=== PATIENT | male | born 1995 | race Caucasian/White ===

== ENCOUNTER 2022-05-22 08:12 | Emergency (ER) | payer MEDICAID, SELFPAY ==
[2022-05-22 08:14] VITALS: BP 125/94; PULSE 79; RESP 14; TEMP 37.2; O2SAT 100
[2022-05-22 08:16] VITALS: BMI 19.5
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
[2022-05-22 08:30] LABS: Absolute Lymphocyte Count 0.85 X10^3/uL (0.83-4.51); Absolute Neutrophil Count 12.5 X10^3/uL (2.0-7.7); Basophil# 0.02 X10^3/uL; Basophil% 0.1 % (0-1); Hematocrit 48.9 % (40-54); Hemoglobin 15.6 g/dL (13.0-16.5); Lymphocyte # 0.85 X10^3/ul (0.83-4.51); Lymphocyte % 6.2 % (19-41); Mean Corp Hgb Conc 31.9 g/dL (32-36); Mean Corpuscular Volume 81.6 fL (80-94); Mean Platelet Vol. 9.4 fl (6.2-12.0); Monocyte# 0.36 X10^3/uL; Monocyte% 2.6 % (0-10); NRBC Flagged by Analyzer 0 % (0-5); Neutrophil # 12.46 X10^3/uL (2.7-7.7); Neutrophil % 90.6 % (47-70); Platelet Count 292 K/mm3 (150-450); RBC Distribution Width CV 13.3 % (11.6-14.6); Red Blood Count 5.99 M/mm3 (4.6-6.2); White Blood Count 13.8 K/mm3 (4.4-11.0)
[2022-05-22] MEDS: 0.9% Normal Saline 1,000 ML 150 ML IV (08:30)
[2022-05-22] MEDS: Morphine 4 MG/ML Syringe IV (08:31)
[2022-05-22] MEDS: Ondansetron 4 MG/2 ML Vial IV (08:31)
[2022-05-22] MEDS: Ketorolac 30 MG/ML Syringe IV (08:31)
[2022-05-22 08:42] LABS: Anion Gap 10 (5-15); BUN 7 mg/dL (7-18); BUN/Creat Ratio 9.2 RATIO (10-20); Calcium,Total 9.3 mg/dL (8.5-10.1); Chloride 102 mmol/L (98-107); Creatinine, Serum 0.76 mg/dL (0.70-1.30); EST Glomerular Filtration Rate 130 mL/min (>60); Est Glom Filt Rate - Afr Amer 157 mL/min (>60); Glucose 149 mg/dL (74-106); Potassium 3.7 mmol/L (3.5-5.1); Sodium Level 139 mmol/L (136-145)
[2022-05-22 09:15] LABS: AST(SGOT) 16 U/L (15-37); Alanine Aminotransfer ALT/SGPT 20 U/L (16-61); Albumin, Serum 4.1 g/dL (3.2-5.0); Alkaline Phosphatase 71 U/L (45-117); Bilirubin, Direct 0.14 mg/dL (0.00-0.30); Globulin 3.8 g/dL (2.2-4.2); Protein, Total 7.9 g/dL (6.4-8.2)
[2022-05-22 09:22] LABS: Bacteria 0 SEEN /hpf (None Seen); Mucous, Urine 0 SEEN /hpf (<or=2+); Red Blood Cells-Urine 0 SEEN /hpf (0-5); Squamous Epithelial Cells - UA 0 SEEN /hpf (0-5); White Blood Cells 0 SEEN /hpf (0-5)
[2022-05-22 09:24] LABS: Glucose, Dipstick Normal (Normal); Leukocyte Esterase-Dipstick Negative /ul (Negative); Nitrite-Dipstick Negative (Negative); Occult Blood-Urine Negative /ul (Negative); Protein-Dipstick 15 mg/dl (Negative); Specific Gravity, Urine 1.015 (1.002-1.030); Urine Bilirubin Dipstick Negative (Negative); Urine Urobilinogen 4 mg/dl (Normal)
[2022-05-22 09:34] LABS: Color, Urine Yellow (Yellow); Urine Clarity Clear (Clear)
[2022-05-22 09:36] LABS: Ketone-Dipstick 150 mg/dl (Negative)
[2022-05-22 09:37] LABS: Amorphous Sediment 1+
[2022-05-22 10:11] LABS: D-Dimer Quantitative (DVT/PE) 0.64 FEU/ug/m (0.27-0.49)
--- NOTE | 2022-05-22 10:16 | CT_ITS ---
STUDY: CTA CHEST REASON FOR EXAM: Male, 26 years old. Chest pain. Paraplegic since 2019 RADIATION DOSAGE (If Supplied By Facility): CTDIvol = ( 9.76 ) mGy, DLP = ( 360.76 ) mGycm TECHNIQUE: The examination was performed with the intravenous administration of IV 75mL Isovue-370. Post-processing of the angiographic images was performed, with multiplanar reformation and 3D reconstruction. Individualized dose optimization techniques were used for this CT. COMPARISON: None. FINDINGS: Normal enhancement of the main pulmonary artery and right and left pulmonary arteries. Normal enhancement of the bilateral peripheral pulmonary arteries. There is no demonstrated pulmonary embolism. Normal thoracic aorta and visualized great vessels. There is no demonstrated aortic dissection. Normal heart and pericardium. Normal mediastinum. Normal hilar regions. Normal visualized trachea and bronchi. The lungs are well expanded. Normal pulmonary parenchyma. Normal pleura. Normal chest wall structures. Nomi fixation device is seen in the lower thoracic and upper lumbar vertebrae. Normal visualized upper abdomen. CT/CTA Chest W/WO Contrast IMPRESSION: Normal CTA chest examination, without a demonstrated pulmonary embolism or arterial dissection. Electronically Signed: Vinicio Yip MD at 10:45 EDT ,
[2022-05-22 11:21] VITALS: BP 126/66; PULSE 91; RESP 16; O2SAT 98
== END 2022-05-22 11:26 | disposition home or self-care (01) ==
PROVIDERS: Emergency Provider Emergency Medicine; PCP Internal Medicine; Visit Provider Emergency Medicine
DX: R07.9 Chest pain, unspecified (principal); G82.20 Paraplegia, unspecified; R11.10 Vomiting, unspecified; R10.9 Unspecified abdominal pain; F17.210 Nicotine dependence, cigarettes, uncomplicated
CPT/HCPCS: 71275; 74176; 80048; 80076; 81001; 85025; 85379; 96361; 96374; 96375; 99283; J7030; Q9967; A4216; J2405

== ENCOUNTER 2023-09-27 10:34 | Inpatient (IN) | payer MEDICAID, SELFPAY ==
[2023-09-27] VITALS (14 sets, daily range): BP systolic 83–126; BP diastolic 41–96; PULSE 81–133; RESP 11–24; TEMP 36–39.5; O2SAT 10–100; BMI 20.8; BMI 20.2
--- NOTE | 2023-09-27 14:14 | EKG12_ITS ---
Test Reason : PRE-OP Blood Pressure : / mmHG Vent. Rate : 083 BPM Atrial Rate : 083 BPM P-R Int : 164 ms QRS Dur : 082 ms QT Int : 378 ms P-R-T Axes : 058 081 061 degrees QTc Int : 444 ms Normal sinus rhythm Septal infarct , age undetermined Abnormal ECG Confirmed by SOO SILVA, SILVA ([id number]), school photograph editor ADAM NASH ([id number]) on 09/29/2023 9:39:04 AM Referred By: Luis Daniel Decker Confirmed By:SILVA VANN MD
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
--- NOTE | 2023-09-27 14:18 | NURSING ---
NO OLD EKGS
[2023-09-27 14:48] LABS: Absolute Neutrophil Count 16.6 X10^3/uL (2.0-7.7); Basophil# 0.03 X10^3/uL; Basophil% 0.2 % (0-1); Eosinophil# 0.01 X10^3/uL; Eosinophils% 0.1 % (0-5); Lymphocyte % 6.7 % (19-41); Mean Corp Hgb Conc 33.3 g/dL (32-36); Mean Corpuscular Hgb 25.4 pg (27.0-32.0); Mean Corpuscular Volume 76.1 fL (80-94); Mean Platelet Vol. 9.2 fl (6.2-12.0); Monocyte# 1.36 X10^3/uL; NRBC Flagged by Analyzer 0 % (0-5); Neutrophil # 16.56 X10^3/uL (2.7-7.7); Neutrophil % 85.3 % (47-70); Platelet Count 452 K/mm3 (150-450); RBC Distribution Width CV 13.9 % (11.6-14.6); RBC Distribution Width SD 38.4 fl (35.1-43.9); Red Blood Count 4.73 M/mm3 (4.6-6.2); White Blood Count 19.4 K/mm3 (4.4-11.0)
[2023-09-27 14:53] LABS: Alcohol, Blood (Medical)-Serum < 3.0 mg/dL
[2023-09-27] MEDS: 0.9% Normal Saline (1000mL) 1,000 ML 1000 ML IV (14:57)
[2023-09-27 14:59] LABS: ALB/GLOB Ratio 0.4 RATIO (0.9-2.4); AST(SGOT) 60 U/L (15-37); Alanine Aminotransfer ALT/SGPT 40 U/L (16-61); Albumin, Serum 2.2 g/dL (3.2-5.0); Alkaline Phosphatase 85 U/L (45-117); Anion Gap 7 (5-15); BUN 6 mg/dL (7-18); Calcium,Total 8.2 mg/dL (8.5-10.1); Chloride 91 mmol/L (98-107); Creatinine, Serum 0.75 mg/dL (0.70-1.30); EST Glomerular Filtration Rate 130 mL/min (>60); Est Glom Filt Rate - Afr Amer 157 mL/min (>60); Globulin 4.9 g/dL (2.2-4.2); Glucose 121 mg/dL (74-106); Potassium 2.9 mmol/L (3.5-5.1); Protein, Total 7.1 g/dL (6.4-8.2); Sodium Level 127 mmol/L (136-145)
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
[2023-09-27] MEDS: Acetaminophen 325 MG Tablet 650 MG PO (15:14)
[2023-09-27 15:17] LABS: Lactic Acid 1.6 mmol/L (0.4-1.9)
--- NOTE | 2023-09-27 15:40 | RAD_ITS ---
STUDY: X-RAY CHEST REASON FOR EXAM: Male, 28 years old. General illness. Fever. TECHNIQUE: AP and lateral views of the chest. COMPARISON: None. FINDINGS: EKG electrodes are seen. The lungs are clear and expanded. There is no demonstrated pleural abnormality. Normal size heart. Normal mediastinum and romy. Normal visualized pulmonary arteries. Normal visualized aortic arch and descending thoracic aorta. Evidence of prior intraventricular screw fixation of the lower thoracic and upper lumbar spines. Normal visualized ribs, clavicles, and shoulders. There is no demonstrated abnormality of the visualized soft tissue structures of the upper abdomen. RAD/Chest PA and Lateral IMPRESSION: No acute abnormality is seen. Electronically Signed: Vinicio Yip MD at 15:53 EDT ,
[2023-09-27 15:42] LABS: D-Dimer Quantitative (DVT/PE) 6.55 FEU/ug/m (0.27-0.49)
--- NOTE | 2023-09-27 15:51 | CT_ITS ---
We are attempting to reach an attending provider to discuss findings. An addendum with communication details will be sent when the communication is complete. INDICATION: fever, wound to buttocks EXAMINATION: CT ABDOMEN AND PELVIS with CONTRAST - CT Abdomen And Pelvis W/ Contrast Injection TECHNIQUE: Multiple axial images were obtained of the abdomen and pelvis following administration of IV contrast. Planar reconstructions obtained. A radiation dose optimization technique was used for this scan. RADIATION DOSAGE (If Supplied By Facility): CTDIvol = ( 12.83 ) mGy, DLP = ( 1090.62 ) mGycm IV Contrast dosage and agent: 100 mL Isovue-370 Oral contrast: None. COMPARISON: No pertinent previous studies for comparison.. FINDINGS: AREAS OF INTEREST: 1. There is a significant large area of fluid density involving the LEFT buttock, extending to level of the ischial tuberosity. There is infiltration of the R gluteal fascial planes, and soft tissue stranding extends into the ischiorectal fossa. The irregular fluid collection measures approximately 8.7 x 8.7 cm. This does extend into the proximal thigh. No soft tissue or subcutaneous emphysema noted. 2. No destructive bony process noted. REMAINING EXAMINATION: LOWER THORAX: Lungs are clear. Cardiac contour is normal, no pericardial effusion. No coronary vascular calcifications noted. HEPATOBILIARY: Liver: The liver is homogeneous and shows no evidence of focal lesion. Gallbladder: Surgically absent. No ductal dilatation. Pancreas: Pancreas is normal size configuration and density. No mass is noted. Spleen: The spleen is homogeneous and normal in size. . BOWEL: Stomach: The stomach is normal in size configuration, no evidence of focal masses, abnormal calcifications. No hiatal hernia noted. Bowel: There is a nonspecific pattern of large and small bowel segments, mild dilatation and moderate amount of fluid and air-fluid levels are present however no transitional point or obstruction noted. Moderate amount retained formed stool in colon.. Appendix: The visualized appendix has normal appearance.: GENITOURINARY: Adrenals: Both adrenal glands are normal in size. Kidneys: Kidneys appear symmetric in size. No calcifications are seen in the collecting system. There is no hydronephrosis or surrounding fluid. Bladder: Normal Pelvic organs: Normal appearance of the pelvic floor, however there is significant soft tissue stranding in the mesorectal fascia. No evidence of fluid abscess or adenopathy in the true pelvis. RETROPERITONEUM: There is normal appearance of the abdominal aorta and inferior vena cava. LYMPH NODES: No evidence of retroperitoneal or para-aortic masses fluid collections or adenopathy. PERITONEAL CAVITY: No ascites noted ANTERIOR ABDOMINAL WALL: Normal, no hernia identified. BONES AND SOFT TISSUES: Postoperative changes of pedicle screw posterior fixation of thoracolumbar spine. There is a irregular appearance of the L3 vertebral body which is not significantly changed in the interval. There is incidental note of transitional anatomy with partial lumbarization of S1. Remote post traumatic changes at L3 and decompressive laminectomies with posterior stabilization appears stable. No acute bony process. OTHER: None CT/Abdomen/Pelvis W IV Cont ONLY IMPRESSION: 1. Large irregular fluid collection measuring maximal axial dimensions of 8.7 x 8.7 cm within the subcutaneous soft tissue planes extending into the muscular fascial planes and deep compartments of the LEFT buttock with extension into the gluteal musculature, as well as the ischiorectal fossa, and into the posterior proximal LEFT thigh. Large abscess without subcutaneous or soft tissue emphysema is suspected, however given the multiple compartments, developing necrotizing fasciitis is an additional consideration. No destructive bony process noted. 2. Soft tissue stranding and inflammatory changes noted within the mesorectal fascia without suzy intrapelvic masses adenopathy or fluid collections. 3. Abnormal appearance of bowel segments which are mildly distended containing air-fluid levels. No transition point noted, developing adynamic ileus however is a consideration. 4. No evidence of renal calcification or obstructive uropathy. 5. Status post cholecystectomy without ductal dilatation. 6. Stable remote posttraumatic changes and postoperative changes involving the thoracolumbar spine. Electronically Signed: Jose Luis Kuhn MD at 17:47 EDT ,
--- NOTE | 2023-09-27 15:51 | CT_ITS ---
STUDY: CTA CHEST REASON FOR EXAM: Male, 28 years old. sob, tachycardia RADIATION DOSAGE (If Supplied By Facility): CTDIvol = ( 12.83 ) mGy, DLP = ( 1090.62 ) mGycm TECHNIQUE: The examination was performed with the intravenous administration of IV 100mL Isovue-370. Post-processing of the angiographic images was performed, with multiplanar reformation and 3D reconstruction. Individualized dose optimization techniques were used for this CT. COMPARISON: 05/22/2022 FINDINGS: Tubes and lines: 1. No life-support noted. CTA: PULMONARY ARTERIES: There is normal configuration and contrast opacification of pulmonary outflow tract, main pulmonary arteries, segmental and intersegmental pulmonary arteries bilaterally without evidence of intraluminal filling defects. AORTIC ARCH: The aortic arch and descending aorta have normal configuration. No evidence of dissection or aneurysmal dilatation. HEART: Cardiac contour is normal. There is a small pericardial effusion versus anterior pericardial thickening. CT CHEST: LUNGS: [No parenchymal infiltrate.. No mass. No consolidation. PLEURAL SPACES: Unremarkable, no effusion or pneumothorax.. Multiple areas of pleural thickening most notable at the lung apices. MEDIASTINUM AND LYMPH NODES: Unremarkable. No significant adenopathy. BONES: Unremarkable. There are postoperative changes of pedicle screw posterior fixation involving the lower thoracic spine extending into the upper lumbar spine. ABDOMEN: Within normal limits. Other: None IMPRESSIONS: 1. No CTA evidence of pulmonary embolism. 2. No CTA evidence of aortic aneurysm or dissection 3. Normal appearance of the cardiac contour. Pericardial thickening versus small pericardial effusion noted. No coronary vascular calcifications noted. 4. No focal infiltrate consolidation or effusion noted. Chronic appearing pleural thickening at the lung apices. Electronically Signed: Jose Luis Kuhn MD at 17:24 EDT , CT/CTA Chest W/WO Contrast IMPRESSION: undefined
[2023-09-27 15:54] LABS: Magnesium 2.4 mg/dL (1.6-2.6)
[2023-09-27 16:47] LABS: Amphetamine Urine NEGATIVE (<1000 ng/mL); Barbiturate Urine NEGATIVE (< 200 ng/mL); Benzodiazepine Urine NEGATIVE (< 200 ng/mL); Cocaine Urine NEGATIVE (< 300 ng/mL); Ecstacy Urine NEGATIVE (< 500 ng/mL); Methadone Urine NEGATIVE (< 300 ng/mL); Opiates Urine NEGATIVE (< 300 ng/mL); PCP Urine NEGATIVE (< 25 ng/mL); THC Urine NEGATIVE (< 50 ng/mL); Vista UDS pH Range 5
--- NOTE | 2023-09-27 17:00 | CM.ED ---
Social Work This approached by nursing that patient requesting to speak with social science research assistant again. RN reports testing is showing signs of need for hospitalization. This investigative writer met with patient in room, providing patient a brochure on [employer] including the housing program. Patient reports to be able to read and understand what is read. Patient immediately apologized to this investigative writer for tone used and getting snippy with social science research assistant earlier. Patient reports has thought about it, and would like for this investigative writer to help patient. Patient reports would like to get out of the hospital and then have this investigative writer meet patient down at [employer] to help with paperwork. Patient reports did go to [facility] [employer] when arrived back to [place], that wheeled self into the lobby and was told there was paperwork to do. Patient reports does not know how to do paperwork. Educated this investigative writer's practice is limited to the hospital; unable to do community work. Educated that a referral could be made to [employer] for the housing program, and need for help with paperwork could be communicated to [employer]. This investigative writer also suggested patient's father be pulled in to help patient. Patient resistive to having his father help. Patient accepted brochure Discussed with patient need for medical follow up and whether patient's father can help. Patient reports to know how to call his insurance and get rides, or uses wheelchair to transport self around town. During discussion, ED physician arrived to report of need for admission, surgical consult, and IV antibiotics. This investigative writer educated patient that social work would be following patient on the inpatient unit, and depending on the outcome of medical interventions, would be dependent on types of referrals needed. Due to patient being admitted, and uncertainty as to whether patient's care needs will be too extensive to return to the community (versus short term SNF for IVs and/or wound care) social work will follow for appropriate referrals. Handoff to acute RN CM/SW team. -MEHDI Davis
[2023-09-27 17:05] LABS: Mucous, Urine 0 SEEN /hpf (<or=2+)
[2023-09-27 17:19] LABS: Color, Urine Yellow (Yellow); Glucose, Dipstick Normal (Normal); Ketone-Dipstick 50 mg/dl (Negative); Leukocyte Esterase-Dipstick 25 /ul (Negative); Nitrite-Dipstick Negative (Negative); Occult Blood-Urine 250 /ul (Negative); Protein-Dipstick 30 mg/dl (Negative); Urine Bilirubin Dipstick Negative (Negative); Urine Clarity Clear (Clear); Urine Urobilinogen 4 mg/dl (Normal)
[2023-09-27] MEDS: Piperacil/Tazobactam 4.5 GM in 0.9% Normal Saline (100mL MB+) 100 ML IV (17:28)
[2023-09-27 17:53] LABS: Bacteria 2+ /hpf (None Seen); Red Blood Cells-Urine 0-5 SEEN /hpf (0-5); Squamous Epithelial Cells - UA 0-5 SEEN /hpf (0-5); White Blood Cells 0-5 SEEN /hpf (0-5)
--- NOTE | 2023-09-27 18:05 | NURSING ---
MED SURG ALVARADO SACRAL WOUND, SEPSIS
[2023-09-27] MEDS: 0.9% Normal Saline (1000mL) 1,000 ML 999 ML IV (18:10)
[2023-09-27] MEDS: Vancomycin HCl 1,250 MG in 0.9% Normal Saline (250mL Bag) 250 ML 167 MG IV (18:10)
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
--- NOTE | 2023-09-27 19:31 | PRE.ANES_ITS ---
ASA Classification* ASA Classification ASA Classification: 3 Assessment & Plan Anesthesia* Anesthesia Assessment Anesthesia Assessment: Discussed sedation and/or anesthesia options, risks, benefits, and alternatives with patient/parents/legal guardian/POA. Questions invited. The patient/parents/legal guardian/POA seems to understand and agrees to proceed with anesthesia plan. Reviewed the physical assessment, medical history, allergy history and patient home medications list prior to surgery/procedure/anesthetic and documented any changes. Performed airway and anesthesia risk assessments. Anesthesia Type Anesthesia Type: MAC (GA BACKUP) Anesthesia Focused Assessment* Temperature: 99.1 F Pulse Rate: 105 Blood Pressure: 126/96 Respiratory Rate: 19 Pulse Ox: 99 Airway Assessment Mouth opens: >3 cm Mallampati Score: II Focused Labs Anesthesia Preop lab: CBC WBC 19.4 K/mm3 (4.4-11.0) H 09/27/23 14:33 RBC 4.73 M/mm3 (4.6-6.2) 09/27/23 14:33 Hgb 12.0 g/dL (13.0-16.5) L 09/27/23 14:33 Hct 36.0 % (40-54) L 09/27/23 14:33 Plt Count 452 K/mm3 (150-450) H 09/27/23 14:33 CHEMISTRY Potassium 2.9 mmol/L (3.5-5.1) L 09/27/23 14:33 Sodium 127 mmol/L (136-145) L 09/27/23 14:33 Magnesium 2.4 mg/dL (1.6-2.6) 09/27/23 14:33 BUN 6 mg/dL (7-18) L 09/27/23 14:33 Creatinine 0.75 mg/dL (0.70-1.30) 09/27/23 14:33 Glucose 121 mg/dL (74-106) H 09/27/23 14:33 COAG Pre-Assessment Diagnosis/Proposed Procedure Planned Operative Procedure(s): I&D left buttock abscess Anesthesia History 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 When Was Last Pacemaker Check QUESTION #4 FULL TEXT: You/Your Family Experience fever (hyperthermia) with Anesthesia Last Oral Intake Last Oral intake: Last Oral Intake NPO since 12:00 09/27/23 18:40 Meds taken in AM with sips of water? Meds patient instructed to tylenol (Orally) 09/27/23 18:40 take am of surgery PONV PONV - color paste mixing supervisor: PONV - color paste mixing supervisor Female HX of Motion Sickness HX of N/V After Surgery Non-Smoker Duration of Surgery greater than 60 minutes Number of Risk Factors PONV Score Height & Weight Height & Weight: Anesthesia: Height & Weight Height 6 ft 5 in 09/27/23 18:40 Weight: 79.8 kg 09/27/23 18:40 Body Mass Index (BMI) 20.8 09/27/23 18:40 Respiratory Assessment Respiratory Assessment - color paste mixing supervisor: Respiratory Tract Infection Hx - color paste mixing supervisor Hx Respiratory Tract Infection No 09/27/23 18:40 STOP Sleep Apnea STOP Sleep Apnea - color paste mixing supervisor: STOP Sleep Apnea - color paste mixing supervisor Hx Hypertension No 09/27/23 18:40 Hx Sleep Apnea No 09/27/23 18:40 CPAP BIPAP Do you snore loudly (louder No 09/27/23 18:40 than talking or can be heard Do you often feel tired/ No 09/27/23 18:40 fatigued/ sleepy during daytime? Has anyone observed you stop No 09/27/23 18:40 breathing during sleep? STOP Results Negative 09/27/23 18:40 QUESTION #5 FULL TEXT : Do you snore loudly (louder than talking or can be heard through closed doors)? Tobacco Use History Tobacco Use History - color paste mixing supervisor: Tobacco Use History - color paste mixing supervisor Tobacco Use Smoking Status Current every day smoker 09/27/23 14:14 Hx Tobacco Use Years Smoking Packs Smoked per Day Smoking Cessation Date was within the last 15 years Hx Smoking Cessation Date Hx Smoking Cessation Counseling Hematologic Medial History Hematologic Hx - color paste mixing supervisor: Hematologic Medical Hx - continuity manager Hx of Blood Transfusion Hx of Transfusion in last 3 Months Date of Last Transfusion (if within last 3 months) Ever experience any problems with transfusion(s)? Specify any problems Hx of Preganancy in last 3 Months Nurse Filling Out Transfusion & Questions: Date: Time: Patient unable to answer at this time (ie. confused, unrespo /Reproduction History /Reproductive History - color paste mixing supervisor: /Reproductive Hx- color paste mixing supervisor Hx Now No 09/27/23 18:40 Gestational Age (in weeks): EDC: Hx Hx Para Hx Section SAB No 09/27/23 18:40 [facility] Medical History Paraplegia Hx of back injury Allergy/AdvReac Type Severity Reaction Status Date / Time No Known Allergies Allergy Verified 04/08/23 10:33 Surgical History S/P lumbar spinal fusion Social History Smoking Status: Current every day smoker tobacco type: cigarettes, e-cigarettes and smokeless tobacco Review of Systems (Anesthesia) ROS Narrative System reviewed and no additional complaints, except as documented.
[2023-09-27] MEDS: Potassium Chloride IVPB 10 MEQ 100 MEQ IV BOLUS (20:10)
--- NOTE | 2023-09-27 20:12 | VDLE_ITS ---
Reason For Study: Elevated D-dimer RIGHT LEFT GSV is normal. GSV is normal. CFV is compressible, spontaneous, phasic, CFV is compressible, spontaneous, phasic, competent and demonstrates normal competent, and demonstrates normal augmentation. augmentation. FV is compressible, spontaneous, phasic, FV is compressible, spontaneous, phasic, competent and demonstrates normal competent and demonstrates normal augmentation. augmentation. POP V is compressible, spontaneous, phasic, POP V is compressible, spontaneous, phasic, competent and demonstrates normal competent and demonstrates normal augmentation. augmentation. T/P Trunk is compressible. T/P Trunk is compressible. PTV is compressible. Calf veins not visualized due to hard cast. RT PerV is compressible. Procedure This is a venous duplex using B-mode, color flow and spectral Doppler. Exam performed portable in patient room. The study was technically limited. A preliminary report was called and/or faxed to [facility]. VL/Venous Duplex US - Nick Extrem Interpretation Summary Deep veins of the bilatral lower extremities are patent and compressible segmen tally. There is no evidence of bilateral lower extremity deep vein thrombosis. The bilateral great saphenous veins appear patent and compressible segmentally. Limited study on left due to dressings Ordering Physician: Karon La Referring Physician: Brady Tripathi M.D. Performed By: Shasha Demarco RVT
[2023-09-27] MEDS: Clindamycin in 0.9% Sod Chlor 600 MG/50 ML BAG 100 MG IV (20:57)
[2023-09-27] MEDS: DAKIN'S SOL HALF STRENGTH (=0.25%) 1 APPLIC TOPICAL (21:10)
--- NOTE | 2023-09-27 21:45 | POSTOPAN2_ITS ---
Anesthesia Postop Eval I Sum Postop Eval Completion status Anesthesia document: Postop Eval 1 completed: Yes Anesthesia Postop Eval I Summary Anesthesia Postop Eval I Summary: Anesthesia Postop Eval I: Assessment Summary Airway patent Yes 09/27/23 21:45 WINE BOTTLE INSPECTOR.MDOT Spontaneous unlabored Yes 09/27/23 21:45 WINE BOTTLE INSPECTOR.MDOT respirations Mental status Awake,Calm 09/27/23 21:45 WINE BOTTLE INSPECTOR.MDOT nausea No 09/27/23 21:45 WINE BOTTLE INSPECTOR.MDOT Vomiting No 09/27/23 21:45 WINE BOTTLE INSPECTOR.MDOT Anesthesia Postop Eval I: Fluid Summary Crystalloid volume administer 1,000 09/27/23 21:45 WINE BOTTLE INSPECTOR.MDOT (ml) Colloids volume administered ( ml) Blood Product volume administered (ml) Total IV fluid infused 1,000 09/27/23 21:45 WINE BOTTLE INSPECTOR.MDOT Anesthesia Postop Eval I: Summary Notes Anesthesia Complication No 09/27/23 21:45 WINE BOTTLE INSPECTOR.MDOT Anesthesia Complication Comment: Post-operative progress note Anesthesia: Postop Eval II Evaluation Mental status: Awake and Calm Pain Level: 0 nausea: No Vomiting: No Complications Anesthesia Complication: No
--- NOTE | 2023-09-27 21:45 | PCM.POST.ANE ---
Anesthesia: Postop Eval I Current Vital Signs Temperature: 98 F Pulse Rate: 81 Blood Pressure: 86/43 Respiratory Rate: 18 Pulse Ox: 97 Oxygen Delivery Method: Room Air Assessment Airway patent: Yes Spontaneous unlabored respirations: Yes Mental status: Awake and Calm nausea: No Vomiting: No Anesthesia Complication: No Fluid Hydration Crystalloid volume administer (ml): 1,000 Total IV fluid infused: 1,000 Progress Note Anesthesia document: Postop Eval 1 completed: Yes
--- NOTE | 2023-09-27 21:45 | PCM.POSTANE2 ---
Anesthesia Postop Eval I Sum Postop Eval Completion status Anesthesia document: Postop Eval 1 completed: Yes Anesthesia Postop Eval I Summary Anesthesia Postop Eval I Summary: Anesthesia Postop Eval I: Assessment Summary Airway patent Yes 09/27/23 21:45 [email or web address] Spontaneous unlabored Yes 09/27/23 21:45 LOGISTICS SYSTEM [email or web address].MDOT respirations Mental status Awake,Calm 09/27/23 21:45 LOGISTICS SYSTEM [email or web address].MDOT nausea No 09/27/23 21:45 LOGISTICS SYSTEM [email or web address].MDOT Vomiting No 09/27/23 21:45 LOGISTICS [email or web address].[email or web address] Anesthesia Postop Eval I: Fluid Summary Crystalloid volume administer 1,000 09/27/23 21:45 LOGISTICS SYSTEM [email or web address].MDOT (ml) Colloids volume administered ( ml) Blood Product volume administered (ml) Total IV fluid infused 1,000 09/27/23 21:45 [email or web address].[email or web address] Anesthesia Postop Eval I: Summary Notes Anesthesia Complication No 09/27/23 21:45 [email or web address].[email or web address] Anesthesia Complication Comment: Post-operative progress note Anesthesia: Postop Eval II Evaluation Mental status: Awake and Calm Pain Level: 0 nausea: No Vomiting: No Complications Anesthesia Complication: No
--- NOTE | 2023-09-27 22:00 | OP.PCM_ITS ---
Report of Operation Date of Procedure: 09/27/23 Pre-Operative Diagnosis: Infected unstageable decubitus ulcer of the left butto ck Post-Operative Diagnosis: 1. Necrotizing fasciitis of the left buttock extending to the left posterior thigh 2. Stage III, noninfected, sacral decubitus wound Surgery/Procedure Performed:: 1. Incision and drainage of left buttock/posterior thigh abscess/necrotizing fasciitis 2. Excision of eschar from sacral decubitus wound Description of Surgical Findings:: ? Necrotic left buttock wound with significant fluctuance deep to the left gluteus nisreen. Upon incision of the gluteus we encountered copious purulence (estimated 300 mL). Extension of abscess cavity to posterior thigh, posterior femur, and ischial spine ? Full?thickness sacral wound with extension to the adipose tissue deeply, not infected ?Final wound dimensions for sacral wound 6 cm x 4-1/2 cm x 1.5 cm deep ? Final wound dimensions for left buttock/thigh wound: 14 cm x 14 cm x 5 cm deep with 8 and half centimeters of undermining inferiorly Surgeon: Luis Daniel Decker director of integrated marketing: Gia Jerry Type of Anesthesia: Local MAC Anesthesiologist: Ravinder White Specimen's removed: 1. Buttock tissue for deep wound culture 2. Left buttock tissue for culture 3. Sacral tissue for formalin 4. Abscess cavity for culture Drains: None Estimated Blood Loss (mL): 75 Description of Procedure: After obtaining written consent, patient was positioned in the right lateral decubitus position taking care to pad pressure points and inserted an axillary roll. Anesthesia administered MAC sedation. The affected area was prepped with Betadine. A verbal timeout was conducted to confirm the patient and procedure. Then the area of suzy necrosis over the left buttock was circumscribed with a scalpel and excised. The smaller area superior to this was also excised. This tissue was passed off the field for tissue culture and the resulting cavity was swabbed also for culture. Bleeding was addressed with electrocautery as we pro ceeded. I then moved to excision of an approximately 5 cm area of sacral necrosis that extended down to the adipose layer but this deeper layer appeared entirely viable and noninfected. Several small vessels were lacerated in the process of removing this overlying devitalized skin and these were secured with suture ligatures using 3-0 Vicryl suture. I then returned to the left buttock cavity where I further examined the pale, gluteus muscle. I began incising this muscle in layers using electrocautery to try to identify viable tissue and in a superficial-to- deep manner and thereby encountered patient's abscess cavity which resulted in production of copious amounts of purulent fluid. An estimated 300 mL of purulent fluid drained from this cavity which when probed digitally extended into the posterior compartment of the thigh and anteriorly we could feel the posterior aspect of the femur as well as the ischial spine more superiorly. I then extended my incision longitudinally and inferiorly to try to open up this abscess cavity not only for present examination but also for later packing. The cavity was swabbed for culture and then packed with lap sponges to obtain hemostasis. A single actively oozing vessel was identified and then ligated with 3-0 Vicryl suture inferiorly. Then the wound cavity was irrigated with a Pulsavac device using 3 L of sterile saline. At the completion of this irrigation the wound cavity was again inspected for hemostasis and selective electrocautery was applied to achieve this goal. Finding most of the tissue to appear viable, the cavity was then packed with quarter percent Dakin's?soaked 4 inch Kerlix gauze tied end to end. A total of 2-1/2 rolls was used for packing. ABD pads were taped for this site for increased absorption. The sacral ulcer bed was loosely packed with two 4 x 4 gauzes soaked with saline and again an ABD pad was placed atop this area. Patient tolerated the procedure without any apparent complication. Complications None Procedures Integumentary 10xxx: [id number] Complex drainage wound
--- NOTE | 2023-09-27 22:45 | PCM.RX.CS ---
Consult Antibiotic Management Pharmacy has been consulted to manage selected antibiotic: Vancomycin Type of Intervention Type of Consult: New start Suspected Infection Suspected Infection: Other (SACRAL ABSCESS) Prior Doses of Antibiotics Prior Doses of Antibiotics Received/Current Regimen: Vancomycin 1250 mg IV given 09/27/23 @ 1810, patient is also on clindamycin and zosyn as there was concern for necrotizing fasciitis. Labs Labs: Sodium 127 mmol/L (136-145) L 09/27/23 14:33 Potassium 2.9 mmol/L (3.5-5.1) L 09/27/23 14:33 Chloride 91 mmol/L (98-107) L 09/27/23 14:33 Carbon Dioxide 29.0 mmol/L (21.0-32.0) 09/27/23 14:33 Anion Gap 7 (5-15) 09/27/23 14:33 BUN 6 mg/dL (7-18) L 09/27/23 14:33 Creatinine 0.75 mg/dL (0.70-1.30) 09/27/23 14:33 Est GFR (MDRD) Af Amer 157 mL/min (>60) 09/27/23 14:33 Est GFR (MDRD) Non-Af 130 mL/min (>60) 09/27/23 14:33 BUN/Creatinine Ratio 8.0 RATIO (10-20) L 09/27/23 14:33 Glucose 121 mg/dL (74-106) H 09/27/23 14:33 Microbiology Microbiology: Microbiology 09/27/23 15:04 Mucosa - Nose SARS-CoV-2, Influenza & RSV (PCR) - Final Dosing Weight Weight used for dosin.8 kg Estimated Creatinine Clearance Estimated Creatinine Clearance: ~160 Goal Trough Goal Trough: 10-15 mcg/mL Pharmacy Plan for Drug Dosing Pharmacy Plan for Drug Dosing: Vancomycin 1250 mg IV initial dose x 1, followed by 1250 mg Q12H Pharmacy Service will continue to monitor and adjust dosing as required. Follow-Up Labs Follow-Up Labs: Trough: Vancomycin Date/Time Labs Ordered Labs to be done on [date and time ordered]: 09/29/23 @ 8683
[2023-09-27] MEDS: 0.9% Normal Saline (1000mL) 1,000 ML 75 ML IV (22:59)
[2023-09-27] MEDS: Potassium Chloride 10mEq/100mL 10 MEQ/100 ML IV.SOLN. 100 MEQ IV BOLUS (23:14)
[2023-09-27] MEDS: Piperacil/Tazobactam 3.375 GM in 0.9% Normal Saline (50mL MB+) 50 ML IV (23:50)
[2023-09-28] VITALS (10 sets, daily range): BP systolic 86–103; BP diastolic 38–75; PULSE 95–115; RESP 16–18; TEMP 36.6–37.7; O2SAT 97–100; BMI 20.2
--- NOTE | 2023-09-28 | PRES_PTH ---
PATIENT: HEMALATHA MEDINA LOC: [facility] U#:[id number] AGE/SX: 28/M ROOM: [facility] RE09/27/[address]: Dr. Lisa Freedman MD : 1995 BED: 1 DIS: 10/09/2023 SPEC #: [id number] RECD: 09/28/23 12:22 STATUS: MEET RENicola #: [id number] TRUE: 09/28/23 00:[address]: Davion Chawla DEPT: SURGICAL PATHOLOGY RECD BY: Will Santana ENTERED: 09/28/23 12:23 SP TYPE: PRESS SORE OTHR DR: Dr. Kermit Perez, DPM MD Dr. Bryon Bull MD Dr. Robert Siska, MD Dr. Victor Velasquez, MD Tissues: A - Sacral region B - Sacral region Procedures: Decalcification bone/plaque Surgery Specimen Level IV HEADER OPERATION: Incision, drainage, abscess PRE-OP DIAGNOSIS: Infected pressure ulcer TISSUE SUBMITTED: Left sacral tissue MICROSCOPIC DIAGNOSIS Skin and soft tissue of left sacral region, excision: Ulceration with associated acute and chronic inflammation and granulation. / 09/29/2023 MICROSCOPIC DESCRIPTION Slides are reviewed. GROSS DESCRIPTION Received in fixative is one container labeled with the patient's name and designated Left sacral tissue. The specimen consists of an ovoid piece of thompson-brown skin measuring 5.0 x 4.5 x 1.0cm. The skin surface shows brownish-black discoloration and ulceration. Sections do not reveal any mass lesions. Check Inspector sections are submitted in two cassettes. 09/28/2023 TC:2 CPT:18058
[2023-09-28] MEDS: Potassium Chloride 10mEq/100mL 10 MEQ/100 ML IV.SOLN. 100 MEQ IV BOLUS ×3 (00:31→02:56)
[2023-09-28] MEDS: Clindamycin in 0.9% Sod Chlor 600 MG/50 ML BAG 100 MG IV ×2 (04:59→15:53)
[2023-09-28] MEDS: Piperacil/Tazobactam 3.375 GM in 0.9% Normal Saline (50mL MB+) 50 ML IV ×3 (05:01→21:31)
[2023-09-28] MEDS: Vancomycin HCl 1,250 MG in 0.9% Normal Saline (250mL Bag) 250 ML 167 MG IV ×2 (06:40→17:48)
[2023-09-28 07:07] LABS: Absolute Lymphocyte Count 1.85 X10^3/uL (0.83-4.51); Absolute Neutrophil Count 12.9 X10^3/uL (2.0-7.7); Basophil# 0.04 X10^3/uL; Basophil% 0.2 % (0-1); Eosinophil# 0.08 X10^3/uL; Eosinophils% 0.5 % (0-5); Hematocrit 28.9 % (40-54); Hemoglobin 9.3 g/dL (13.0-16.5); Lymphocyte # 1.85 X10^3/ul (0.83-4.51); Lymphocyte % 11.5 % (19-41); Mean Corp Hgb Conc 32.2 g/dL (32-36); Mean Corpuscular Hgb 24.7 pg (27.0-32.0); Mean Corpuscular Volume 76.7 fL (80-94); Mean Platelet Vol. 9.5 fl (6.2-12.0); Monocyte# 0.99 X10^3/uL; Monocyte% 6.2 % (0-10); NRBC Flagged by Analyzer 0 % (0-5); Neutrophil # 12.89 X10^3/uL (2.7-7.7); Neutrophil % 80.5 % (47-70); POSITIVE MORPHOLOGY YES; Platelet Count 391 K/mm3 (150-450); RBC Distribution Width CV 14.3 % (11.6-14.6); RBC Distribution Width SD 39.5 fl (35.1-43.9); Red Blood Count 3.77 M/mm3 (4.6-6.2)
[2023-09-28 07:08] LABS: Differential Indicated SCAN CRITERIA MET
[2023-09-28 07:31] LABS: ALB/GLOB Ratio 0.4 RATIO (0.9-2.4); AST(SGOT) 46 U/L (15-37); Alanine Aminotransfer ALT/SGPT 32 U/L (16-61); Albumin, Serum 1.6 g/dL (3.2-5.0); Alkaline Phosphatase 68 U/L (45-117); Anion Gap 6 (5-15); BUN 5 mg/dL (7-18); BUN/Creat Ratio 8.8 RATIO (10-20); Calcium,Total 7.6 mg/dL (8.5-10.1); Chloride 102 mmol/L (98-107); Creatinine, Serum 0.57 mg/dL (0.70-1.30); EST Glomerular Filtration Rate 181 mL/min (>60); Est Glom Filt Rate - Afr Amer 219 mL/min (>60); Estimated Creatinine Clearance 209.91 ml/min; Globulin 3.6 g/dL (2.2-4.2); Glucose 96 mg/dL (74-106); Magnesium 2.2 mg/dL (1.6-2.6); Phosphorus 3.1 mg/dL (2.5-4.9); Potassium 3.3 mmol/L (3.5-5.1); Protein, Total 5.2 g/dL (6.4-8.2); Sodium Level 135 mmol/L (136-145)
[2023-09-28 07:56] LABS: Atypical Lymphocyte 1+ %
[2023-09-28 08:45] LABS: Vitamin B12 723 pg/mL (211-911)
[2023-09-28 09:01] LABS: Ferritin 1959 ng/mL (26-388); Iron 17 ug/dL (65-175); Iron Binding Capacity,Total 141 ug/dL (250-450); PERCENT IRON SATURATION 12.1 % (15.0-55.0)
--- NOTE | 2023-09-28 09:08 | PCM.PN.SRG ---
Subjective Subjective Patient evaluated resting comfortably in bed. He denies any concerns or complaints. He is appreciative of our care. He notes the dressing was changed overnight. Objective Data Objective Data Vital Signs: Vital Signs Temp Pulse Resp BP Pulse Ox O2 Del Method 99.1 F 95 16 89/50 L 97 Room Air 09/28/23 07:15 09/28/23 07:15 09/28/23 07:15 09/28/23 07:15 09/28/23 07:15 09/28/23 07:15 Oxygen Delivery Method Room Air Weight: 171 lb 1.6 oz Body Mass Index (BMI) 20.2 Intake & Output: Intake and Output for Last 24 Hours 09/26/23 09/27/23 09/28/23 23:59 23:59 23:59 Intake Total 2525 / 2725 1575 / 1575 Output Total 700 / 700 Balance 2525 / 2725 875 / 875 Lab / Micro Data 09/28/23 06:18 09/28/23 06:18 Labs: Laboratory Results - last 24 hr 09/27/23 14:33: WBC 19.4 H, RBC 4.73, Hgb 12.0 L, Hct 36.0 L, MCV 76.1 L, MCH 25.4 L, MCHC 33.3, RDW Std Deviation 38.4, RDW Coeff of Zakia 13.9, Plt Count 452 H, MPV 9.2, Immature Gran % (Auto) 0.700, Neut % (Auto) 85.3 H, Lymph % (Auto) 6.7 L, [place] % (Auto) 7.0, Eos % (Auto) 0.1, Baso % (Auto) 0.2, Absolute Neuts (auto) 16.6 H, Absolute Lymphs (auto) 1.30, Nucleated RBC % 0, D-Dimer Quant (PE/DVT) 6.55 H*, Sodium 127 L, Potassium 2.9 L, Chloride 91 L, Carbon Dioxide 29.0, Anion Gap 7, BUN 6 L, Creatinine 0.75, Est GFR (MDRD) Af Amer 157, Est GFR (MDRD) Non-Af 130, BUN/Creatinine Ratio 8.0 L, Glucose 121 H, Lactic Acid 1.6, Calcium 8.2 L, Magnesium 2.4, Total Bilirubin 1.50 H, AST 60 H, ALT 40, Alkaline Phosphatase 85, Total Protein 7.1, Albumin 2.2 L, Globulin 4.9 H, Albumin/Globulin Ratio 0.4 L, Ethyl Alcohol < 3.0 09/27/23 16:01: Urine Color Yellow, Urine Clarity Clear, Urine pH 6.0, Ur Specific [place] 1.010, Urine Protein 30 H, Urine Glucose (UA) Normal, Urine Ketones 50 H, Urine Occult Blood 250 H, Urine Nitrite Negative, Urine Bilirubin Negative, Urine Urobilinogen 4 H, Ur Leukocyte Esterase 25 H, Urine RBC 0-5 SEEN, Urine WBC 0-5 SEEN, Ur Squamous Epith Cells 0-5 SEEN, Urine Bacteria 2+, Urine Mucus 0 SEEN, Urine Opiates Screen NEGATIVE, Urine Methadone Screen NEGATIVE, Ur Barbiturates Screen NEGATIVE, Ur Phencyclidine Scrn NEGATIVE, Ur Amphetamines Screen NEGATIVE, MDMA (Ecstasy) Screen NEGATIVE, U Benzodiazepines Scrn NEGATIVE, Urine Cocaine Screen NEGATIVE, U Cannabinoids Screen NEGATIVE, Ur Drug Screen Comment 09/28/23 06:18: WBC 16.0 H, RBC 3.77 L, Hgb 9.3 L, Hct 28.9 L, MCV 76.7 L, MCH 24.7 L, MCHC 32.2, RDW Std Deviation 39.5, RDW Coeff of Zakia 14.3, Plt Count 391, MPV 9.5, Immature Gran % (Auto) 1.100 H, Neut % (Auto) 80.5 H, Lymph % (Auto) 11.5 L, [place] % (Auto) 6.2, Eos % (Auto) 0.5, Baso % (Auto) 0.2, Absolute Neuts (auto) 12.9 H, Absolute Lymphs (auto) 1.85, Nucleated RBC % 0, Atypical Lymphocytes 1+, Sodium 135 L, Potassium 3.3 L, Chloride 102, Carbon Dioxide 27.0, Anion Gap 6, BUN 5 L, Creatinine 0.57 L, Estim Creat Clear Calc 209.91, Est GFR (MDRD) Af Amer 219, Est GFR (MDRD) Non-Af 181, BUN/Creatinine Ratio 8.8 L, Glucose 96, Calcium 7.6 L, Phosphorus 3.1, Magnesium 2.2, Iron 17 L, TIBC 141 L, Iron Saturation 12.1 L, Ferritin 1959 H, Total Bilirubin 1.50 H, AST 46 H, ALT 32, Alkaline Phosphatase 68, Total Protein 5.2 L, Albumin 1.6 L, Globulin 3.6, Albumin/Globulin Ratio 0.4 L, Vitamin B12 723, Folate 15.70 Micro: Microbiology 09/27/23 15:04 Mucosa - Nose SARS-CoV-2, Influenza & RSV (PCR) - Final Radiography Diagnostic Testing: Radiology Impression Chest X-Ray 09/27/23 15:40 IMPRESSION: No acute abnormality is seen. Electronically Signed: Vinicio Yip MD at 15:53 EDT , Abdomen/Pelvis CT 09/27/23 15:51 IMPRESSION: 1. Large irregular fluid collection measuring maximal axial dimensions of 8.7 x 8.7 cm within the subcutaneous soft tissue planes extending into the muscular fascial planes and deep compartments of the LEFT buttock with extension into the gluteal musculature, as well as the ischiorectal fossa, and into the posterior proximal LEFT thigh. Large abscess without subcutaneous or soft tissue emphysema is suspected, however given the multiple compartments, developing necrotizing fasciitis is an additional consideration. No destructive bony process noted. 2. Soft tissue stranding and inflammatory changes noted within the mesorectal fascia without suzy intrapelvic masses adenopathy or fluid collections. 3. Abnormal appearance of bowel segments which are mildly distended containing air-fluid levels. No transition point noted, developing adynamic ileus however is a consideration. 4. No evidence of renal calcification or obstructive uropathy. 5. Status post cholecystectomy without ductal dilatation. 6. Stable remote posttraumatic changes and postoperative changes involving the thoracolumbar spine. Electronically Signed: Jose Luis Kuhn MD at 17:47 EDT , ADDENDUM: 09/27/23 1819 IMPRESSION: 1. Large irregular fluid collection measuring maximal axial dimensions of 8.7 x 8.7 cm within the subcutaneous soft tissue planes extending into the muscular fascial planes and deep compartments of the LEFT buttock with extension into the gluteal musculature, as well as the ischiorectal fossa, and into the posterior proximal LEFT thigh. Large abscess without subcutaneous or soft tissue emphysema is suspected, however given the multiple compartments, developing necrotizing fasciitis is an additional consideration. No destructive bony process noted. 2. Soft tissue stranding and inflammatory changes noted within the mesorectal fascia without suzy intrapelvic masses adenopathy or fluid collections. 3. Abnormal appearance of bowel segments which are mildly distended containing air-fluid levels. No transition point noted, developing adynamic ileus however is a consideration. 4. No evidence of renal calcification or obstructive uropathy. 5. Status post cholecystectomy without ductal dilatation. 6. Stable remote posttraumatic changes and postoperative changes involving the thoracolumbar spine. N.B. : The above Results were Read Back by Jose Luis Kuhn MD to Tori Chen DO, and understanding confirmed on 09/27/2023 18:12:20 (ET). Electronically Signed: Jose Luis Kuhn MD at 17:47 EDT , Chest CTA 09/27/23 15:51 IMPRESSION: undefined Rhythm Strip Rhythm Strip: Sinus Tach Rate: 122 Ectopy: None Physical Exam Skin Skin Narrative: Left gluteus- large, 14 cm x 14 cm x 5 cm deep with approximately 8.5 cm undermining inferiorly, posterior left thigh. Healthy granulation tissue throughout majority of the open wound with eschar noted on the medial aspect of the wound. Patient unable to feel any pain at the wound site. Minimal amount of bleeding noted within the wound. Wound was repacked with 2 saline dampened gauze followed by ABD pads and secured with medipore tape. Central decubitus ulcer- approximately 6 cm x 4.5 x 1.5 cm deep. Dry gauze was applied and secured with medipore tape Assessment & Plan Assessment/Plan (1) Decubitus ulcer, unstageable with infection: PLAN: I am following this patient in conjunction with Dr. Decker. He has independently evaluated this patient. Recommend BID dressing changes. Use Dakins solution at this time. Recommend PT/OT for potential rehabilitation placement at discharge Consult case management for discharge planning Podiatry has been consulted for left lower extremity and has ordered a CT scan of the left lower extremity Plastic surgery has been consulted to assist with wound evaluation and recommendations Cultures showing Beta strep, gram negative melba, GNR lactose referral clerk Continue current IV antibiotics Recommend obtaining a pressure mattress Labs reviewed with notable decrease in WBC Repeat labs are ordered for the morning We will continue to monitor this patient Charges/Coding Visit Charges Inpatient E&M: 06151 Subs Hosp L1 (post-op)
--- NOTE | 2023-09-28 09:09 | RAD_ITS ---
STUDY: X-RAY - LEFT ANKLE REASON FOR EXAM: Male, 28 years old. Left ankle fracture TECHNIQUE: 3 view(s) of the ankle were obtained in a cast. COMPARISON: None. FINDINGS: Nondisplaced transverse fracture of the distal tibial metaphysis and distal fibular metaphysis. Mild asymmetry of the ankle mortise. Normal visualized talus and calcaneus. The visualized subtalar, talonavicular, calcaneocuboid and tarsal articulations are normal. Soft tissue swelling. RAD/Ankle min 3 Views IMPRESSION: Nondisplaced transverse fracture of the distal tibial and fibular metaphysis with overlying soft tissue swelling. Mild asymmetry of the ankle mortise. Electronically Signed: Vinicio Yip MD at 9:48 EDT ,
--- NOTE | 2023-09-28 09:09 | RAD_ITS ---
STUDY: X-RAY - LEFT FOOT CLINICAL: Male, 28 years old. Left foot fracture TECHNIQUE: 3 view(s) of the foot were obtained in a cast.. COMPARISON: None. FINDINGS: Transverse fracture of the distal tibia and fibula. Normal talus, calcaneus, and tarsal bones. Normal visualized subtalar, talonavicular, calcaneocuboid, tarsal and tarsometatarsal articulations. Normal metatarsi. Normal metatarsophalangeal joint of the great toe. Normal tibial and fibular sesamoid bones. Normal interphalangeal joint of the great toe. Normal phalanges of the great toe. Normal second through fifth metatarsophalangeal joints. Normal interphalangeal joints and phalanges of the lesser toes. Soft tissue swelling. RAD/Foot min 3 Views IMPRESSION: Transverse fracture of the distal tibia and fibula with overlying soft tissue swelling. Electronically Signed: Vinicio Yip MD at 9:47 EDT ,
[2023-09-28] MEDS: Ensure Plus High Protein 120 ML LIQUID PO ×4 (09:20→21:36)
[2023-09-28] MEDS: Potassium Chloride Oral Tablet 20 MEQ 40 MEQ PO (09:20)
[2023-09-28] MEDS: Enoxaparin 40 MG/0.4 ML Syringe SC (09:21)
--- NOTE | 2023-09-28 09:59 | NURSING ---
Hannae on bed at this time per orders
--- NOTE | 2023-09-28 10:11 | CT_ITS ---
EXAM: CT LEFT LOWER EXTREMITY WITHOUT INTRAVENOUS CONTRAST, ANKLE CLINICAL INDICATION: left ankle fracture TECHNIQUE: Helically acquired images were obtained of the left ankle without intravenous contrast. 2-D reformats were performed by the technologist. This CT exam was performed using one or more of the following dose reduction techniques: automated exposure control, adjustment of the mA and/or kV according to patient size, and/or use of iterative reconstruction technique. RADIATION DOSE: CTDIvol = 15.35 mGy, DLP = 407.49 mGy-cm COMPARISON: Radiographs of the ankle of 09/28/2023. FINDINGS: BONES/JOINTS: Demineralization of the osseous structures. Slightly displaced fracture of the distal tibia. Bone resorption about the fracture site. Mild callus formation along the medial posterior aspect of the fracture site. Slightly displaced fracture of the distal fibula with callus formation laterally. No other fractures are seen. The tibiotalar joint and ankle mortise appear intact. The talocalcaneal, talonavicular and calcaneocuboid joints appear intact. No dislocation. SOFT TISSUES: Diffuse soft tissue swelling. Ankle is in cast. No radiopaque foreign body. CT/Extremity Lower without Contra IMPRESSION: 1. Fractures of the distal tibia and fibula with mild callus formation about the fracture sites as described above. 2. No evidence of dislocation or disruption of the ankle mortise. 3. Diffuse demineralization of the osseous structures. 4. Soft tissue swelling. Electronically Signed: J Carlos Cisse MD at 11:22 EDT ,
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
--- NOTE | 2023-09-28 11:36 | CASEMGMT ---
Discharge Planning A list of?[facility] providers including quality and resource use data and consistent with the patient's preferred geographic region, medical needs, and insurance network was created in [employer] Guide.? This list was provided to the RN CHRISTIE. Linda Gomez, Discharge Planning Asst.
[2023-09-28] MEDS: DAKIN'S SOL HALF STRENGTH (=0.25%) 1 APPLIC TOPICAL ×2 (11:56→23:48)
[2023-09-28] MEDS: 0.9% Normal Saline (1000mL) 1,000 ML 75 ML IV (11:56)
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
--- NOTE | 2023-09-28 14:28 | CASEMGMT ---
DANETTE SORIANO Assessment: Face to Face with pt for initial transition planning/care coordination assessment. DANETTE SORIANO introduced self and role at [facility], pt voices understanding and consents to assessment. Pt is A&O x4 and answers all questions appropriately at this time. Pt sitting up in bed in no distress. Care providers, pharmacy, and demographics verified/updated. Strata: 2 Admitting Dx:I&D, infected unstageable sacral pressure ulcer. PCP: [facility] Specialists: Denies Preferred Pharmacy: [facility] Insurance: [employer] Prescription Benefit: yes LNOK: Father, Step-mom Living Arrangements: Pt lives at [facility]. ADLs: Pt states I with ADLs and IADLs. Transportation: Pt states uses friends and taxi services for transportation. DME: Wheelchair HHC/SNF: Denies Hx of. DANETTE SORIANO reviewed DC options and provided information about LTACH, SNF and HHC agencies. Provided Pt with a list of LTACH facilities acceptable by pt insurance, created by discharge financial assistant. Pt states not willing to go to LTACH or SNF at time of DC. Pt requesting to go back to [facility] and states an employee at [facility] told him they are able to assist with Wound Vac and IV antibiotics if needed. Pt states This is too much, I am not going to another Fucking facility for the next month of my life. I want to enjoy summer, this is too fucking much. I'm going back to [facility]. CM to follow. Advised pt to ask CM if any further question/concerns/needs arise, voices understanding. Pt Goal: [facility] Plan: TBD, follow plan of care. Josafat SAMANIEGO CM
--- NOTE | 2023-09-28 14:45 | CASEMGMT ---
DANETTE SORIANO called [facility], asked if they have a nurse on staff if they are able to accept a patient with a wound vac. Stated they do not have a nurse on site and are not able to assist with any medical care. DANETTE SORIANO asked if able to send a [facility] agency to [facility] to assist with care, [facility] staff member stated they typically do not allow this. He will check with additional staff to confirm this and call back to notify if able to do so. States it is a liability on their end and often times they can not take this on. Also states they are currently full and do not have any beds available.
--- NOTE | 2023-09-28 16:01 | CASEMGMT ---
Social Work- SW met with pt to conduct SDOH assessment. Pt reports that he is from and has always lived in [place], previously living with his dad and step mom prior to a vacation in August to . Upon return, pt was kicked out of the home and has resided at [facility] since 09/20. Pt states that he has not felt unsafe and he doesn't care if people don't like me; I keep to myself. Pt states that he often goes to friends' houses during the day for something to do. Pt states that he is already connected to [facility] and would like to remain in [employer]. Pt states that he is not connected to [employer] or [employer] and does not need a food card because he receives SSI. Pt didn't choose to disclose amount of SSI. Pt states that family and friends transport pt to appointments and as a back-up, pt will use insurance medical transport. Pt was observed to have low frustration tolerance; easily becoming agitated when he felt overwhelmed or like too much information was being asked for. Pt denies any needs, reporting all you need to know is I'm at the [facility]. SW to revisit pt needs and continue to provide support. ADITYA Hood
[2023-09-28] MEDS: 0.9% Saline Lock 10 ML Syringe IV (17:55)
[2023-09-28] MEDS: Clindamycin 600 MG/50 ML BAG 100 MG IV (21:31)
[2023-09-29] VITALS (13 sets, daily range): BP systolic 88–120; BP diastolic 37–73; PULSE 83–110; RESP 16–18; TEMP 36.2–37.5; O2SAT 94–100; BMI 20.1; BMI 20.5
--- NOTE | 2023-09-29 | BONBX_PTH ---
PATIENT: HEMALATHA MEDINA LOC: MS3 U#:[id number] AGE/SX: 28/M ROOM: GA314 RE09/27/[address]: Dr. Lisa Freedman MD : 1995 BED: 1 DIS: 10/09/2023 SPEC #: [id number] RECD: 09/29/23 10:23 STATUS: MEET REQ #: [id number] TRUE: 09/29/23 00:[address]: Luis Daniel Decker DEPT: SURGICAL PATHOLOGY RECD BY: Wily Das ENTERED: 09/29/23 11:47 SP TYPE: Bone OTHR DR: DO Dr. Kermit Soares, DPM MD Dr. Bryon Bull MD Dr. Robert Siska, MD Dr. Victor Velasquez, MD Tissues: Ischium, NOS Procedures: Decalcification bone/plaque Surgery Specimen Level V Comments: @ Ordering doctor for DEC edited from to @ by GARCIA at 09/29/23 1148 @ Ordering doctor for SUV edited from to @ by GARCIA at 09/29/23 1148 @ Submitting doctor edited from to @ by GARCIA at 09/29/23 1148 @ Ordering doctor for DEC edited from to @ by ELISEO at 09/29/23 1156 @ Ordering doctor for SUV edited from to @ by ELISEO at 09/29/23 1156 @ Submitting doctor edited from to @ by ELISEO at 09/29/23 1156 HEADER OPERATION: Excision of sacral and ischial sores with bone biopsy PRE-OP DIAGNOSIS: Preexisting ischial and sacral wound TISSUE SUBMITTED: Ischial bone MICROSCOPIC DIAGNOSIS Ischial bone, biopsy: Fragments of bone with minimal acute osteomyelitis, mild chronic osteomyelitis and reactive changes. See comment. SJ/ 10/01/2023 COMMENT Bone fragments also show trilineage hematopoiesis. MICROSCOPIC DESCRIPTION Slides are reviewed. GROSS DESCRIPTION Received in fixative is one container labeled with the patient's name and designated Ischial bone. The specimen consists of two pieces of bone measuring in aggregate 1.0 x 0.6 x 0.3cm. The entire specimen is submitted in one cassette after decalcification. SJSimmr 09/30/2023 TC:2 CPT:32851,05924
[2023-09-29 04:37] LABS: Hematocrit 27.7 % (40-54); Hemoglobin 8.8 g/dL (13.0-16.5); Mean Corp Hgb Conc 31.8 g/dL (32-36); Mean Corpuscular Hgb 24.8 pg (27.0-32.0); Mean Platelet Vol. 9.8 fl (6.2-12.0); Platelet Count 410 K/mm3 (150-450); RBC Distribution Width CV 14.6 % (11.6-14.6); RBC Distribution Width SD 41.6 fl (35.1-43.9); Red Blood Count 3.55 M/mm3 (4.6-6.2); White Blood Count 10.2 K/mm3 (4.4-11.0)
[2023-09-29 04:53] LABS: Anion Gap 5 (5-15); BUN 5 mg/dL (7-18); BUN/Creat Ratio 10.4 RATIO (10-20); Calcium,Total 7.4 mg/dL (8.5-10.1); Chloride 108 mmol/L (98-107); Creatinine, Serum 0.48 mg/dL (0.70-1.30); EST Glomerular Filtration Rate 218 mL/min (>60); Est Glom Filt Rate - Afr Amer 264 mL/min (>60); Estimated Creatinine Clearance 249.27 ml/min; Glucose 134 mg/dL (74-106); Potassium 3.3 mmol/L (3.5-5.1); Sodium Level 142 mmol/L (136-145)
[2023-09-29 04:54] LABS: International Normalized Ratio 1.3; Prothrombin Time (Protime)PT. 16.1 SECONDS (11.7-14.9)
[2023-09-29 04:55] LABS: Partial Thromboplast Time 32.6 Seconds (24.1-36.2)
[2023-09-29] MEDS: Clindamycin 600 MG/50 ML BAG 100 MG IV ×3 (05:20→21:46)
[2023-09-29] MEDS: 0.9% Normal Saline (1000mL) 1,000 ML 75 ML IV ×2 (05:21→15:38)
[2023-09-29] MEDS: Piperacil/Tazobactam 3.375 GM in 0.9% Normal Saline (50mL MB+) 50 ML IV ×3 (05:32→22:39)
[2023-09-29] MEDS: Vancomycin Trough/Random Due 1 LAB MC (05:33)
[2023-09-29 06:37] LABS: Vancomycin, Trough Level 10.5 ug/mL (5.0-15.0)
--- NOTE | 2023-09-29 06:49 | PCM.HP.STD ---
HPI - General General Date of Admission: 09/27/23 Chief Complaint: General malaise/infected pressure ulcer HPI Narrative HEMALATHA MEDINA, is a 28 M who presents for excision of sacral, ischial, and gluteal wounds today in the OR. REPLACED BY [facility] Medical History (Updated 09/28/23 @ 15:[address] Davion Chawla DO) Paraplegia Hx of back injury Allergy/AdvReac Type Severity Reaction Status Date / Time No Known Allergies Allergy Verified 04/08/23 10:33 Family History unable to obtain Surgical History History of cholecystectomy S/P lumbar spinal fusion Social History (Updated 09/27/23 @ 20:[address] Karon La DO) housing: homeless Smoking Status: Current every day smoker tobacco type: cigarettes, e-cigarettes and smokeless tobacco alcohol intake: former substance use type: does not use Vital Signs Vital Signs Vital Signs: 09/28/23 07:15 09/28/23 09:25 09/28/23 10:09 Temperature 99.1 F 98.6 F Temperature Source Oral Oral Pulse Rate 95 102 H Pulse Strength Respiratory Rate 16 16 Respiratory Effort Respiratory Depth Respiratory Pattern Blood Pressure 89/50 L 95/52 L Blood Pressure Mean 63 66 Blood Pressure Source Monitor Monitor Blood Pressure Position Semi-Fowlers Semi-Fowlers Blood Pressure Location Right Arm Right Arm Pulse Ox 97 99 97 Oxygen Delivery Method Room Air Room Air Room Air 09/28/23 12:23 09/28/23 15:19 09/28/23 16:00 Temperature 98.4 F 99.9 F H Temperature Source Oral Oral Pulse Rate 98 100 100 Pulse Strength Respiratory Rate 18 18 Respiratory Effort Respiratory Depth Respiratory Pattern Blood Pressure 95/55 L 103/54 L Blood Pressure Mean 68 70 Blood Pressure Source Monitor Blood Pressure Position Semi-Fowlers Blood Pressure Location Right Arm Pulse Ox 98 100 Oxygen Delivery Method Room Air Room Air 09/28/23 21:42 09/28/23 22:00 09/29/23 00:00 Temperature 100 F H Temperature Source Oral Pulse Rate 106 H Pulse Strength Normal (2+) Respiratory Rate 16 Respiratory Effort Normal Non-Labored Respiratory Depth Normal Respiratory Pattern Normal Blood Pressure 90/75 Blood Pressure Mean 80 Blood Pressure Source Monitor Blood Pressure Position Right Lateral Blood Pressure Location Right Arm Pulse Ox 97 Oxygen Delivery Method Room Air 09/29/23 00:30 09/29/23 05:48 Temperature 98.6 F 98.4 F Temperature Source Oral Oral Pulse Rate 89 84 Pulse Strength Respiratory Rate 16 16 Respiratory Effort Respiratory Depth Respiratory Pattern Blood Pressure 99/64 96/60 Blood Pressure Mean 75 72 Blood Pressure Source Monitor Monitor Blood Pressure Position Semi-Fowlers Supine Blood Pressure Location Left Arm Right Arm Pulse Ox 100 98 Oxygen Delivery Method Room Air Room Air Weight Weight: 169 lb 12.095 oz Body Mass Index (BMI) 20.1 Physical Exam Narrative Sacral/ischial/gluteal wounds: ABD dressings in place with Kerlix. No strike through. Const alert and oriented x3 General Appearance: cooperative Resp normal respiratory effort Auscultation: clear to auscultation bilaterally Cardio regular rate Results Lab / Micro Data 09/29/23 04:15 09/29/23 04:15 Labs: Laboratory Results - last 24 hr 09/28/23 06:18: WBC 16.0 H, RBC 3.77 L, Hgb 9.3 L, Hct 28.9 L, MCV 76.7 L, MCH 24.7 L, MCHC 32.2, RDW Std Deviation 39.5, RDW Coeff of Zakia 14.3, Plt Count 391, MPV 9.5, Immature Gran % (Auto) 1.100 H, Neut % (Auto) 80.5 H, Lymph % (Auto) 11.5 L, Park % (Auto) 6.2, Eos % (Auto) 0.5, Baso % (Auto) 0.2, Absolute Neuts (auto) 12.9 H, Absolute Lymphs (auto) 1.85, Nucleated RBC % 0, Atypical Lymphocytes 1+, Sodium 135 L, Potassium 3.3 L, Chloride 102, Carbon Dioxide 27.0, Anion Gap 6, BUN 5 L, Creatinine 0.57 L, Estim Creat Clear Calc 209.91, Est GFR (MDRD) Af Amer 219, Est GFR (MDRD) Non-Af 181, BUN/Creatinine Ratio 8.8 L, Glucose 96, Calcium 7.6 L, Phosphorus 3.1, Magnesium 2.2, Iron 17 L, TIBC 141 L, Iron Saturation 12.1 L, Ferritin 1959 H, Total Bilirubin 1.50 H, AST 46 H, ALT 32, Alkaline Phosphatase 68, Total Protein 5.2 L, Albumin 1.6 L, Globulin 3.6, Albumin/Globulin Ratio 0.4 L, Vitamin B12 723, Folate 15.70 09/29/23 04:15: WBC 10.2, RBC 3.55 L, Hgb 8.8 L, Hct 27.7 L, MCV 78.0 L, MCH 24.8 L, MCHC 31.8 L, RDW Std Deviation 41.6, RDW Coeff of Zakia 14.6, Plt Count 410, MPV 9.8, PT 16.1 H, INR 1.3, APTT 32.6, Sodium 142, Potassium 3.3 L, Chloride 108 H, Carbon Dioxide 29.0, Anion Gap 5, BUN 5 L, Creatinine 0.48 L, Estim Creat Clear Calc 249.27, Est GFR (MDRD) Af Amer 264, Est GFR (MDRD) Non-Af 218, BUN/Creatinine Ratio 10.4, Glucose 134 H, Calcium 7.4 L 09/29/23 05:34: Vancomycin Trough 10.5 Micro: Microbiology 09/27/23 Unknown Rectal Abscess Gram Stain - Final 09/27/23 Unknown Rectal Abscess Wound Culture - Preliminary Beta streptococcus Gram negative melba 09/27/23 Unknown Tissue - Buttock Gram Stain - Final 09/27/23 Unknown Tissue - Buttock Wound Culture - Preliminary Beta streptococcus Gram negative melba 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 There is no evidence of bilateral lower extremity deep vein thrombosis. The bilateral great saphenous veins appear patent and compressible segmentally. Limited study on left due to dressings Ordering Physician: Abhinav, Karon Referring Physician: Brady Tripathi M.D. Performed By: Shasha Demarco Shanta Ankle X-Ray 09/28/23 09:09 IMPRESSION: Nondisplaced transverse fracture of the distal tibial and fibular metaphysis with overlying soft tissue swelling. Mild asymmetry of the ankle mortise. Electronically Signed: Vinicio Yip MD at 9:48 EDT , Foot X-Ray 09/28/23 09:09 IMPRESSION: Transverse fracture of the distal tibia and fibula with overlying soft tissue swelling. Electronically Signed: Vinicio Yip MD at 9:47 EDT , Lower Extremity CT 09/28/23 10:11 IMPRESSION: 1. Fractures of the distal tibia and fibula with mild callus formation about the fracture sites as described above. 2. No evidence of dislocation or disruption of the ankle mortise. 3. Diffuse demineralization of the osseous structures. 4. Soft tissue swelling. Electronically Signed: J Carlos Cisse MD at 11:22 EDT , Assessment & Plan Assessment/Plan (1) Decubitus ulcer, unstageable with infection: PLAN: OR today for repeat debridement No significant changes since H&P ROS complete Discussed type and screen with anesthesia (8.8 Hgb today). Plan to go prone with general anesthesia.
--- NOTE | 2023-09-29 06:53 | PCM.OP.BLANK ---
Operative Report Date of Procedure: 09/29/23 Incision/Procedure Start Time: 8:25 am Incision Close/Procedure End Time: 9:24 am (59 min procedure) Pre-Op/Pre-Procedure Diagnosis: Sacral/ischial wound Post-Op/Post-Procedure Diagnosis: same Surgeon: Bryon Perez MD Procedure(s): 1.? Excision of ischial wound, 16 x 15 cm (CPT: 72045 x 1 First 100 cm^22, CPT: 58536 x 2 for each additional 100 cm^2) 2. Excision of sacral wound, 7 x 4 cm (CPT: 66383 First 100 cm^22) 3. Bone biopsy, left ischium (CPT code 58127) 3..? Application of non-disposable negative pressure wound therapy, VeraFlow (irrigating VAC), > 50 cm^2 (CPT code: 89243) Anesthesia: General anesthesia 600 cc IVF (NS saline) 300 cc UOP (england) Findings: Necrotic debris at the base of the wound with exposed ischium. No exposure/communication with the hip joint. Abscess cavity with necrotic rind on posterior thigh Indications: Mirza Saunders is a 28-year-old male with a history of paraplegia who is postop day 2 from incision and drainage for large abscess adjacent to a left ischial wound/sacral wound with general surgery. The wound is quite dirty with necrotic tissue throughout the base and requires another procedure today for wound excision. I discussed with the patient our plan for cleaning the wound today in the operating room, and he was in agreement. He understands risks and benefits. His hemoglobin was 8.8 today and we have ordered type and screen have communicated with anesthesia our plans for surgery. Procedure Details: Consent was obtained preoperatively.? Patient was brought to the operating room and placed on the table. Once appropriate level of anesthesia was obtained, we placed him in the prone position, and I took care to assist with padding all bony prominences and protecting extremities and face from pressure injuries.? The open wound was then prepped and draped with Betadine in the usual sterile fashion.? A timeout was completed. We then facilitated excision of necrotic dermis, necrotic subcutaneous fat, necrotic fascia and muscle from the left ischial wound and sacral wound using a combination of a curette, rongeur as, scalpel and tissue scissors back to healthy bleeding viable tissue.? The ischial wound incision was extended along the posterior thigh to open the abscess cavity that was drained 2 days ago, so as to unroof it for wound care and also delay a potential advancement/rotation flap from the thigh (incision over the abscess was in a planned potential reconstructive incision). The inflammatory rind of the abscess cavity was excised. The ischial wound also had necrotic bone at the base which was excised back to healthy bleeding bone with a rongeur for a biopsy with s second clean rongeur. The entire ischial wound excision was 16 cm by 15 cm, the entire sacral wound excision was 7 cm x 4 cm. The wounds were then thoroughly irrigated with saline irrigation (6 L).? Hemostasis was achieved with electrocautery and 20 cc injection of 1% lidocaine with 1:100:000 epinephrine.? The wound was then dressed with a vera flow (irrigating with Dakin's solution) negative pressure therapy device which achieved adequate seal (>50 cm ^2 irrigating wound VAC).? Patient tolerated the procedure well and was awakened and flipped spine and moved to his pressure offloading bed and taken to recovery in stable condition.? I was present and scrubbed for the duration procedure. Estimated Blood Loss: 100 cc Specimens: Ischial bone biopsy for culture and for pathology Complications: No immediate post-operative complications Postoperative plan: Patient will need to continue pressure offloading bed and every 2 hours turns to offload the pressure sore. I have talked to his internal medicine physician who was admitted him, and we have placed a nutrition consult, and I am talking to the kid club attendant later this morning about our plan to increase his protein intake (albumin was 1.6). We will continue vera flow VAC for 48 hours, and he will come back to the operating room on 01 October 2023 for repeat wound washout and debridement as the wound continues to further demarcate.
[2023-09-29] MEDS: Lidocaine 1% /Epi 1:100 (20ml) 20 ML Vial (06:57)
--- NOTE | 2023-09-29 06:59 | PCM.RX.CS ---
Consult Antibiotic Management Pharmacy has been consulted to manage selected antibiotic: Vancomycin Type of Intervention Type of Consult: Follow-up Prior Doses of Antibiotics Prior Doses of Antibiotics Received/Current Regimen: current dose is 1250mg IV q12h Labs Labs: Sodium 142 mmol/L (136-145) 09/29/23 04:15 Potassium 3.3 mmol/L (3.5-5.1) L 09/29/23 04:15 Chloride 108 mmol/L (98-107) H 09/29/23 04:15 Carbon Dioxide 29.0 mmol/L (21.0-32.0) 09/29/23 04:15 Anion Gap 5 (5-15) 09/29/23 04:15 BUN 5 mg/dL (7-18) L 09/29/23 04:15 Creatinine 0.48 mg/dL (0.70-1.30) L 09/29/23 04:15 Est GFR (MDRD) Af Amer 264 mL/min (>60) 09/29/23 04:15 Est GFR (MDRD) Non-Af 218 mL/min (>60) 09/29/23 04:15 BUN/Creatinine Ratio 10.4 RATIO (10-20) 09/29/23 04:15 Glucose 134 mg/dL (74-106) H 09/29/23 04:15 Vancomycin Trough 10.5 ug/mL (5.0-15.0) 09/29/23 05:34 Microbiology Microbiology: Microbiology 09/27/23 Unknown Rectal Abscess Gram Stain - Final 09/27/23 Unknown Rectal Abscess Wound Culture - Preliminary Beta streptococcus Gram negative melba 09/27/23 Unknown Tissue - Buttock Gram Stain - Final 09/27/23 Unknown Tissue - Buttock Wound Culture - Preliminary Beta streptococcus Gram negative melba 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 This is within goal range so will keep same dose. Repeat another trough in 2 days per protocol. Pharmacy Service will continue to monitor and adjust dosing as required. Follow-Up Labs Follow-Up Labs: Trough: Vancomycin Date/Time Labs Ordered Labs to be done on [date and time ordered]: 10/01/23 05:30
--- NOTE | 2023-09-29 07:00 | PCM.PRE.AN2 ---
ASA Classification* ASA Classification ASA Classification: 3 Assessment & Plan Anesthesia* Anesthesia Assessment Anesthesia Assessment: Discussed sedation and/or anesthesia options, risks, benefits, and alternatives with patient/parents/legal guardian/POA. Questions invited. The patient/parents/legal guardian/POA seems to understand and agrees to proceed with anesthesia plan. Reviewed the physical assessment, medical history, allergy history and patient home medications list prior to surgery/procedure/anesthetic and documented any changes. Performed airway and anesthesia risk assessments. Anesthesia Type Anesthesia Type: General (No sux due to K) Anesthesia Focused Assessment* Temperature: 98.4 F Pulse Rate: 84 Blood Pressure: 96/60 Respiratory Rate: 16 Pulse Ox: 98 Airway Assessment Mouth opens: >3 cm Mallampati Score: II Focused Labs Anesthesia Preop lab: CBC WBC 10.2 K/mm3 (4.4-11.0) 09/29/23 04:15 RBC 3.55 M/mm3 (4.6-6.2) L 09/29/23 04:15 Hgb 8.8 g/dL (13.0-16.5) L 09/29/23 04:15 Hct 27.7 % (40-54) L 09/29/23 04:15 Plt Count 410 K/mm3 (150-450) 09/29/23 04:15 CHEMISTRY Potassium 3.3 mmol/L (3.5-5.1) L 09/29/23 04:15 Sodium 142 mmol/L (136-145) 09/29/23 04:15 Magnesium 2.2 mg/dL (1.6-2.6) 09/28/23 06:18 Phosphorus 3.1 mg/dL (2.5-4.9) 09/28/23 06:18 BUN 5 mg/dL (7-18) L 09/29/23 04:15 Creatinine 0.48 mg/dL (0.70-1.30) L 09/29/23 04:15 Glucose 134 mg/dL (74-106) H 09/29/23 04:15 COAG PT 16.1 SECONDS (11.7-14.9) H 09/29/23 04:15 Pre-Assessment Diagnosis/Proposed Procedure Planned Operative Procedure(s): I&D left buttock abscess Anesthesia History 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 When Was Last Pacemaker Check QUESTION #4 FULL TEXT: You/Your Family Experience fever (hyperthermia) with Anesthesia Last Oral Intake Last Oral intake: Last Oral Intake NPO since 00:00 09/29/23 05:48 Meds taken in AM with sips of No 09/29/23 05:48 water? 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 Has anyone observed you stop No 09/27/23 22:49 breathing during sleep? STOP Results Negative 09/27/23 22:49 QUESTION #5 FULL TEXT : Do you snore loudly (louder than talking or can be heard through closed doors)? 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 Specify any problems Hx of Preganancy in last 3 N/A 09/27/23 22:49 Months Nurse Filling Out Transfusion CSCHLATTE 09/27/23 22:49 & Questions: Date: 09/27/23 09/27/23 22:49 Time: 22:50 09/27/23 22:49 Patient unable to answer at this time (ie. 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 INHALATION Q2H PRN PRN SOB &/OR WHEEZING Enoxaparin Sodium 40 mg 09/28/23 10:00 09/28/23 09:21 Enoxaparin 40 Mg/0.4 Ml Syringe SC 40 mg DAILY MIGUE Administration Piperacillin Sod/Tazobactam 50 mls @ 12.5 mls/hr 09/27/23 22:34 09/29/23 05:32 Sod 3.375 gm/ Sodium Chloride IV 12.5 mls/hr Q8 MIGUE Administration Sodium Chloride 1,000 mls @ 75 mls/hr 09/27/23 22:34 09/29/23 05:21 IV 75 mls/hr .[id number] MIGUE Administration Vancomycin IV-PHARMACY TO DOSE 500 mls @ 250 mls/hr 09/27/23 22:34 1 each/ Sodium Chloride IV PRN PRN Rx to Dose Protocol Sodium Chloride 250 mls @ 15 mls/hr 09/27/23 22:39 IV .[id number] PRN Additional IVPB Infusion Sodium Chloride 250 mls @ 15 mls/hr 09/27/23 22:39 IV .[id number] PRN Saline Flush Vancomycin HCl 1,250 mg/ 275 mls @ 167 mls/hr 09/28/23 06:00 09/28/23 19:27 Sodium Chloride IV Infused Q12H MIGUE Infusion Clindamycin Phosphate 600 mg in 50 mls @ 100 mls/hr 09/28/23 22:00 09/29/23 05:50 Cleocin IV Infused Q8 MIGUE Infusion Melatonin 3 mg 09/27/23 22:34 Melatonin 3 Mg Tablet PO QHS PRN PRN INSOMNIA Morphine Sulfate 2 - 4 mg 09/27/23 22:34 Morphine 2 Mg/Ml Syringe IV Q3H PRN PRN Pain Score 6-10 Nicotine 21 mg 09/27/23 21:00 09/28/23 09:22 Nicotine 21 Mg Patch TD Not Given DAILY MIGUE Nutritional Formula (Lactose Free) 120 ml 09/28/23 14:00 09/28/23 21:36 Ensure Plus High Protein 120 Ml Liquid PO 120 ml 4X/DAY MIGUE Administration Ondansetron HCl 4 mg 09/27/23 22:34 Ondansetron 4 Mg/2 Ml Vial IV Q8H PRN PRN NAUSEA/VOMITING Oxycodone HCl 5 mg 09/27/23 22:34 Oxycodone 5 Mg Tablet PO Q4H PRN PRN Pain Score 4-10 Senna/Docusate Sodium 2 tablet 09/27/23 22:34 Senna/Docusate Sodium 1 Tablet PO BID PRN PRN Constipation Sodium Chloride 10 - 40 ml 09/27/23 22:39 09/28/23 17:55 0.9% Saline Lock 10 Ml Syringe IV 20 ml UD PRN Administration SALINE FLUSH Sodium Hypochlorite 1 applic 09/28/23 11:10 09/28/23 23:48 Dakin's Vicki Half Strength (=0.25%) TOPICAL 1 applic BID MIGUE Administration Protocol Vancomycin Protocol 1 lab 09/29/23 03:30 09/29/23 05:33 Vancomycin Trough/Random Due 09/29/23 07:30 1 lab DAILY MIGUE Administration Vancomycin Protocol 1 lab 10/01/23 03:30 Vancomycin Trough/Random Due 10/01/23 07:30 DAILY MIGUE PFSH Medical History (Updated 09/28/23 @ 15:[address] Davion Chawla, DO) Paraplegia Hx of back injury Allergy/AdvReac Type Severity Reaction Status Date / Time No Known Allergies Allergy Verified 04/08/23 10:33 Family History unable to obtain Surgical History History of cholecystectomy S/P lumbar spinal fusion Social History (Updated 09/27/23 @ 20:[address] Karon La, DO) housing: homeless Smoking Status: Current every day smoker tobacco type: cigarettes, e-cigarettes and smokeless tobacco alcohol intake: former substance use type: does not use Review of Systems (Anesthesia) ROS Narrative System reviewed and no additional complaints, except as documented.
[2023-09-29] MEDS: Vancomycin HCl 1,250 MG in 0.9% Normal Saline (250mL Bag) 250 ML 167 MG IV ×2 (08:24→17:57)
--- NOTE | 2023-09-29 10:01 | PCM.POST.ANE ---
Anesthesia: Postop Eval I Current Vital Signs Temperature: 97.1 F Pulse Rate: 90 Blood Pressure: 91/37 Respiratory Rate: 16 Pulse Ox: 100 Oxygen Delivery Method: Room Air Assessment Airway patent: Yes Spontaneous unlabored respirations: Yes Mental status: Asleep nausea: No Vomiting: No Anesthesia Complication: No Fluid Hydration Crystalloid volume administer (ml): 600 Total IV fluid infused: 600 Progress Note Anesthesia document: Postop Eval 1 completed: Yes
[2023-09-29] MEDS: Potassium Chloride Oral Tablet 20 MEQ 40 MEQ PO (11:40)
[2023-09-29 11:50] LABS: Hemoglobin A1c 5.5 % (3.8-5.6)
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
--- NOTE | 2023-09-29 13:30 | PCM.PN.ID ---
Physical Exam Narrative Feeling ok, no fever, no n/v. S/p OR this AM. Const alert and no apparent distress Resp normal air movement and clear to auscultation bilaterally Cardio regular rate and regular rhythm GI soft to palpation, non-tender and non-distended Skin Skin Narrative: surg dressing in place ID ID: Route of nutrition/ use of supplements: [] Nutritional Intake: [] IV Site: [] Watson Catheter: [] Assessment & Plan Assessment/Plan (1) Sepsis: (2) Necrotizing fasciitis: PLAN: Taken to OR 09/27/[address] Decker for I&D. Taken back to OR 09/29/[address] Perez. Cxs so far showing strep and GNR x2. On vanc/zosyn/clinda, will continue. Will need to consider diverting ostomy to help healing process. Will follow
--- NOTE | 2023-09-29 14:42 | PCM.PN.BLA ---
Progress Note Patient seen and examined during afternoon rounds after he was missed during morning rounds because he was taken down to the operating room with plastic surgery. He is currently in enjoying lunch and was repositioning in bed. Telemetry showed that his heart rate had gone to 120 bpm but patient denies any distress or pain. He does report that he shared with his father that he is in the hospital for a bedsore but has not disclosed other details. According to the operative report and observation, plastic surgery was successful with a repeat debridement as well as application of a vera flow system. No further exam is undertaken given the presence of this system and patient's recent trip to the operating room. Mr. Saunders denies any further discussions about possible colostomy. I did share that sometimes this is a necessary step to achieve healing after such an infection and Mr. Saunders confirms that he is willing to do what ever is necessary but at the same time eager to know when his treatment will be complete. I encouraged him to try to deconstruct this timeline into more palatable goals. At this time I will defer further surgical management to Dr. Perez of plastic surgery but remain available should patient require fecal diversion or other surgical service. Luis Daniel Decker MD General Surgery Endocrine Surgery Pager: [facility] [address] [place] [address], [address] [place] [address] Office: [phone] Visit Charges Inpatient E&M: [id number] [facility] Hosp L1
--- NOTE | 2023-09-29 15:01 | PCM.PN.BLA ---
Progress Note Postop check Patient doing well postoperatively, eating food, no nausea or vomiting Says he feels well Physical Exam Narrative No blood in the VAC VAC is holding suction Patient is offloading and is leaning towards the right side and is on the pressure offloading bed Assessment & Plan Assessment/Plan (1) Decubitus ulcer, unstageable with infection: PLAN: Plan Continue every 2 position changes while in bed with pressure offloading bed No laying on the left side/left ischium Continue nutrition consult Social work consult Plan for OR again on Wednesday, 01 October 2023, for repeat debridement and wound VAC exchange Procedures Musculoskeletal [id number]: Other Procedure See Report (NO CHARGE F/U )
--- NOTE | 2023-09-29 15:37 | CASEMGMT ---
Social Work- SW met with pt to continue to build relationship and offer support. PT had a procedure done earlier in the day and reported that he was very tired because of that. Pt engaged minimally, reporting no needs at this time and declining to talk further about d/c. ADITYA Hood
[2023-09-29] MEDS: Ensure Plus High Protein 120 ML LIQUID PO ×2 (17:55→22:03)
[2023-09-30] MEDS: 0.9% Normal Saline (1000mL) 1,000 ML 75 ML IV ×2 (04:24→17:35)
[2023-09-30 04:40] VITALS: BP 100/56; PULSE 88; RESP 16; TEMP 37.1; O2SAT 100
[2023-09-30 04:43] VITALS: BMI 19.8
[2023-09-30 05:07] LABS: Prealbumin < 3 mg/dL (14-35)
[2023-09-30] MEDS: Clindamycin 600 MG/50 ML BAG 100 MG IV ×3 (05:14→21:13)
[2023-09-30] MEDS: Vancomycin HCl 1,250 MG in 0.9% Normal Saline (250mL Bag) 250 ML 167 MG IV ×2 (05:58→17:37)
[2023-09-30] MEDS: Piperacil/Tazobactam 3.375 GM in 0.9% Normal Saline (50mL MB+) 50 ML IV ×3 (06:03→21:14)
[2023-09-30 06:37] LABS: Hemoglobin 8.3 g/dL (13.0-16.5); Mean Corp Hgb Conc 31.9 g/dL (32-36); Mean Corpuscular Hgb 24.8 pg (27.0-32.0); Mean Corpuscular Volume 77.6 fL (80-94); Mean Platelet Vol. 9.1 fl (6.2-12.0); Platelet Count 481 K/mm3 (150-450); RBC Distribution Width CV 14.7 % (11.6-14.6); RBC Distribution Width SD 40.9 fl (35.1-43.9); Red Blood Count 3.35 M/mm3 (4.6-6.2); White Blood Count 7.4 K/mm3 (4.4-11.0)
[2023-09-30 07:36] LABS: Anion Gap 4 (5-15); BUN 4 mg/dL (7-18); Chloride 109 mmol/L (98-107); Creatinine, Serum 0.66 mg/dL (0.70-1.30); EST Glomerular Filtration Rate 151 mL/min (>60); Est Glom Filt Rate - Afr Amer 183 mL/min (>60); Estimated Creatinine Clearance 177.76 ml/min; Glucose 112 mg/dL (74-106); Potassium 3.6 mmol/L (3.5-5.1); Sodium Level 141 mmol/L (136-145)
[2023-09-30 08:43] VITALS: BP 93/52; PULSE 81; RESP 18; TEMP 36.7; O2SAT 99
[2023-09-30] MEDS: Ensure Plus High Protein 120 ML LIQUID PO ×3 (08:49→17:45)
[2023-09-30] MEDS: Enoxaparin 40 MG/0.4 ML Syringe SC (08:50)
--- NOTE | 2023-09-30 09:34 | PCM.PN.SRG ---
Subjective Subjective Doing well today postop day 1 from. Reports that he feels. We discussed extensively what is going on with the wound and all his questions were answered. He met with a gamma facilities operator and is eating a high-protein diet. Objective Data Objective Data Vital Signs: Vital Signs Temp Pulse Resp BP Pulse Ox O2 Del Method 98.1 F 81 18 93/52 L 99 Room Air 09/30/23 08:43 09/30/23 08:43 09/30/23 08:43 09/30/23 08:43 09/30/23 08:43 09/30/23 08:43 Oxygen Delivery Method Room Air Weight: 167 lb 12.348 oz Body Mass Index (BMI) 19.8 Intake & Output: Intake and Output for Last 24 Hours 09/28/23 09/29/23 09/30/23 23:59 23:59 23:59 Intake Total 4331.25 / 4331.25 3118.33 / 3118.33 1532.5 / 1532.5 Output Total 2300 / 2300 3775 / 3975 1600 / 1600 Balance 2031.25 / 2031.25 -656.67 / -856.67 -67.5 / -67.5 Lab / Micro Data 09/30/23 06:19 09/30/23 06:19 Labs: Laboratory Results - last 24 hr 09/29/23 04:15: Hemoglobin A1c 5.5, Prealbumin < 3 L 09/30/23 06:19: WBC 7.4, RBC 3.35 L, Hgb 8.3 L, Hct 26.0 L, MCV 77.6 L, MCH 24.8 L, MCHC 31.9 L, RDW Std Deviation 40.9, RDW Coeff of Zakia 14.7 H, Plt Count 481 H, MPV 9.1, Sodium 141, Potassium 3.6, Chloride 109 H, Carbon Dioxide 28.0, Anion Gap 4 L, BUN 4 L, Creatinine 0.66 L, Estim Creat Clear Calc 177.76, Est GFR (MDRD) Af Amer 183, Est GFR (MDRD) Non-Af 151, BUN/Creatinine Ratio 6.0 L, Glucose 112 H, Calcium 7.0 L Micro: Microbiology 09/27/23 Unknown Rectal Abscess Gram Stain - Final 09/27/23 Unknown Rectal Abscess Wound Culture - Preliminary Streptococcus group G Proteus mirabilis Staphylococcus aureus 09/27/23 Unknown Tissue - Buttock Gram Stain - Final 09/27/23 Unknown Tissue - Buttock Wound Culture - Preliminary Streptococcus group G Escherichia coli Proteus mirabilis Staphylococcus aureus 09/27/23 15:04 Blood Culture (Wb) - Anticubital Left Blood Culture - Preliminary No growth in 48 hours. 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 It continues to irrigate the wound and has the appropriate settings. I returned the patient and the VAC is holding suction. No signs of pressure injury from the tubing his lower extremities are appropriately pressure offloaded on the air bed. Assessment & Plan Assessment/Plan (1) Decubitus ulcer, unstageable with infection: PLAN: Plan Patient understands the plan for repeat debridement tomorrow with irrigating wound VAC change. He understands why we need the wound VAC. We talked extensively about discharge planning to acute inpatient rehab where he can have 3 times a day physical therapy at our hospital (our acute rehab at [facility]). I talked him about pressure offloading, and staying off of the tubing for the VAC. He has been laying on his side and off the wound and is on the pressure offloading her bed. Plan for OR tomorrow N.p.o. midnight Follow-up cultures (no growth yet from ischial bone cultures from yesterday). Continue broad-spectrum antibiotics per ID, but we have source control. Continue irrigating wound VAC with current settings Would recommend discharge planning to acute inpatient rehab (should work with physical therapy) so that we can coordinate continued wound care (I could see him while in acute rehab at [facility]). Otherwise if discharged to another rehab facility, I can see him in the wound center on Mondays and as needed. The facility that is discharged to should have the ability to do 3 times per week wound VAC changes to his sacral and ischial wound. Charges/Coding Procedures Endocrine CF Procedures [id number]: Other Procedure See Report (Post op, no charge )
--- NOTE | 2023-09-30 10:17 | PCM.PN.ID ---
Physical Exam Narrative Sleeping this AM, no fever, no events overnight Const no apparent distress Resp normal air movement and clear to auscultation bilaterally Cardio regular rate and regular rhythm GI soft to palpation and non-tender Skin Skin Narrative: no new rash ID ID: Route of nutrition/ use of supplements: [] Nutritional Intake: [] IV Site: [] Watson Catheter: [] Assessment & Plan Assessment/Plan (1) Sepsis: (2) Necrotizing fasciitis: PLAN: Taken to OR 09/27/[address] Decker for I&D. Taken back to OR 09/29/[address] Perez. Cxs so far showing strep, staph aureus, ecoli, proteus. On vanc/zosyn/clinda, will continue. Seen by gen surg, pt not interested in ostomy. OR planned for tomorrow. Plan at discharge will be picc and 6 weeks iv abx. Will follow
--- NOTE | 2023-09-30 11:43 | CASEMGMT ---
Social Work SW met with pt and introduced self and role of SW. Pt lying in bed stating he is getting ready to take a nap but will speak with the SW. SW spoke with pt regarding hospitalization course. Pt is pleasant with this worker and openly communicating and offering information. Pt is aware that he will have surgery tomorrow and need for wound vac, wound care and possible IV ATB at discharge discussed. Pt is able to state that his goal is full recovery and independence. SW spoke with pt about need for continued care at time of discharge from hospital to meet these goals. Pt expressing understanding acceptance of this. Pt states main criteria on facility after discharge will be for his dad to be aloud to visit. SW spoke with pt regarding LTACH and SNF and explained the differences in level of care. Pt stating he is willing to do whatever is needed for full recovery so he can be released back into the wild. Pt stating level of care is up to hospital staff to determine what will be best for him. A list of SNF and LTACH providers including quality and resource use data and consistent with the patient?s preferred geographic region, medical needs, and insurance network were provided from the [employer] Guide. Pt states that he will review the lists. Surgery is planned for tomorrow. NIRAJ/RNCM will follow up after surgery for placement options. ADITYA Lopez
--- NOTE | 2023-09-30 11:52 | CASEMGMT ---
Discharge Planning A list of?LTACH and SNF providers including quality and resource use data and consistent with the patient's preferred geographic region, medical needs, and insurance network was created in [employer] Guide.? This list was provided to the SW. Linda Gomez Discharge Planning Asst.
--- NOTE | 2023-09-30 12:28 | CASEMGMT ---
Discharge Planning Referral sent to [facility]. Linda Gomez DC Planning Asst.
[2023-09-30 14:00] VITALS: BP 94/61; PULSE 88; RESP 18; TEMP 36.7; O2SAT 100
--- NOTE | 2023-09-30 15:49 | CASEMGMT ---
DANETTE SORIANO NOTE: RN CM to room. Pt resting in bed. His father is sitting @ bedside, looking over SNF and LTAC lists when RN CM entered room. Introduced self and role. Pt agreeable to discussing discharge planning w/his father present. Questions answered re: LTAC's and SNF's. Pt prefers to go to a SNF, as it would be closer in location. Father and pt discussed preferences and state the following are top 3 choices: 1. [facility] 2. [facility] 3. [facility]. Yesica HEALY, made aware. Caitlin KRISHNAN DANETTE SORIANO
--- NOTE | 2023-09-30 16:32 | PCM.PN.HOSP ---
Reason for Visit Reason for Visit: Diagnoses Sepsis, unspecified organism (09/27/23) Elevated white blood cell count, unspecified (09/27/23) Thrombocytosis, unspecified (09/27/23) Other disorders of bilirubin metabolism (09/27/23) Hypo-osmolality and hyponatremia (09/27/23) Hypokalemia (09/27/23) Paraplegia, unspecified (09/27/23) Local infection of the skin and subcutaneous tissue, unspecified (09/27/23) Pressure ulcer of unspecified site, unspecified stage (09/27/23) Pressure ulcer of unspecified site, unstageable (09/27/23) Necrotizing fasciitis (09/27/23) Tachycardia, unspecified (09/27/23) Fever, unspecified (09/27/23) Other specified abnormal findings of blood chemistry (09/27/23) Nondisplaced pilon fracture of left tibia, initial encounter for closed fracture (09/27/23) Subjective Subjective Patient was seen and examined today, I talked with him about treatment plans concerning his large pressure wounds on his left lateral buttocks area and area above his sacrum. I also talked with him about going to a nursing facility (half-way facility) for care when he is discharged from hospital here, he did not object to this. Also talked with him in the presence of his father who came up to visit him from [place] regarding the need for possible diverting colostomy, I also talked with plastic surgery concerning this and they felt it was a good idea, patient did not object to considering this with the knowledge he could be reversed in the future after his wound is healed. I attempted to talk with general surgery about this but was unable to contact Dr. Decker-I suspect he probably is in surgery. Objective Data Objective Data Vital Signs: Vital Signs Temp Pulse Resp BP Pulse Ox O2 Del Method 98.1 F 88 18 94/61 100 Room Air 09/30/23 14:00 09/30/23 14:00 09/30/23 14:00 09/30/23 14:00 09/30/23 14:00 09/30/23 14:00 Oxygen Delivery Method Room Air Weight: 76.1 kg Body Mass Index (BMI) 19.8 Intake & Output: Intake and Output for Last 24 Hours 09/28/23 09/29/23 09/30/23 23:59 23:59 23:59 Intake Total 4331.25 / 4331.25 3118.33 / 3118.33 1632.5 / 1632.5 Output Total 2300 / 2300 3775 / 3975 2850 / 2850 Balance 2030.25 / 2030. -656.67 / -856.67 -1217.5 / -1217.5 Lab / Micro Data 09/30/23 06:19 09/30/23 06:19 Labs: Laboratory Results - last 24 hr 09/29/23 04:15: Prealbumin < 3 L 09/30/23 06:19: WBC 7.4, RBC 3.35 L, Hgb 8.3 L, Hct 26.0 L, MCV 77.6 L, MCH 24.8 L, MCHC 31.9 L, RDW Std Deviation 40.9, RDW Coeff of Zakia 14.7 H, Plt Count 481 H, MPV 9.1, Sodium 141, Potassium 3.6, Chloride 109 H, Carbon Dioxide 28.0, Anion Gap 4 L, BUN 4 L, Creatinine 0.66 L, Estim Creat Clear Calc 177.76, Est GFR (MDRD) Af Amer 183, Est GFR (MDRD) Non-Af 151, BUN/Creatinine Ratio 6.0 L, Glucose 112 H, Calcium 7.0 L Micro: Microbiology 09/29/23 08:48 Bone - Ischial Bone Gram Stain - Final 09/29/23 08:48 Bone - Ischial Bone Wound Culture - Preliminary Gram negative melba 09/27/23 Unknown Tissue - Buttock Gram Stain - Final 09/27/23 Unknown Tissue - Buttock Wound Culture - Preliminary Streptococcus group G Gram negative melba GNR lactose chips screen tender 09/27/23 Unknown Tissue - Buttock Anaerobic Culture - Preliminary Checking for anaerobes, further studies to follow. 09/27/23 Unknown Tissue - Buttock Gram Stain - Final 09/27/23 Unknown Tissue - Buttock Wound Culture - Preliminary Streptococcus group G Escherichia coli Proteus mirabilis Staphylococcus aureus 09/27/23 Unknown Tissue - Buttock Anaerobic Culture - Preliminary Checking for anaerobes, further studies to follow. 09/27/23 Unknown Rectal Abscess Gram Stain - Final 09/27/23 Unknown Rectal Abscess Wound Culture - Preliminary Streptococcus group G Proteus mirabilis Staphylococcus aureus 09/27/23 Unknown Rectal Abscess Anaerobic Culture - Preliminary Checking for anaerobes, further studies to follow. 09/27/23 15:04 Blood Culture (Wb) - Anticubital Left Blood Culture - Preliminary No growth in 48 hours. 09/27/23 15:04 Mucosa - Nose SARS-CoV-2, Influenza & RSV (PCR) - Final Rhythm Strip Rhythm Strip: Sinus Tach Rate: 122 Ectopy: None Physical Exam Const alert, oriented x3 and no apparent distress General Appearance: cooperative, well kempt and well developed Orientation / Consciousness: awake, oriented to person, oriented to place and oriented to time HEENT normocephalic, head/scalp atraumatic and moist oral mucous membranes Eyes PERRL, EOMs intact bilaterally and conjunctivae normal Neck supple, no JVD, thyroid normal and no carotid bruits General: trachea midline Resp normal respiratory effort, no retractions, no use of accessory muscles and clear to auscultation bilaterally Auscultation: Negative for rales, rhonchi or wheezes Cardio regular rate, regular rhythm, S1 normal heart sound, S2 normal heart sound, no murmurs, no rub and no gallops GI normal to inspection, nondistended, normoactive bowel sounds, soft to palpation, non-tender and non-distended Neuro oriented x3, CN's II-XII intact bilaterally and no sensory deficits noted Neuro Narrative: Patient has some movement in his right leg, his left lower leg has a cast over it, he has generalized atrophy of the right leg, there is lack of muscle tone and strength on the left leg. Sensorium / Orientation: awake, alert, oriented to person, oriented to place and oriented to time Speech: speech normal Psych affect normal Assessment & Plan Assessment/Plan (1) Decubitus ulcer, unstageable with infection: PLAN: Plan 1. Infected unstageable pressure injury left lateral buttocks area and area above sacrum-plastic surgery is participating in his care, I talked with him briefly today about the patient's medical care. I will attempt to get in touch with general surgery concerning a diverting colostomy. #2 closed pilon fracture of the left tibia-nondisplaced and closed, conservative care was recommended by podiatry, patient remains in a cast #3 acute anemia secondary to expected blood loss from surgery on the patient's pressure injury-patient's labs will be monitored, patient's hemoglobin today is slightly lower than yesterday's result, recheck as needed #4 hypokalemia-corrected at this time, recheck as needed #5 chronic paraplegia-complicates care, management, recovery, and prognosis #6 homelessness-complicates care, management, recovery, and prognosis. Patient has agreed to go to a half-way facility for short-term half-way services. Total clinical time spent by myself addressing the patient's medical issues, reviewing all of his data, and collaborating with patient's care team: 35 minutes Charges/Coding Visit Charges Inpatient E&M: 45156 Subs Hosp L2
[2023-09-30 19:57] VITALS: BP 98/59; PULSE 92; RESP 16; TEMP 37.1; O2SAT 96
[2023-10-01] VITALS (11 sets, daily range): BP systolic 96–179; BP diastolic 52–85; PULSE 53–86; RESP 16–20; TEMP 36.6–37.5; O2SAT 95–100; BMI 19.9
[2023-10-01] MEDS: Piperacil/Tazobactam 3.375 GM in 0.9% Normal Saline (50mL MB+) 50 ML IV (05:22)
[2023-10-01] MEDS: Clindamycin 600 MG/50 ML BAG 100 MG IV ×2 (05:22→21:27)
[2023-10-01 06:10] LABS: Vancomycin, Trough Level 11.5 ug/mL (5.0-15.0)
--- NOTE | 2023-10-01 06:27 | PCM.RX.CS ---
Consult Antibiotic Management Pharmacy has been consulted to manage selected antibiotic: Vancomycin Type of Intervention Type of Consult: Follow-up Suspected Infection Suspected Infection: Skin/Soft tissue Labs Labs: Sodium 141 mmol/L (136-145) 09/30/23 06:19 Potassium 3.6 mmol/L (3.5-5.1) 09/30/23 06:19 Chloride 109 mmol/L (98-107) H 09/30/23 06:19 Carbon Dioxide 28.0 mmol/L (21.0-32.0) 09/30/23 06:19 Anion Gap 4 (5-15) L 09/30/23 06:19 BUN 4 mg/dL (7-18) L 09/30/23 06:19 Creatinine 0.66 mg/dL (0.70-1.30) L 09/30/23 06:19 Est GFR (MDRD) Af Amer 183 mL/min (>60) 09/30/23 06:19 Est GFR (MDRD) Non-Af 151 mL/min (>60) 09/30/23 06:19 BUN/Creatinine Ratio 6.0 RATIO (10-20) L 09/30/23 06:19 Glucose 112 mg/dL (74-106) H 09/30/23 06:19 Vancomycin Trough 11.5 ug/mL (5.0-15.0) 10/01/23 05:30 Microbiology Microbiology: Microbiology 09/29/23 08:48 Bone - Ischial Bone Gram Stain - Final 09/29/23 08:48 Bone - Ischial Bone Wound Culture - Preliminary Gram negative melba 09/27/23 Unknown Tissue - Buttock Gram Stain - Final 09/27/23 Unknown Tissue - Buttock Wound Culture - Preliminary Streptococcus group G Gram negative melba GNR lactose skimmer reverberatory 09/27/23 Unknown Tissue - Buttock Anaerobic Culture - Preliminary Checking for anaerobes, further studies to follow. 09/27/23 Unknown Tissue - Buttock Gram Stain - Final 09/27/23 Unknown Tissue - Buttock Wound Culture - Preliminary Streptococcus group G Escherichia coli Proteus mirabilis Staphylococcus aureus 09/27/23 Unknown Tissue - Buttock Anaerobic Culture - Preliminary Checking for anaerobes, further studies to follow. 09/27/23 Unknown Rectal Abscess Gram Stain - Final 09/27/23 Unknown Rectal Abscess Wound Culture - Preliminary Streptococcus group G Proteus mirabilis Staphylococcus aureus 09/27/23 Unknown Rectal Abscess Anaerobic Culture - Preliminary Checking for anaerobes, further studies to follow. 09/27/23 15:04 Blood Culture (Wb) - Anticubital Left Blood Culture - Preliminary No growth in 48 hours. 09/27/23 15:04 Mucosa - Nose SARS-CoV-2, Influenza & RSV (PCR) - Final Dosing Weight Weight used for dosin.3 kg Estimated Creatinine Clearance Estimated Creatinine Clearance: 178 Goal Trough Goal Trough: 10-15 mcg/mL Pharmacy Plan for Drug Dosing Pharmacy Plan for Drug Dosing: Vancomycin trough level of 11.5, drawn 12 hours post-dose, was within the target range of 10-15. Will continue dosing at 1250mg q12h, and will draw another trough in four days. Pharmacy Service will continue to monitor and adjust dosing as required. Follow-Up Labs Follow-Up Labs: Trough: Vancomycin Date/Time Labs Ordered Labs to be done on [date and time ordered]: 10/05/23 @6699
[2023-10-01] MEDS: Lactated Ringers 1,000 ML 15 ML IV (06:37)
--- NOTE | 2023-10-01 06:42 | NURSING ---
0608- report given at this time to Allegra from sx. made aware about vanc trough still pending, states to just keep vanc to floor. made her aware pt has clindamycin and zosyn running. changed pts wound vac canister as well.
--- NOTE | 2023-10-01 07:09 | PRE.ANES_ITS ---
ASA Classification* ASA Classification ASA Classification: 3 Assessment & Plan Anesthesia* Anesthesia Assessment Anesthesia Assessment: Discussed sedation and/or anesthesia options, risks, benefits, and alternatives with patient/parents/legal guardian/POA. Questions invited. The patient/parents/legal guardian/POA seems to understand and agrees to proceed with anesthesia plan. Reviewed the physical assessment, medical history, allergy history and patient home medications list prior to surgery/procedure/anesthetic and documented any changes. Performed airway and anesthesia risk assessments. Anesthesia Type Anesthesia Type: General (no sux) Anesthesia Focused Assessment* Temperature: 98 F Pulse Rate: 82 Blood Pressure: 103/64 Respiratory Rate: 16 Pulse Ox: 95 Airway Assessment Mouth opens: >3 cm Mallampati Score: II Focused Labs Anesthesia Preop lab: CBC WBC 7.4 K/mm3 (4.4-11.0) 09/30/23 06:19 RBC 3.35 M/mm3 (4.6-6.2) L 09/30/23 06:19 Hgb 8.3 g/dL (13.0-16.5) L 09/30/23 06:19 Hct 26.0 % (40-54) L 09/30/23 06:19 Plt Count 481 K/mm3 (150-450) H 09/30/23 06:19 CHEMISTRY Potassium 3.6 mmol/L (3.5-5.1) 09/30/23 06:19 Sodium 141 mmol/L (136-145) 09/30/23 06:19 Magnesium 2.2 mg/dL (1.6-2.6) 09/28/23 06:18 Phosphorus 3.1 mg/dL (2.5-4.9) 09/28/23 06:18 BUN 4 mg/dL (7-18) L 09/30/23 06:19 Creatinine 0.66 mg/dL (0.70-1.30) L 09/30/23 06:19 Glucose 112 mg/dL (74-106) H 09/30/23 06:19 COAG PT 16.1 SECONDS (11.7-14.9) H 09/29/23 04:15 Pre-Assessment Diagnosis/Proposed Procedure Planned Operative Procedure(s): I&D left buttock abscess Anesthesia History 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 When Was Last Pacemaker Check QUESTION #4 FULL TEXT: You/Your Family Experience fever (hyperthermia) with Anesthesia Last Oral Intake Last Oral intake: Last Oral Intake NPO since 00:00 10/01/23 05:59 Meds taken in AM with sips of No 10/01/23 05:59 water? Meds patient instructed to tylenol (Orally) 09/27/23 18:40 take am of surgery PONV PONV - fruit harvest machine operator: PONV - fruit harvest machine operator Female HX of Motion Sickness HX of N/V After Surgery Non-Smoker Duration of Surgery greater than 60 minutes Number of Risk Factors PONV Score Height & Weight Height & Weight: Anesthesia: Height & Weight Height 6 ft 5 in 09/29/23 05:48 Weight: 76.34 kg 10/01/23 05:59 Body Mass Index (BMI) 19.9 10/01/23 05:18 Respiratory Assessment Respiratory Assessment - fruit harvest machine operator: Respiratory Tract Infection Hx - fruit harvest machine operator Hx Respiratory Tract Infection No 10/01/23 05:25 STOP Sleep Apnea STOP Sleep Apnea - fruit harvest machine operator: STOP Sleep Apnea - fruit harvest machine operator Hx Hypertension No 09/28/23 15:04 Hx Sleep Apnea No 09/27/23 22:49 CPAP BIPAP Do you snore loudly (louder Yes 09/27/23 22:49 than talking or can be heard Do you often feel tired/ No 09/27/23 22:49 fatigued/ sleepy during daytime? Has anyone observed you stop No 09/27/23 22:49 breathing during sleep? STOP Results Negative 09/29/23 10:00 QUESTION #5 FULL TEXT : Do you snore loudly (louder than talking or can be heard through closed doors)? 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 Specify any problems Hx of Preganancy in last 3 N/A 09/27/23 22:49 Months Nurse Filling Out Transfusion CSCHLATTE 09/27/23 22:49 & Questions: Date: 09/27/23 09/27/23 22:49 Time: 22:50 09/27/23 22:49 Patient unable to answer at this time (ie. 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 INHALATION Q2H PRN PRN SOB &/OR WHEEZING Enoxaparin Sodium 40 mg 09/28/23 10:00 09/30/23 08:50 Enoxaparin 40 Mg/0.4 Ml Syringe SC 40 mg DAILY MIGUE Administration Piperacillin Sod/Tazobactam 50 mls @ 12.5 mls/hr 09/27/23 22:34 10/01/23 05:22 Sod 3.375 gm/ Sodium Chloride IV 12.5 mls/hr Q8 MIGUE Administration Sodium Chloride 1,000 mls @ 75 mls/hr 09/27/23 22:34 09/30/23 17:35 IV 75 mls/hr .[id number] MIGUE Administration Vancomycin IV-PHARMACY TO DOSE 500 mls @ 250 mls/hr 09/27/23 22:34 1 each/ Sodium Chloride IV PRN PRN Rx to Dose Protocol Sodium Chloride 250 mls @ 15 mls/hr 09/27/23 22:39 IV .[id number] PRN Additional IVPB Infusion Sodium Chloride 250 mls @ 15 mls/hr 09/27/23 22:39 IV .[id number] PRN Saline Flush Vancomycin HCl 1,250 mg/ 275 mls @ 167 mls/hr 09/28/23 06:00 09/30/23 19:16 Sodium Chloride IV Infused Q12H MIGUE Infusion Clindamycin Phosphate 600 mg in 50 mls @ 100 mls/hr 09/28/23 22:00 10/01/23 05:52 Cleocin IV Infused Q8 MIGUE Infusion Lactated Ringer's 1,000 mls @ 15 mls/hr 10/01/23 06:45 10/01/23 06:37 IV 15 mls/hr .Q48H MIGUE Administration Melatonin 3 mg 09/27/23 22:34 Melatonin 3 Mg Tablet PO QHS PRN PRN INSOMNIA Morphine Sulfate 2 - 4 mg 09/27/23 22:34 Morphine 2 Mg/Ml Syringe IV Q3H PRN PRN Pain Score 6-10 Nicotine 21 mg 09/27/23 21:00 09/30/23 08:49 Nicotine 21 Mg Patch TD Not Given DAILY MIGUE Nutritional Formula (Lactose Free) 120 ml 09/28/23 14:00 09/30/23 21:16 Ensure Plus High Protein 120 Ml Liquid PO Not Given 4X/DAY MIGUE Ondansetron HCl 4 mg 09/27/23 22:34 Ondansetron 4 Mg/2 Ml Vial IV Q8H PRN PRN NAUSEA/VOMITING Oxycodone HCl 5 mg 09/27/23 22:34 Oxycodone 5 Mg Tablet PO Q4H PRN PRN Pain Score 4-10 Senna/Docusate Sodium 2 tablet 09/27/23 22:34 Senna/Docusate Sodium 1 Tablet PO BID PRN PRN Constipation Sodium Chloride 10 - 40 ml 09/27/23 22:39 09/28/23 17:55 0.9% Saline Lock 10 Ml Syringe IV 20 ml UD PRN Administration SALINE FLUSH Sodium Hypochlorite 1 applic 09/28/23 11:10 09/30/23 21:16 Dakin's Vicki Half Strength (=0.25%) TOPICAL Not Given BID MIGUE Protocol Vancomycin Protocol 1 lab 10/01/23 03:30 10/01/23 06:40 Vancomycin Trough/Random Due 10/01/23 07:30 Not Given DAILY MIGUE Vancomycin Protocol 1 lab 10/05/23 03:30 Vancomycin Trough/Random Due 10/05/23 07:30 DAILY MIGUE PFSH Medical History Paraplegia Hx of back injury Allergy/AdvReac Type Severity Reaction Status Date / Time No Known Allergies Allergy Verified 04/08/23 10:33 Family History unable to obtain Surgical History History of cholecystectomy S/P lumbar spinal fusion Social History housing: homeless Smoking Status: Current every day smoker tobacco type: cigarettes, e-cigarettes and smokeless tobacco alcohol intake: former substance use type: does not use Review of Systems (Anesthesia) ROS Narrative System reviewed and no additional complaints, except as documented.
--- NOTE | 2023-10-01 07:17 | PCM.PN.BLA ---
Progress Note Doing well this morning Talked to internal medicine team and general surgery team about a diverting procedure, and he is amenable to it. His father also came to visit him last night and talked to the other 2 doctors as well. Patient gave me permission to talk to his father after the surgery today. Physical Exam Narrative Irrigating wound VAC holding suction, no bleeding in the VAC He is laying on his right side and pressure offloading the wound appropriately. Const alert and oriented x3 Assessment & Plan Assessment/Plan (1) Decubitus ulcer, unstageable with infection: PLAN: Plan No change in medical status since last seen, and we will proceed with surgery today. Will proceed with VAC change under anesthesia possible debridement Procedures Integumentary [id number]: Other Procedure See Report (No charge post op )
--- NOTE | 2023-10-01 08:06 | OP.PCM_ITS ---
Operative Report Date of Procedure: 10/01/23 Surgery/Procedure Date: 01 October 2023 Incision/Procedure Start Time: [ ] Incision Close/Procedure End Time: [ ] PATIENT: Mirza Saunders PRE-OPERATIVE DIAGNOSIS: Left ischial and sacral wound POST-OPERATIVE DIAGNOSIS: same PROCEDURE PERFORMED: 1) Excision of left ischial wound (necrotic skin, fascia, and subcutaneous fat), [ ] x [ ] cm, CPT: 761575 [ ] 2) Excision of sacral wound, (necrotic skin and subcutaneous fat) [ ] x [ ] cm, CPT: 165863 [ ] 3) [ ] OPERATIVE FINDINGS: [ ] INDICATIONS: [ ] OPERATIVE DETAILS: [ ] EBL: [ ] POST-OPERATIVE PLAN: [ ]
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
--- NOTE | 2023-10-01 09:23 | PCM.POST.ANE ---
Anesthesia: Postop Eval I Current Vital Signs Temperature: 99 F Pulse Rate: 83 Blood Pressure: 179/52 Respiratory Rate: 20 Pulse Ox: 100 Oxygen Delivery Method: Room Air Assessment Airway patent: Yes Spontaneous unlabored respirations: Yes Mental status: Awake and Calm nausea: No Vomiting: No Anesthesia Complication: No Fluid Hydration Crystalloid volume administer (ml): 600 Total IV fluid infused: 600 Progress Note Post-operative progress note: DENIES PAIN; CHILANGO UE'S VERY RIGID ; BP RECHECKED Anesthesia document: Postop Eval 1 completed: Yes
--- NOTE | 2023-10-01 11:42 | CASEMGMT ---
Social Work SW received information from RNCM that pt preferred providers for SNF are 1. [facility] 2. [facility] 3. [facility]. Surgery is complete. SW requested DC occupational therapist assistants send referral to [facility]. PLan: [facility], pending acceptance and ADITYA Hernandes
--- NOTE | 2023-10-01 11:54 | CASEMGMT ---
Addendum entered by Linda Gomez 10/01/23 12:37: [facility] declined referral. SW aware. Linda Gomez DC Planning Asst. Original Note: Discharge Planning Referral sent via [facility] to [facility]. Linda Gomez DC Planning Asst.
--- NOTE | 2023-10-01 12:31 | PCM.PN.SRG ---
Subjective Subjective Patient seen and examined during p.m. rounds. He is found resting in bed. He denies any discomfort. He states he is pleased to hear that everything is going well with his wound as reported by plastic surgery. He is status post a third debridement in the operating room earlier this morning. He expresses confusion as to why he has not yet undergone colostomy. He confirms tentative plans for disposition to a nursing facility for ongoing rehab and wound care. Objective Data Objective Data Vital Signs: Vital Signs Temp Pulse Resp BP Pulse Ox O2 Del Method 98.2 F 74 16 113/63 96 Room Air 10/01/23 11:38 10/01/23 11:38 10/01/23 11:38 10/01/23 11:38 10/01/23 11:38 10/01/23 11:38 Oxygen Delivery Method Room Air Weight: 168 lb 4.8 oz Body Mass Index (BMI) 19.9 Intake & Output: Intake and Output for Last 24 Hours 09/29/23 09/30/23 10/01/23 23:59 23:59 23:59 Intake Total 3118.33 / 3118.33 2996.25 / 2996.25 100 / 100 Output Total 3775 / 3975 6750 / 6750 2600 / 2600 Balance -656.67 / -856.67 -3753.75 / -3753.75 -2500 / -2500 Lab / Micro Data 09/30/23 06:19 09/30/23 06:19 Labs: Laboratory Results - last 24 hr 10/01/23 05:30: Vancomycin Trough 11.5 Micro: Microbiology 09/27/23 Unknown Tissue - Buttock Gram Stain - Final 09/27/23 Unknown Tissue - Buttock Wound Culture - Final Streptococcus group G Escherichia coli Proteus mirabilis Staphylococcus aureus 09/27/23 Unknown Tissue - Buttock Anaerobic Culture - Preliminary Anaerobic cocci Gram negative melba 09/29/23 08:48 Bone - Ischial Bone Gram Stain - Final 09/29/23 08:48 Bone - Ischial Bone Wound Culture - Final Escherichia coli 09/29/23 08:48 Bone - Ischial Bone Anaerobic Culture - Preliminary Checking for anaerobes, further studies to follow. 09/27/23 Unknown Rectal Abscess Gram Stain - Final 09/27/23 Unknown Rectal Abscess Wound Culture - Final Streptococcus group G Proteus mirabilis Staphylococcus aureus 09/27/23 Unknown Rectal Abscess Anaerobic Culture - Preliminary Gram positive melba 09/27/23 Unknown Tissue - Buttock Gram Stain - Final 09/27/23 Unknown Tissue - Buttock Wound Culture - Final Streptococcus group G Escherichia coli Proteus mirabilis Staphylococcus aureus 09/27/23 Unknown Tissue - Buttock Anaerobic Culture - Preliminary Gram negative melba 09/27/23 15:04 Blood Culture (Wb) - Anticubital Left Blood Culture - Preliminary No growth in 48 hours. 09/27/23 15:04 Mucosa - Nose SARS-CoV-2, Influenza & RSV (PCR) - Final Rhythm Strip Rhythm Strip: Sinus Tach Rate: 122 Ectopy: None Physical Exam Const oriented x3 and no apparent distress Resp normal respiratory effort GI GI Narrative: Nondistended, mildly hirsute, no scars, no visible herniation Extremity Extremity Narrative: Wound VAC intact to left lower extremity Assessment & Plan Assessment/Plan (1) Decubitus ulcer, unstageable with infection: PLAN: Patient is a 28-year-old male status post I&D procedure by me of left lower extremity and 2 subsequent operative trips for wound VAC change and debridement by plastic surgery. Patient is clinically improved and the wound, reportedly, has not improved appearance. However, given the proximity to the anus there is concern for contamination from the fecal stream. Thus, after discussions from multiple disciplines and with family, Mr. Saunders is convinced of his need for a diverting colostomy. I discussed the procedure with him today at bedside and shared that we will plan for this procedure on WednesdayOctober 04. He has a completed bowel prep prior to the procedure to minimize the stool and bacterial burden. Arrangements have been made through the operating room for scheduling of this procedure and social work has been notified of this intent and how it impacts patient's final disposition following his inpatient stay. Luis Daniel Decker MD General Surgery Endocrine Surgery Pager: [facility] [address] [place] [address], [address] [place] [address] Office: [phone] Charges/Coding Visit Charges Inpatient E&M: 55985 Subs Hosp L2
--- NOTE | 2023-10-01 12:37 | CASEMGMT ---
Addendum entered by Linda Gomez 10/01/23 14:42: [facility] declined. SW updated. Linda Gomez DC Planning Asst. Original Note: Discharge Planning Referral sent to [facility] via [facility]Port. Call placed to Sally requesting that benefits be verified prior to submitting for precert if accepted. Linda Gomez DC Planning Asst.
--- NOTE | 2023-10-01 12:52 | POSTOPAN2_ITS ---
Anesthesia Postop Eval I Sum Postop Eval Completion status Anesthesia document: Postop Eval 1 completed: Yes Anesthesia Postop Eval I Summary Anesthesia Postop Eval I Summary: Anesthesia Postop Eval I: Assessment Summary Airway patent Yes 10/01/23 09:25 CHEMICAL INSTRUMENTATION OFFICER.SCHR Spontaneous unlabored Yes 10/01/23 09:25 CHEMICAL INSTRUMENTATION OFFICER.SCHR respirations Mental status Awake,Calm 10/01/23 09:25 CHEMICAL INSTRUMENTATION OFFICER.SCHR nausea No 10/01/23 09:25 CHEMICAL INSTRUMENTATION OFFICER.SCHR Vomiting No 10/01/23 09:25 CHEMICAL INSTRUMENTATION OFFICER.SCHR Anesthesia Postop Eval I: Fluid Summary Crystalloid volume administer 600 10/01/23 09:25 CHEMICAL INSTRUMENTATION OFFICER.SCHR (ml) Colloids volume administered ( ml) Blood Product volume administered (ml) Total IV fluid infused 600 10/01/23 09:25 CHEMICAL INSTRUMENTATION OFFICER.SCHR Anesthesia Postop Eval I: Summary Notes Anesthesia Complication No 10/01/23 09:25 CHEMICAL INSTRUMENTATION OFFIC[facility] Anesthesia Complication Comment: Post-operative progress note DENIES PAIN; CIHLANGO 10/01/23 09:25 CHEMICAL INSTRUMENTATION OFFICER.SCHR UE'S VERY RIGID ; BP RECHECKED Anesthesia: Postop Eval II Evaluation Mental status: Awake Pain Level: 0 nausea: No Vomiting: No
--- NOTE | 2023-10-01 12:52 | PCM.POSTANE2 ---
Anesthesia Postop Eval I Sum Postop Eval Completion status Anesthesia document: Postop Eval 1 completed: Yes Anesthesia Postop Eval I Summary Anesthesia Postop Eval I Summary: Anesthesia Postop Eval I: Assessment Summary Airway patent Yes 10/01/23 09:25 HAND PACKAGER.SCHR Spontaneous unlabored Yes 10/01/23 09:25 HAND PACKAGER.SCHR respirations Mental status Awake,Calm 10/01/23 09:25 HAND PACKAGER.SCHR nausea No 10/01/23 09:25 HAND PACKAGER.SCHR Vomiting No 10/01/23 09:25 HAND PACKAGER.SCHR Anesthesia Postop Eval I: Fluid Summary Crystalloid volume administer 600 10/01/23 09:25 HAND PACKAGER.SCHR (ml) Colloids volume administered ( ml) Blood Product volume administered (ml) Total IV fluid infused 600 10/01/23 09:25 HAND PACKAGER.SCHR Anesthesia Postop Eval I: Summary Notes Anesthesia Complication No 10/01/23 09:25 [facility]AGER.[facility] Anesthesia Complication Comment: Post-operative progress note DENIES PAIN; CHILANGO 10/01/23 09:25 HAND PACKAGER.SCHR UE'S VERY RIGID ; BP RECHECKED Anesthesia: Postop Eval II Evaluation Mental status: Awake Pain Level: 0 nausea: No Vomiting: No
--- NOTE | 2023-10-01 13:48 | POSTOPAN2_ITS ---
Anesthesia Postop Eval I Sum Postop Eval Completion status Anesthesia document: Postop Eval 1 completed: Yes Anesthesia Postop Eval I Summary Anesthesia Postop Eval I Summary: Anesthesia Postop Eval I: Assessment Summary Airway patent Yes 10/01/23 09:25 WAX ROOM SUPERVISOR.SCHR Spontaneous unlabored Yes 10/01/23 09:25 WAX ROOM SUPERVISOR.MIGUER respirations Mental status Awake 10/01/23 12:52 nausea No 10/01/23 12:52 Vomiting No 10/01/23 12:52 Anesthesia Postop Eval I: Fluid Summary Crystalloid volume administer 600 10/01/23 09:25 WAX ROOM SUPERVISOR.SCHR (ml) Colloids volume administered ( ml) Blood Product volume administered (ml) Total IV fluid infused 600 10/01/23 09:25 WAX ROOM SUPERVISOR.SCHR Anesthesia Postop Eval I: Summary Notes Anesthesia Complication No 10/01/23 09:25 WAX ROOM SUPERVISOR.SCHR Anesthesia Complication Comment: Post-operative progress note DENIES PAIN; CHILANGO 10/01/23 09:25 WAX ROOM SUPERVISOR.SCHR UE'S VERY RIGID ; BP RECHECKED Anesthesia: Postop Eval II Evaluation Mental status: Awake Pain Level: 0 nausea: No Vomiting: No
--- NOTE | 2023-10-01 13:48 | PCM.POSTANE2 ---
Anesthesia Postop Eval I Sum Postop Eval Completion status Anesthesia document: Postop Eval 1 completed: Yes Anesthesia Postop Eval I Summary Anesthesia Postop Eval I Summary: Anesthesia Postop Eval I: Assessment Summary Airway patent Yes 10/01/23 09:25 PROCESS EXPERT.SCHR Spontaneous unlabored Yes 10/01/23 09:25 PROCESS EXPERT.MIGUER respirations Mental status Awake 10/01/23 12:52 nausea No 10/01/23 12:52 Vomiting No 10/01/23 12:52 Anesthesia Postop Eval I: Fluid Summary Crystalloid volume administer 600 10/01/23 09:25 PROCESS EXPERT.SCHR (ml) Colloids volume administered ( ml) Blood Product volume administered (ml) Total IV fluid infused 600 10/01/23 09:25 PROCESS EXPERT.SCHR Anesthesia Postop Eval I: Summary Notes Anesthesia Complication No 10/01/23 09:25 PROCESS EXPERT.SCHR Anesthesia Complication Comment: Post-operative progress note DENIES PAIN; CHILANGO 10/01/23 09:25 PROCESS EXPERT.SCHR UE'S VERY RIGID ; BP RECHECKED Anesthesia: Postop Eval II Evaluation Mental status: Awake Pain Level: 0 nausea: No Vomiting: No
--- NOTE | 2023-10-01 13:54 | PCM.PN.ID ---
Physical Exam Narrative Feeling much better, no fever, no n/v. Const alert and no apparent distress Resp normal air movement and clear to auscultation bilaterally Cardio regular rate and regular rhythm GI soft to palpation, non-tender and non-distended Skin Skin Narrative: dressing in place ID ID: Route of nutrition/ use of supplements: [] Nutritional Intake: [] IV Site: [] Watson Catheter: [] Assessment & Plan Assessment/Plan (1) Sepsis: (2) Necrotizing fasciitis: PLAN: Taken to OR 09/27/[address] Decker for I&D. Taken back to OR 09/29/[address] Perez. Cxs so far showing strep, MSSA, ecoli, proteus. On vanc/zosyn/clinda, will narrow to cefazolin/flagyl with a few more days clinda. Seen by gen surg, pt agreeing to ostomy. Plan at discharge will be picc and 6 weeks iv abx. Will follow
--- NOTE | 2023-10-01 14:42 | CASEMGMT ---
Addendum entered by Linda Gomze 10/01/23 15:27: [facility] accepted patient. Will need to send updates on Wednesday (tentative surgery date) and request that precert be started. Linda Gomez DC Planning Asst. Original Note: Discharge Planning Referral sent via [facility] to [facility]. Linda Gomez DC Planning Asst.
--- NOTE | 2023-10-01 15:54 | CASEMGMT ---
Social Work SW met with pt and informed that [facility] cannot accept but [facility] has accepted. Pt is agreeable to placment at [facility]. Precert will be needed prior to admission, however, per physician, procedure is scheduled for Wednesday. SW will follow up to start precert after procedure. Plan: [facility], pending precert ADITYA Lopez
[2023-10-01] MEDS: 0.9% Normal Saline (1000mL) 1,000 ML 75 ML IV (15:59)
[2023-10-01] MEDS: Clindamycin 600 MG/50 ML BAG 75 MG IV (16:00)
[2023-10-01] MEDS: Cefazolin 2 GM in 0.9% Normal Saline (100mL Bag) 100 ML IV ×2 (16:03→21:27)
[2023-10-01] MEDS: metroNIDAZOLE 500 MG Tablet PO ×2 (16:11→21:32)
--- NOTE | 2023-10-01 17:22 | PN.HOSP_ITS ---
Reason for Visit Reason for Visit: Diagnoses Sepsis, unspecified organism (09/27/23) Elevated white blood cell count, unspecified (09/27/23) Thrombocytosis, unspecified (09/27/23) Other disorders of bilirubin metabolism (09/27/23) Hypo-osmolality and hyponatremia (09/27/23) Hypokalemia (09/27/23) Paraplegia, unspecified (09/27/23) Local infection of the skin and subcutaneous tissue, unspecified (09/27/23) Pressure ulcer of unspecified site, unspecified stage (09/27/23) Pressure ulcer of unspecified site, unstageable (09/27/23) Necrotizing fasciitis (09/27/23) Tachycardia, unspecified (09/27/23) Fever, unspecified (09/27/23) Other specified abnormal findings of blood chemistry (09/27/23) Nondisplaced pilon fracture of left tibia, initial encounter for closed fracture (09/27/23) Subjective Subjective Patient was seen and examined today, he underwent further debridement of his pressure injury areas. I talked to general surgery and Dr. Decker stated that the patient was on the schedule to have a diverting colostomy performed on Wednesday of next week. Objective Data Objective Data Vital Signs: Vital Signs Temp Pulse Resp BP Pulse Ox O2 Del Method 98.9 F 70 18 98/85 H 98 Room Air 10/01/23 15:38 10/01/23 15:38 10/01/23 15:38 10/01/23 15:38 10/01/23 15:38 10/01/23 15:38 Oxygen Delivery Method Room Air Weight: 76.34 kg Body Mass Index (BMI) 19.9 Intake & Output: Intake and Output for Last 24 Hours 09/29/23 09/30/23 10/01/23 23:59 23:59 23:59 Intake Total 3118.33 / 3118.33 2996.25 / 2996.25 1850 / 1850 Output Total 3775 / 3975 6750 / 6750 4400 / 4400 Balance -656.67 / -856.67 -3753.75 / -3753.75 -2550 / -2550 Lab / Micro Data 09/30/23 06:19 09/30/23 06:19 Labs: Laboratory Results - last 24 hr 10/01/23 05:30: Vancomycin Trough 11.5 Micro: Microbiology 09/27/23 Unknown Tissue - Buttock Gram Stain - Final 09/27/23 Unknown Tissue - Buttock Wound Culture - Final Streptococcus group G Escherichia coli Proteus mirabilis Staphylococcus aureus 09/27/23 Unknown Tissue - Buttock Anaerobic Culture - Preliminary Anaerobic cocci Gram negative melba 09/29/23 08:48 Bone - Ischial Bone Gram Stain - Final 09/29/23 08:48 Bone - Ischial Bone Wound Culture - Final Escherichia coli 09/29/23 08:48 Bone - Ischial Bone Anaerobic Culture - Preliminary Checking for anaerobes, further studies to follow. 09/27/23 Unknown Rectal Abscess Gram Stain - Final 09/27/23 Unknown Rectal Abscess Wound Culture - Final Streptococcus group G Proteus mirabilis Staphylococcus aureus 09/27/23 Unknown Rectal Abscess Anaerobic Culture - Preliminary Gram positive melba 09/27/23 Unknown Tissue - Buttock Gram Stain - Final 09/27/23 Unknown Tissue - Buttock Wound Culture - Final Streptococcus group G Escherichia coli Proteus mirabilis Staphylococcus aureus 09/27/23 Unknown Tissue - Buttock Anaerobic Culture - Preliminary Gram negative melba 09/27/23 15:04 Blood Culture (Wb) - Anticubital Left Blood Culture - Preliminary No growth in 48 hours. 09/27/23 15:04 Mucosa - Nose SARS-CoV-2, Influenza & RSV (PCR) - Final Rhythm Strip Rhythm Strip: Sinus Tach Rate: 122 Ectopy: None Physical Exam Narrative alert, oriented x3 and no apparent distress General Appearance: cooperative, well kempt and well developed Orientation / Consciousness: awake, oriented to person, oriented to place and oriented to time HEENT normocephalic, head/scalp atraumatic and moist oral mucous membranes Eyes PERRL, EOMs intact bilaterally and conjunctivae normal Neck supple, no JVD, thyroid normal and no carotid bruits General: trachea midline Resp normal respiratory effort, no retractions, no use of accessory muscles and clear to auscultation bilaterally Auscultation: Negative for rales, rhonchi or wheezes Cardio regular rate, regular rhythm, S1 normal heart sound, S2 normal heart sound, no murmurs, no rub and no gallops GI normal to inspection, nondistended, normoactive bowel sounds, soft to palpation, non-tender and non-distended Neuro oriented x3, CN's II-XII intact bilaterally and no sensory deficits noted Neuro Narrative: Patient has some movement in his right leg, his left lower leg has a cast over it, he has generalized atrophy of the right leg, there is lack of muscle tone and strength on the left leg. Sensorium / Orientation: awake, alert, oriented to person, oriented to place and oriented to time Speech: speech normal Psych affect normal Assessment & Plan Assessment/Plan (1) Decubitus ulcer, unstageable with infection: PLAN: Plan 1. Infected unstageable pressure injury left lateral buttocks area and area above sacrum-plastic surgery is participating in his care, again he will be scheduled to undergo diverting colostomy on Wednesday of next week. Patient had a PICC line inserted today. #2 closed pilon fracture of the left tibia-nondisplaced and closed, conservative care was recommended by podiatry, patient remains in a cast #3 acute anemia secondary to expected blood loss from surgery on the patient's pressure injury-patient's labs will be monitored #4 hypokalemia-corrected at this time, recheck as needed #5 chronic paraplegia-complicates care, management, recovery, and prognosis #6 homelessness-complicates care, management, recovery, and prognosis. Patient has agreed to go to a custodial facility for short-term custodial services. Total clinical time spent by myself addressing the patient's medical issues, reviewing all of his data, and collaborating with patient's care team: 35 minutes Charges/Coding Visit Charges Inpatient E&M: 21401 Subs Hosp L2
[2023-10-01] MEDS: Ensure Plus High Protein 120 ML LIQUID PO (21:34)
[2023-10-02 03:38] VITALS: BP 110/65; PULSE 75; RESP 16; TEMP 36.6; O2SAT 98
[2023-10-02] MEDS: Clindamycin 600 MG/50 ML BAG 100 MG IV ×3 (05:24→22:22)
[2023-10-02] MEDS: 0.9% Normal Saline (1000mL) 1,000 ML 75 ML IV ×2 (05:24→19:56)
[2023-10-02] MEDS: metroNIDAZOLE 500 MG Tablet PO ×3 (05:25→22:21)
[2023-10-02] MEDS: Cefazolin 2 GM in 0.9% Normal Saline (100mL Bag) 100 ML IV ×3 (05:25→22:21)
[2023-10-02 06:00] VITALS: BMI 19.9
[2023-10-02 06:22] LABS: Absolute Lymphocyte Count 2.57 X10^3/uL (0.83-4.51); Absolute Neutrophil Count 3.9 X10^3/uL (2.0-7.7); Basophil# 0.03 X10^3/uL; Basophil% 0.4 % (0-1); Eosinophil# 0.25 X10^3/uL; Eosinophils% 3.4 % (0-5); Hematocrit 27.7 % (40-54); Hemoglobin 8.7 g/dL (13.0-16.5); Lymphocyte # 2.57 X10^3/ul (0.83-4.51); Lymphocyte % 34.6 % (19-41); Mean Corp Hgb Conc 31.4 g/dL (32-36); Mean Corpuscular Hgb 25.1 pg (27.0-32.0); Mean Corpuscular Volume 80.1 fL (80-94); Mean Platelet Vol. 8.9 fl (6.2-12.0); Monocyte# 0.59 X10^3/uL; Monocyte% 7.9 % (0-10); NRBC Flagged by Analyzer 0 % (0-5); Neutrophil # 3.88 X10^3/uL (2.7-7.7); Neutrophil % 52.2 % (47-70); Platelet Count 562 K/mm3 (150-450); RBC Distribution Width CV 15.2 % (11.6-14.6); RBC Distribution Width SD 43.6 fl (35.1-43.9); Red Blood Count 3.46 M/mm3 (4.6-6.2); White Blood Count 7.4 K/mm3 (4.4-11.0)
--- NOTE | 2023-10-02 06:27 | PCM.PN.SRG ---
Subjective Subjective Reports that he's doing well this morning. Has been working to pressure offload. He is amenable to the plan for diversion with general surgery on 05 October 2023. Objective Data Objective Data Vital Signs: Vital Signs Temp Pulse Resp BP Pulse Ox O2 Del Method 98 F 75 16 110/65 98 Room Air 10/02/23 03:38 10/02/23 03:38 10/02/23 03:38 10/02/23 03:38 10/02/23 03:38 10/02/23 03:38 Oxygen Delivery Method Room Air Weight: 168 lb 4.8 oz Body Mass Index (BMI) 19.9 Intake & Output: Intake and Output for Last 24 Hours 09/30/23 10/01/23 10/02/23 23:59 23:59 23:59 Intake Total 2996.25 / 2996.25 3255.75 / 3255.75 1062.5 / 1062.5 Output Total 6750 / 6750 7400 / 7400 550 / 550 Balance -3753.75 / -3753.75 -4144.25 / -4144.25 512.5 / 512.5 Lab / Micro Data 10/02/23 05:35 10/02/23 05:35 Labs: Laboratory Results - last 24 hr 10/01/23 20:42: Magnesium 2.0 10/02/23 05:35: WBC 7.4, RBC 3.46 L, Hgb 8.7 L, Hct 27.7 L, MCV 80.1, MCH 25.1 L, MCHC 31.4 L, RDW Std Deviation 43.6, RDW Coeff of [place] 15.2 H, Plt Count 562 H, MPV 8.9, Immature Gran % (Auto) 1.500 H, Neut % (Auto) 52.2, Lymph % (Auto) 34.6, [place] % (Auto) 7.9, Eos % (Auto) 3.4, Baso % (Auto) 0.4, Absolute Neuts (auto) 3.9, Absolute Lymphs (auto) 2.57, Nucleated RBC % 0 Micro: Microbiology 09/29/23 08:48 Bone - Ischial Bone Gram Stain - Final 09/29/23 08:48 Bone - Ischial Bone Wound Culture - Final Escherichia coli 09/29/23 08:48 Bone - Ischial Bone Anaerobic Culture - Final No anaerobic bacteria isolated. 09/27/23 Unknown Tissue - Buttock Gram Stain - Final 09/27/23 Unknown Tissue - Buttock Wound Culture - Final Streptococcus group G Escherichia coli Proteus mirabilis Staphylococcus aureus 09/27/23 Unknown Tissue - Buttock Anaerobic Culture - Preliminary Anaerobic cocci Gram negative melba 09/27/23 Unknown Rectal Abscess Gram Stain - Final 09/27/23 Unknown Rectal Abscess Wound Culture - Final Streptococcus group G Proteus mirabilis Staphylococcus aureus 09/27/23 Unknown Rectal Abscess Anaerobic Culture - Preliminary Gram positive melba 09/27/23 Unknown Tissue - Buttock Gram Stain - Final 09/27/23 Unknown Tissue - Buttock Wound Culture - Final Streptococcus group G Escherichia coli Proteus mirabilis Staphylococcus aureus 09/27/23 Unknown Tissue - Buttock Anaerobic Culture - Preliminary Gram negative melba 09/27/23 15:04 Blood Culture (Wb) - Anticubital Left Blood Culture - Preliminary No growth in 48 hours. 09/27/23 15:04 Mucosa - Nose SARS-CoV-2, Influenza & RSV (PCR) - Final Rhythm Strip Rhythm Strip: Sinus Tach Rate: 122 Ectopy: None Physical Exam Narrative VAC holding suction No blood in the VAC. Pressure offloaded appropriately on the air bed and turned to the right. No pressure points on VAC tubing. Assessment & Plan Assessment/Plan (1) Decubitus ulcer, unstageable with infection: PLAN: Continue plan for irrigating VAC through the weekend Plan early next week for regular VAC placement with three times per week VAC changes Diversion with general surgery on Wednesday, 05 Oct 2023. Continue pressure offloading and protein/nutrition optimization Agree with DC planning to inpatient rehabilitation (must have pressure offloading bed at this facility. I discussed this with the admitting Manager Security And Safety) I will continue to follow, but no further operative plans from plastics standpoint on this admission. VAC changes will be at bedside (NO OR) Charges/Coding Procedures Integumentary [id number]: Other Procedure See Report (No charge post op )
[2023-10-02 07:04] LABS: Anion Gap 4 (5-15); BUN 6 mg/dL (7-18); BUN/Creat Ratio 10.5 RATIO (10-20); Calcium,Total 7.7 mg/dL (8.5-10.1); Chloride 108 mmol/L (98-107); Creatinine, Serum 0.57 mg/dL (0.70-1.30); EST Glomerular Filtration Rate 179 mL/min (>60); Est Glom Filt Rate - Afr Amer 216 mL/min (>60); Estimated Creatinine Clearance 206.45 ml/min; Glucose 109 mg/dL (74-106); Potassium 3.9 mmol/L (3.5-5.1); Sodium Level 140 mmol/L (136-145)
[2023-10-02 09:46] VITALS: BP 94/51; PULSE 76; RESP 16; TEMP 36.5; O2SAT 97
[2023-10-02] MEDS: 0.9% Normal Saline (250mL Bag) 250 ML 15 ML IV (12:16)
[2023-10-02] MEDS: Enoxaparin 40 MG/0.4 ML Syringe SC (12:25)
--- NOTE | 2023-10-02 15:22 | PCM.PN.HOSP ---
Reason for Visit Reason for Visit: Diagnoses Sepsis, unspecified organism (09/27/23) Elevated white blood cell count, unspecified (09/27/23) Thrombocytosis, unspecified (09/27/23) Other disorders of bilirubin metabolism (09/27/23) Hypo-osmolality and hyponatremia (09/27/23) Hypokalemia (09/27/23) Paraplegia, unspecified (09/27/23) Local infection of the skin and subcutaneous tissue, unspecified (09/27/23) Pressure ulcer of unspecified site, unspecified stage (09/27/23) Pressure ulcer of unspecified site, unstageable (09/27/23) Necrotizing fasciitis (09/27/23) Tachycardia, unspecified (09/27/23) Fever, unspecified (09/27/23) Other specified abnormal findings of blood chemistry (09/27/23) Nondisplaced pilon fracture of left tibia, initial encounter for closed fracture (09/27/23) Subjective Subjective Patient was seen and examined today, he appears comfortable, wound VAC is in place over his pressure wounds. Objective Data Objective Data Vital Signs: Vital Signs Temp Pulse Resp BP Pulse Ox O2 Del Method 97.7 F L 76 16 94/51 L 97 Room Air 10/02/23 09:46 10/02/23 09:46 10/02/23 09:46 10/02/23 09:46 10/02/23 09:46 10/02/23 09:46 Oxygen Delivery Method Room Air Weight: 76.33 kg Body Mass Index (BMI) 19.9 Intake & Output: Intake and Output for Last 24 Hours 09/30/23 10/01/23 10/02/23 23:59 23:59 23:59 Intake Total 2996.25 / 2996.25 3255.75 / 3255.75 1934.25 / 1934.25 Output Total 6750 / 6750 7400 / 7400 1850 / 1850 Balance -3753.75 / -3753.75 -4144.25 / -4144.25 84.25 / 84.25 Lab / Micro Data 10/02/23 05:35 10/02/23 05:35 Labs: Laboratory Results - last 24 hr 10/01/23 20:42: Magnesium 2.0 10/02/23 05:35: WBC 7.4, RBC 3.46 L, Hgb 8.7 L, Hct 27.7 L, MCV 80.1, MCH 25.1 L, MCHC 31.4 L, RDW Std Deviation 43.6, RDW Coeff of [place] 15.2 H, Plt Count 562 H, MPV 8.9, Immature Gran % (Auto) 1.500 H, Neut % (Auto) 52.2, Lymph % (Auto) 34.6, [place] % (Auto) 7.9, Eos % (Auto) 3.4, Baso % (Auto) 0.4, Absolute Neuts (auto) 3.9, Absolute Lymphs (auto) 2.57, Nucleated RBC % 0, Sodium 140, Potassium 3.9, Chloride 108 H, Carbon Dioxide 28.0, Anion Gap 4 L, BUN 6 L, Creatinine 0.57 L, Estim Creat Clear Calc 206.45, Est GFR (MDRD) Af Amer 216, Est GFR (MDRD) Non-Af 179, BUN/Creatinine Ratio 10.5, Glucose 109 H, Calcium 7.7 L Micro: Microbiology 09/27/23 Unknown Tissue - Buttock Gram Stain - Final 09/27/23 Unknown Tissue - Buttock Wound Culture - Final Streptococcus group G Escherichia coli Proteus mirabilis Staphylococcus aureus 09/27/23 Unknown Tissue - Buttock Anaerobic Culture - Final Bacteroides thetaiotaomicron 09/27/23 Unknown Tissue - Buttock Gram Stain - Final 09/27/23 Unknown Tissue - Buttock Wound Culture - Final Streptococcus group G Escherichia coli Proteus mirabilis Staphylococcus aureus 09/27/23 Unknown Tissue - Buttock Anaerobic Culture - Final Anaerobic cocci Fusobacterium mortiferum 09/29/23 08:48 Bone - Ischial Bone Gram Stain - Final 09/29/23 08:48 Bone - Ischial Bone Wound Culture - Final Escherichia coli 09/29/23 08:48 Bone - Ischial Bone Anaerobic Culture - Final No anaerobic bacteria isolated. 09/27/23 Unknown Rectal Abscess Gram Stain - Final 09/27/23 Unknown Rectal Abscess Wound Culture - Final Streptococcus group G Proteus mirabilis Staphylococcus aureus 09/27/23 Unknown Rectal Abscess Anaerobic Culture - Preliminary Gram positive melba 09/27/23 15:04 Blood Culture (Wb) - Anticubital Left Blood Culture - Preliminary No growth in 48 hours. 09/27/23 15:04 Mucosa - Nose SARS-CoV-2, Influenza & RSV (PCR) - Final Rhythm Strip Rhythm Strip: Sinus Tach Rate: 122 Ectopy: None Physical Exam Narrative alert, oriented x3 and no apparent distress General Appearance: cooperative, well kempt and well developed Orientation / Consciousness: awake, oriented to person, oriented to place and oriented to time HEENT normocephalic, head/scalp atraumatic and moist oral mucous membranes Eyes PERRL, EOMs intact bilaterally and conjunctivae normal Neck supple, no JVD, thyroid normal and no carotid bruits General: trachea midline Resp normal respiratory effort, no retractions, no use of accessory muscles and clear to auscultation bilaterally Auscultation: Negative for rales, rhonchi or wheezes Cardio regular rate, regular rhythm, S1 normal heart sound, S2 normal heart sound, no murmurs, no rub and no gallops GI normal to inspection, nondistended, normoactive bowel sounds, soft to palpation, non-tender and non-distended Neuro oriented x3, CN's II-XII intact bilaterally and no sensory deficits noted Neuro Narrative: Patient has some movement in his right leg, his left lower leg has a cast over it, he has generalized atrophy of the right leg, there is lack of muscle tone and strength on the left leg. Sensorium / Orientation: awake, alert, oriented to person, oriented to place and oriented to time Speech: speech normal Psych affect normal Assessment & Plan Assessment/Plan (1) Paraplegia: (2) Decubitus ulcer, unstageable with infection: PLAN: Plan 1. Infected unstageable pressure injury left lateral buttocks area and area above sacrum-plastic surgery is participating in his care, again he will be scheduled to undergo diverting colostomy on Wednesday of next week. Patient had a PICC line inserted today. #2 closed pilon fracture of the left tibia-nondisplaced and closed, conservative care was recommended by podiatry, patient remains in a cast #3 acute anemia secondary to expected blood loss from surgery on the patient's pressure injury-patient's labs will be monitored #4 hypokalemia-corrected at this time, recheck as needed #5 chronic paraplegia-complicates care, management, recovery, and prognosis #6 homelessness-complicates care, management, recovery, and prognosis. Patient has agreed to go to a group home facility for short-term group home services. Total clinical time spent by myself addressing the patient's medical issues, reviewing all of his data, and collaborating with patient's care team: 25 minutes Charges/Coding Visit Charges Inpatient E&M: 64758 Subs Hosp L1
[2023-10-02 15:50] VITALS: BP 90/53; PULSE 87; RESP 16; TEMP 36.7; O2SAT 98
[2023-10-02 19:50] VITALS: BP 95/54; PULSE 84; RESP 16; TEMP 36.9; O2SAT 97
[2023-10-03 02:22] VITALS: BP 97/55; PULSE 87; RESP 16; TEMP 36.8; O2SAT 95
[2023-10-03] MEDS: Clindamycin 600 MG/50 ML BAG 100 MG IV ×3 (05:46→22:07)
[2023-10-03] MEDS: metroNIDAZOLE 500 MG Tablet PO ×3 (05:46→22:07)
[2023-10-03] MEDS: Cefazolin 2 GM in 0.9% Normal Saline (100mL Bag) 100 ML IV ×3 (05:46→22:07)
[2023-10-03] MEDS: 0.9% Normal Saline (250mL Bag) 250 ML 15 ML IV (05:50)
[2023-10-03 06:00] VITALS: BMI 17.7
[2023-10-03 10:07] VITALS: BP 89/58; PULSE 79; RESP 16; TEMP 36.7; O2SAT 98
[2023-10-03] MEDS: Enoxaparin 40 MG/0.4 ML Syringe SC (10:13)
[2023-10-03 13:56] VITALS: BP 93/59; PULSE 85; RESP 16; TEMP 37.1; O2SAT 99
[2023-10-03] MEDS: 0.9% Saline Lock 10 ML Syringe IV (14:13)
[2023-10-03] MEDS: 0.9% Normal Saline (1000mL) 1,000 ML 75 ML IV (14:26)
--- NOTE | 2023-10-03 15:50 | PN.HOSP_ITS ---
Reason for Visit Reason for Visit: Diagnoses Sepsis, unspecified organism (09/27/23) Elevated white blood cell count, unspecified (09/27/23) Thrombocytosis, unspecified (09/27/23) Other disorders of bilirubin metabolism (09/27/23) Hypo-osmolality and hyponatremia (09/27/23) Hypokalemia (09/27/23) Paraplegia, unspecified (09/27/23) Local infection of the skin and subcutaneous tissue, unspecified (09/27/23) Pressure ulcer of unspecified site, unspecified stage (09/27/23) Pressure ulcer of unspecified site, unstageable (09/27/23) Necrotizing fasciitis (09/27/23) Tachycardia, unspecified (09/27/23) Fever, unspecified (09/27/23) Other specified abnormal findings of blood chemistry (09/27/23) Nondisplaced pilon fracture of left tibia, initial encounter for closed fracture (09/27/23) Subjective Subjective Patient was seen and examined today, his blood pressure was a little low this morning but it has improved this afternoon. Patient is asymptomatic he has no complaints at this time. Objective Data Objective Data Vital Signs: Vital Signs Temp Pulse Resp BP Pulse Ox O2 Del Method 98.7 F 85 16 93/59 L 99 Room Air 10/03/23 13:56 10/03/23 13:56 10/03/23 13:56 10/03/23 13:56 10/03/23 13:56 10/03/23 13:56 Oxygen Delivery Method Room Air Weight: 67.8 kg Body Mass Index (BMI) 17.7 Intake & Output: Intake and Output for Last 24 Hours 10/01/23 10/02/23 10/03/23 23:59 23:59 23:59 Intake Total 3255.75 / 3255.75 3511.75 / 3511.75 3204 / 3204 Output Total 7400 / 7400 2850 / 2850 3725 / 3725 Balance -4144.25 / -4144.25 661.75 / 661.75 -521 / -521 Lab / Micro Data 10/02/23 05:35 10/02/23 05:35 Micro: Microbiology 09/27/23 Unknown Rectal Abscess Gram Stain - Final 09/27/23 Unknown Rectal Abscess Wound Culture - Final Streptococcus group G Proteus mirabilis Staphylococcus aureus 09/27/23 Unknown Rectal Abscess Anaerobic Culture - Final No anaerobic bacteria isolated. 09/27/23 15:04 Blood Culture (Wb) - Anticubital Left Blood Culture - Final No growth in 5 days. 09/27/23 Unknown Tissue - Buttock Gram Stain - Final 09/27/23 Unknown Tissue - Buttock Wound Culture - Final Streptococcus group G Escherichia coli Proteus mirabilis Staphylococcus aureus 09/27/23 Unknown Tissue - Buttock Anaerobic Culture - Final Bacteroides thetaiotaomicron 09/27/23 Unknown Tissue - Buttock Gram Stain - Final 09/27/23 Unknown Tissue - Buttock Wound Culture - Final Streptococcus group G Escherichia coli Proteus mirabilis Staphylococcus aureus 09/27/23 Unknown Tissue - Buttock Anaerobic Culture - Final Anaerobic cocci Fusobacterium mortiferum 09/29/23 08:48 Bone - Ischial Bone Gram Stain - Final 09/29/23 08:48 Bone - Ischial Bone Wound Culture - Final Escherichia coli 09/29/23 08:48 Bone - Ischial Bone Anaerobic Culture - Final No anaerobic bacteria isolated. 09/27/23 15:04 Mucosa - Nose SARS-CoV-2, Influenza & RSV (PCR) - Final Rhythm Strip Rhythm Strip: Sinus Tach Rate: 122 Ectopy: None Physical Exam Narrative alert, oriented x3 and no apparent distress General Appearance: cooperative, well kempt and well developed Orientation / Consciousness: awake, oriented to person, oriented to place and oriented to time. Patient has a wound VAC in place. HEENT normocephalic, head/scalp atraumatic and moist oral mucous membranes Eyes PERRL, EOMs intact bilaterally and conjunctivae normal Neck supple, no JVD, thyroid normal and no carotid bruits General: trachea midline Resp normal respiratory effort, no retractions, no use of accessory muscles and clear to auscultation bilaterally Auscultation: Negative for rales, rhonchi or wheezes Cardio regular rate, regular rhythm, S1 normal heart sound, S2 normal heart sound, no murmurs, no rub and no gallops GI normal to inspection, nondistended, normoactive bowel sounds, soft to palpation, non-tender and non-distended Neuro oriented x3, CN's II-XII intact bilaterally and no sensory deficits noted Neuro Narrative: Patient has some movement in his right leg, his left lower leg has a cast over it, he has generalized atrophy of the right leg, there is lack of muscle tone and strength on the left leg. Sensorium / Orientation: awake, alert, oriented to person, oriented to place and oriented to time Speech: speech normal Psych affect normal Assessment & Plan Assessment/Plan (1) Decubitus ulcer, unstageable with infection: (2) Paraplegia: PLAN: Plan 1. Infected unstageable pressure injury left lateral buttocks area and area above sacrum-plastic surgery is participating in his care, again he will be scheduled to undergo diverting colostomy on Wednesday of this week. #2 closed pilon fracture of the left tibia-nondisplaced and closed, conservative care was recommended by podiatry, patient remains in a cast #3 acute anemia secondary to expected blood loss from surgery on the patient's pressure injury-patient's labs will be monitored #4 hypokalemia-corrected at this time, recheck as needed #5 chronic paraplegia-complicates care, management, recovery, and prognosis #6 homelessness-complicates care, management, recovery, and prognosis. Patient has agreed to go to a penitentiary facility for short-term penitentiary services. Total clinical time spent by myself addressing the patient's medical issues, reviewing all of his data, and collaborating with patient's care team: 25 minutes Charges/Coding Visit Charges Inpatient E&M: 87417 Subs Hosp L1
[2023-10-03 18:37] VITALS: BP 88/53; PULSE 86; RESP 16; TEMP 36.8; O2SAT 98
[2023-10-03 22:00] VITALS: BP 91/41; PULSE 92; RESP 16; TEMP 37.3; O2SAT 100
[2023-10-04] MEDS: 0.9% Normal Saline (250mL Bag) 250 ML 15 ML IV (00:33)
[2023-10-04 03:47] VITALS: BP 91/48; PULSE 96; RESP 16; TEMP 37.1; O2SAT 96
[2023-10-04] MEDS: 0.9% Normal Saline (1000mL) 1,000 ML 75 ML IV ×2 (03:55→16:30)
[2023-10-04 05:07] LABS: Absolute Lymphocyte Count 1.95 X10^3/uL (0.83-4.51); Basophil# 0.03 X10^3/uL; Basophil% 0.4 % (0-1); Eosinophil# 0.22 X10^3/uL; Eosinophils% 3.2 % (0-5); Hematocrit 28.7 % (40-54); Lymphocyte # 1.95 X10^3/ul (0.83-4.51); Lymphocyte % 28.2 % (19-41); Mean Corp Hgb Conc 31.4 g/dL (32-36); Mean Corpuscular Hgb 24.9 pg (27.0-32.0); Mean Corpuscular Volume 79.5 fL (80-94); Mean Platelet Vol. 8.6 fl (6.2-12.0); Monocyte# 0.55 X10^3/uL; Monocyte% 7.9 % (0-10); NRBC Flagged by Analyzer 0 % (0-5); Neutrophil % 57.8 % (47-70); Platelet Count 592 K/mm3 (150-450); RBC Distribution Width CV 15.9 % (11.6-14.6); RBC Distribution Width SD 43.8 fl (35.1-43.9); Red Blood Count 3.61 M/mm3 (4.6-6.2); White Blood Count 6.9 K/mm3 (4.4-11.0)
[2023-10-04 05:28] LABS: Anion Gap 4 (5-15); BUN 3 mg/dL (7-18); BUN/Creat Ratio 5.4 RATIO (10-20); Calcium,Total 7.9 mg/dL (8.5-10.1); Chloride 106 mmol/L (98-107); Creatinine, Serum 0.56 mg/dL (0.70-1.30); EST Glomerular Filtration Rate 183 mL/min (>60); Est Glom Filt Rate - Afr Amer 222 mL/min (>60); Estimated Creatinine Clearance 186.65 ml/min; Glucose 100 mg/dL (74-106); Potassium 3.8 mmol/L (3.5-5.1); Sodium Level 138 mmol/L (136-145)
[2023-10-04 06:00] VITALS: BMI 17.4
[2023-10-04] MEDS: Clindamycin 600 MG/50 ML BAG 100 MG IV (06:33)
[2023-10-04] MEDS: Cefazolin 2 GM in 0.9% Normal Saline (100mL Bag) 100 ML IV ×3 (06:33→21:42)
[2023-10-04] MEDS: metroNIDAZOLE 500 MG Tablet PO ×3 (08:21→21:42)
[2023-10-04] MEDS: DAKIN'S SOL HALF STRENGTH (=0.25%) 1 APPLIC TOPICAL (08:23)
[2023-10-04] MEDS: Enoxaparin 40 MG/0.4 ML Syringe SC (08:23)
[2023-10-04] MEDS: Ensure Plus High Protein 120 ML LIQUID PO (08:24)
[2023-10-04 09:45] VITALS: BP 110/52; PULSE 99; RESP 16; TEMP 36.9; O2SAT 98
--- NOTE | 2023-10-04 09:48 | PN.SURG_ITS ---
Subjective Subjective Patient seen and examined during AM rounds. Was found resting in bed. Denies any pain Objective Data Objective Data Vital Signs: Vital Signs Temp Pulse Resp BP Pulse Ox O2 Del Method 98.7 F 96 16 91/48 L 96 Room Air 10/04/23 03:47 10/04/23 03:47 10/04/23 03:47 10/04/23 03:47 10/04/23 03:47 10/04/23 03:47 Oxygen Delivery Method Room Air Weight: 147 lb 0.3 oz Body Mass Index (BMI) 17.4 Intake & Output: Intake and Output for Last 24 Hours 10/02/23 10/03/23 10/04/23 23:59 23:59 23:59 Intake Total 3511.75 / 3511.75 4945 / 4945 2178.75 / 2178.75 Output Total 2850 / 2850 4925 / 4925 1750 / 1750 Balance 661.75 / 661.75 428.75 / 428.75 Lab / Micro Data 10/05/23 05:55 10/05/23 05:55 Labs: Laboratory Results - last 24 hr 10/04/23 03:59: WBC 6.9, RBC 3.61 L, Hgb 9.0 L, Hct 28.7 L, MCV 79.5 L, MCH 24.9 L, MCHC 31.4 L, RDW Std Deviation 43.8, RDW Coeff of Zakia 15.9 H, Plt Count 592 H , MPV 8.6, Immature Gran % (Auto) 2.500 H, Neut % (Auto) 57.8, Lymph % (Auto) 28.2, [place] % (Auto) 7.9, Eos % (Auto) 3.2, Baso % (Auto) 0.4, Absolute Neuts (auto) 4.0, Absolute Lymphs (auto) 1.95, Nucleated RBC % 0, Sodium 138, Potassium 3.8, Chloride 106, Carbon Dioxide 28.0, Anion Gap 4 L, BUN 3 L, C reatinine 0.56 L, Estim Creat Clear Calc 186.65, Est GFR (MDRD) Af Amer 222, Est GFR (MDRD) Non-Af 183, BUN/Creatinine Ratio 5.4 L, Glucose 100, Calcium 7.9 L Micro: Microbiology 09/27/23 Unknown Rectal Abscess Gram Stain - Final 09/27/23 Unknown Rectal Abscess Wound Culture - Final Streptococcus group G Proteus mirabilis Staphylococcus aureus 09/27/23 Unknown Rectal Abscess Anaerobic Culture - Final No anaerobic bacteria isolated. 09/27/23 15:04 Blood Culture (Wb) - Anticubital Left Blood Culture - Final No growth in 5 days. 09/27/23 Unknown Tissue - Buttock Gram Stain - Final 09/27/23 Unknown Tissue - Buttock Wound Culture - Final Streptococcus group G Escherichia coli Proteus mirabilis Staphylococcus aureus 09/27/23 Unknown Tissue - Buttock Anaerobic Culture - Final Bacteroides thetaiotaomicron 09/27/23 Unknown Tissue - Buttock Gram Stain - Final 09/27/23 Unknown Tissue - Buttock Wound Culture - Final Streptococcus group G Escherichia coli Proteus mirabilis Staphylococcus aureus 09/27/23 Unknown Tissue - Buttock Anaerobic Culture - Final Anaerobic cocci Fusobacterium mortiferum 09/29/23 08:48 Bone - Ischial Bone Gram Stain - Final 09/29/23 08:48 Bone - Ischial Bone Wound Culture - Final Escherichia coli 09/29/23 08:48 Bone - Ischial Bone Anaerobic Culture - Final No anaerobic bacteria isolated. 09/27/23 15:04 Mucosa - Nose SARS-CoV-2, Influenza & RSV (PCR) - Final Rhythm Strip Rhythm Strip: Sinus Tach Rate: 122 Ectopy: None Physical Exam Const oriented x3 and no apparent distress Resp normal respiratory effort GI GI Narrative: Nondistended, soft, nontender to palpation Assessment & Plan Assessment/Plan (1) Decubitus ulcer, unstageable with infection: PLAN: Patient is a 28-year-old male status post I&D procedure by me of left lower extremity and 2 subsequent operative trips for wound VAC change and debridement by plastic surgery. He had an uneventful weekend. His hemoglobin is rising per recent labs. His white count remains normal. Ongoing wound care directed by plastic surgery. Starting a bowel prep today to anticipate colostomy tomorrow. Procedure and post procedure expectations were discussed. Patient stresses that he wishes for this to be a temporary measure. I have tried to encourage him to continue to improve his mobility and wound healing so that we can ultimately make this a reality. Patient to be n.p.o. past midnight Luis Daniel Decker MD General Surgery Endocrine Surgery Pager: [facility] [address] [place] [address], [facility], [address] [place] [address] Office: [phone] Charges/Coding Visit Charges Inpatient E&M: 46258 Subs Hosp L2
--- NOTE | 2023-10-04 11:10 | WOUNDNOTE ---
wound photo: left buttock
--- NOTE | 2023-10-04 11:11 | WOUNDNOTE ---
wound photo: sacrum
--- NOTE | 2023-10-04 11:19 | CASEMGMT ---
Karla from [facility] called RN CM for update on Pt DC plan. Notified CC accepted pt, still awaiting precert.
--- NOTE | 2023-10-04 14:10 | PCM.PN.ID ---
Physical Exam Narrative Feeling well, no fever, no n/v/d. Const alert and no apparent distress General Appearance: cooperative Resp normal air movement and clear to auscultation bilaterally Cardio regular rate and regular rhythm GI soft to palpation, non-tender and non-distended Skin Skin Narrative: reviewed photos ID ID: Route of nutrition/ use of supplements: [] Nutritional Intake: [] IV Site: [] Watson Catheter: [] Assessment & Plan Assessment/Plan (1) Sepsis: (2) Necrotizing fasciitis: PLAN: Taken to OR 09/27/[address] Decker for I&D. Taken back to OR 09/29/[address] Perez. Cxs so far showing strep, MSSA, ecoli, proteus. Will cont cefazolin/flagyl. Seen by gen surg, pt agreeing to ostomy. Plan at discharge will be picc and 6 weeks iv abx. Will follow
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
[2023-10-04] MEDS: Ensure Clear 120 ML Liquid PO (14:33)
[2023-10-04] MEDS: Bisacodyl 5 MG Tablet 20 MG PO (14:34)
[2023-10-04] MEDS: Polyethylene Glycol 3350 BOWEL PREP PO (16:30)
[2023-10-04 20:00] VITALS: BP 103/50; PULSE 98; RESP 16; TEMP 37.2; O2SAT 98
[2023-10-04] MEDS: 0.9% Saline Lock 10 ML Syringe IV (21:42)
[2023-10-05] VITALS (13 sets, daily range): BP systolic 91–120; BP diastolic 51–75; PULSE 78–111; RESP 14–16; TEMP 36.4–37.2; O2SAT 95–100; BMI 17.4
--- NOTE | 2023-10-05 | COL_PTH ---
PATIENT: HEMALATHA MEDINA LOC: MS3 U#:[id number] AGE/SX: 28/M ROOM: [facility] RE09/27/[address]: Dr. Lisa Freedman MD : 1995 BED: 1 DIS: 10/09/2023 SPEC #: [id number] RECD: 10/05/23 13:15 STATUS: MEET RENicola #: [id number] TRUE: 10/05/23 00:[address]: Luis Daniel Decker DEPT: SURGICAL PATHOLOGY RECD BY: Will Santana ENTERED: 10/05/23 13:16 SP TYPE: COLON OTHR DR: Dr. Davion Chawla, DO Dr. Kermit Perez, DPM MD Dr. Mega Bull, MD Dr. Bryon Oates Dr., MD Dr. Robert Siska, MD Dr. Victor Velasquez, MD Tissues: Colon, NOS Procedures: Surgery Specimen Level V Comments: @ Ordering doctor for SUV edited from to @ by ELISEO at 10/05/23 1332 @ Submitting doctor edited from to @ deborah GOMES at 10/05/23 1332 HEADER OPERATION: Laparoscopic diverting sigmoid colostomy PRE-OP DIAGNOSIS: Decubitus ulcer, unstageable with infection TISSUE SUBMITTED: Sigmoid colon MICROSCOPIC DIAGNOSIS Sigmoid colon, segmental resection: No significant pathologic change. No evidence of malignancy. / 10/06/2023 MICROSCOPIC DESCRIPTION Slides are reviewed. GROSS DESCRIPTION Received in fixative is one container labeled with the patient's name and designated Sigmoid colon. The specimen consists of a small segment of colon measuring 2.5cm in length. Attached pericolonic adipose tissue is also noted. Focal area of defect is noted at one edge of the specimen measuring 2.0cm in greatest dimension. No mucosa lesion is identified. Data Software Engineer sections are submitted in two cassettes. 10/05/2023 TC:5 CPT:81388
[2023-10-05] MEDS: metroNIDAZOLE 500 MG Tablet PO ×3 (05:20→21:17)
[2023-10-05] MEDS: Cefazolin 2 GM in 0.9% Normal Saline (100mL Bag) 100 ML IV ×3 (05:20→21:17)
[2023-10-05 06:37] LABS: Absolute Neutrophil Count 6.2 X10^3/uL (2.0-7.7); Basophil# 0.03 X10^3/uL; Basophil% 0.3 % (0-1); Eosinophil# 0.13 X10^3/uL; Eosinophils% 1.5 % (0-5); Hematocrit 29.5 % (40-54); Hemoglobin 9.3 g/dL (13.0-16.5); Lymphocyte % 18.5 % (19-41); Mean Corp Hgb Conc 31.5 g/dL (32-36); Mean Corpuscular Hgb 25.1 pg (27.0-32.0); Mean Corpuscular Volume 79.5 fL (80-94); Mean Platelet Vol. 8.4 fl (6.2-12.0); Monocyte# 0.57 X10^3/uL; Monocyte% 6.6 % (0-10); NRBC Flagged by Analyzer 0 % (0-5); Neutrophil # 6.15 X10^3/uL (2.7-7.7); Neutrophil % 71.4 % (47-70); Platelet Count 640 K/mm3 (150-450); RBC Distribution Width SD 44.6 fl (35.1-43.9); Red Blood Count 3.71 M/mm3 (4.6-6.2); White Blood Count 8.6 K/mm3 (4.4-11.0)
--- NOTE | 2023-10-05 06:38 | NURSING ---
0617- report called to Allegra SAMANIEGO from [facility]x at this time. made her aware pts wound vac was removed last night got soiled with stool.
[2023-10-05 06:47] LABS: Anion Gap 4 (5-15); BUN 3 mg/dL (7-18); BUN/Creat Ratio 5.1 RATIO (10-20); Calcium,Total 7.7 mg/dL (8.5-10.1); Chloride 107 mmol/L (98-107); Creatinine, Serum 0.59 mg/dL (0.70-1.30); EST Glomerular Filtration Rate 171 mL/min (>60); Est Glom Filt Rate - Afr Amer 207 mL/min (>60); Estimated Creatinine Clearance 174.75 ml/min; Glucose 101 mg/dL (74-106); Potassium 3.7 mmol/L (3.5-5.1); Sodium Level 137 mmol/L (136-145)
[2023-10-05] MEDS: 0.9% Normal Saline (1000mL) 1,000 ML 15 ML IV (07:00)
--- NOTE | 2023-10-05 07:26 | PRE.ANES_ITS ---
ASA Classification* ASA Classification ASA Classification: 3 Assessment & Plan Anesthesia* Anesthesia Assessment Anesthesia Assessment: Discussed sedation and/or anesthesia options, risks, benefits, and alternatives with patient/parents/legal guardian/POA. Questions invited. The patient/parents/legal guardian/POA seems to understand and agrees to proceed with anesthesia plan. Reviewed the physical assessment, medical history, allergy history and patient home medications list prior to surgery/procedure/anesthetic and documented any changes. Performed airway and anesthesia risk assessments. Anesthesia Type Anesthesia Type: General (see written pre anesthesia record for full assessment) Anesthesia Focused Assessment* Temperature: 99 F Pulse Rate: 96 Blood Pressure: 96/57 Respiratory Rate: 16 Pulse Ox: 97 Airway Assessment Mouth opens: >3 cm Mallampati Score: II Focused Labs Anesthesia Preop lab: CBC WBC 8.6 K/mm3 (4.4-11.0) 10/05/23 05:55 RBC 3.71 M/mm3 (4.6-6.2) L 10/05/23 05:55 Hgb 9.3 g/dL (13.0-16.5) L 10/05/23 05:55 Hct 29.5 % (40-54) L 10/05/23 05:55 Plt Count 640 K/mm3 (150-450) H 10/05/23 05:55 CHEMISTRY Potassium 3.7 mmol/L (3.5-5.1) 10/05/23 05:55 Sodium 137 mmol/L (136-145) 10/05/23 05:55 Magnesium 2.0 mg/dL (1.6-2.6) 10/01/23 20:42 Phosphorus 3.1 mg/dL (2.5-4.9) 09/28/23 06:18 BUN 3 mg/dL (7-18) L 10/05/23 05:55 Creatinine 0.59 mg/dL (0.70-1.30) L 10/05/23 05:55 Glucose 101 mg/dL (74-106) 10/05/23 05:55 COAG PT 16.1 SECONDS (11.7-14.9) H 09/29/23 04:15 Pre-Assessment Diagnosis/Proposed Procedure Planned Operative Procedure(s): I&D left buttock abscess Anesthesia History Anesthesia History - machine ii cutter: Anesthesia History - machine ii cutter Hx Hospitalization Any Problems With Anesthesia No 10/05/23 01:34 Cholinesterase deficiency No 10/05/23 01:34 You/Your Family Experience No 10/05/23 01:34 fever (hyperthermia) with Relationship Recent Exposure to Contagious No 10/05/23 01:34 Disease Does patient have nerve No 10/05/23 01:34 stimulator Patient instructed to have No 10/05/23 01:34 device shut off --Does patient have Pacemaker No 10/05/23 07:02 or ICD? When Was Last Pacemaker Check QUESTION #4 FULL TEXT: You/Your Family Experience fever (hyperthermia) with Anesthesia Last Oral Intake Last Oral intake: Last Oral Intake NPO since 00:00 10/05/23 07:02 Meds taken in AM with sips of Yes 10/05/23 07:02 water? Meds patient instructed to flagyl 10/05/23 07:02 take am of surgery PONV PONV - machine ii cutter: PONV - machine ii cutter Female HX of Motion Sickness HX of N/V After Surgery Non-Smoker Duration of Surgery greater than 60 minutes Number of Risk Factors PONV Score Height & Weight Height & Weight: Anesthesia: Height & Weight Height 6 ft 5 in 10/05/23 07:02 Weight: 66.877 kg 10/05/23 07:02 Body Mass Index (BMI) 17.4 10/05/23 07:02 Respiratory Assessment Respiratory Assessment - machine ii cutter: Respiratory Tract Infection Hx - machine ii cutter Hx Respiratory Tract Infection No 10/05/23 01:34 STOP Sleep Apnea STOP Sleep Apnea - machine ii cutter: STOP Sleep Apnea - machine ii cutter Hx Hypertension No 09/28/23 15:04 Hx Sleep Apnea No 09/27/23 22:49 CPAP BIPAP Do you snore loudly (louder Yes 09/27/23 22:49 than talking or can be heard Do you often feel tired/ No 09/27/23 22:49 fatigued/ sleepy during daytime? Has anyone observed you stop No 09/27/23 22:49 breathing during sleep? STOP Results Negative 10/01/23 09:25 QUESTION #5 FULL TEXT : Do you snore loudly (louder than talking or can be heard through closed doors)? Tobacco Use History Tobacco Use History - machine ii cutter: Tobacco Use History - machine ii cutter Tobacco Use Smoking Status Current every day smoker 09/28/23 10:12 Hx Tobacco Use Yes 09/27/23 22:49 Years Smoking Packs Smoked per Day Smoking Cessation Date was within the last 15 years Hx Smoking Cessation Date Hx Smoking Cessation Counseling Hematologic Medial History Hematologic Hx - machine ii cutter: Hematologic Medical Hx - clinical documentation improvement specialist Hx of Blood Transfusion No 09/27/23 22:49 Hx of Transfusion in last 3 No 09/27/23 22:49 Months Date of Last Transfusion (if within last 3 months) Ever experience any problems No 09/27/23 22:49 with transfusion(s)? Specify any problems Hx of Preganancy in last 3 N/A 09/27/23 22:49 Months Nurse Filling Out Transfusion CSCHLATTE 09/27/23 22:49 & Questions: Date: 09/27/23 09/27/23 22:49 Time: 22:50 09/27/23 22:49 Patient unable to answer at this time (ie. confused, unrespo /Reproduction History /Reproductive History - machine ii cutter: /Reproductive Hx- machine ii cutter Hx Now na 10/05/23 01:34 Gestational Age (in weeks): EDC: Hx Hx Para Hx Section SAB No 10/05/23 01:34 Active Medications Active Medications: Current Medications Generic Name Dose Route Start Last Admin Trade Name Freq PRN Reason Stop Dose Admin Acetaminophen 650 mg 09/27/23 22:34 Acetaminophen 325 Mg Tablet PO Q6H PRN PRN Pain 1-10 Or Fever >100.7 Albuterol Sulfate 2.5 mg 09/27/23 22:34 Albuterol 2.5 Mg/3 Ml Vial.Neb. INHALATION Q2H PRN PRN SOB &/OR WHEEZING Enoxaparin Sodium 40 mg 09/28/23 10:00 10/04/23 08:23 Enoxaparin 40 Mg/0.4 Ml Syringe SC 40 mg DAILY MIGUE Administration Sodium Chloride 250 mls @ 15 mls/hr 09/27/23 22:39 10/04/23 07:51 IV Infused .[id number] PRN Infusion Additional IVPB Infusion Sodium Chloride 250 mls @ 15 mls/hr 09/27/23 22:39 IV .[id number] PRN Saline Flush Cefazolin Sodium 2 gm/ Sodium 110 mls @ 150 mls/hr 10/01/23 14:00 10/05/23 06:04 Chloride IV Infused Q8 MIGUE Infusion Sodium Chloride 1,000 mls @ 15 mls/hr 10/05/23 06:20 10/05/23 07:00 IV 15 mls/hr .Q48H MIGUE Administration Melatonin 3 mg 09/27/23 22:34 Melatonin 3 Mg Tablet PO QHS PRN PRN INSOMNIA Metronidazole 500 mg 10/01/23 14:00 10/05/23 05:20 Metronidazole 500 Mg Tablet PO 500 mg TID MIGUE Administration Morphine Sulfate 2 - 4 mg 09/27/23 22:34 Morphine 2 Mg/Ml Syringe IV Q3H PRN PRN Pain Score 6-10 Nutritional Formula (Lactose Free) 120 ml 10/04/23 14:00 10/04/23 21:44 Ensure Clear 120 Ml Liquid PO Not Given 4X/DAY [facility] Ondansetron HCl 4 mg 09/27/23 22:34 Ondansetron 4 Mg/2 Ml Vial IV Q8H PRN PRN NAUSEA/VOMITING Oxycodone HCl 5 mg 09/27/23 22:34 Oxycodone 5 Mg Tablet PO Q4H PRN PRN Pain Score 4-10 Senna/Docusate Sodium 2 tablet 09/27/23 22:34 Senna/Docusate Sodium 1 Tablet PO BID PRN PRN Constipation Sodium Chloride 10 - 40 ml 09/27/23 22:39 10/04/23 21:42 0.9% Saline Lock 10 Ml Syringe IV 10 ml UD PRN Administration SALINE FLUSH Sodium Hypochlorite 1 applic 09/28/23 11:10 10/04/23 21:44 Dakin's Vicki Half Strength (=0.25%) TOPICAL Not Given BID [facility] Protocol PFSH Medical History Paraplegia Hx of back injury Allergy/AdvReac Type Severity Reaction Status Date / Time No Known Allergies Allergy Verified 04/08/23 10:33 Family History unable to obtain Surgical History History of cholecystectomy S/P lumbar spinal fusion Social History housing: homeless Smoking Status: Current every day smoker tobacco type: cigarettes, e-cigarettes and smokeless tobacco alcohol intake: former substance use type: does not use Review of Systems (Anesthesia) ROS Narrative System reviewed and no additional complaints, except as documented.
--- NOTE | 2023-10-05 07:38 | WOUNDNOTE ---
Pt is currently down in the OR for surgery for diverting colostomy.
[2023-10-05] MEDS: Bupivacaine Mpf 0.5% 30 ML VIAL (09:56)
--- NOTE | 2023-10-05 10:47 | PCM.POST.ANE ---
Anesthesia: Postop Eval I Current Vital Signs Temperature: 97.6 F Pulse Rate: 93 Blood Pressure: 110/67 Respiratory Rate: 16 Pulse Ox: 99 Oxygen Delivery Method: Room Air Assessment Airway patent: Yes Spontaneous unlabored respirations: Yes Mental status: Awake and Calm nausea: No Vomiting: No Anesthesia Complication: No Fluid Hydration Crystalloid volume administer (ml): 1,200 Total IV fluid infused: 1,200 Progress Note Anesthesia document: Postop Eval 1 completed: Yes
--- NOTE | 2023-10-05 10:58 | OP.PCM_ITS ---
Report of Operation Date of Procedure: 10/05/23 Pre-Operative Diagnosis: 1. Necrotizing fasciitis derived from a infected decu bitus ulcer of the left ischium status postdebridement 2. Need for fecal diversion secondary to #1 Post-Operative Diagnosis: Same Surgery/Procedure Performed:: Laparoscopic partial sigmoid colectomy with end colostomy Description of Surgical Findings:: ? Redundant sigmoid colon otherwise ? Evidence of large direct inguinal hernia defect Surgeon: Luis Daniel Decker global upstream marketing manager: Guillermina Ellison Type of Anesthesia: General/Supplemental Anesthesiologist: Harshad Parker Specimen's removed: - Sigmoid colon Estimated Blood Loss (mL): 10 Description of Procedure: After appropriate identification in the preoperative holding area patient was brought to the operating room where he was positioned supine on the operating table. There, preoperative antibiotics were completed. He then underwent induction with general endotracheal anesthetic. A Watson catheter was already inserted due to his limited mobility status. The abdomen was prepped and draped in usual sterile fashion. Formal timeout confirmed patient and the procedure. Procedure was begun with a Valentin entry and a supraumbilical position after instillation of local anesthetic. Here a 12 mm balloon trocar was placed without resistance. Then under laparoscopic visualization I proceeded with placement of a 5 mm trocar in a right upper quadrant position and then an additional 12 mm trocar was placed under laparoscopic guidance in the right lower quadrant. In Trendelenburg positioning, the patient's colon was mobilized [id number] by incising the white line of Toldt with the laparoscopic LigaSure device. Only limited amount of mobilization was required as the patient's sigmoid colon was found to be sufficiently redundant to reach anterior abdominal wall. Upon making this observation I proceeded with placement of a fourth 5 mm trocar through the presumed exit site for the patient's colostomy. This trocar insertion began with removal of a disc of skin and the subcutaneous tissue was spread down to the level of the anterior rectus sheath. This was incised in a cruciate manner using electrocautery. The rectus fibers were spread along their orientation to bring us down to the posterior rectus sheath. This layer was incised sharply in a longitudinal manner and I gently stretched this opening wider so it accommodated 2 fingerbreadths. Then a small wound protector was placed through this opening. A 5 mm trocar was placed through this opening and a umbilical tape was used to snug the wound protector around the port to make it relatively airtight. Pneumoperitoneum was established to 15 mmHg and a laparoscope was inserted to reveal no inadvertent injury to the viscera below. I then proceeded to grasp the colon at various points and bring it to the abdominal wall to find an optimal point that reached without tension. The colon was elevated anteriorly and a retrocolic window was carefully made using the laparoscopic LigaSure device to maintain hemostasis. The sigmoid colon was thus divided with a single firing of the laparoscopic 45 mm [place] stapler. I then used the laparoscopic LigaSure to further divide the mesocolon towards its root to provide further reach. With this completed I chose to becky the distal sigmoid colon by laparoscopically placing a 2-0 Prolene sutures through the staple line and tying it intracorporeally. Then a locking grasper was placed on the proximal colonic segment and pneumoperitoneum was evacuated. Our 5mm port was removed from the left lower quadrant and the cut end of colon was delivered through this opening and secured against the abdominal wall with a Wayne clamp. The patient's remaining supraumbilical and right lower quadrant 12 mm port sites were closed at the fascia using a [id number] technique with 0 Vicryl. Additional local anesthetic was instilled. Then these and the remaining 5 mm port site was closed with 4-0 Monocryl. Steri-Strips and bandages were applied as dressings. Lastly I chose to divide the colon again due to the presence of some serosal trauma from creation of our retrocolic window and thereby obtain a new edge with which to create a colostomy. The small segment of divided colon was passed off the field as a specimen. Maturation of the patient's colostomy followed in a standard Halie fashion using interrupted 3-0 Vicryl. An ostomy appliance was cut and fit about the stoma and the procedure was turned over to anesthesia. Anesthesia awaken the patient and he was transferred to PACU for ongoing recovery. Complications None Admit VTE Documentation VTE Mechan Device Prophylaxis: SCD's
--- NOTE | 2023-10-05 11:23 | CASEMGMT ---
Updated SW per note from the need for offloading mattress at SNF.
--- NOTE | 2023-10-05 13:49 | CASEMGMT ---
Discharge Planning Updates sent to [facility] via [facility] and asked for precert to be started. Linda Gomez DC Planning Asst.
--- NOTE | 2023-10-05 13:58 | CASEMGMT ---
Social Work SW spoke with Andree from [facility] and informed on physician recommendation for an airbed with pressure off loading and a ROHO cushion for the wheelchair. Andree states they will order the bed and have cushions on hand. Precert will be started at this time. Plan: [facility], pending precert ADITYA Lopez
[2023-10-05] MEDS: DAKIN'S SOL HALF STRENGTH (=0.25%) 1 APPLIC TOPICAL (15:07)
[2023-10-05] MEDS: Enoxaparin 40 MG/0.4 ML Syringe SC (15:08)
[2023-10-05] MEDS: 0.9% Saline Lock 10 ML Syringe IV (15:13)
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
--- NOTE | 2023-10-05 16:07 | CASEMGMT ---
Social Work - SW met with pt and his father to provide updates. Pt father would like to be notified when pt discharges; pt agreeable to pt father being contacted. Pt father works until 2:30 and would like to meet pt at the SNF at d/c; prefers d/c to be 2:30 or later. Pt would like father to be there at d/c as well. Pt reports that he is doing well following procedure today and is glad for his dad's company. SW to remain available to follow. ADITYA Hood
--- NOTE | 2023-10-05 16:29 | POSTOPAN2_ITS ---
Anesthesia Postop Eval I Sum Postop Eval Completion status Anesthesia document: Postop Eval 1 completed: Yes Anesthesia Postop Eval I Summary Anesthesia Postop Eval I Summary: Anesthesia Postop Eval I: Assessment Summary Airway patent Yes 10/05/23 10:49 Spontaneous unlabored Yes 10/05/23 10:49 respirations Mental status Awake,Calm 10/05/23 10:49 nausea No 10/05/23 10:49 Vomiting No 10/05/23 10:49 Anesthesia Postop Eval I: Fluid Summary Crystalloid volume administer 1,200 10/05/23 10:51 (ml) Colloids volume administered ( ml) Blood Product volume administered (ml) Total IV fluid infused 1,200 10/05/23 10:51 Anesthesia Postop Eval I: Summary Notes Anesthesia Complication No 10/05/23 10:49 Anesthesia Complication Comment: Post-operative progress note DENIES PAIN; CHILANGO 10/01/23 09:25 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
[2023-10-06] VITALS: BP 103/56; PULSE 95; RESP 16; TEMP 36.6; O2SAT 98
[2023-10-06 04:00] VITALS: BP 99/58; PULSE 99; RESP 16; TEMP 36.6; O2SAT 97
[2023-10-06] MEDS: metroNIDAZOLE 500 MG Tablet PO ×3 (05:02→22:50)
[2023-10-06] MEDS: Cefazolin 2 GM in 0.9% Normal Saline (100mL Bag) 100 ML IV ×3 (05:02→22:51)
[2023-10-06 06:00] VITALS: BMI 17.4
--- NOTE | 2023-10-06 07:49 | PCM.PN.SRG ---
Subjective Subjective Patient seen and examined during AM rounds. He is found resting in bed. He states that he has some discomfort directly over his ostomy but otherwise has been able to rest. He initially reports no difficulty with his liquid diet, but then shares that he has been having a fair amount of burping. Objective Data Objective Data Vital Signs: Vital Signs Temp Pulse Resp BP Pulse Ox O2 Del Method 97.8 F 99 16 99/58 L 97 Room Air 10/06/23 04:00 10/06/23 04:00 10/06/23 04:00 10/06/23 04:00 10/06/23 04:00 10/06/23 04:00 Oxygen Delivery Method Room Air Weight: 147 lb 6.417 oz Body Mass Index (BMI) 17.4 Intake & Output: Intake and Output for Last 24 Hours 10/04/23 10/05/23 10/06/23 23:59 23:59 23:59 Intake Total 3732.50 / 3732.50 2940 / 2940 110 / 110 Output Total 2950 / 3350 3100 / 3100 700 / 700 Balance 782.50 / 382.50 -160 / -160 -590 / -590 Medical Nutrition Assessment Dietitian: Malnutrition Criteria Met Start: 10/04/23 13:29 Freq: Status: Active Protocol: Document 10/04/23 13:29 SLA (Rec: 10/04/23 13:29 SLA [email or web address]) Nutrition Malnutrition Evidence of Malnutrition Exists Yes Malnutrition (severe): Acute Illness/Injury Evidenced By Suboptimal Energy Intake ( Severe),Weight Loss (Severe) Intake Problem Increased Nutrient Needs (specify) Etiology calories/protein related to increased demand for healing Signs/Symptoms as evidenced by buttock ulcer Status Active Problem Clinical Problem Acute Disease or Injury Related Malnutrition Etiology related to inadequate energy intake and increased nutritional demands for wound healing Signs/Symptoms as evidenced by <50% po intake at meals and ~14.1% unintended wt loss x < 1 wk. BMI 17.4; has fat/muscle loss throughout body. Status Active Problem Recommendation Dietitian Recommendations/Changes When medically able, rec resume liberal Regular diet to optimize oral intakes. Change to ensure clear 4x/day with medpass to provide supplemental energy and discontinue ensure plus high protein 3x/day d/t pt refusals . Continue Kristopher BID to promote wound healing. Lab / Micro Data 10/05/23 05:55 10/05/23 05:55 Micro: Microbiology 09/27/23 Unknown Rectal Abscess Gram Stain - Final 09/27/23 Unknown Rectal Abscess Wound Culture - Final Streptococcus group G Proteus mirabilis Staphylococcus aureus 09/27/23 Unknown Rectal Abscess Anaerobic Culture - Final No anaerobic bacteria isolated. 09/27/23 15:04 Blood Culture (Wb) - Anticubital Left Blood Culture - Final No growth in 5 days. 09/27/23 Unknown Tissue - Buttock Gram Stain - Final 09/27/23 Unknown Tissue - Buttock Wound Culture - Final Streptococcus group G Escherichia coli Proteus mirabilis Staphylococcus aureus 09/27/23 Unknown Tissue - Buttock Anaerobic Culture - Final Bacteroides thetaiotaomicron 09/27/23 Unknown Tissue - Buttock Gram Stain - Final 09/27/23 Unknown Tissue - Buttock Wound Culture - Final Streptococcus group G Escherichia coli Proteus mirabilis Staphylococcus aureus 09/27/23 Unknown Tissue - Buttock Anaerobic Culture - Final Anaerobic cocci Fusobacterium mortiferum 09/29/23 08:48 Bone - Ischial Bone Gram Stain - Final 09/29/23 08:48 Bone - Ischial Bone Wound Culture - Final Escherichia coli 09/29/23 08:48 Bone - Ischial Bone Anaerobic Culture - Final No anaerobic bacteria isolated. 09/27/23 15:04 Mucosa - Nose SARS-CoV-2, Influenza & RSV (PCR) - Final Rhythm Strip Rhythm Strip: Sinus Tach Rate: 122 Ectopy: None Physical Exam Const oriented x3 and no apparent distress Resp normal respiratory effort GI GI Narrative: Colostomy in left abdominal wall shows no output yet to the appliance in the stoma is edematous but well-perfused. Otherwise the abdomen is only mildly distended and minimally tender. Operative dressings are clean dry and intact. Assessment & Plan Assessment/Plan (1) Decubitus ulcer, unstageable with infection: PLAN: Patient is a 28-year-old male status post I&D procedure by me of left lower extremity and 2 subsequent operative trips for wound VAC change and debridement by plastic surgery. He is now postoperative day 1 from laparoscopic diverting sigmoid colostomy. Overall, he is doing as expected today, however, he shares about some belching as a means of trying to say that he is eliminating excess gas and I clarified for him that this may be a sign that his gut is not ready for diet advancement. Thus I have encouraged him to set aside carbonated beverages and wait for gas to appear in his ostomy appliance. He will need to show signs of bowel function before he is considered discharge?ready from a general surgery perspective. Luis Daniel Decekr MD General Surgery Endocrine Surgery Pager: [facility] [address] [place] [address], [address] [place] [address] Office: [phone] Charges/Coding Visit Charges Inpatient E&M: 99281 Subs Hosp L2
[2023-10-06 08:00] VITALS: BP 95/63; PULSE 94; RESP 16; TEMP 36.9; O2SAT 96
[2023-10-06] MEDS: 0.9% Saline Lock 10 ML Syringe IV (08:57)
[2023-10-06] MEDS: Enoxaparin 40 MG/0.4 ML Syringe SC (09:00)
[2023-10-06 09:31] LABS: Absolute Lymphocyte Count 1.61 X10^3/uL (0.83-4.51); Absolute Neutrophil Count 6.2 X10^3/uL (2.0-7.7); Basophil# 0.05 X10^3/uL; Basophil% 0.6 % (0-1); Eosinophil# 0.13 X10^3/uL; Eosinophils% 1.5 % (0-5); Hematocrit 28.6 % (40-54); Lymphocyte # 1.61 X10^3/ul (0.83-4.51); Lymphocyte % 18.7 % (19-41); Mean Corp Hgb Conc 31.5 g/dL (32-36); Mean Corpuscular Hgb 25.1 pg (27.0-32.0); Mean Corpuscular Volume 79.9 fL (80-94); Mean Platelet Vol. 8.5 fl (6.2-12.0); Monocyte# 0.51 X10^3/uL; Monocyte% 5.9 % (0-10); NRBC Flagged by Analyzer 0 % (0-5); Neutrophil # 6.22 X10^3/uL (2.7-7.7); Neutrophil % 72.1 % (47-70); Platelet Count 652 K/mm3 (150-450); RBC Distribution Width CV 16.5 % (11.6-14.6); RBC Distribution Width SD 45.5 fl (35.1-43.9); Red Blood Count 3.58 M/mm3 (4.6-6.2); White Blood Count 8.6 K/mm3 (4.4-11.0)
[2023-10-06 09:54] LABS: Anion Gap 3 (5-15); BUN 3 mg/dL (7-18); BUN/Creat Ratio 5.8 RATIO (10-20); Chloride 107 mmol/L (98-107); Creatinine, Serum 0.52 mg/dL (0.70-1.30); EST Glomerular Filtration Rate 202 mL/min (>60); Est Glom Filt Rate - Afr Amer 244 mL/min (>60); Estimated Creatinine Clearance 198.22 ml/min; Glucose 120 mg/dL (74-106); Potassium 3.6 mmol/L (3.5-5.1); Sodium Level 137 mmol/L (136-145)
--- NOTE | 2023-10-06 11:16 | WOUNDNOTE ---
wound photo: left ischium/buttock
--- NOTE | 2023-10-06 11:17 | WOUNDNOTE ---
wound photo: sacrum
--- NOTE | 2023-10-06 11:27 | PCM.PN.SRG ---
Subjective Subjective Postop from 09/29/23 and 10/01/23 for excision of left ischial wound and sacral wound by Dr. Perez. Diverting colostomy by Dr. Decker 10/05/23. Patient states his pain is controlled. Objective Data Objective Data Vital Signs: Vital Signs Temp Pulse Resp BP Pulse Ox O2 Del Method 97.8 F 99 16 99/58 L 97 Room Air 10/06/23 04:00 10/06/23 04:00 10/06/23 04:00 10/06/23 04:00 10/06/23 04:00 10/06/23 04:00 Oxygen Delivery Method Room Air Weight: 147 lb 6.417 oz Body Mass Index (BMI) 17.4 Intake & Output: Intake and Output for Last 24 Hours 10/04/23 10/05/23 10/06/23 23:59 23:59 23:59 Intake Total 3732.50 / 3732.50 2940 / 2940 110 / 110 Output Total 2950 / 3350 3100 / 3100 700 / 700 Balance 782.50 / 382.50 -160 / -160 -590 / -590 Medical Nutrition Assessment Dietitian: Malnutrition Criteria Met Start: 10/04/23 13:29 Freq: Status: Active Protocol: Document 10/04/23 13:29 SLA (Rec: 10/04/23 13:29 SLA [id number]) Nutrition Malnutrition Evidence of Malnutrition Exists Yes Malnutrition (severe): Acute Illness/Injury Evidenced By Suboptimal Energy Intake ( Severe),Weight Loss (Severe) Intake Problem Increased Nutrient Needs (specify) Etiology calories/protein related to increased demand for healing Signs/Symptoms as evidenced by buttock ulcer Status Active Problem Clinical Problem Acute Disease or Injury Related Malnutrition Etiology related to inadequate energy intake and increased nutritional demands for wound healing Signs/Symptoms as evidenced by <50% po intake at meals and ~14.1% unintended wt loss x < 1 wk. BMI 17.4; has fat/muscle loss throughout body. Status Active Problem Recommendation Dietitian Recommendations/Changes When medically able, rec resume liberal Regular diet to optimize oral intakes. Change to ensure clear 4x/day with medpass to provide supplemental energy and discontinue ensure plus high protein 3x/day d/t pt refusals . Continue Kristopher BID to promote wound healing. Lab / Micro Data Attestation: I reviewed the patient's lab results. 10/06/23 09:15 10/06/23 09:15 Labs: Laboratory Results - last 24 hr 10/06/23 09:15: WBC 8.6, RBC 3.58 L, Hgb 9.0 L, Hct 28.6 L, MCV 79.9 L, MCH 25.1 L, MCHC 31.5 L, RDW Std Deviation 45.5 H, RDW Coeff of Zakia 16.5 H, Plt Count 652 H, MPV 8.5, Immature Gran % (Auto) 1.200 H, Neut % (Auto) 72.1 H, Lymph % (Auto) 18.7 L, [place] % (Auto) 5.9, Eos % (Auto) 1.5, Baso % (Auto) 0.6, Absolute Neuts (auto) 6.2, Absolute Lymphs (auto) 1.61, Nucleated RBC % 0, Sodium 137, Potassium 3.6, Chloride 107, Carbon Dioxide 27.0, Anion Gap 3 L, BUN 3 L, Creatinine 0.52 L, Estim Creat Clear Calc 198.22, Est GFR (MDRD) Af Amer 244, Est GFR (MDRD) Non-Af 202, BUN/Creatinine Ratio 5.8 L, Glucose 120 H, Calcium 8.0 L Micro: Microbiology 09/27/23 Unknown Rectal Abscess Gram Stain - Final 09/27/23 Unknown Rectal Abscess Wound Culture - Final Streptococcus group G Proteus mirabilis Staphylococcus aureus 09/27/23 Unknown Rectal Abscess Anaerobic Culture - Final No anaerobic bacteria isolated. 09/27/23 15:04 Blood Culture (Wb) - Anticubital Left Blood Culture - Final No growth in 5 days. 09/27/23 Unknown Tissue - Buttock Gram Stain - Final 09/27/23 Unknown Tissue - Buttock Wound Culture - Final Streptococcus group G Escherichia coli Proteus mirabilis Staphylococcus aureus 09/27/23 Unknown Tissue - Buttock Anaerobic Culture - Final Bacteroides thetaiotaomicron 09/27/23 Unknown Tissue - Buttock Gram Stain - Final 09/27/23 Unknown Tissue - Buttock Wound Culture - Final Streptococcus group G Escherichia coli Proteus mirabilis Staphylococcus aureus 09/27/23 Unknown Tissue - Buttock Anaerobic Culture - Final Anaerobic cocci Fusobacterium mortiferum 09/29/23 08:48 Bone - Ischial Bone Gram Stain - Final 09/29/23 08:48 Bone - Ischial Bone Wound Culture - Final Escherichia coli 09/29/23 08:48 Bone - Ischial Bone Anaerobic Culture - Final No anaerobic bacteria isolated. 09/27/23 15:04 Mucosa - Nose SARS-CoV-2, Influenza & RSV (PCR) - Final Rhythm Strip Rhythm Strip: Sinus Tach Rate: 122 Ectopy: None Physical Exam Const oriented x3 HEENT normocephalic Eyes General Eye: normal appearance of both eyes Resp normal respiratory effort Effort and Inspection: able to speak in complete sentences GI GI Narrative: Stoma pink. Colostomy bag in place. Skin Wound Narrative: Left ischial ulcer extending onto the left thigh is pink with minimal amount of drainage. There is a small area of fat necrosis. Sacral ulcer is stable. Wound VAC dressing placed today. Neuro oriented x3 Psych thought process normal and cooperative Assessment & Plan Assessment/Plan (1) Decubitus ulcer, unstageable with infection: (2) Necrotizing fasciitis: (3) Paraplegia: PLAN: Plan Wound VAC dressing placed today over both ulcers. Patient tolerated this well. Diverting colostomy done 10/05/23, patient states he is having minimal discomfort from this. Operative bone culture from 09/29/23 positive for Escherichia coli. Operative tissue culture from 09/27/23 positive for Streptococcus group G, Proteus mirabilis, MSSA, Escherichia coli and Anaerobic cocci. ID managing cultures, he is on Cefazolin and Metronidazole. Plan is PICC line and IV antibiotics x 6 weeks. Prealbumin <3 from 09/28. Albumin 1.6 from 09/27. He is receiving Ensure clear 4x/day and Kristopher 2x/day for nutritional supplementation. He is going to [facility] upon discharge. Once discharged he will need to follow up with either Dr. Perez or myself [facility] in 1-2 weeks. Charges/Coding Procedures Integumentary [id number]: [id number] Global Visit
[2023-10-06 12:00] VITALS: BP 97/55; PULSE 90; RESP 14; TEMP 36.9; O2SAT 97
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
--- NOTE | 2023-10-06 13:24 | PCM.PN.ID ---
Physical Exam Narrative Some abd pain s/p OR, no fever Const alert and no apparent distress General Appearance: cooperative Resp normal air movement and clear to auscultation bilaterally Cardio regular rate and regular rhythm GI soft to palpation and non-distended Skin no rashes or lesions noted ID ID: Route of nutrition/ use of supplements: [] Nutritional Intake: [] IV Site: [] Watson Catheter: [] Assessment & Plan Assessment/Plan (1) Sepsis: (2) Necrotizing fasciitis: PLAN: Taken to OR 09/27/[address] Decker for I&D. Taken back to OR 09/29/[address] Perez. Cxs so far showing strep, MSSA, ecoli, proteus. Will cont cefazolin/flagyl. Seen by gen surg, now s/p OR 10/05/23 for ostomy. Plan at discharge will be picc and 6 weeks iv cefazolin with po flagyl, stop date 11/10/23. Wrote rx, d/w medical case manager, ID followup in 2-3 weeks. Will follow
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
[2023-10-06 16:00] VITALS: BP 96/54; PULSE 87; RESP 18; TEMP 36.8; O2SAT 98
--- NOTE | 2023-10-06 16:42 | CASEMGMT ---
Social Work- completed 7000 for [facility] to begin precert with Tommy. ADITYA Hood
[2023-10-06 22:00] VITALS: BP 109/73; PULSE 105; RESP 16; TEMP 37.2; O2SAT 96
[2023-10-06] MEDS: Acetaminophen 325 MG Tablet 650 MG PO (22:58)
[2023-10-07 04:00] VITALS: BP 91/63; PULSE 93; RESP 16; TEMP 37.3; O2SAT 96
[2023-10-07 04:20] VITALS: BMI 17.4
[2023-10-07] MEDS: Cefazolin 2 GM in 0.9% Normal Saline (100mL Bag) 100 ML IV ×3 (05:53→23:40)
[2023-10-07] MEDS: metroNIDAZOLE 500 MG Tablet PO ×2 (05:53→13:23)
[2023-10-07 08:57] VITALS: BP 93/49; PULSE 90; RESP 14; TEMP 37.3; O2SAT 96
[2023-10-07 09:00] VITALS: PULSE 90
[2023-10-07] MEDS: Enoxaparin 40 MG/0.4 ML Syringe SC (09:11)
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
--- NOTE | 2023-10-07 10:44 | WOUNDNOTE ---
stoma photo: left lower abdomen
--- NOTE | 2023-10-07 10:45 | WOUNDNOTE ---
In to reassess the colostomy. patient states he has had moderate flatus. bowel sweat noted on the bag. stoma remains slightly edematous and pink. removed the appliance. peristomal skin is intact. cleansed skin with warm water. pat dry. stoma measures approx 1 3/4. applied a new 2 piece [place] appliance with a small amount of stoma paste. pt tolerated well. see stoma photo. ostomy supply script on front of patient's chart.
--- NOTE | 2023-10-07 11:01 | CASEMGMT ---
Discharge Planning [facility] has obtained auth to admit. SW updated. Linda Gomez DC Planning Asst.
--- NOTE | 2023-10-07 11:19 | PN.SURG_ITS ---
Subjective Subjective Patient seen and examined during AM rounds. He notes that he is slept well overnight and is feeling better today. He reports only taking some Jell-O by mouth last evening despite a formal diet advance yesterday. He denies as much burping and denies any nausea this morning. He does report that he had some gas in his bag overnight that he had to learn to vent. Lastly shares that his pain is improved. Objective Data Objective Data Vital Signs: Vital Signs Temp Pulse Resp BP Pulse Ox O2 Del Method 99.2 F H 90 14 93/49 L 96 Room Air 10/07/23 08:57 10/07/23 09:00 10/07/23 08:57 10/07/23 08:57 10/07/23 08:57 10/07/23 09:00 Oxygen Delivery Method Room Air Weight: 147 lb 6.417 oz Body Mass Index (BMI) 17.4 Intake & Output: Intake and Output for Last 24 Hours 10/05/23 10/06/23 10/07/23 23:59 23:59 23:59 Intake Total 2940 / 2940 2000 / 2200 420 / 420 Output Total 3100 / 3100 1800 / 2200 500 / 500 Balance -160 / -160 200 / 0 -80 / -80 Medical Nutrition Assessment Dietitian: Malnutrition Criteria Met Start: 10/04/23 13:29 Freq: Status: Active Protocol: Document 10/04/23 13:29 SLA (Rec: 10/04/23 13:29 SLA [email or web address]) Nutrition Malnutrition Evidence of Malnutrition Exists Yes Malnutrition (severe): Acute Illness/Injury Evidenced By Suboptimal Energy Intake ( Severe),Weight Loss (Severe) Intake Problem Increased Nutrient Needs (specify) Etiology calories/protein related to increased demand for healing Signs/Symptoms as evidenced by buttock ulcer Status Active Problem Clinical Problem Acute Disease or Injury Related Malnutrition Etiology related to inadequate energy intake and increased nutritional demands for wound healing Signs/Symptoms as evidenced by <50% po intake at meals and ~14.1% unintended wt loss x < 1 wk. BMI 17.4; has fat/muscle loss throughout body. Status Active Problem Recommendation Dietitian Recommendations/Changes When medically able, rec resume liberal Regular diet to optimize oral intakes. Change to ensure clear 4x/day with medpass to provide supplemental energy and discontinue ensure plus high protein 3x/day d/t pt refusals . Continue Kristopher BID to promote wound healing. Lab / Micro Data 10/06/23 09:15 10/06/23 09:15 Micro: Microbiology 09/27/23 Unknown Rectal Abscess Gram Stain - Final 09/27/23 Unknown Rectal Abscess Wound Culture - Final Streptococcus group G Proteus mirabilis Staphylococcus aureus 09/27/23 Unknown Rectal Abscess Anaerobic Culture - Final No anaerobic bacteria isolated. 09/27/23 15:04 Blood Culture (Wb) - Anticubital Left Blood Culture - Final No growth in 5 days. 09/27/23 Unknown Tissue - Buttock Gram Stain - Final 09/27/23 Unknown Tissue - Buttock Wound Culture - Final Streptococcus group G Escherichia coli Proteus mirabilis Staphylococcus aureus 09/27/23 Unknown Tissue - Buttock Anaerobic Culture - Final Bacteroides thetaiotaomicron 09/27/23 Unknown Tissue - Buttock Gram Stain - Final 09/27/23 Unknown Tissue - Buttock Wound Culture - Final Streptococcus group G Escherichia coli Proteus mirabilis Staphylococcus aureus 09/27/23 Unknown Tissue - Buttock Anaerobic Culture - Final Anaerobic cocci Fusobacterium mortiferum 09/29/23 08:48 Bone - Ischial Bone Gram Stain - Final 09/29/23 08:48 Bone - Ischial Bone Wound Culture - Final Escherichia coli 09/29/23 08:48 Bone - Ischial Bone Anaerobic Culture - Final No anaerobic bacteria isolated. 09/27/23 15:04 Mucosa - Nose SARS-CoV-2, Influenza & RSV (PCR) - Final Rhythm Strip Rhythm Strip: Sinus Tach Rate: 122 Ectopy: None Physical Exam Const oriented x3 and no apparent distress Resp normal respiratory effort GI GI Narrative: Less abdominal distention, less abdominal tenderness, stable edematous stoma, no contents to patient's ostomy appliance at present Assessment & Plan Assessment/Plan (1) Decubitus ulcer, unstageable with infection: PLAN: Patient is a 28-year-old male status post I&D procedure by me of left lower extremity and 2 subsequent operative trips for wound VAC change and debridement by plastic surgery. He is now postoperative day 2 from laparoscopic diverting sigmoid colostomy. Today he appears to be doing better both from a general wellbeing/discomfort perspective as well as reporting signs of return of bowel function. With the latter intact I have encouraged him to try to improve his nutrition today. If he tolerates this advancement I would advance him once more to a transitional diet and monitor for tolerance at that threshold before consideration of discharge to his nursing facility as planned. Luis Daniel Decker MD General Surgery Endocrine Surgery Pager: [facility] [address] [place] [address], [address] [place] [address] Office: [phone] (2) S/P colostomy: Charges/Coding Visit Charges Inpatient E&M: 73592 Subs Hosp L2
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
--- NOTE | 2023-10-07 12:09 | CASEMGMT ---
Social Work Precert has been obtained for discharge to [facility]. Physician updated and pt is ready for dc today. DC medical services assistant updated and to complete dc. Disposition: [facility], skilled level of care under convalescent stay ADITYA Lopez
--- NOTE | 2023-10-07 12:55 | CASEMGMT ---
Discharge Planning Discharge orders, signed med list, wound vac order, wound supply list, and transport time sent to [facility] via [facility]. Physicians will transport patient by cot at 5:30p. Nursing, SW, and patient updated. Patient stated that he will update his father. Linda Gomez DC Planning Asst.
[2023-10-07 14:09] VITALS: BP 96/43; PULSE 90; PULSE 97; RESP 18; TEMP 37.1; O2SAT 97
--- NOTE | 2023-10-07 14:51 | WOUNDNOTE ---
Pt will be sent to [facility] with 3 ostomy appliance changes until they are able to get supplies. appliance was changed this am.
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
--- NOTE | 2023-10-07 15:48 | CASEMGMT ---
Discharge Planning [facility] and Physicians notified that discharge was cancelled. Linda Gomez DC Planning Asst.
--- NOTE | 2023-10-07 15:48 | CASEMGMT ---
Social Work Per physician, discharge to [facility] cancelled at this time due to medical reasons. DC lpn medical assistant to update [facility] and transportation. Plan: [facility], when medically ready ADITYA Lopez
[2023-10-07 21:00] VITALS: RESP 15
[2023-10-07 22:00] VITALS: BP 90/48; PULSE 99; RESP 15; TEMP 37.2; O2SAT 97
[2023-10-08 04:55] VITALS: BP 91/51; PULSE 87; RESP 15; TEMP 37.2; O2SAT 94
[2023-10-08] MEDS: Cefazolin 2 GM in 0.9% Normal Saline (100mL Bag) 100 ML IV ×3 (05:04→20:54)
[2023-10-08] MEDS: metroNIDAZOLE 500 MG Tablet PO ×3 (05:05→20:54)
--- NOTE | 2023-10-08 07:12 | PCM.PN.SRG ---
Subjective Subjective Reports passing some flatus through his colostomy but no stool yet. He tolerated clear liquids well. Objective Data Objective Data Vital Signs: Vital Signs Temp Pulse Resp BP Pulse Ox O2 Del Method 99 F 87 15 91/51 L 94 Room Air 10/08/23 04:55 10/08/23 04:55 10/08/23 04:55 10/08/23 04:55 10/08/23 04:55 10/08/23 04:55 Oxygen Delivery Method Room Air Weight: 147 lb 6.417 oz Body Mass Index (BMI) 17.4 Intake & Output: Intake and Output for Last 24 Hours 10/06/23 10/07/23 10/08/23 23:59 23:59 23:59 Intake Total 2000 / 2200 530 / 530 220 / 220 Output Total 1800 / 2200 1600 / 1600 400 / 400 Balance 200 / 0 -1070 / -1070 -180 / -180 Medical Nutrition Assessment Dietitian: Malnutrition Criteria Met Start: 10/04/23 13:29 Freq: Status: Active Protocol: Document 10/04/23 13:29 SLA (Rec: 10/04/23 13:29 SLA [email or web address]) Nutrition Malnutrition Evidence of Malnutrition Exists Yes Malnutrition (severe): Acute Illness/Injury Evidenced By Suboptimal Energy Intake ( Severe),Weight Loss (Severe) Intake Problem Increased Nutrient Needs (specify) Etiology calories/protein related to increased demand for healing Signs/Symptoms as evidenced by buttock ulcer Status Active Problem Clinical Problem Acute Disease or Injury Related Malnutrition Etiology related to inadequate energy intake and increased nutritional demands for wound healing Signs/Symptoms as evidenced by <50% po intake at meals and ~14.1% unintended wt loss x < 1 wk. BMI 17.4; has fat/muscle loss throughout body. Status Active Problem Recommendation Dietitian Recommendations/Changes When medically able, rec resume liberal Regular diet to optimize oral intakes. Change to ensure clear 4x/day with medpass to provide supplemental energy and discontinue ensure plus high protein 3x/day d/t pt refusals . Continue Kristopher BID to promote wound healing. Lab / Micro Data 10/06/23 09:15 10/06/23 09:15 Micro: Microbiology 09/27/23 Unknown Rectal Abscess Gram Stain - Final 09/27/23 Unknown Rectal Abscess Wound Culture - Final Streptococcus group G Proteus mirabilis Staphylococcus aureus 09/27/23 Unknown Rectal Abscess Anaerobic Culture - Final No anaerobic bacteria isolated. 09/27/23 15:04 Blood Culture (Wb) - Anticubital Left Blood Culture - Final No growth in 5 days. 09/27/23 Unknown Tissue - Buttock Gram Stain - Final 09/27/23 Unknown Tissue - Buttock Wound Culture - Final Streptococcus group G Escherichia coli Proteus mirabilis Staphylococcus aureus 09/27/23 Unknown Tissue - Buttock Anaerobic Culture - Final Bacteroides thetaiotaomicron 09/27/23 Unknown Tissue - Buttock Gram Stain - Final 09/27/23 Unknown Tissue - Buttock Wound Culture - Final Streptococcus group G Escherichia coli Proteus mirabilis Staphylococcus aureus 09/27/23 Unknown Tissue - Buttock Anaerobic Culture - Final Anaerobic cocci Fusobacterium mortiferum 09/29/23 08:48 Bone - Ischial Bone Gram Stain - Final 09/29/23 08:48 Bone - Ischial Bone Wound Culture - Final Escherichia coli 09/29/23 08:48 Bone - Ischial Bone Anaerobic Culture - Final No anaerobic bacteria isolated. 09/27/23 15:04 Mucosa - Nose SARS-CoV-2, Influenza & RSV (PCR) - Final Rhythm Strip Rhythm Strip: Sinus Tach Rate: 122 Ectopy: None Assessment & Plan Assessment/Plan (1) S/P colostomy: PLAN: The colostomy appears pink and viable but there is no stool in the bag. I will advance to regular diet as he is tolerating clears. Once the patient has some substantial bowel function he may be discharged to his senior care. John Mari MD Pager: [facility] [address] [place] [address] [address] [place] [address] Office:
[2023-10-08] MEDS: Enoxaparin 40 MG/0.4 ML Syringe SC (07:56)
--- NOTE | 2023-10-08 08:24 | WOUNDNOTE ---
Pt was scheduled to be discharged to the NH last evening. the discharge was delayed d/t no stool from the colostomy yet. surgery had recommended the patient stay another night. In to assess the colostomy appliance this am. there is a small amount of liquid noted on the appliance. patient states he has still been having quite a bit of gas. diet was increased this am. if patient has BM, [facility].
[2023-10-08 08:44] VITALS: BP 95/56; PULSE 88; RESP 16; TEMP 36.8; O2SAT 93
--- NOTE | 2023-10-08 10:29 | CASEMGMT ---
Discharge Planning Per [facility], auth is good until 10/13/23. Linda Gomez DC Planning Asst.
[2023-10-08] MEDS: DAKIN'S SOL HALF STRENGTH (=0.25%) 1 APPLIC TOPICAL (11:27)
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
--- NOTE | 2023-10-08 14:05 | PCM.PN.SRG ---
Subjective Subjective Postop from 09/29/23 and 10/01/23 for excision of left ischial wound and sacral wound by Dr. Perez. Diverting colostomy by Dr. Decker 10/05/23. Patient resting quietly in bed. Objective Data Objective Data Vital Signs: Vital Signs Temp Pulse Resp BP Pulse Ox O2 Del Method 98.3 F 88 16 95/56 L 93 Room Air 10/08/23 08:44 10/08/23 08:44 10/08/23 08:44 10/08/23 08:44 10/08/23 08:44 10/08/23 08:44 Oxygen Delivery Method Room Air Weight: 147 lb 6.417 oz Body Mass Index (BMI) 17.4 Intake & Output: Intake and Output for Last 24 Hours 10/06/23 10/07/23 10/08/23 23:59 23:59 23:59 Intake Total 2000 / 2200 530 / 530 220 / 220 Output Total 1800 / 2200 1600 / 1600 400 / 400 Balance 200 / 0 -1070 / -1070 -180 / -180 Medical Nutrition Assessment Dietitian: Malnutrition Criteria Met Start: 10/04/23 13:29 Freq: Status: Active Protocol: Document 10/04/23 13:29 SLA (Rec: 10/04/23 13:29 SLA [email or web address]) Nutrition Malnutrition Evidence of Malnutrition Exists Yes Malnutrition (severe): Acute Illness/Injury Evidenced By Suboptimal Energy Intake ( Severe),Weight Loss (Severe) Intake Problem Increased Nutrient Needs (specify) Etiology calories/protein related to increased demand for healing Signs/Symptoms as evidenced by buttock ulcer Status Active Problem Clinical Problem Acute Disease or Injury Related Malnutrition Etiology related to inadequate energy intake and increased nutritional demands for wound healing Signs/Symptoms as evidenced by <50% po intake at meals and ~14.1% unintended wt loss x < 1 wk. BMI 17.4; has fat/muscle loss throughout body. Status Active Problem Recommendation Dietitian Recommendations/Changes When medically able, rec resume liberal Regular diet to optimize oral intakes. Change to ensure clear 4x/day with medpass to provide supplemental energy and discontinue ensure plus high protein 3x/day d/t pt refusals . Continue Kristopher BID to promote wound healing. Lab / Micro Data Attestation: I reviewed the patient's lab results. 10/06/23 09:15 10/06/23 09:15 Micro: Microbiology 09/27/23 Unknown Rectal Abscess Gram Stain - Final 09/27/23 Unknown Rectal Abscess Wound Culture - Final Streptococcus group G Proteus mirabilis Staphylococcus aureus 09/27/23 Unknown Rectal Abscess Anaerobic Culture - Final No anaerobic bacteria isolated. 09/27/23 15:04 Blood Culture (Wb) - Anticubital Left Blood Culture - Final No growth in 5 days. 09/27/23 Unknown Tissue - Buttock Gram Stain - Final 09/27/23 Unknown Tissue - Buttock Wound Culture - Final Streptococcus group G Escherichia coli Proteus mirabilis Staphylococcus aureus 09/27/23 Unknown Tissue - Buttock Anaerobic Culture - Final Bacteroides thetaiotaomicron 09/27/23 Unknown Tissue - Buttock Gram Stain - Final 09/27/23 Unknown Tissue - Buttock Wound Culture - Final Streptococcus group G Escherichia coli Proteus mirabilis Staphylococcus aureus 09/27/23 Unknown Tissue - Buttock Anaerobic Culture - Final Anaerobic cocci Fusobacterium mortiferum 09/29/23 08:48 Bone - Ischial Bone Gram Stain - Final 09/29/23 08:48 Bone - Ischial Bone Wound Culture - Final Escherichia coli 09/29/23 08:48 Bone - Ischial Bone Anaerobic Culture - Final No anaerobic bacteria isolated. 09/27/23 15:04 Mucosa - Nose SARS-CoV-2, Influenza & RSV (PCR) - Final Rhythm Strip Rhythm Strip: Sinus Tach Rate: 122 Ectopy: None Physical Exam Const no apparent distress HEENT normocephalic Head and Scalp: atraumatic Eyes General Eye: normal appearance of both eyes Resp normal respiratory effort and normal air movement Cardio regular rate Extremity normal capillary refill Skin Wound Narrative: Sacral dressing intact. Dakin's wet to dry dressing in place. Patient scheduled to be discharged soon to residential. Neuro Sensorium / Orientation: awake and alert Psych thought process normal and cooperative Assessment & Plan Assessment/Plan (1) Decubitus ulcer, unstageable with infection: (2) Necrotizing fasciitis: (3) Paraplegia: PLAN: Plan Patient has Dakins 0.25% moistened gauze placed. When he is transferred to the residential, the can restart the wound VAC. Diverting colostomy done 10/05/23. Waiting for output for him to be transferred to the [place]. Operative bone culture from 09/29/23 positive for Escherichia coli. Operative tissue culture from 09/27/23 positive for Streptococcus group G, Proteus mirabilis, MSSA, Escherichia coli and Anaerobic cocci. ID managing cultures, he is on Cefazolin and Metronidazole. Plan is PICC line and IV antibiotics x 6 weeks. Stop date 11/10/23. Prealbumin <3 from 09/28. Albumin 1.6 from 09/27. He is receiving Ensure clear 4x/day and Kristopher 2x/day for nutritional supplementation. He is going to [facility] upon discharge. Once discharged he will need to follow up with either Dr. Perez or myself at [facility] the first week of October.
[2023-10-08 14:39] VITALS: BP 84/51; PULSE 59; RESP 16; TEMP 36.7; O2SAT 99
[2023-10-08 20:57] VITALS: BP 85/55; PULSE 85; RESP 16; TEMP 36.7; O2SAT 97
--- NOTE | 2023-10-08 21:24 | PCM.HOSP.N ---
Hospitalist Note Called due to hypotension. Last 2 blood pressures have been 84/51 and 85/55 respectively. Patient has had intermittent low blood pressures throughout his hospital course however these appear to be some of the lowest he has had. He has had multiple surgical interventions. Will give 2 L IV fluid and a.m. lab is ordered.
[2023-10-08] MEDS: Lactated Ringers 1,000 ML 999 ML IV ×2 (21:38→23:13)
[2023-10-09 00:21] VITALS: BP 93/58; PULSE 83; RESP 14; TEMP 36.9; O2SAT 97
[2023-10-09 03:00] VITALS: BP 95/52; PULSE 87; RESP 14; TEMP 37; O2SAT 98
[2023-10-09 05:34] VITALS: BP 89/53; PULSE 86; RESP 18; TEMP 37.2; O2SAT 96
[2023-10-09] MEDS: Cefazolin 2 GM in 0.9% Normal Saline (100mL Bag) 100 ML IV ×2 (05:37→12:52)
[2023-10-09] MEDS: metroNIDAZOLE 500 MG Tablet PO ×2 (05:38→12:52)
[2023-10-09 06:00] VITALS: BMI 16.8
[2023-10-09 06:10] LABS: Absolute Lymphocyte Count 1.79 X10^3/uL (0.83-4.51); Basophil# 0.04 X10^3/uL; Basophil% 0.6 % (0-1); Eosinophil# 0.22 X10^3/uL; Eosinophils% 3.3 % (0-5); Hematocrit 28.1 % (40-54); Hemoglobin 8.9 g/dL (13.0-16.5); Lymphocyte # 1.79 X10^3/ul (0.83-4.51); Mean Corp Hgb Conc 31.7 g/dL (32-36); Mean Corpuscular Hgb 25.4 pg (27.0-32.0); Mean Corpuscular Volume 80.1 fL (80-94); Mean Platelet Vol. 8.4 fl (6.2-12.0); Monocyte# 0.53 X10^3/uL; NRBC Flagged by Analyzer 0 % (0-5); Neutrophil # 4.01 X10^3/uL (2.7-7.7); Neutrophil % 60.5 % (47-70); Platelet Count 542 K/mm3 (150-450); RBC Distribution Width CV 16.1 % (11.6-14.6); RBC Distribution Width SD 46.1 fl (35.1-43.9); Red Blood Count 3.51 M/mm3 (4.6-6.2); White Blood Count 6.6 K/mm3 (4.4-11.0)
[2023-10-09 06:55] LABS: Anion Gap 4 (5-15); BUN 3 mg/dL (7-18); BUN/Creat Ratio 6.8 RATIO (10-20); Chloride 104 mmol/L (98-107); Creatinine, Serum 0.44 mg/dL (0.70-1.30); EST Glomerular Filtration Rate 241 mL/min (>60); Est Glom Filt Rate - Afr Amer 291 mL/min (>60); Estimated Creatinine Clearance 226.34 ml/min; Glucose 108 mg/dL (74-106); Potassium 3.7 mmol/L (3.5-5.1); Sodium Level 137 mmol/L (136-145)
--- NOTE | 2023-10-09 08:51 | PCM.PN.SRG ---
Subjective Subjective Patient reports tolerating regular diet. He is having some stool now from his colostomy Objective Data Objective Data Vital Signs: Vital Signs Temp Pulse Resp BP Pulse Ox O2 Del Method 98.9 F 86 18 89/53 L 96 Room Air 10/09/23 05:34 10/09/23 05:34 10/09/23 05:34 10/09/23 05:34 10/09/23 05:34 10/09/23 05:34 Oxygen Delivery Method Room Air Weight: 142 lb 6.698 oz Body Mass Index (BMI) 16.8 Intake & Output: Intake and Output for Last 24 Hours 10/07/23 10/08/23 10/09/23 23:59 23:59 23:59 Intake Total 530 / 530 1690 / 2140 1560 / 1560 Output Total 1600 / 1600 1200 / 2000 800 / 800 Balance -1070 / -1070 490 / 140 760 / 760 Medical Nutrition Assessment Dietitian: Malnutrition Criteria Met Start: 10/04/23 13:29 Freq: Status: Active Protocol: Document 10/04/23 13:29 SLA (Rec: 10/04/23 13:29 SLA [email or web address]) Nutrition Malnutrition Evidence of Malnutrition Exists Yes Malnutrition (severe): Acute Illness/Injury Evidenced By Suboptimal Energy Intake ( Severe),Weight Loss (Severe) Intake Problem Increased Nutrient Needs (specify) Etiology calories/protein related to increased demand for healing Signs/Symptoms as evidenced by buttock ulcer Status Active Problem Clinical Problem Acute Disease or Injury Related Malnutrition Etiology related to inadequate energy intake and increased nutritional demands for wound healing Signs/Symptoms as evidenced by <50% po intake at meals and ~14.1% unintended wt loss x < 1 wk. BMI 17.4; has fat/muscle loss throughout body. Status Active Problem Recommendation Dietitian Recommendations/Changes When medically able, rec resume liberal Regular diet to optimize oral intakes. Change to ensure clear 4x/day with medpass to provide supplemental energy and discontinue ensure plus high protein 3x/day d/t pt refusals . Continue Kristopher BID to promote wound healing. Lab / Micro Data 10/09/23 05:52 10/09/23 05:52 Labs: Laboratory Results - last 24 hr 10/09/23 05:52: WBC 6.6, RBC 3.51 L, Hgb 8.9 L, Hct 28.1 L, MCV 80.1, MCH 25.4 L, MCHC 31.7 L, RDW Std Deviation 46.1 H, RDW Coeff of Zakia 16.1 H, Plt Count 542 H, MPV 8.4, Immature Gran % (Auto) 0.600, Neut % (Auto) 60.5, Lymph % (Auto) 27.0, Mason % (Auto) 8.0, Eos % (Auto) 3.3, Baso % (Auto) 0.6, Absolute Neuts (auto) 4.0, Absolute Lymphs (auto) 1.79, Nucleated RBC % 0, Sodium 137, Potassium 3.7, Chloride 104, Carbon Dioxide 29.0, Anion Gap 4 L, BUN 3 L, Creatinine 0.44 L, Estim Creat Clear Calc 226.34, Est GFR (MDRD) Af Amer 291, Est GFR (MDRD) Non-Af 241, BUN/Creatinine Ratio 6.8 L, Glucose 108 H, Calcium 8.0 L Micro: Microbiology 09/27/23 Unknown Rectal Abscess Gram Stain - Final 09/27/23 Unknown Rectal Abscess Wound Culture - Final Streptococcus group G Proteus mirabilis Staphylococcus aureus 09/27/23 Unknown Rectal Abscess Anaerobic Culture - Final No anaerobic bacteria isolated. 09/27/23 15:04 Blood Culture (Wb) - Anticubital Left Blood Culture - Final No growth in 5 days. 09/27/23 Unknown Tissue - Buttock Gram Stain - Final 09/27/23 Unknown Tissue - Buttock Wound Culture - Final Streptococcus group G Escherichia coli Proteus mirabilis Staphylococcus aureus 09/27/23 Unknown Tissue - Buttock Anaerobic Culture - Final Bacteroides thetaiotaomicron 09/27/23 Unknown Tissue - Buttock Gram Stain - Final 09/27/23 Unknown Tissue - Buttock Wound Culture - Final Streptococcus group G Escherichia coli Proteus mirabilis Staphylococcus aureus 09/27/23 Unknown Tissue - Buttock Anaerobic Culture - Final Anaerobic cocci Fusobacterium mortiferum 09/29/23 08:48 Bone - Ischial Bone Gram Stain - Final 09/29/23 08:48 Bone - Ischial Bone Wound Culture - Final Escherichia coli 09/29/23 08:48 Bone - Ischial Bone Anaerobic Culture - Final No anaerobic bacteria isolated. 09/27/23 15:04 Mucosa - Nose SARS-CoV-2, Influenza & RSV (PCR) - Final Rhythm Strip Rhythm Strip: Sinus Tach Rate: 122 Ectopy: None Physical Exam Const oriented x3 and no apparent distress Resp normal respiratory effort GI normal to inspection, nondistended, normoactive bowel sounds Assessment & Plan Assessment/Plan (1) S/P colostomy: PLAN: Patient is doing well and starting to have stool from his colostomy and tolerating regular diet. He may be discharged home when ready for transfer. John Mari MD Pager: [facility] [address] [place] [address] [address] [place] [address] Office:
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
[2023-10-09] MEDS: Enoxaparin 40 MG/0.4 ML Syringe SC (10:41)
[2023-10-09] MEDS: DAKIN'S SOL HALF STRENGTH (=0.25%) 1 APPLIC TOPICAL (10:41)
[2023-10-09 11:00] VITALS: BP 92/54; PULSE 91; RESP 16; TEMP 36.7; O2SAT 95
== END 2023-10-09 15:20 | disposition skilled nursing facility (03) | DRG 950 ==
LOC: ED 18:48 → SDC 18:48 → MS3 18:48 → SDC 18:49 → MS3 18:49
PROVIDERS: Anesthesiology; Hospitalist; Internal Medicine; Internal Medicine Infectious Disease; Physician Assistant; Surgery Plastic and Reconstructive Surgery; Admitting Provider Surgery; Emergency Provider Emergency Medicine; PCP Internal Medicine; Referring Provider Surgery; Visit Provider Student in an Organized Health Care Education/Training Program
PROC: 0Y910ZZ Drainage of Left Buttock, Open Approach (ICD-10-PCS; principal; 2023-09-27 19:00)
PROC: 0JB90ZZ Excision of Buttock Subcutaneous Tissue and Fascia, Open Approach (ICD-10-PCS; principal; 2023-10-01 07:15)
PROC: 0D1E4Z4 Bypass Large Intestine to Cutaneous, Percutaneous Endoscopic Approach (ICD-10-PCS; CPT 44188; principal; 2023-10-05 07:10)
DX: M72.6 Necrotizing fasciitis (principal); L89.324 Pressure ulcer of left buttock, stage 4; L89.150 Pressure ulcer of sacral region, unstageable; G82.20 Paraplegia, unspecified; D63.8 Anemia in other chronic diseases classified elsewhere; D62 Acute posthemorrhagic anemia; E87.1 Hypo-osmolality and hyponatremia; Z93.3 Colostomy status; I95.9 Hypotension, unspecified; D50.9 Iron deficiency anemia, unspecified; E87.6 Hypokalemia; E80.6 Other disorders of bilirubin metabolism; F17.210 Nicotine dependence, cigarettes, uncomplicated; K63.89 Other specified diseases of intestine; R79.89 Other specified abnormal findings of blood chemistry; L02.212 Cutaneous abscess of back [any part, except buttock and flank]; Z90.49 Acquired absence of other specified parts of digestive tract; S82.875D Nondisplaced pilon fracture of left tibia, subsequent encounter for closed fracture with routine healing; Z59.00 Homelessness unspecified; S82.872D Displaced pilon fracture of left tibia, subsequent encounter for closed fracture with routine healing; Z98.1 Arthrodesis status; Z99.3 Dependence on wheelchair; B95.61 Methicillin susceptible Staphylococcus aureus infection as the cause of diseases classified elsewhere; B96.4 Proteus (mirabilis) (morganii) as the cause of diseases classified elsewhere; B96.20 Unspecified Escherichia coli [E. coli] as the cause of diseases classified elsewhere; B95.4 Other streptococcus as the cause of diseases classified elsewhere
CPT/HCPCS: 36415; 36569; 71046; 71275; 73610; 73630; 73700; 74177; 80048; 80053; 80202; 80307; 81001; 82077; 82607; 82728; 82746; 83036; 83540; 83550; 83605; 83735; 84100; 84134; 85025; 85027; 85379; 85610; 85730; 86850; 86900; 86901; 87015; 87040; 87070; 87075; 87077; 87102; 87116; 87176; 87186; 87205; 87206; 87631; 88305; 88307; 88311; 93005; 93970; 94668; 97162; 97166; 97530; 97535; 97802; 99285; Q9967; A4216; J2405

== ENCOUNTER → 2023-10-11 05:00 | Outpatient (REF) | payer MEDICAID, SELFPAY ==
[2023-10-11 08:17] LABS: Anion Gap 7 (5-15); BUN 2 mg/dL (7-18); BUN/Creat Ratio 4.5 RATIO (10-20); Calcium,Total 8.1 mg/dL (8.5-10.1); Chloride 102 mmol/L (98-107); Creatinine, Serum 0.45 mg/dL (0.70-1.30); EST Glomerular Filtration Rate 238 mL/min (>60); Est Glom Filt Rate - Afr Amer 288 mL/min (>60); Glucose 108 mg/dL (74-106); Sodium Level 137 mmol/L (136-145)
[2023-10-11 08:24] LABS: Erythrocyte Sedimentation Rate 53 mm/hr (0-20)
[2023-10-11 08:27] LABS: Hematocrit 29.1 % (40-54); Mean Corp Hgb Conc 30.9 g/dL (32-36); Mean Corpuscular Hgb 24.9 pg (27.0-32.0); Mean Corpuscular Volume 80.6 fL (80-94); Mean Platelet Vol. 8.9 fl (6.2-12.0); Platelet Count 516 K/mm3 (150-450); RBC Distribution Width CV 15.9 % (11.6-14.6); RBC Distribution Width SD 46.5 fl (35.1-43.9); Red Blood Count 3.61 M/mm3 (4.6-6.2); White Blood Count 5.7 K/mm3 (4.4-11.0)
== END ==
LOC: OLS.SW 05:00
PROVIDERS: PCP Internal Medicine; Visit Provider Internal Medicine Infectious Disease
DX: M86.9 Osteomyelitis, unspecified (principal)
CPT/HCPCS: 36415; 80048; 85027; 85652

== ENCOUNTER → 2023-10-19 05:00 | Outpatient (REF) | payer MEDICAID, SELFPAY ==
[2023-10-19 09:44] LABS: Hematocrit 33.1 % (40-54); Hemoglobin 10.1 g/dL (13.0-16.5); Mean Corp Hgb Conc 30.5 g/dL (32-36); Mean Corpuscular Hgb 24.6 pg (27.0-32.0); Mean Corpuscular Volume 80.5 fL (80-94); Mean Platelet Vol. 9.4 fl (6.2-12.0); Platelet Count 442 K/mm3 (150-450); RBC Distribution Width CV 15.9 % (11.6-14.6); RBC Distribution Width SD 46.2 fl (35.1-43.9); Red Blood Count 4.11 M/mm3 (4.6-6.2); White Blood Count 6.9 K/mm3 (4.4-11.0)
[2023-10-19 09:52] LABS: Anion Gap 6 (5-15); BUN 4 mg/dL (7-18); BUN/Creat Ratio 8.6 RATIO (10-20); Calcium,Total 8.4 mg/dL (8.5-10.1); Chloride 105 mmol/L (98-107); Creatinine, Serum 0.47 mg/dL (0.70-1.30); EST Glomerular Filtration Rate 227 mL/min (>60); Est Glom Filt Rate - Afr Amer 274 mL/min (>60); Glucose 88 mg/dL (74-106); Sodium Level 138 mmol/L (136-145)
[2023-10-19 10:00] LABS: Erythrocyte Sedimentation Rate 44 mm/hr (0-20)
== END ==
LOC: OLS.SW 05:00
PROVIDERS: PCP Internal Medicine; Visit Provider Family Medicine
DX: M72.6 Necrotizing fasciitis (principal); A41.9 Sepsis, unspecified organism
CPT/HCPCS: 36415; 80048; 85027; 85652

== ENCOUNTER → 2023-10-25 05:00 | Outpatient (REF) | payer MEDICAID, SELFPAY ==
[2023-10-25 09:40] LABS: Erythrocyte Sedimentation Rate 60 mm/hr (0-20)
[2023-10-25 09:56] LABS: Hematocrit 32.8 % (40-54); Mean Corp Hgb Conc 30.5 g/dL (32-36); Mean Corpuscular Volume 78.8 fL (80-94); Mean Platelet Vol. 8.8 fl (6.2-12.0); Platelet Count 518 K/mm3 (150-450); RBC Distribution Width CV 15.3 % (11.6-14.6); RBC Distribution Width SD 43.8 fl (35.1-43.9); Red Blood Count 4.16 M/mm3 (4.6-6.2); White Blood Count 6.2 K/mm3 (4.4-11.0)
[2023-10-25 10:07] LABS: Anion Gap 4 (5-15); BUN 2 mg/dL (7-18); BUN/Creat Ratio 4.3 RATIO (10-20); Calcium,Total 9.1 mg/dL (8.5-10.1); Chloride 101 mmol/L (98-107); Creatinine, Serum 0.46 mg/dL (0.70-1.30); EST Glomerular Filtration Rate 229 mL/min (>60); Est Glom Filt Rate - Afr Amer 277 mL/min (>60); Glucose 97 mg/dL (74-106); Sodium Level 136 mmol/L (136-145)
== END ==
LOC: OLS.SW 05:00
PROVIDERS: PCP Internal Medicine; Visit Provider Family Medicine
DX: M72.6 Necrotizing fasciitis (principal); A41.9 Sepsis, unspecified organism; E46 Unspecified protein-calorie malnutrition; D62 Acute posthemorrhagic anemia
CPT/HCPCS: 36415; 80048; 85027; 85652

== ENCOUNTER → 2023-11-01 | Outpatient (REF) | payer MEDICAID, SELFPAY ==
[2023-11-01 09:05] LABS: Erythrocyte Sedimentation Rate 45 mm/hr (0-20)
[2023-11-01 09:10] LABS: Hematocrit 33.6 % (40-54); Hemoglobin 10.6 g/dL (13.0-16.5); Mean Corp Hgb Conc 31.5 g/dL (32-36); Mean Corpuscular Volume 76.2 fL (80-94); Mean Platelet Vol. 8.6 fl (6.2-12.0); Platelet Count 543 K/mm3 (150-450); RBC Distribution Width SD 41.1 fl (35.1-43.9); Red Blood Count 4.41 M/mm3 (4.6-6.2); White Blood Count 6.1 K/mm3 (4.4-11.0)
[2023-11-01 09:13] LABS: Anion Gap 10 (5-15); BUN 3 mg/dL (7-18); BUN/Creat Ratio 7.7 RATIO (10-20); Calcium,Total 8.6 mg/dL (8.5-10.1); Chloride 98 mmol/L (98-107); Creatinine, Serum 0.39 mg/dL (0.70-1.30); EST Glomerular Filtration Rate 278 mL/min (>60); Est Glom Filt Rate - Afr Amer 337 mL/min (>60); Glucose 101 mg/dL (74-106); Potassium 3.4 mmol/L (3.5-5.1); Sodium Level 132 mmol/L (136-145)
== END | disposition home or self-care (01) ==
LOC: OLS.SW 05:00
PROVIDERS: PCP Internal Medicine; Visit Provider Internal Medicine Infectious Disease
DX: E46 Unspecified protein-calorie malnutrition (principal)
CPT/HCPCS: 36415; 80048; 85027; 85652

== ENCOUNTER → 2023-11-08 | Outpatient (REF) | payer MEDICAID, SELFPAY ==
[2023-11-08 08:48] LABS: Erythrocyte Sedimentation Rate 54 mm/hr (0-20)
[2023-11-08 08:50] LABS: Hematocrit 33.9 % (40-54); Hemoglobin 10.4 g/dL (13.0-16.5); Mean Corp Hgb Conc 30.7 g/dL (32-36); Mean Corpuscular Hgb 23.8 pg (27.0-32.0); Mean Corpuscular Volume 77.6 fL (80-94); Mean Platelet Vol. 9.2 fl (6.2-12.0); Platelet Count 557 K/mm3 (150-450); RBC Distribution Width CV 15.5 % (11.6-14.6); RBC Distribution Width SD 43.2 fl (35.1-43.9); Red Blood Count 4.37 M/mm3 (4.6-6.2); White Blood Count 5.6 K/mm3 (4.4-11.0)
[2023-11-08 09:42] LABS: Anion Gap 9 (5-15); BUN 2 mg/dL (7-18); BUN/Creat Ratio 5.3 RATIO (10-20); Calcium,Total 8.7 mg/dL (8.5-10.1); Chloride 99 mmol/L (98-107); Creatinine, Serum 0.38 mg/dL (0.70-1.30); EST Glomerular Filtration Rate 291 mL/min (>60); Est Glom Filt Rate - Afr Amer 352 mL/min (>60); Glucose 78 mg/dL (74-106); Potassium 3.5 mmol/L (3.5-5.1); Sodium Level 136 mmol/L (136-145)
== END | disposition home or self-care (01) ==
LOC: OLS.SW 05:00
PROVIDERS: PCP Internal Medicine; Visit Provider Family Medicine
DX: M72.6 Necrotizing fasciitis (principal); D62 Acute posthemorrhagic anemia; A41.9 Sepsis, unspecified organism; L89.150 Pressure ulcer of sacral region, unstageable; S82.875D Nondisplaced pilon fracture of left tibia, subsequent encounter for closed fracture with routine healing; Z93.3 Colostomy status
CPT/HCPCS: 36415; 80048; 85027; 85652

== ENCOUNTER 2023-11-15 10:30 | Outpatient (RCR) | payer MEDICAID, SELFPAY ==
[2023-11-01 10:02] VITALS: BP 105/67; PULSE 115; RESP 18; TEMP 37.1; BMI 16.6
[2023-11-15 10:42] VITALS: BP 82/42; PULSE 85; RESP 18; TEMP 36.2; BMI 16.6
== END 2023-11-15 23:59 | disposition home or self-care (01) ==
LOC: WC 10:30
PROVIDERS: PCP Internal Medicine; Referring Provider Surgery Plastic and Reconstructive Surgery; Visit Provider Nurse Practitioner Family
DX: L89.154 Pressure ulcer of sacral region, stage 4 (principal); L89.324 Pressure ulcer of left buttock, stage 4; G82.20 Paraplegia, unspecified; Z93.3 Colostomy status; Z59.00 Homelessness unspecified; Z79.899 Other long term (current) drug therapy; Z87.891 Personal history of nicotine dependence
CPT/HCPCS: 11043; 11046; 29445; 99214; G0463

== ENCOUNTER → 2023-11-15 | Outpatient (REF) | payer MEDICAID, SELFPAY ==
[2023-11-15 08:27] LABS: Erythrocyte Sedimentation Rate 21 mm/hr (0-20)
[2023-11-15 08:28] LABS: Anion Gap 5 (5-15); BUN 2 mg/dL (7-18); BUN/Creat Ratio 5.1 RATIO (10-20); Calcium,Total 8.7 mg/dL (8.5-10.1); Chloride 102 mmol/L (98-107); EST Glomerular Filtration Rate 274 mL/min (>60); Est Glom Filt Rate - Afr Amer 332 mL/min (>60); Glucose 98 mg/dL (74-106); Potassium 3.6 mmol/L (3.5-5.1); Sodium Level 139 mmol/L (136-145)
[2023-11-15 08:29] LABS: Hematocrit 34.7 % (40-54); Hemoglobin 10.6 g/dL (13.0-16.5); Mean Corp Hgb Conc 30.5 g/dL (32-36); Mean Corpuscular Hgb 23.7 pg (27.0-32.0); Mean Corpuscular Volume 77.5 fL (80-94); Mean Platelet Vol. 8.7 fl (6.2-12.0); Platelet Count 538 K/mm3 (150-450); RBC Distribution Width SD 45.1 fl (35.1-43.9); Red Blood Count 4.48 M/mm3 (4.6-6.2); White Blood Count 5.2 K/mm3 (4.4-11.0)
== END | disposition home or self-care (01) ==
LOC: OLS.SW 06:05
PROVIDERS: PCP Internal Medicine; Visit Provider Family Medicine
DX: M72.6 Necrotizing fasciitis (principal); A41.9 Sepsis, unspecified organism; E46 Unspecified protein-calorie malnutrition; D62 Acute posthemorrhagic anemia
CPT/HCPCS: 36415; 80048; 85027; 85652

== ENCOUNTER → 2023-11-22 | Outpatient (REF) | payer MEDICAID, SELFPAY ==
[2023-11-22 08:19] LABS: Hematocrit 29.5 % (40-54); Mean Corp Hgb Conc 30.5 g/dL (32-36); Mean Corpuscular Hgb 23.7 pg (27.0-32.0); Mean Corpuscular Volume 77.6 fL (80-94); Mean Platelet Vol. 9.2 fl (6.2-12.0); Platelet Count 448 K/mm3 (150-450); RBC Distribution Width CV 16.1 % (11.6-14.6); RBC Distribution Width SD 45.9 fl (35.1-43.9); White Blood Count 7.1 K/mm3 (4.4-11.0)
[2023-11-22 11:15] LABS: Anion Gap 6 (5-15); BUN 3 mg/dL (7-18); BUN/Creat Ratio 7.1 RATIO (10-20); Calcium,Total 8.9 mg/dL (8.5-10.1); Chloride 104 mmol/L (98-107); Creatinine, Serum 0.42 mg/dL (0.70-1.30); EST Glomerular Filtration Rate 252 mL/min (>60); Est Glom Filt Rate - Afr Amer 305 mL/min (>60); Glucose 97 mg/dL (74-106); Potassium 3.6 mmol/L (3.5-5.1); Sodium Level 138 mmol/L (136-145)
[2023-11-22 16:10] LABS: Erythrocyte Sedimentation Rate 65 mm/hr (0-20)
== END | disposition home or self-care (01) ==
LOC: OLS.SW 05:00
PROVIDERS: PCP Internal Medicine; Visit Provider Internal Medicine Infectious Disease
DX: M72.6 Necrotizing fasciitis (principal); A41.9 Sepsis, unspecified organism; G82.20 Paraplegia, unspecified
CPT/HCPCS: 36415; 80048; 85027; 85652

== ENCOUNTER → 2023-11-26 | Outpatient (REF) | payer MEDICAID, SELFPAY ==
[2023-11-26 08:11] LABS: Absolute Lymphocyte Count 2.17 X10^3/uL (0.83-4.51); Basophil# 0.03 X10^3/uL; Basophil% 0.5 % (0-1); Eosinophil# 0.37 X10^3/uL; Eosinophils% 6.1 % (0-5); Hematocrit 31.1 % (40-54); Hemoglobin 9.3 g/dL (13.0-16.5); Lymphocyte # 2.17 X10^3/ul (0.83-4.51); Lymphocyte % 35.6 % (19-41); Mean Corp Hgb Conc 29.9 g/dL (32-36); Mean Corpuscular Hgb 23.1 pg (27.0-32.0); Mean Corpuscular Volume 77.2 fL (80-94); Mean Platelet Vol. 8.9 fl (6.2-12.0); Monocyte# 0.55 X10^3/uL; NRBC Flagged by Analyzer 0 % (0-5); Neutrophil # 2.95 X10^3/uL (2.7-7.7); Neutrophil % 48.3 % (47-70); Platelet Count 538 K/mm3 (150-450); Red Blood Count 4.03 M/mm3 (4.6-6.2); White Blood Count 6.1 K/mm3 (4.4-11.0)
[2023-11-26 08:32] LABS: ALB/GLOB Ratio 0.4 RATIO (0.9-2.4); AST(SGOT) 32 U/L (15-37); Alanine Aminotransfer ALT/SGPT 72 U/L (16-61); Albumin, Serum 1.9 g/dL (3.2-5.0); Alkaline Phosphatase 133 U/L (45-117); Anion Gap 5 (5-15); BUN 3 mg/dL (7-18); Calcium,Total 8.8 mg/dL (8.5-10.1); Chloride 105 mmol/L (98-107); Creatinine, Serum 0.38 mg/dL (0.70-1.30); EST Glomerular Filtration Rate 289 mL/min (>60); Est Glom Filt Rate - Afr Amer 350 mL/min (>60); Globulin 4.5 g/dL (2.2-4.2); Glucose 97 mg/dL (74-106); Potassium 3.7 mmol/L (3.5-5.1); Protein, Total 6.4 g/dL (6.4-8.2); Sodium Level 139 mmol/L (136-145)
[2023-11-26 09:05] LABS: Hemoglobin A1c 5.5 % (3.8-5.6)
== END | disposition home or self-care (01) ==
LOC: OLS.SW 05:00
PROVIDERS: PCP Internal Medicine; Visit Provider Family Medicine
DX: M72.6 Necrotizing fasciitis (principal); A41.9 Sepsis, unspecified organism; S82.875D Nondisplaced pilon fracture of left tibia, subsequent encounter for closed fracture with routine healing
CPT/HCPCS: 36415; 80053; 83036; 85025

== ENCOUNTER 2023-12-13 10:30 | Outpatient (RCR) | payer MEDICAID, SELFPAY ==
[2023-11-16 00:31] VITALS: BP 82/42; PULSE 85; RESP 18; TEMP 36.2; BMI 16.6
[2023-11-29 11:19] VITALS: BP 98/56; PULSE 86; RESP 16; TEMP 36.1; BMI 16.6
[2023-12-13 10:55] VITALS: BP 93/67; PULSE 96; RESP 16; TEMP 36.1; BMI 16.6
== END 2023-12-16 23:59 | disposition home or self-care (01) ==
LOC: WC 10:30
PROVIDERS: PCP Internal Medicine; Referring Provider Surgery Plastic and Reconstructive Surgery; Visit Provider Nurse Practitioner Family
DX: L89.154 Pressure ulcer of sacral region, stage 4 (principal); L89.324 Pressure ulcer of left buttock, stage 4; G82.20 Paraplegia, unspecified; Z59.00 Homelessness unspecified; Z79.899 Other long term (current) drug therapy; Z87.891 Personal history of nicotine dependence
CPT/HCPCS: 11042; 11043; 11046

== ENCOUNTER → 2023-12-28 | Outpatient (REF) | payer MEDICAID, SELFPAY ==
[2023-12-28 09:29] LABS: Hematocrit 27.9 % (40-54); Mean Corp Hgb Conc 28.7 g/dL (32-36); Mean Corpuscular Hgb 21.1 pg (27.0-32.0); Mean Corpuscular Volume 73.4 fL (80-94); Mean Platelet Vol. 9.2 fl (6.2-12.0); Platelet Count 713 K/mm3 (150-450); RBC Distribution Width CV 16.5 % (11.6-14.6); RBC Distribution Width SD 44.2 fl (35.1-43.9); White Blood Count 5.7 K/mm3 (4.4-11.0)
[2023-12-28 09:39] LABS: ALB/GLOB Ratio 0.4 RATIO (0.9-2.4); AST(SGOT) 19 U/L (15-37); Alanine Aminotransfer ALT/SGPT 23 U/L (16-61); Albumin, Serum 1.8 g/dL (3.2-5.0); Alkaline Phosphatase 102 U/L (45-117); Anion Gap 6 (5-15); BUN 7 mg/dL (7-18); BUN/Creat Ratio 12.9 RATIO (10-20); Calcium,Total 8.5 mg/dL (8.5-10.1); Chloride 107 mmol/L (98-107); Creatinine, Serum 0.54 mg/dL (0.70-1.30); EST Glomerular Filtration Rate 190 mL/min (>60); Est Glom Filt Rate - Afr Amer 230 mL/min (>60); Globulin 4.4 g/dL (2.2-4.2); Glucose 95 mg/dL (74-106); Potassium 3.6 mmol/L (3.5-5.1); Protein, Total 6.2 g/dL (6.4-8.2); Sodium Level 142 mmol/L (136-145)
[2023-12-29 05:08] LABS: Prealbumin 9 mg/dL (14-35)
== END | disposition home or self-care (01) ==
LOC: OLS.SW 05:00
PROVIDERS: PCP Internal Medicine; Visit Provider Family Medicine
DX: Z00.00 Encounter for general adult medical examination without abnormal findings (principal)
CPT/HCPCS: 36415; 80053; 84134; 85027

== ENCOUNTER → 2024-01-05 | Outpatient (REF) | payer MEDICAID, SELFPAY ==
[2024-01-05 09:24] LABS: Hematocrit 30.3 % (40-54); Hemoglobin 8.6 g/dL (13.0-16.5); Mean Corp Hgb Conc 28.4 g/dL (32-36); Mean Corpuscular Volume 73.9 fL (80-94); Mean Platelet Vol. 8.8 fl (6.2-12.0); POSITIVE COUNT YES; RBC Distribution Width CV 17.9 % (11.6-14.6); RBC Distribution Width SD 47.7 fl (35.1-43.9); White Blood Count 9.6 K/mm3 (4.4-11.0)
[2024-01-05 09:30] LABS: Platelet Count 754 K/mm3 (150-450); Scan Indicated on CBC? Y/N YES- FLAGS NOTED
[2024-01-07 08:37] LABS: Pathologist Review Reviewed
== END | disposition home or self-care (01) ==
LOC: OLS.SW 04:00
PROVIDERS: PCP Internal Medicine; Referring Provider Family Medicine; Visit Provider Family Medicine
DX: M72.6 Necrotizing fasciitis (principal)
CPT/HCPCS: 36415; 85027

== ENCOUNTER → 2024-01-10 05:00 | Outpatient (REF) | payer MEDICAID, SELFPAY ==
[2024-01-10 09:41] LABS: Absolute Lymphocyte Count 1.75 X10^3/uL (0.83-4.51); Basophil# 0.05 X10^3/uL; Basophil% 0.9 % (0-1); Eosinophil# 0.35 X10^3/uL; Eosinophils% 6.1 % (0-5); Hematocrit 26.2 % (40-54); Hemoglobin 7.5 g/dL (13.0-16.5); Lymphocyte # 1.75 X10^3/ul (0.83-4.51); Lymphocyte % 30.3 % (19-41); Mean Corp Hgb Conc 28.6 g/dL (32-36); Mean Corpuscular Hgb 20.8 pg (27.0-32.0); Mean Corpuscular Volume 72.6 fL (80-94); Mean Platelet Vol. 8.9 fl (6.2-12.0); Monocyte# 0.66 X10^3/uL; Monocyte% 11.4 % (0-10); NRBC Flagged by Analyzer 0 % (0-5); Neutrophil # 2.95 X10^3/uL (2.7-7.7); Platelet Count 542 K/mm3 (150-450); RBC Distribution Width CV 17.7 % (11.6-14.6); RBC Distribution Width SD 46.4 fl (35.1-43.9); Red Blood Count 3.61 M/mm3 (4.6-6.2); White Blood Count 5.8 K/mm3 (4.4-11.0)
[2024-01-10 09:45] LABS: Erythrocyte Sedimentation Rate 54 mm/hr (0-20)
[2024-01-10 10:06] LABS: ALB/GLOB Ratio 0.4 RATIO (0.9-2.4); AST(SGOT) 9 U/L (15-37); Alanine Aminotransfer ALT/SGPT 13 U/L (16-61); Alkaline Phosphatase 142 U/L (45-117); Anion Gap 7 (5-15); BUN 12 mg/dL (7-18); BUN/Creat Ratio 23.9 RATIO (10-20); Calcium,Total 8.9 mg/dL (8.5-10.1); Chloride 104 mmol/L (98-107); EST Glomerular Filtration Rate 207 mL/min (>60); Est Glom Filt Rate - Afr Amer 251 mL/min (>60); Globulin 4.6 g/dL (2.2-4.2); Glucose 93 mg/dL (74-106); Potassium 3.8 mmol/L (3.5-5.1); Protein, Total 6.6 g/dL (6.4-8.2); Sodium Level 137 mmol/L (136-145)
== END ==
LOC: OLS.SW 05:00
PROVIDERS: PCP Internal Medicine; Visit Provider Family Medicine
DX: T81.30XA Disruption of wound, unspecified, initial encounter (principal); L89.153 Pressure ulcer of sacral region, stage 3; L89.324 Pressure ulcer of left buttock, stage 4; G82.20 Paraplegia, unspecified; Z93.3 Colostomy status; S82.872D Displaced pilon fracture of left tibia, subsequent encounter for closed fracture with routine healing; V86.3 Unspecified occupant of special all-terrain or other off-road motor vehicle injured in traffic accident; Z79.899 Other long term (current) drug therapy
CPT/HCPCS: 11042; 11043; 11046; 36415; 80053; 85025; 85652; 86140; 87040; 87070; 87075; 87077; 87186; 87205

== ENCOUNTER 2024-01-10 08:30 | Outpatient (RCR) | payer MEDICAID, SELFPAY ==
[2023-12-17 00:17] VITALS: BP 82/42; PULSE 85; RESP 18; TEMP 36.2; BMI 16.6
[2023-12-27 13:51] VITALS: BP 94/59; PULSE 108; RESP 20; TEMP 36.1; BMI 16.6
[2024-01-03 14:40] VITALS: BP 101/58; PULSE 120; RESP 18; TEMP 36.2; BMI 16.6
[2024-01-10 08:29] VITALS: BP 93/52; PULSE 89; RESP 18; TEMP 36.1; BMI 16.6
== END 2024-01-15 23:59 | disposition home or self-care (01) ==
LOC: WC 08:30
PROVIDERS: PCP Internal Medicine; Referring Provider Surgery Plastic and Reconstructive Surgery; Visit Provider Nurse Practitioner Family
DX: L89.153 Pressure ulcer of sacral region, stage 3 (principal); L89.324 Pressure ulcer of left buttock, stage 4; G82.20 Paraplegia, unspecified; Z93.3 Colostomy status; S82.872D Displaced pilon fracture of left tibia, subsequent encounter for closed fracture with routine healing; V86.3 Unspecified occupant of special all-terrain or other off-road motor vehicle injured in traffic accident; Z79.899 Other long term (current) drug therapy
CPT/HCPCS: 11042; 11043; 11044; 11046; 11047; 87070; 87075; 87077; 87186; 87205

== ENCOUNTER → 2024-01-20 05:00 | Outpatient (REF) | payer MEDICAID, SELFPAY ==
[2024-01-20 08:14] LABS: Hematocrit 28.9 % (40-54); Hemoglobin 8.4 g/dL (13.0-16.5); Mean Corp Hgb Conc 29.1 g/dL (32-36); Mean Corpuscular Hgb 20.7 pg (27.0-32.0); Mean Corpuscular Volume 71.4 fL (80-94); Mean Platelet Vol. 8.6 fl (6.2-12.0); Platelet Count 699 K/mm3 (150-450); RBC Distribution Width SD 45.6 fl (35.1-43.9); Red Blood Count 4.05 M/mm3 (4.6-6.2); White Blood Count 8.5 K/mm3 (4.4-11.0)
== END ==
LOC: OLS.SW 05:00
PROVIDERS: PCP Internal Medicine; Visit Provider Family Medicine
DX: D64.9 Anemia, unspecified (principal)
CPT/HCPCS: 36415; 85027

== ENCOUNTER → 2024-02-03 | Outpatient (REF) | payer MEDICAID, SELFPAY ==
[2024-02-03 09:15] LABS: Hemoglobin 8.2 g/dL (13.0-16.5); Mean Corp Hgb Conc 28.3 g/dL (32-36); Mean Corpuscular Volume 70.9 fL (80-94); Mean Platelet Vol. 8.8 fl (6.2-12.0); Platelet Count 683 K/mm3 (150-450); RBC Distribution Width SD 45.9 fl (35.1-43.9); Red Blood Count 4.09 M/mm3 (4.6-6.2); White Blood Count 11.2 K/mm3 (4.4-11.0)
== END | disposition home or self-care (01) ==
LOC: OLS.SW 04:00
PROVIDERS: PCP Internal Medicine; Referring Provider Family Medicine; Visit Provider Family Medicine
DX: D75.839 Thrombocytosis, unspecified (principal)
CPT/HCPCS: 36415; 85027

== ENCOUNTER → 2024-02-10 | Outpatient (REF) | payer MEDICAID, SELFPAY ==
[2024-02-10 08:10] LABS: Hematocrit 26.4 % (40-54); Hemoglobin 7.8 g/dL (13.0-16.5); Mean Corp Hgb Conc 29.5 g/dL (32-36); Mean Corpuscular Hgb 20.1 pg (27.0-32.0); Mean Platelet Vol. 9.4 fl (6.2-12.0); Platelet Count 538 K/mm3 (150-450); RBC Distribution Width CV 18.4 % (11.6-14.6); RBC Distribution Width SD 43.3 fl (35.1-43.9); Red Blood Count 3.88 M/mm3 (4.6-6.2); White Blood Count 9.6 K/mm3 (4.4-11.0)
== END | disposition home or self-care (01) ==
LOC: OLS.SW 05:00
PROVIDERS: PCP Internal Medicine; Visit Provider Internal Medicine
DX: R69 Illness, unspecified (principal)
CPT/HCPCS: 36415; 85027

== ENCOUNTER 2024-02-14 14:00 | Outpatient (RCR) | payer MEDICAID, SELFPAY ==
[2024-01-16 00:41] VITALS: BP 82/42; PULSE 85; RESP 18; TEMP 36.2; BMI 16.6
[2024-01-24 08:27] VITALS: BP 79/49; PULSE 91; RESP 18; TEMP 36.3; BMI 16.6
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
--- NOTE | 2024-01-25 14:26 | WC ---
PHOTO 01/24/24 LEFT ISCHIUM
--- NOTE | 2024-01-25 14:31 | WC ---
PHOTO 01/24/24 SACRAL
[2024-02-14 14:07] VITALS: BP 88/53; PULSE 96; RESP 18; TEMP 36.1; BMI 16.6
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
== END 2024-02-15 23:59 | disposition home or self-care (01) ==
LOC: WC 14:00
PROVIDERS: PCP Internal Medicine; Referring Provider Surgery Plastic and Reconstructive Surgery; Visit Provider Nurse Practitioner Family
DX: L89.324 Pressure ulcer of left buttock, stage 4 (principal); L89.153 Pressure ulcer of sacral region, stage 3; G82.20 Paraplegia, unspecified; Z93.3 Colostomy status; Z79.899 Other long term (current) drug therapy
CPT/HCPCS: 11042; 11043; 11044; 11046; 11047

== ENCOUNTER → 2024-02-14 | Outpatient (REF) | payer MEDICAID, SELFPAY ==
[2024-02-14 08:59] LABS: Bacteria 0 SEEN /hpf (None Seen); Mucous, Urine 0 SEEN /hpf (<or=2+); Red Blood Cells-Urine 0 SEEN /hpf (0-5); Squamous Epithelial Cells - UA 0 SEEN /hpf (0-5)
[2024-02-14 09:26] LABS: Absolute Lymphocyte Count 2.64 X10^3/uL (0.83-4.51); Absolute Neutrophil Count 2.2 X10^3/uL (2.0-7.7); Basophil# 0.02 X10^3/uL; Basophil% 0.3 % (0-1); Eosinophils% 8.5 % (0-5); Hematocrit 27.6 % (40-54); Hemoglobin 7.8 g/dL (13.0-16.5); Lymphocyte # 2.64 X10^3/ul (0.83-4.51); Lymphocyte % 45.1 % (19-41); Mean Corp Hgb Conc 28.3 g/dL (32-36); Mean Corpuscular Volume 70.8 fL (80-94); Mean Platelet Vol. 9.1 fl (6.2-12.0); Monocyte# 0.48 X10^3/uL; Monocyte% 8.2 % (0-10); NRBC Flagged by Analyzer 0 % (0-5); Neutrophil # 2.18 X10^3/uL (2.7-7.7); Neutrophil % 37.4 % (47-70); POSITIVE COUNT YES; Platelet Count 788 K/mm3 (150-450); RBC Distribution Width SD 47.8 fl (35.1-43.9); White Blood Count 5.9 K/mm3 (4.4-11.0)
[2024-02-14 09:32] LABS: Differential Indicated SCAN CRITERIA MET
[2024-02-14 09:45] LABS: Anion Gap 6 (5-15); BUN 9 mg/dL (7-18); BUN/Creat Ratio 20.2 RATIO (10-20); Calcium,Total 8.6 mg/dL (8.5-10.1); Chloride 108 mmol/L (98-107); Creatinine, Serum 0.45 mg/dL (0.70-1.30); EST Glomerular Filtration Rate 238 mL/min (>60); Est Glom Filt Rate - Afr Amer 288 mL/min (>60); Glucose 88 mg/dL (74-106); Potassium 3.7 mmol/L (3.5-5.1); Sodium Level 141 mmol/L (136-145)
[2024-02-14 09:47] LABS: Color, Urine Yellow (Yellow); Glucose, Dipstick Normal (Normal); Ketone-Dipstick Negative (Negative); Leukocyte Esterase-Dipstick 500 /ul (Negative); Nitrite-Dipstick Positive (Negative); Occult Blood-Urine 25 /ul (Negative); Protein-Dipstick 30 mg/dl (Negative); Specific Gravity, Urine 1.015 (1.002-1.030); Urine Bilirubin Dipstick Negative (Negative); Urine Clarity Cloudy (Clear); Urine Urobilinogen 1 mg/dl (Normal); Urine pH 6.5 (5.0 - 8.0)
[2024-02-14 10:00] LABS: Differential Comment SCANNED
[2024-02-14 10:14] LABS: White Blood Cells >100 SEEN /hpf (0-5)
[2024-02-15 13:57] LABS: Pathologist Review Reviewed
== END | disposition home or self-care (01) ==
LOC: OLS.SW 05:00
PROVIDERS: PCP Internal Medicine; Visit Provider Internal Medicine
DX: R50.9 Fever, unspecified (principal); R00.0 Tachycardia, unspecified
CPT/HCPCS: 36415; 80048; 81001; 85025; 87077; 87086; 87088; 87186

== ENCOUNTER → 2024-02-18 | Outpatient (REF) | payer MEDICAID, SELFPAY ==
[2024-02-18 10:10] LABS: Hematocrit 27.2 % (40-54); Hemoglobin 7.5 g/dL (13.0-16.5); Mean Corp Hgb Conc 27.6 g/dL (32-36); Mean Corpuscular Hgb 19.7 pg (27.0-32.0); Mean Corpuscular Volume 71.6 fL (80-94); Mean Platelet Vol. 8.9 fl (6.2-12.0); POSITIVE COUNT YES; RBC Distribution Width CV 19.5 % (11.6-14.6); RBC Distribution Width SD 49.4 fl (35.1-43.9); White Blood Count 7.8 K/mm3 (4.4-11.0)
[2024-02-18 10:29] LABS: Scan Indicated on CBC? Y/N YES- FLAGS NOTED
[2024-02-18 10:33] LABS: Platelet Count 882 K/mm3 (150-450)
[2024-02-21 13:20] LABS: Pathologist Review Reviewed
== END | disposition home or self-care (01) ==
LOC: OLS.SW 04:00
PROVIDERS: PCP Internal Medicine; Referring Provider Internal Medicine; Visit Provider Internal Medicine
DX: Z00.00 Encounter for general adult medical examination without abnormal findings (principal)
CPT/HCPCS: 36415; 85027

== ENCOUNTER → 2024-02-21 | Outpatient (REF) | payer MEDICAID, SELFPAY ==
[2024-02-21 09:41] LABS: Erythrocyte Sedimentation Rate 46 mm/hr (0-20)
[2024-02-21 09:46] LABS: Absolute Neutrophil Count 2.2 X10^3/uL (2.0-7.7); Basophil# 0.03 X10^3/uL; Basophil% 0.5 % (0-1); Eosinophils% 10.2 % (0-5); Ferritin 142 ng/mL (26-388); Hemoglobin 7.9 g/dL (13.0-16.5); Iron 24 ug/dL (65-175); Lymphocyte % 42.3 % (19-41); Mean Corp Hgb Conc 27.2 g/dL (32-36); Mean Corpuscular Hgb 19.5 pg (27.0-32.0); Mean Corpuscular Volume 71.6 fL (80-94); Mean Platelet Vol. 8.6 fl (6.2-12.0); Monocyte# 0.61 X10^3/uL; Monocyte% 10.3 % (0-10); NRBC Flagged by Analyzer 0 % (0-5); Neutrophil # 2.15 X10^3/uL (2.7-7.7); Neutrophil % 36.4 % (47-70); POSITIVE COUNT YES; RBC Distribution Width CV 19.7 % (11.6-14.6); RBC Distribution Width SD 50.6 fl (35.1-43.9); Red Blood Count 4.05 M/mm3 (4.6-6.2); White Blood Count 5.9 K/mm3 (4.4-11.0)
[2024-02-21 09:55] LABS: Differential Indicated SCAN CRITERIA MET
[2024-02-21 10:00] LABS: Platelet Count 806 K/mm3 (150-450)
[2024-02-21 10:26] LABS: Platelet Estimate MKD INC (ADEQ); Target Cells 1+
[2024-02-21 10:27] LABS: Anisocytosis 1+; Ovalocyte 1+; Polychromasia 1+; Schistocytes 1+
[2024-02-22 13:57] LABS: Pathologist Review Reviewed
== END | disposition home or self-care (01) ==
LOC: OLS.SW 05:00
PROVIDERS: PCP Internal Medicine; Visit Provider Internal Medicine
DX: D75.839 Thrombocytosis, unspecified (principal)
CPT/HCPCS: 36415; 82728; 83540; 85025; 85652; 86140

== ENCOUNTER 2024-02-23 12:55 | Observation (INO) | payer MEDICAID, SELFPAY ==
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
[2024-02-23] VITALS (12 sets, daily range): BP systolic 95–121; BP diastolic 54–90; PULSE 73–122; RESP 16–18; TEMP 36.4–37.7; O2SAT 95–100; BMI 15.9; BMI 16.6
--- NOTE | 2024-02-23 11:10 | PCM.PRE.AN2 ---
ASA Classification* ASA Classification ASA Classification: 3 Assessment & Plan Anesthesia* Anesthesia Assessment Anesthesia Assessment: Discussed sedation and/or anesthesia options, risks, benefits, and alternatives with patient/parents/legal guardian/POA. Questions invited. The patient/parents/legal guardian/POA seems to understand and agrees to proceed with anesthesia plan. Reviewed the physical assessment, medical history, allergy history and patient home medications list prior to surgery/procedure/anesthetic and documented any changes. Performed airway and anesthesia risk assessments. Anesthesia Type Anesthesia Type: General Anesthesia Focused Assessment* Airway Assessment Mouth opens: >3 cm Mallampati Score: II Focused Labs Anesthesia Preop lab: CBC WBC 5.9 K/mm3 (4.4-11.0) 02/21/24 07:35 RBC 4.05 M/mm3 (4.6-6.2) L 02/21/24 07:35 Hgb 7.9 g/dL (13.0-16.5) L 02/21/24 07:35 Hct 29.0 % (40-54) L 02/21/24 07:35 Plt Count 806 K/mm3 (150-450) H* 02/21/24 07:35 CHEMISTRY Potassium 3.7 mmol/L (3.5-5.1) 02/14/24 07:25 Sodium 141 mmol/L (136-145) 02/14/24 07:25 Magnesium 2.0 mg/dL (1.6-2.6) 10/01/23 20:42 Phosphorus 3.1 mg/dL (2.5-4.9) 09/28/23 06:18 BUN 9 mg/dL (7-18) 02/14/24 07:25 Creatinine 0.45 mg/dL (0.70-1.30) L 02/14/24 07:25 Glucose 88 mg/dL (74-106) 02/14/24 07:25 COAG PT 16.1 SECONDS (11.7-14.9) H 09/29/23 04:15 Pre-Assessment Diagnosis/Proposed Procedure Planned Operative Procedure(s): DEBRIDEMENT LEFT ISCHIAL GLUTEAL AND SACRUM WOUND WITH IRRIGATING WOUND VAC PLACEMENT Anesthesia History Anesthesia History - sales leader: Anesthesia History - sales leader Hx Hospitalization Yes: WOUND INFECTON 02/15/24 10:44 Any Problems With Anesthesia No 02/15/24 10:44 Cholinesterase deficiency No 02/15/24 10:44 You/Your Family Experience No 02/15/24 10:44 fever (hyperthermia) with Relationship Recent Exposure to Contagious No 10/05/23 01:34 Disease Does patient have nerve No 02/15/24 10:44 stimulator Patient instructed to have device shut off --Does patient have Pacemaker or ICD? When Was Last Pacemaker Check QUESTION #4 FULL TEXT: You/Your Family Experience fever (hyperthermia) with Anesthesia Last Oral Intake Last Oral intake: Last Oral Intake NPO since Meds taken in AM with sips of water? Meds patient instructed to take am of surgery PONV PONV - sales leader: PONV - sales leader Female No 02/15/24 10:44 HX of Motion Sickness No 02/15/24 10:44 HX of N/V After Surgery No 02/15/24 10:44 Non-Smoker Yes 02/15/24 10:44 Duration of Surgery greater Yes 02/15/24 10:44 than 60 minutes Number of Risk Factors 2 02/15/24 10:44 PONV Score Moderate Risk 02/15/24 10:44 Height & Weight Height & Weight: Anesthesia: Height & Weight Height 6 ft 5 in 11/01/23 10:02 Respiratory Assessment Respiratory Assessment - sales leader: Respiratory Tract Infection Hx - sales leader Hx Respiratory Tract Infection No 02/15/24 10:44 STOP Sleep Apnea STOP Sleep Apnea - sales leader: STOP Sleep Apnea - sales leader Hx Hypertension No 02/15/24 10:44 Hx Sleep Apnea No 02/15/24 10:44 CPAP BIPAP Do you snore loudly (louder No 02/15/24 10:44 than talking or can be heard Do you often feel tired/ No 02/15/24 10:44 fatigued/ sleepy during daytime? Has anyone observed you stop No 02/15/24 10:44 breathing during sleep? STOP Results Negative 02/15/24 10:44 QUESTION #5 FULL TEXT : Do you snore loudly (louder than talking or can be heard through closed doors)? Tobacco Use History Tobacco Use History - sales leader: Tobacco Use History - sales leader Tobacco Use Smoking Status Former smoker 02/15/24 10:44 Hx Tobacco Use No 02/15/24 10:44 Years Smoking Packs Smoked per Day Smoking Cessation Date was Yes - quit smoking within 15 02/15/24 10:44 within the last 15 years years Hx Smoking Cessation Date Hx Smoking Cessation Counseling Hematologic Medial History Hematologic Hx - sales leader: Hematologic Medical Hx - repeater operator Hx of Blood Transfusion No 02/15/24 10:44 Hx of Transfusion in last 3 No 02/15/24 10:44 Months Date of Last Transfusion (if within last 3 months) Ever experience any problems No 02/15/24 10:44 with transfusion(s)? Specify any problems Hx of Preganancy in last 3 N/A 02/15/24 10:44 Months Nurse Filling Out Transfusion DSCHRIBER 02/15/24 10:44 & Questions: Date: 02/15/24 02/15/24 10:44 Time: 11:02 02/15/24 10:44 Patient unable to answer at this time (ie. confused, unrespo /Reproduction History /Reproductive History - sales leader: /Reproductive Hx- sales leader Hx Now No 02/15/24 10:44 Gestational Age (in weeks): EDC: Hx Hx Para Hx Section SAB No 02/15/24 10:44 Active Medications Active Medications: Current Medications Generic Name Dose Route Start Last Admin Trade Name Freq PRN Reason Stop Dose Admin Cefazolin Sodium 2 gm/ N/A 20 mls @ 400 mls/hr 02/23/24 12:15 IV 02/23/24 12:17 PREOP ONE Sodium Chloride 1,000 mls @ 15 mls/hr 02/23/24 10:50 IV 02/29/24 00:09 .Q48H [facility] Protocol PFSH Medical History Former smoker Uses wheelchair Lives in retirement Ulcer of sacral region, stage 4 Closed pilon fracture of left tibia Necrotizing fasciitis Decubitus ulcer, unstageable with infection Hyperbilirubinemia Elevated d-dimer Tachycardia Hypokalemia Hyponatremia Thrombocytosis Leukocytosis Paraplegia Hx of back injury Home Medications ?Medication ?Instructions ?Recorded ?Last Taken ?Type acetaminophen 325 mg tablet 650 mg PO Q4H PRN fever or pain 11/01/23 02/22/24 History acetaminophen 650 mg rectal 650 mg TN Q4H PRN fever or pain 11/01/23 Unknown History suppository glucagon 1 mg injection kit 1 mg IM X1 PRN hypoglycemia 11/01/23 Unknown History guaifenesin 100 mg/5 mL oral 200 mg PO Q4H PRN congestion 11/01/23 Unknown History liquid (Cough Syrup) magnesium hydroxide 400 mg/5 mL 30 ml PO DAILY PRN constipation 11/01/23 Unknown History oral suspension (Mueller Milk of Magnesia) mirtazapine 15 mg tablet (Remeron) 15 mg PO QHS 02/15/24 02/22/24 History naproxen sodium 220 mg capsule 220 mg PO BID PRN pain 02/15/24 Unknown History (Aleve) polyethylene glycol 3350 17 17 g PO DAILY 02/15/24 Unknown History gram/dose oral powder (Miralax) tramadol 50 mg tablet 50 mg PO Q12H PRN PRN pain 02/15/24 02/22/24 History Allergy/AdvReac Type Severity Reaction Status Date / Time No Known Allergies Allergy Verified 02/23/24 11:05 Surgical History History of incision and drainage Hx of colostomy History of cholecystectomy S/P lumbar spinal fusion Social History housing: homeless Smoking Status: Former smoker alcohol intake: former substance use type: does not use Review of Systems (Anesthesia) ROS Narrative System reviewed and no additional complaints, except as documented.
[2024-02-23] MEDS: 0.9% Normal Saline (1000mL) 1,000 ML 15 ML IV (11:19)
--- NOTE | 2024-02-23 12:17 | HP.PCM.SX_ITS ---
HPI - General HPI Narrative HEMALATHA MEDINA, is a 28 M who presents with ischial wound, left. Current Encounter (DATE OF SURGERY H&P UPDATE): I saw and examined the patient this morning in pre-operative holding. We discussed risks and benefits of today's surgery and they would like to proceed. NO CHANGE in health history since last seen and evaluated. Ready to proceed with surgery. FORMERLY [facility], [facility] Medical History Former smoker Uses wheelchair Lives in senior living Ulcer of sacral region, stage 4 Closed pilon fracture of left tibia Necrotizing fasciitis Decubitus ulcer, unstageable with infection Hyperbilirubinemia Elevated d-dimer Tachycardia Hypokalemia Hyponatremia Thrombocytosis Leukocytosis Paraplegia Hx of back injury Home Medications ?Medication ?Instructions ?Recorded ?Last Taken ?Type acetaminophen 325 mg tablet 650 mg PO Q4H PRN fever or pain 11/01/23 02/22/24 History acetaminophen 650 mg rectal 650 mg HI Q4H PRN fever or pain 11/01/23 Unknown History suppository glucagon 1 mg injection kit 1 mg IM X1 PRN hypoglycemia 11/01/23 Unknown History guaifenesin 100 mg/5 mL oral 200 mg PO Q4H PRN congestion 11/01/23 Unknown History liquid (Cough Syrup) magnesium hydroxide 400 mg/5 mL 30 ml PO DAILY PRN constipation 11/01/23 Unknown History oral suspension (Mueller Milk of Magnesia) mirtazapine 15 mg tablet (Remeron) 15 mg PO QHS 02/15/24 02/22/24 History naproxen sodium 220 mg capsule 220 mg PO BID PRN pain 02/15/24 Unknown History (Aleve) polyethylene glycol 3350 17 17 g PO DAILY 02/15/24 Unknown History gram/dose oral powder (Miralax) tramadol 50 mg tablet 50 mg PO Q12H PRN PRN pain 02/15/24 02/22/24 History Allergy/AdvReac Type Severity Reaction Status Date / Time No Known Allergies Allergy Verified 02/23/24 11:05 Surgical History History of incision and drainage Hx of colostomy History of cholecystectomy S/P lumbar spinal fusion Social History housing: homeless Smoking Status: Former smoker alcohol intake: former substance use type: does not use Vital Signs Vital Signs Vital Signs: 02/23/24 11:13 02/23/24 11:13 Temperature 99.8 F H Temperature Source Temporal Pulse Rate 122 H Respiratory Rate 16 Respiratory Pattern Normal Blood Pressure 96/67 Blood Pressure Mean 76 Blood Pressure Source Monitor Blood Pressure Position Semi-Fowlers Blood Pressure Location Left Arm Pulse Ox 100 Oxygen Delivery Method Room Air Weight Weight: 134 lb Body Mass Index (BMI) 15.9 Physical Exam Narrative Wounds Left ischial wound down to ischial bone. Slight necrosis at base of wound over bone. Sacral wound has nearly healed RLE Extremity Extremity Narrative: Toes are warm and well perfused. No obvious wounds. Assessment & Plan Assessment/Plan (1) Decubitus ulcer of left ischium, stage 4: PLAN: Plan I talked the patient extensively about the risks of surgery, including bleeding, infection, damage to surrounding structures, surgical site dehiscence and wound formation, need for wound care, need for repeat operations, failure to obtain the desired result, DVT/PE, and the risks of anesthesia including . The benefits and alternatives of this surgery were also discussed. All of their questions were answered, and they agreed to proceed with surgery. INTERVAL H&P PLAN, DATE OF SURGERY: We will proceed with surgery today. Plan is for debridement with irrigating wound VAC placement
[2024-02-23] MEDS: Cefazolin 2 GM in Syringe IV (12:52)
[2024-02-23] MEDS: Bupiv/Epi 0.25% 30 ML Vial (13:32)
--- NOTE | 2024-02-23 14:02 | PCM.POST.ANE ---
Anesthesia: Postop Eval I Current Vital Signs Temperature: 97.9 F Pulse Rate: 97 Blood Pressure: 121/85 Respiratory Rate: 16 Pulse Ox: 100 Oxygen Delivery Method: Room Air Assessment Airway patent: Yes Spontaneous unlabored respirations: Yes Mental status: Awake and Calm nausea: No Vomiting: No Anesthesia Complication: No Fluid Hydration Crystalloid volume administer (ml): 1,000 Total IV fluid infused: 1,000 Progress Note Anesthesia document: Postop Eval 1 completed: Yes
--- NOTE | 2024-02-23 14:13 | POSTOPAN2_ITS ---
Anesthesia Postop Eval I Sum Postop Eval Completion status Anesthesia document: Postop Eval 1 completed: Yes Anesthesia Postop Eval I Summary Anesthesia Postop Eval I Summary: Anesthesia Postop Eval I: Assessment Summary Airway patent Yes 02/23/24 14:04 ALTERNATIVE ENERGY TECHNICIAN.[email or web address] Spontaneous unlabored Yes 02/23/24 14:04 ALTERNATIVE ENERGY TECHNICIAN.GDOTT respirations Mental status Awake,Calm 02/23/24 14:04 ALTERNATIVE ENERGY TECHNICIAN.GDOTT nausea No 02/23/24 14:04 ALTERNATIVE ENERGY TECHNICIAN.GDOTT Vomiting No 02/23/24 14:04 ALTERNATIVE ENERGY TECHNICIAN.GDOTT Anesthesia Postop Eval I: Fluid Summary Crystalloid volume administer 1,000 02/23/24 14:04 ALTERNATIVE ENERGY TECHNICIAN.GDOTT (ml) Colloids volume administered ( ml) Blood Product volume administered (ml) Total IV fluid infused 1,000 02/23/24 14:04 ALTERNATIVE ENERGY TECHNICIAN.GDOTT Anesthesia Postop Eval I: Summary Notes Anesthesia Complication No 02/23/24 14:04 ALTERNATIVE ENERGY TECHNICIAN.GDOTT Anesthesia Complication Comment: Post-operative progress note Anesthesia: Postop Eval II Evaluation Mental status: Awake Pain Level: 0 nausea: No Vomiting: No
--- NOTE | 2024-02-23 14:13 | PCM.POSTANE2 ---
Anesthesia Postop Eval I Sum Postop Eval Completion status Anesthesia document: Postop Eval 1 completed: Yes Anesthesia Postop Eval I Summary Anesthesia Postop Eval I Summary: Anesthesia Postop Eval I: Assessment Summary Airway patent Yes 02/23/24 14:04 GENERAL WAREHOUSE WORKER.[email or web address] Spontaneous unlabored Yes 02/23/24 14:04 GENERAL WAREHOUSE WORKER.GDOTT respirations Mental status Awake,Calm 02/23/24 14:04 GENERAL WAREHOUSE WORKER.GDOTT nausea No 02/23/24 14:04 GENERAL WAREHOUSE WORKER.GDOTT Vomiting No 02/23/24 14:04 GENERAL WAREHOUSE WORKER.GDOTT Anesthesia Postop Eval I: Fluid Summary Crystalloid volume administer 1,000 02/23/24 14:04 GENERAL WAREHOUSE WORKER.GDOTT (ml) Colloids volume administered ( ml) Blood Product volume administered (ml) Total IV fluid infused 1,000 02/23/24 14:04 GENERAL WAREHOUSE WORKER.GDOTT Anesthesia Postop Eval I: Summary Notes Anesthesia Complication No 02/23/24 14:04 GENERAL WAREHOUSE WORKER.GDOTT Anesthesia Complication Comment: Post-operative progress note Anesthesia: Postop Eval II Evaluation Mental status: Awake Pain Level: 0 nausea: No Vomiting: No
[2024-02-23 14:20] LABS: Absolute Lymphocyte Count 1.66 X10^3/uL (0.83-4.51); Absolute Neutrophil Count 8.9 X10^3/uL (2.0-7.7); Basophil# 0.04 X10^3/uL; Basophil% 0.3 % (0-1); Eosinophil# 0.34 X10^3/uL; Eosinophils% 2.9 % (0-5); Hematocrit 26.2 % (40-54); Hemoglobin 7.8 g/dL (13.0-16.5); Lymphocyte # 1.66 X10^3/ul (0.83-4.51); Lymphocyte % 13.9 % (19-41); Mean Corp Hgb Conc 29.8 g/dL (32-36); Mean Corpuscular Hgb 20.2 pg (27.0-32.0); Mean Corpuscular Volume 67.9 fL (80-94); Mean Platelet Vol. 8.1 fl (6.2-12.0); Monocyte# 0.89 X10^3/uL; Monocyte% 7.5 % (0-10); NRBC Flagged by Analyzer 0 % (0-5); Neutrophil # 8.91 X10^3/uL (2.7-7.7); Neutrophil % 74.8 % (47-70); POSITIVE MORPHOLOGY YES; Platelet Count 642 K/mm3 (150-450); RBC Distribution Width CV 20.3 % (11.6-14.6); RBC Distribution Width SD 48.1 fl (35.1-43.9); Red Blood Count 3.86 M/mm3 (4.6-6.2); White Blood Count 11.9 K/mm3 (4.4-11.0)
[2024-02-23 14:22] LABS: Differential Indicated SCAN CRITERIA MET
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
[2024-02-23 15:21] LABS: Anisocytosis 1+; Ovalocyte 1+; Polychromasia 1+
[2024-02-23 15:22] LABS: Tear Drop Cell 1+
[2024-02-23] MEDS: Acetaminophen 500 MG Tablet 1000 MG PO ×2 (15:55→21:28)
[2024-02-23 16:11] LABS: Phosphorus 4.3 mg/dL (2.5-4.9)
[2024-02-23 16:23] LABS: Ferritin 170 ng/mL (26-388); Iron 14 ug/dL (65-175); Iron Binding Capacity,Total 236 ug/dL (250-450); Magnesium 1.8 mg/dL (1.6-2.6); PERCENT IRON SATURATION 5.9 % (15.0-55.0)
--- NOTE | 2024-02-23 18:07 | OP.PCM_ITS ---
Operative Report (Standard) Operative Information Date of Procedure: 02/23/24 Pre-Operative Diagnosis: Left ischial wound, stage 4 Post-Operative Diagnosis: Same Surgery/Procedure Performed: 1) Excision of left ischial wound, including necrotic bone, fascia, and muscle, 16 x 10 cm (CPT 45786, 43906 x 7) 2) Placement of irrigating wound vac (not disposable), >50 cm ^2 (CPT: 30688) horse farm manager: No Type of Anesthesia: General (with 20 cc of 0.25% Marcaine with 1:200,000 epinephrine ) RN Documented Start/Stop Times: Operation Date: 02/23/24 12:15 Case Time Into Pre-Op 02/23/24 10:47 Out of Pre-Op 02/23/24 12:25 Anesthesia Start 02/23/24 12:29 Into Room 02/23/24 12:29 Procedure Start 02/23/24 13:04 Procedure End 02/23/24 13:40 Anesthesia End 02/23/24 13:59 Out of Room 02/23/24 13:59 Into Recovery 02/23/24 14:02 Out of Recovery 02/23/24 15:10 Procedure Start Time: 13:04 Procedure Stop Time: 13:40 Select all DRAINS/GRAFTS/IMPLANTS that apply: None Estimated Blood Loss: 20 cc Specimen collected: No Description of surgery: Indications: This is a patient with lower extremity paralysis with a left ischial wound. He has had hypertrophic granulation tissue and necrotic tissue develop at the base of his wound that are inhibiting further wound healing with wound VAC therapy. Presents today for debridement. Understands risks, benefits, and alternatives. Procedure details: Patient was correct identified in preoperative holding and taken back to the operating room he was administered general anesthesia. He was placed in the prone position with care taken to pad all bony prominences and protect the face. 20 cc of 0.25% Marcaine with 1-200,000 epinephrine was used to inject around the wound to decrease bleeding. He was given time to take effect. He was prepped and draped in sterile fashion. Using a curette, 10 blade scalpel, and a rongeur, the wound was excised sharply through necrotic bone fascia and muscle subcutaneous tissue and hypertrophic granulation tissue. The entire excision was 10 x 16 cm. Hemostasis was obtained with Bovie electrocautery. The irrigating wound VAC was applied and set to 50 cc every 3 hours. Patient tolerated the procedure well. He was taken the PACU in stable condition. This was a placement of a wound VAC that was greater than 50 cm? Postoperative plan: Postop anemia workup with medicine (consulted) for oscillating hemoglobin around 8. Patient is admitted to my service. Continue irrigating wound VAC for 2 days and likely transition to home wound VAC on 25 February 2024 when we change the wound VAC. Surgical Findings: Necrotic tissue at the base of the wound Healthy appearing bone on the left ischium at the base of the open wound Complications Complications: No
[2024-02-23] MEDS: Mirtazapine 15 MG Tablet PO (21:28)
[2024-02-24 03:58] VITALS: BP 105/63; PULSE 78; RESP 16; TEMP 36.6; O2SAT 98
[2024-02-24 08:45] VITALS: BP 98/68; PULSE 105; RESP 18; TEMP 36.7; O2SAT 98
--- NOTE | 2024-02-24 09:10 | WOUNDNOTE ---
In to assess the wound VAC dressing with Dr Perez. Good seal noted at 125mmHg. order received to switch to Dakins for wound VAC irrigation.
--- NOTE | 2024-02-24 09:20 | PCM.PN.SRG ---
Subjective Subjective Doing well. Pain controlled. Eating well. No n/v Medicine working up chronic anemia. Objective Data Objective Data Vital Signs: Vital Signs Temp Pulse Resp BP Pulse Ox O2 Del Method 98.1 F 105 H 18 98/68 98 Room Air 02/24/24 08:45 02/24/24 08:45 02/24/24 08:45 02/24/24 08:45 02/24/24 08:45 02/24/24 08:49 Oxygen Delivery Method Room Air Weight: 140 lb 8 oz Body Mass Index (BMI) 16.6 Intake & Output: Intake and Output for Last 24 Hours 02/22/24 02/23/24 02/24/24 23:59 23:59 23:59 Intake Total 1140 / 1140 261.5 / 261.5 Output Total 650 / 650 300 / 300 Balance 490 / 490 -38.5 / -38.5 Lab / Micro Data 02/23/24 13:28 Labs: Laboratory Results - last 24 hr 02/23/24 13:28: WBC 11.9 H, RBC 3.86 L, Hgb 7.8 L, Hct 26.2 L, MCV 67.9 L D, MCH 20.2 L, MCHC 29.8 L D, RDW Std Deviation 48.1 H, RDW Coeff of Zakia 20.3 H, Plt Count 642 H, MPV 8.1, Immature Gran % (Auto) 0.600, Neut % (Auto) 74.8 H, Lymph % (Auto) 13.9 L, [place] % (Auto) 7.5, Eos % (Auto) 2.9, Baso % (Auto) 0.3, Absolute Neuts (auto) 8.9 H, Absolute Lymphs (auto) 1.66, Nucleated RBC % 0, Polychromasia 1+, Anisocytosis 1+, Tear Drop Cells 1+, Ovalocytes 1+ 02/23/24 13:38: Blood Type A POSITIVE, Antibody Screen NEGATIVE, Crossmatch See Detail 02/23/24 15:35: Phosphorus 4.3, Magnesium 1.8, Iron 14 L, TIBC 236 L, Iron Saturation 5.9 L, Ferritin 170 Physical Exam Narrative VAC holding suction. No blood On a pressure offloading bed Const alert and oriented x3 HEENT normocephalic Eyes EOMs intact bilaterally Resp normal respiratory effort Cardio regular rate GI GI Narrative: Gas in ostomy Assessment & Plan Assessment/Plan (1) Decubitus ulcer of left ischium, stage 4: PLAN: Continue irrigating VAC Change to home VAC tomorrow for [facility] then f/u in wound care center. Appreciate medicine recommendations for anemia work up.
[2024-02-24 10:43] LABS: Absolute Lymphocyte Count 2.09 X10^3/uL (0.83-4.51); Absolute Neutrophil Count 4.8 X10^3/uL (2.0-7.7); Basophil# 0.04 X10^3/uL; Basophil% 0.5 % (0-1); Eosinophil# 0.39 X10^3/uL; Eosinophils% 4.9 % (0-5); Hematocrit 27.1 % (40-54); Hemoglobin 7.9 g/dL (13.0-16.5); Lymphocyte # 2.09 X10^3/ul (0.83-4.51); Lymphocyte % 26.2 % (19-41); Mean Corp Hgb Conc 29.2 g/dL (32-36); Mean Corpuscular Hgb 20.3 pg (27.0-32.0); Mean Corpuscular Volume 69.7 fL (80-94); Mean Platelet Vol. 8.2 fl (6.2-12.0); Monocyte# 0.66 X10^3/uL; Monocyte% 8.3 % (0-10); NRBC Flagged by Analyzer 0 % (0-5); Neutrophil # 4.77 X10^3/uL (2.7-7.7); Neutrophil % 59.7 % (47-70); Platelet Count 609 K/mm3 (150-450); RBC Distribution Width CV 19.8 % (11.6-14.6); RBC Distribution Width SD 48.9 fl (35.1-43.9); Red Blood Count 3.89 M/mm3 (4.6-6.2)
--- NOTE | 2024-02-24 10:47 | CASEMGMT ---
Addendum entered by Linda Gomez 02/24/24 10:53: Pt is GLORIA. Linda Gomez DC Planning Asst. Original Note: Discharge Planning Updates sent to [facility]. Asked if precert will be needed. Awaiting response. Linda Gomez DC Planning Asst.
[2024-02-24 11:07] LABS: Anion Gap 4 (5-15); BUN 12 mg/dL (7-18); BUN/Creat Ratio 23.1 RATIO (10-20); Calcium,Total 8.7 mg/dL (8.5-10.1); Chloride 105 mmol/L (98-107); Creatinine, Serum 0.52 mg/dL (0.70-1.30); EST Glomerular Filtration Rate 200 mL/min (>60); Est Glom Filt Rate - Afr Amer 241 mL/min (>60); Estimated Creatinine Clearance 188.94 ml/min; Glucose 135 mg/dL (74-106); Potassium 3.8 mmol/L (3.5-5.1); Sodium Level 139 mmol/L (136-145)
[2024-02-24 11:50] VITALS: BP 90/62; PULSE 108; RESP 18; TEMP 36.8; O2SAT 100
[2024-02-24] MEDS: Sodium Hypochlorite (Dakin's) 0.125% Wound Irrigation IRRIGATION (13:20)
[2024-02-24] MEDS: Ensure Plus High Protein 120 ML LIQUID PO ×2 (14:16→21:25)
[2024-02-24] MEDS: Acetaminophen 500 MG Tablet 1000 MG PO ×2 (14:16→21:25)
[2024-02-24 15:02] VITALS: BP 106/63; PULSE 118; RESP 18; TEMP 37.1; O2SAT 96
--- NOTE | 2024-02-24 15:44 | PN.HOSP_ITS ---
Reason for Visit Reason for Visit: Diagnoses Pressure ulcer of left buttock, stage 4 (02/23/24) Subjective Subjective Patient sitting up in bed, feeling fair with no new or acute complaints Objective Data Objective Data Vital Signs: Vital Signs Temp Pulse Resp BP Pulse Ox O2 Del Method 98.8 F 118 H 18 106/63 96 Room Air 02/24/24 15:02 02/24/24 15:02 02/24/24 15:02 02/24/24 15:02 02/24/24 15:02 02/24/24 15:02 Oxygen Delivery Method Room Air Weight: 63.73 kg Body Mass Index (BMI) 16.6 Intake & Output: Intake and Output for Last 24 Hours 02/22/24 02/23/24 02/24/24 23:59 23:59 23:59 Intake Total 1140 / 1140 501.5 / 501.5 Output Total 650 / 650 300 / 300 Balance 490 / 490 201.5 / 201.5 Lab / Micro Data 02/24/24 09:41 02/24/24 09:41 Labs: Laboratory Results - last 24 hr 02/23/24 13:38: Blood Type A POSITIVE, Antibody Screen NEGATIVE, Crossmatch See Detail 02/23/24 15:35: Phosphorus 4.3, Magnesium 1.8, Iron 14 L, TIBC 236 L, Iron Saturation 5.9 L, Ferritin 170 02/24/24 09:41: WBC 8.0, RBC 3.89 L, Hgb 7.9 L, Hct 27.1 L, MCV 69.7 L, MCH 20.3 L, MCHC 29.2 L, RDW Std Deviation 48.9 H, RDW Coeff of Zakia 19.8 H, Plt Count 609 H, MPV 8.2, Immature Gran % (Auto) 0.400, Neut % (Auto) 59.7, Lymph % (Auto) 26.2, Valencia % (Auto) 8.3, Eos % (Auto) 4.9, Baso % (Auto) 0.5, Absolute Neuts (auto) 4.8, Absolute Lymphs (auto) 2.09, Nucleated RBC % 0, Sodium 139, Potassium 3.8, Chloride 105, Carbon Dioxide 30.0, Anion Gap 4 L, BUN 12, C reatinine 0.52 L, Estim Creat Clear Calc 188.94, Est GFR (MDRD) Af Amer 241, Est GFR (MDRD) Non-Af 200, BUN/Creatinine Ratio 23.1 H, Glucose 135 H, Calcium 8.7 Physical Exam Narrative General: Alert, oriented, no apparent distress HEENT: Atraumatic, normocephalic Eyes: Anicteric, normal conjunctiva, extraocular movements grossly intact Neck: Supple Respiratory: Clear to auscultation bilaterally, normal respiratory effort Cardiovascular: Regular rate and rhythm GI: Soft, nontender, nondistended Extremities: No edema Musculoskeletal: Moving all extremities Neuro: Baseline deficits Skin: Wound with wound VAC in place Psych: Cooperative Assessment & Plan Assessment/Plan (1) Decubitus ulcer of left ischium, stage 4: PLAN: Plan # Left ischial decubitus ulcer stage IV -Status post I&D with wound VAC placement 02/23/[address] Perez -Management per primary #Chronic microcytic anemia -Patient with hemoglobin of 7.9, hemoglobin stable and is chronically low -Patient is microcytic and iron panel with low iron and iron sat, ferritin within normal range and TIBC low, suspect mix of potentially iron deficiency with anemia of chronic disease -Will start on iron every other day to maximize absorption and recommend further outpatient workup and follow-up with PCP and ultimately may need GI or hematology -Given its stability do not think this would necessitate continued inpatient admission for workup and management but does need addressed on an outpatient basis # Chronic paraplegia with colostomy and chronic Watson -Supportive care -Patient to go back to [facility] on discharge, likely tomorrow after wound vac change #DVT ppx: Would likely benefit from DVT prophylaxis while inpatient, given proximity of I&D would defer to surgery team for optimal timing Mary Romero MD Time spent in the patient's overall evaluation, decision-making process, review of diagnostic data, adjustment of management, discussion with other providers, nursing and ancillary staff involved in patient's care documentation, 27 Minutes Charges/Coding Visit Charges Inpatient E&M: [id number] [facility] Hosp L1
[2024-02-24 21:19] VITALS: BP 90/47; PULSE 82; RESP 18; TEMP 36.9; O2SAT 97
[2024-02-24] MEDS: 0.9% Saline Lock 10 ML Syringe IV (21:24)
[2024-02-24 23:29] VITALS: BP 86/45; PULSE 86; RESP 16; TEMP 36.9; O2SAT 97
[2024-02-25] MEDS: 0.9% Saline Lock 10 ML Syringe IV (00:12)
[2024-02-25] MEDS: 0.9% Normal Saline (1000mL) 1,000 ML 500 ML IV (00:12)
[2024-02-25] MEDS: Mirtazapine 15 MG Tablet PO (00:16)
[2024-02-25 02:21] VITALS: BP 93/41; PULSE 65; RESP 16; TEMP 36.3; O2SAT 98
[2024-02-25 04:07] LABS: Prealbumin 13 mg/dL (14-35)
[2024-02-25 06:02] VITALS: BP 107/57
[2024-02-25 06:21] LABS: Hemoglobin 7.3 g/dL (13.0-16.5); Mean Corp Hgb Conc 28.1 g/dL (32-36); Mean Corpuscular Hgb 19.7 pg (27.0-32.0); Mean Corpuscular Volume 70.3 fL (80-94); Mean Platelet Vol. 8.7 fl (6.2-12.0); Platelet Count 578 K/mm3 (150-450); RBC Distribution Width CV 19.9 % (11.6-14.6); White Blood Count 6.4 K/mm3 (4.4-11.0)
[2024-02-25 06:52] LABS: Anion Gap 4 (5-15); BUN 13 mg/dL (7-18); BUN/Creat Ratio 34.9 RATIO (10-20); Calcium,Total 8.2 mg/dL (8.5-10.1); Chloride 112 mmol/L (98-107); Creatinine, Serum 0.37 mg/dL (0.70-1.30); EST Glomerular Filtration Rate 292 mL/min (>60); Est Glom Filt Rate - Afr Amer 354 mL/min (>60); Estimated Creatinine Clearance 265.54 ml/min; Glucose 118 mg/dL (74-106); Potassium 3.8 mmol/L (3.5-5.1); Sodium Level 141 mmol/L (136-145)
[2024-02-25] MEDS: Sodium Hypochlorite (Dakin's) 0.125% Wound Irrigation IRRIGATION (10:44)
[2024-02-25] MEDS: Ensure Plus High Protein 120 ML LIQUID PO ×3 (10:45→18:34)
--- NOTE | 2024-02-25 11:41 | CASEMGMT ---
Discharge Planning [facility] notified that pt could potentially return over the weekend. Green sheet completed and given to NIRAJ. Linda Gomez DC Planning Asst.
--- NOTE | 2024-02-25 12:28 | PCM.TXEXTCAR ---
Diet Diet Order/Speech Therapy: 02/23/24 13:01 Diet: Regular - General Type of Dietary Supplement:: Missy Diet Comments: Advance as tolerated post op; orange Missy w/breakfast and dinner Routine Orders/Code Status Change Watson Catheter: as per facility protocol Code Status: Full Code DC O2, CPAP, BIPAP needs Home O2 Discharge instructions: No Wound(s) LEFT GLUTEUS/SACRAM: Wound Type: Pressure Injury Dressing Change: Wound VAC at 125 mmHg 3 times per week (sacral apply Aquacel Ag 3 times per week (when VAC changed, due to it being under drape) If not under drape, change daily.) Suggestions for Active Care Change Position every (hours): 2 Positions to Avoid: Left gluteal pressure Hours to sit in a chair: 1 Times a day to sit in chair: 2 Therapies Physical Therapy: Eval and Treat Occupational Therapy: Eval and Treat Problem/Diagnosis (1) Decubitus ulcer of left ischium, stage 4: Status: Acute Code(s): L89.324 - Pressure ulcer of left buttock, stage 4 Plan: Start Wound VAC at 125 mmHg 3 times per week. Wash ulcer and erica wound with soap and water at the time of the dressing change and then pat dry. (2) Sacral wound: Status: Acute Code(s): S31.000A - Unspecified open wound of lower back and pelvis without penetration into retroperitoneum, initial encounter Plan: Aquacel-Ag placed over sacral wound. Can be changed 3 times a week if covered by wound VAC drape. If NOT covered by wound VAC drape, change daily after washing area with soap and water. Comment: Stage III (3) Microcytic anemia: Status: Acute Code(s): D50.9 - Iron deficiency anemia, unspecified Plan: #Chronic microcytic anemia -Patient with hemoglobin of 7.9, hemoglobin stable and is chronically low -Patient is microcytic and iron panel with low iron and iron sat, ferritin within normal range and TIBC low, suspect mix of potentially iron deficiency with anemia of chronic disease -Will start on iron every other day to maximize absorption and recommend further outpatient workup and follow-up with PCP and ultimately may need GI or hematology -Given its stability do not think this would necessitate continued inpatient admission for workup and management but does need addressed on an outpatient basis (4) Paraplegia: Status: Acute Code(s): G82.20 - Paraplegia, unspecified Allergies/Procedures Done in Hospital Allergies No Known Allergies Allergy (Verified 02/23/24 11:05) Procedures: None Type of Care/Length of Stay Estimated LOS: More Than 30 Days Type of Care Needed: Skilled Rehab Potential: Fair Prognosis: Good Additional Orders/Day of Discharge H&P will serve as current which was dated: 02/23/24 Day of Discharge: 02/25/24 Dietary and Speech Recommendations Dietitian Recommendations/Changes: Continue regular diet. Adjust to orange missy BID with breakfast and dinner. Will order 120ml ensure plus high protein 4x daily with medpass, prefers strawberry. Will monitor weight trends. Reviewed and approved by Awilda Winchester, KATHERINE, LD. Follow Up Care Please follow up with your Primary Care Physician in: 1-2 weeks to have anemia managed Please Follow Up With: Bryon Perez MD When: Wednesday02/27/23 wound center- appointment is already scheduled. Discharge Plan Admission Admit Date/Time: 02/23/24 12:55 Attending Provider: Bryon Perez Primary Care Provider: Lissy Schroeder Consulting Providers: Brady Tripathi; Davion Chawla; Mandy Huffman; Tavo Rowland; Darshana Callaway; Josiah Myers; Josiah Lockhart; Ion Lu; Catina De Leon; Antonio Dye; Karon La; Mega Sol; Lisa Freedman; Evens King; Jack Kumar; Vasquez Connors; Micheal Ward; Mary Romero Discharge Orders/Prescriptions Prescriptions: New polysaccharide iron complex [Ferrex 150] 150 mg iron Capsule 150 mg PO QODAY 30 Days Qty: 15 4RF Rx Instructions: 1 tablet every other day Ensure Plus High Protein 0.08 gram-1.5 kcal/mL Liquid 120 ml PO 4X/DAY 90 Days Qty: 120 0RF oxycodone 5 mg tablet 5 mg PO Q6H PRN (Reason: pain (scale score 7-10)) 7 Days Qty: 10 0RF Continued naproxen sodium [Aleve] 220 mg capsule 220 mg PO BID PRN (Reason: pain) polyethylene glycol 3350 [Miralax] 17 gram/dose powder 17 g PO DAILY mirtazapine [Remeron] 15 mg tablet 15 mg PO QHS tramadol 50 mg tablet 50 mg PO Q12H PRN PRN (Reason: pain) acetaminophen 650 mg suppository 650 mg AL Q4H PRN (Reason: fever or pain) acetaminophen 325 mg tablet 650 mg PO Q4H PRN (Reason: fever or pain) guaifenesin [Cough Syrup] 100 mg/5 mL liquid 200 mg PO Q4H PRN (Reason: congestion) magnesium hydroxide [Mueller Milk of Magnesia] 400 mg/5 mL suspension 30 ml PO DAILY PRN (Reason: constipation) glucagon 1 mg kit 1 mg IM X1 PRN (Reason: hypoglycemia) Referrals / Follow Up: Lissy Schroeder MD [Primary Care Provider] - Disposition Disposition (needs filled in before D/C Order can be placed): Senior Living Facility
--- NOTE | 2024-02-25 12:29 | CASEMGMT ---
Social Work- NIRAJ met with pt to advise of pending d/c. Pt reports that he is agreeable to d/c to [facility] and would like to be transported by cot d/t wound. SW notified DCA of request. Plan: [facility] ADITYA Hood
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
--- NOTE | 2024-02-25 13:28 | CASEMGMT ---
Discharge Planning Discharge orders, signed med list, and transport time sent to [facility] via [facility]. Physicians will transport patient by cot at 5p. Nursing, SW, and patient updated. Pt stated that he would update his dad. Linda Gomez DC Planning Asst.
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
--- NOTE | 2024-02-25 13:34 | CASEMGMT ---
Social Work- Physician feels that pt is medically ready for discharge. Pt will return to [facility]; intermediate level of care, no precert needed. Pt agreeable to discharge plans. DCA notified of pt discharge. Final discharge arrangements and notification to patient/family as per discharge program manager environmental planning.? Plan: [facility]; intermediate level of care ADITYA Hood
--- NOTE | 2024-02-25 13:37 | WOUNDNOTE ---
wound photo: left ischium
--- NOTE | 2024-02-25 13:38 | WOUNDNOTE ---
wound photo: sacrum
[2024-02-25] MEDS: Acetaminophen 500 MG Tablet 1000 MG PO (15:41)
[2024-02-25 18:50] VITALS: BP 117/66; PULSE 117; RESP 16; TEMP 36.3; O2SAT 95
[2024-02-25 20:33] VITALS: BP 114/62; PULSE 119; RESP 16; TEMP 36.6; O2SAT 98
== END 2024-02-25 20:54 | disposition intermediate care facility (04) ==
LOC: SDC 14:37 → MS3 14:37
PROVIDERS: Family Medicine; Internal Medicine; Nurse Practitioner Family; Admitting Provider Surgery Plastic and Reconstructive Surgery; PCP Internal Medicine; Referring Provider Surgery Plastic and Reconstructive Surgery; Visit Provider Surgery Plastic and Reconstructive Surgery
PROC: (CPT 11044; principal; 2024-02-23 12:00)
DX: L89.224 Pressure ulcer of left hip, stage 4 (principal); G82.20 Paraplegia, unspecified; Z93.3 Colostomy status; Z87.891 Personal history of nicotine dependence; Z79.899 Other long term (current) drug therapy; D50.9 Iron deficiency anemia, unspecified; Z98.1 Arthrodesis status
CPT/HCPCS: 11044; 11047 ×7; 01120; 36415; 80048; 82728; 83540; 83550; 83735; 84100; 84134; 85025; 85027; 86850; 86900; 86901; 96360; 96361; 97162; 97166; 97530; 97802; 99221; A4216; G0378; J2405

== ENCOUNTER → 2024-02-28 | Outpatient (REF) | payer MEDICAID, SELFPAY ==
[2024-02-29 04:07] LABS: Prealbumin 12 mg/dL (14-35)
== END | disposition home or self-care (01) ==
LOC: OLS.SW 05:00
PROVIDERS: PCP Internal Medicine; Visit Provider Internal Medicine
DX: Z00.00 Encounter for general adult medical examination without abnormal findings (principal)
CPT/HCPCS: 36415; 84134

== ENCOUNTER → 2024-03-07 | Outpatient (REF) | payer MEDICAID, SELFPAY ==
[2024-03-07 08:54] LABS: Absolute Lymphocyte Count 2.54 X10^3/uL (0.83-4.51); Absolute Neutrophil Count 2.1 X10^3/uL (2.0-7.7); Basophil# 0.04 X10^3/uL; Basophil% 0.7 % (0-1); Eosinophil# 0.96 X10^3/uL; Eosinophils% 15.8 % (0-5); Hematocrit 26.9 % (40-54); Hemoglobin 7.7 g/dL (13.0-16.5); Lymphocyte # 2.54 X10^3/ul (0.83-4.51); Lymphocyte % 41.7 % (19-41); Mean Corp Hgb Conc 28.6 g/dL (32-36); Mean Corpuscular Hgb 20.1 pg (27.0-32.0); Mean Corpuscular Volume 70.2 fL (80-94); Mean Platelet Vol. 8.8 fl (6.2-12.0); Monocyte# 0.47 X10^3/uL; Monocyte% 7.7 % (0-10); NRBC Flagged by Analyzer 0 % (0-5); Neutrophil # 2.05 X10^3/uL (2.7-7.7); Neutrophil % 33.6 % (47-70); POSITIVE COUNT YES; RBC Distribution Width CV 19.1 % (11.6-14.6); RBC Distribution Width SD 47.5 fl (35.1-43.9); Red Blood Count 3.83 M/mm3 (4.6-6.2); White Blood Count 6.1 K/mm3 (4.4-11.0)
[2024-03-07 09:01] LABS: ALB/GLOB Ratio 0.4 RATIO (0.9-2.4); AST(SGOT) 15 U/L (15-37); Alanine Aminotransfer ALT/SGPT 20 U/L (16-61); Alkaline Phosphatase 208 U/L (45-117); Anion Gap 6 (5-15); BUN 16 mg/dL (7-18); BUN/Creat Ratio 20.9 RATIO (10-20); Calcium,Total 9.3 mg/dL (8.5-10.1); Chloride 104 mmol/L (98-107); Creatinine, Serum 0.77 mg/dL (0.70-1.30); EST Glomerular Filtration Rate 127 mL/min (>60); Est Glom Filt Rate - Afr Amer 154 mL/min (>60); Globulin 4.7 g/dL (2.2-4.2); Glucose 82 mg/dL (74-106); Protein, Total 6.7 g/dL (6.4-8.2); Sodium Level 140 mmol/L (136-145)
[2024-03-07 09:02] LABS: Differential Indicated SCAN CRITERIA MET; Platelet Count 780 K/mm3 (150-450)
[2024-03-07 09:40] LABS: Platelet Estimate MKD INC (ADEQ)
[2024-03-08 11:48] LABS: Pathologist Review Reviewed
== END | disposition home or self-care (01) ==
LOC: OLS.SW 05:00
PROVIDERS: PCP Internal Medicine; Visit Provider Internal Medicine
DX: I10 Essential (primary) hypertension (principal); D50.9 Iron deficiency anemia, unspecified
CPT/HCPCS: 36415; 80053; 85025

== ENCOUNTER 2024-03-13 13:00 | Outpatient (RCR) | payer MEDICAID, SELFPAY ==
[2024-02-16 00:22] VITALS: BP 82/42; PULSE 85; RESP 18; TEMP 36.2; BMI 16.6
[2024-02-28 13:40] VITALS: BP 95/60; PULSE 129; RESP 16; TEMP 36.9; BMI 16.6
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
--- NOTE | 2024-02-29 09:25 | WC ---
PHOTO 02/28/24 Tayler GREEN
--- NOTE | 2024-02-29 09:30 | WC ---
PHOTO 02/28/24 LEFT ISCHIUM
--- NOTE | 2024-02-29 09:32 | WC ---
PHOTO 02/28/24 SACRAL
[2024-03-13 13:18] VITALS: BP 94/58; PULSE 111; RESP 18; TEMP 36.4; BMI 16.6
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
== END 2024-03-17 23:59 | disposition home or self-care (01) ==
LOC: WC 13:00
PROVIDERS: PCP Internal Medicine; Referring Provider Surgery Plastic and Reconstructive Surgery; Visit Provider Surgery Plastic and Reconstructive Surgery
DX: L89.324 Pressure ulcer of left buttock, stage 4 (principal); G82.20 Paraplegia, unspecified; Z93.3 Colostomy status; V86.3 Unspecified occupant of special all-terrain or other off-road motor vehicle injured in traffic accident; Z79.899 Other long term (current) drug therapy
CPT/HCPCS: 11042; 11044; 11047

== ENCOUNTER → 2024-03-28 05:00 | Outpatient (REF) | payer MEDICAID, SELFPAY ==
[2024-03-28 08:29] LABS: ALB/GLOB Ratio 0.4 RATIO (0.9-2.4); AST(SGOT) 13 U/L (15-37); Alanine Aminotransfer ALT/SGPT 17 U/L (16-61); Albumin, Serum 2.1 g/dL (3.2-5.0); Alkaline Phosphatase 146 U/L (45-117); Anion Gap 5 (5-15); BUN 14 mg/dL (7-18); BUN/Creat Ratio 26.4 RATIO (10-20); Calcium,Total 9.1 mg/dL (8.5-10.1); Chloride 107 mmol/L (98-107); Creatinine, Serum 0.53 mg/dL (0.70-1.30); EST Glomerular Filtration Rate 194 mL/min (>60); Est Glom Filt Rate - Afr Amer 235 mL/min (>60); Globulin 5.1 g/dL (2.2-4.2); Glucose 103 mg/dL (74-106); Potassium 3.9 mmol/L (3.5-5.1); Protein, Total 7.2 g/dL (6.4-8.2); Sodium Level 140 mmol/L (136-145)
[2024-03-28 10:13] LABS: Hemoglobin A1c 5.6 % (3.8-5.6)
[2024-03-29 08:09] LABS: Prealbumin 10 mg/dL (14-35)
== END ==
LOC: OLS.SW 05:00
PROVIDERS: PCP Internal Medicine; Visit Provider Internal Medicine
DX: L08.9 Local infection of the skin and subcutaneous tissue, unspecified (principal)
CPT/HCPCS: 36415; 80053; 83036; 84134

== ENCOUNTER → 2024-04-04 17:15 | Outpatient (REF) | payer MEDICAID, SELFPAY ==
[2024-04-05 07:43] LABS: Color, Urine Yellow (Yellow); Glucose, Dipstick Normal (Normal); Ketone-Dipstick Negative (Negative); Leukocyte Esterase-Dipstick 500 /ul (Negative); Nitrite-Dipstick Positive (Negative); Occult Blood-Urine 25 /ul (Negative); Protein-Dipstick 30 mg/dl (Negative); Urine Bilirubin Dipstick Negative (Negative); Urine Clarity Cloudy (Clear); Urine Urobilinogen Normal (Normal)
[2024-04-05 07:53] LABS: Bacteria 3+ /hpf (None Seen); Mucous, Urine 1+ /hpf (<or=2+); Red Blood Cells-Urine 0 SEEN /hpf (0-5); Squamous Epithelial Cells - UA 0-5 SEEN /hpf (0-5); White Blood Cells 50-100 SEEN /hpf (0-5)
== END ==
LOC: OLS.SW 17:15
PROVIDERS: PCP Internal Medicine; Visit Provider Internal Medicine
DX: R82.0 Chyluria (principal); R50.9 Fever, unspecified
CPT/HCPCS: 81001; 87077; 87086; 87088; 87186

== ENCOUNTER 2024-04-10 13:15 | Outpatient (RCR) | payer MEDICAID, SELFPAY ==
[2024-03-18 01:54] VITALS: BP 94/58; PULSE 111; RESP 18; TEMP 36.4; BMI 16.6
[2024-03-27 13:10] VITALS: BP 103/67; PULSE 123; RESP 16; TEMP 36.7; BMI 16.6
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
--- NOTE | 2024-03-28 09:03 | WC ---
PHOTO 03/27/24 SACRAL
--- NOTE | 2024-03-28 09:04 | WC ---
PHOTO 03/27/24 LEFT ISCHIUM
[2024-04-10 13:48] VITALS: BP 105/22; PULSE 86; RESP 16; TEMP 36.6; BMI 16.6
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
== END 2024-04-14 23:59 | disposition home or self-care (01) ==
LOC: WC 13:15
PROVIDERS: PCP Internal Medicine; Referring Provider Surgery Plastic and Reconstructive Surgery; Visit Provider Surgery Plastic and Reconstructive Surgery
DX: L89.324 Pressure ulcer of left buttock, stage 4 (principal); G82.20 Paraplegia, unspecified; V86.3 Unspecified occupant of special all-terrain or other off-road motor vehicle injured in traffic accident; Z79.899 Other long term (current) drug therapy
CPT/HCPCS: 11042; 11043; 11044; 11047

== ENCOUNTER → 2024-04-24 | Outpatient (REF) | payer MEDICAID, SELFPAY ==
[2024-04-24 08:20] LABS: Hematocrit 29.2 % (40-54); Hemoglobin 8.2 g/dL (13.0-16.5); Mean Corp Hgb Conc 28.1 g/dL (32-36); Mean Corpuscular Hgb 18.8 pg (27.0-32.0); Mean Platelet Vol. 8.8 fl (6.2-12.0); Platelet Count 573 K/mm3 (150-450); RBC Distribution Width CV 18.6 % (11.6-14.6); RBC Distribution Width SD 44.1 fl (35.1-43.9); Red Blood Count 4.36 M/mm3 (4.6-6.2); White Blood Count 6.8 K/mm3 (4.4-11.0)
[2024-04-24 08:56] LABS: Anion Gap 12 (5-15); BUN 14 mg/dL (4-19); BUN/Creat Ratio 21.8 RATIO (10-20); Calcium,Total 8.9 mg/dL (7.6-11.0); Carbon Dioxide 24.5 mmol/L (21.0-32.0); Chloride 103 mmol/L (98-108); Creatinine, Serum 0.62 mg/dL (0.70-1.20); EST Glomerular Filtration Rate 132 (>60); Glucose 96 mg/dL (70-99); Potassium 4.2 mmol/L (3.3-5.1); Sodium Level 140 mmol/L (133-145)
== END | disposition home or self-care (01) ==
LOC: OLS.SW 05:00
PROVIDERS: PCP Internal Medicine; Visit Provider Internal Medicine
DX: A41.9 Sepsis, unspecified organism (principal); M72.6 Necrotizing fasciitis
CPT/HCPCS: 11044; 11047; 36415; 80048; 85027

== ENCOUNTER 2024-05-08 10:15 | Outpatient (RCR) | payer MEDICAID, SELFPAY ==
[2024-04-15 01:12] VITALS: BP 105/22; PULSE 86; RESP 16; TEMP 36.6; BMI 16.6
[2024-04-24 10:50] VITALS: BP 97/62; PULSE 90; RESP 16; TEMP 35.9; BMI 16.6
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
--- NOTE | 2024-04-25 08:46 | WC ---
PHOTO 04/24/24 SACRAL
--- NOTE | 2024-04-25 08:47 | WC ---
PHOTO 04/24/24 LEFT ISCHIUM
[2024-05-08 10:21] VITALS: BP 107/59; PULSE 83; RESP 18; TEMP 36.1; BMI 16.6
--- NOTE | 2024-05-08 14:46 | WC ---
PHOTO 05/08/24 SACRAL
--- NOTE | 2024-05-08 14:47 | WC ---
PHOTO 05/08/24 LEFT ISCHIUM
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
== END 2024-05-15 23:59 | disposition home or self-care (01) ==
LOC: WC 10:15
PROVIDERS: PCP Internal Medicine; Referring Provider Surgery Plastic and Reconstructive Surgery; Visit Provider Surgery Plastic and Reconstructive Surgery
DX: L89.324 Pressure ulcer of left buttock, stage 4 (principal); G82.20 Paraplegia, unspecified; Z93.3 Colostomy status; Z79.899 Other long term (current) drug therapy; D63.8 Anemia in other chronic diseases classified elsewhere
CPT/HCPCS: 11044; 11047

== ENCOUNTER → 2024-05-09 | Outpatient (REF) | payer MEDICAID, SELFPAY ==
[2024-05-09 10:10] LABS: Absolute Lymphocyte Count 2.74 X10^3/uL (0.83-4.51); Absolute Neutrophil Count 3.4 X10^3/uL (2.0-7.7); Basophil# 0.06 X10^3/uL; Basophil% 0.8 % (0-1); Eosinophil# 0.79 X10^3/uL; Hematocrit 30.4 % (40-54); Hemoglobin 8.6 g/dL (13.0-16.5); Lymphocyte # 2.74 X10^3/ul (0.83-4.51); Lymphocyte % 34.7 % (19-41); Mean Corp Hgb Conc 28.3 g/dL (32-36); Mean Corpuscular Hgb 18.8 pg (27.0-32.0); Mean Corpuscular Volume 66.5 fL (80-94); Mean Platelet Vol. 9.2 fl (6.2-12.0); Monocyte# 0.85 X10^3/uL; Monocyte% 10.8 % (0-10); NRBC Flagged by Analyzer 0 % (0-5); Neutrophil # 3.43 X10^3/uL (2.7-7.7); Neutrophil % 43.3 % (47-70); Platelet Count 695 K/mm3 (150-450); RBC Distribution Width CV 19.3 % (11.6-14.6); RBC Distribution Width SD 45.1 fl (35.1-43.9); Red Blood Count 4.57 M/mm3 (4.6-6.2); White Blood Count 7.9 K/mm3 (4.4-11.0)
[2024-05-09 12:11] LABS: ALB/GLOB Ratio 0.8 RATIO (0.9-2.4); AST(SGOT) 18 U/L (<=37); Alanine Aminotransfer ALT/SGPT 9 U/L (<=46); Albumin, Serum 3.1 g/dL (3.5-5.0); Alkaline Phosphatase 139 U/L (40-129); Anion Gap 13 (5-15); BUN 13 mg/dL (4-19); BUN/Creat Ratio 22.4 RATIO (10-20); Calcium,Total 8.9 mg/dL (7.6-11.0); Carbon Dioxide 22.6 mmol/L (21.0-32.0); Chloride 103 mmol/L (98-108); Creatinine, Serum 0.57 mg/dL (0.70-1.20); EST Glomerular Filtration Rate 136 (>60); Globulin 4.1 g/dL (2.2-4.2); Glucose 113 mg/dL (70-99); Potassium 3.8 mmol/L (3.3-5.1); Protein, Total 7.3 g/dL (5.9-8.4); Sodium Level 138 mmol/L (133-145); Total Bilirubin 0.17 mg/dL (0.00-1.30)
[2024-05-09 23:11] LABS: Hemoglobin A1c 5.9 % (<=5.6)
[2024-05-10 08:09] LABS: Prealbumin 13 mg/dL (14-35)
== END | disposition home or self-care (01) ==
LOC: OLS.SW 04:00
PROVIDERS: PCP Internal Medicine; Referring Provider Internal Medicine; Visit Provider Internal Medicine
DX: E46 Unspecified protein-calorie malnutrition (principal)
CPT/HCPCS: 36415; 80053; 83036; 84134; 85025

== ENCOUNTER 2024-05-22 08:23 | Outpatient (RCR) | payer MEDICAID, SELFPAY ==
[2024-05-16 00:20] VITALS: BP 107/59; PULSE 83; RESP 18; TEMP 36.1; BMI 16.6
[2024-05-22 09:55] VITALS: BP 96/56; PULSE 78; RESP 18; TEMP 35.8; BMI 16.6
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
--- NOTE | 2024-05-23 11:07 | WC ---
PHOTO 05/22/24 LEFT ISCHIUM
== END 2024-06-14 23:59 | disposition home or self-care (01) ==
LOC: WC 08:23
PROVIDERS: PCP Internal Medicine; Referring Provider Surgery Plastic and Reconstructive Surgery; Visit Provider Surgery Plastic and Reconstructive Surgery
DX: L89.324 Pressure ulcer of left buttock, stage 4 (principal); G82.20 Paraplegia, unspecified; V86.39XA Unspecified occupant of other special all-terrain or other off-road motor vehicle injured in traffic accident, initial encounter
CPT/HCPCS: 11044; 11047

== ENCOUNTER 2024-06-02 08:45 | Inpatient (IN) | payer MEDICAID, SELFPAY ==
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
[2024-06-02] VITALS (13 sets, daily range): BP systolic 90–108; BP diastolic 47–74; PULSE 62–98; RESP 15–18; TEMP 36.3–37.1; O2SAT 99–100; BMI 16.6
--- NOTE | 2024-06-02 07:08 | PRE.ANES_ITS ---
ASA Classification* ASA Classification ASA Classification: 3 Assessment & Plan Anesthesia* Anesthesia Assessment Anesthesia Assessment: Discussed sedation and/or anesthesia options, risks, benefits, and alternatives with patient/parents/legal guardian/POA. Questions invited. The patient/parents/legal guardian/POA seems to understand and agrees to proceed with anesthesia plan. Reviewed the physical assessment, medical history, allergy history and patient home medications list prior to surgery/procedure/anesthetic and documented any changes. Performed airway and anesthesia risk assessments. Anesthesia Type Anesthesia Type: General (NO SUX) Anesthesia Focused Assessment* Airway Assessment Mouth opens: >3 cm Mallampati Score: II Focused Labs Anesthesia Preop lab: CBC WBC 7.9 K/mm3 (4.4-11.0) 05/09/24 05:37 05/09/24 RBC 4.57 M/mm3 (4.6-6.2) L 05/09/24 05:37 05/09/24 Hgb 8.6 g/dL (13.0-16.5) L 05/09/24 05:37 05/09/24 Hct 30.4 % (40-54) L 05/09/24 05:37 05/09/24 Plt Count 695 K/mm3 (150-450) H 05/09/24 05:37 05/09/24 CHEMISTRY Potassium 3.8 mmol/L (3.3-5.1) 05/09/24 05:37 05/09/24 Sodium 138 mmol/L (133-145) 05/09/24 05:37 05/09/24 Magnesium 1.8 mg/dL (1.6-2.6) 02/23/24 15:35 02/23/24 Phosphorus 4.3 mg/dL (2.5-4.9) 02/23/24 15:35 02/23/24 BUN 13 mg/dL (4-19) 05/09/24 05:37 05/09/24 Creatinine 0.57 mg/dL (0.70-1.20) L 05/09/24 05:37 Glucose 113 mg/dL (70-99) H 05/09/24 05:37 05/09/24 COAG PT 16.1 SECONDS (11.7-14.9) H 09/29/23 04:15 09/15 06/08 Pre-Assessment Diagnosis/Proposed Procedure Planned Operative Procedure(s): LEFT ISCHIAL WOUND DEBRIDEMENT EXCISION AND PLACEMENT OF WOUND VAC Anesthesia History Anesthesia History - electrical high tension tester: Anesthesia History - electrical high tension tester Hx Hospitalization Yes: WOUND INFECTON 05/26/24 15:24 Any Problems With Anesthesia No 05/26/24 15:24 Cholinesterase deficiency No 05/26/24 15:24 You/Your Family Experience No 05/26/24 15:24 fever (hyperthermia) with Relationship Recent Exposure to Contagious No 02/23/24 11:13 Disease Does patient have nerve No 05/26/24 15:24 stimulator Patient instructed to have device shut off --Does patient have Pacemaker or ICD? When Was Last Pacemaker Check QUESTION #4 FULL TEXT: You/Your Family Experience fever (hyperthermia) with Anesthesia Last Oral Intake Last Oral intake: Last Oral Intake NPO since Meds taken in AM with sips of water? Meds patient instructed to take am of surgery PONV PONV - electrical high tension tester: PONV - electrical high tension tester Female No 05/26/24 15:24 HX of Motion Sickness No 05/26/24 15:24 HX of N/V After Surgery No 05/26/24 15:24 Non-Smoker Yes 05/26/24 15:24 Duration of Surgery greater Yes 05/26/24 15:24 than 60 minutes Number of Risk Factors 2 05/26/24 15:24 PONV Score Moderate Risk 05/26/24 15:24 Height & Weight Height & Weight: Anesthesia: Height & Weight Height 6 ft 5 in 03/14/24 10:58 Respiratory Assessment Respiratory Assessment - electrical high tension tester: Respiratory Tract Infection Hx - electrical high tension tester Hx Respiratory Tract Infection No 05/26/24 15:24 STOP Sleep Apnea STOP Sleep Apnea - electrical high tension tester: STOP Sleep Apnea - electrical high tension tester Hx Hypertension No 05/26/24 15:24 Hx Sleep Apnea No 05/26/24 15:24 CPAP BIPAP Do you snore loudly (louder No 05/26/24 15:24 than talking or can be heard Do you often feel tired/ No 05/26/24 15:24 fatigued/ sleepy during daytime? Has anyone observed you stop No 05/26/24 15:24 breathing during sleep? STOP Results Negative 05/26/24 15:24 QUESTION #5 FULL TEXT : Do you snore loudly (louder than talking or can be heard through closed doors)? Tobacco Use History Tobacco Use History - electrical high tension tester: Tobacco Use History - electrical high tension tester Tobacco Use Smoking Status Former smoker 05/26/24 15:24 Hx Tobacco Use Yes 05/26/24 15:24 Years Smoking Packs Smoked per Day Smoking Cessation Date was Yes - quit smoking within 15 05/26/24 15:24 within the last 15 years years Hx Smoking Cessation Date Hx Smoking Cessation Counseling Hematologic Medial History Hematologic Hx - electrical high tension tester: Hematologic Medical Hx - director of investigations Hx of Blood Transfusion No 05/26/24 15:24 Hx of Transfusion in last 3 No 05/26/24 15:24 Months Date of Last Transfusion (if within last 3 months) Ever experience any problems No 05/26/24 15:24 with transfusion(s)? Specify any problems Hx of Preganancy in last 3 N/A 05/26/24 15:24 Months Nurse Filling Out Transfusion DSCHRIBER 05/26/24 15:24 & Questions: Date: 05/26/24 05/26/24 15:24 Time: 1505/26/24 15:24 Patient unable to answer at this time (ie. confused, unrespo /Reproduction History /Reproductive History - electrical high tension tester: /Reproductive Hx- electrical high tension tester Hx Now Gestational Age (in weeks): EDC: Hx Hx Para Hx Section SAB No 05/26/24 15:24 Active Medications Active Medications: Current Medications Generic Name Dose Route Start Last Admin Trade Name Freq PRN Reason Stop Dose Admin Cefazolin Sodium 2 gm/ N/A 20 mls @ 400 mls/hr 06/02/24 08:30 IV 06/02/24 08:32 INTRAOP ONE Sodium Chloride 1,000 mls @ 15 mls/hr 06/02/24 07:00 IV .Q48H MIGUE PFSH Medical History History of non-healing wound Urine incontinence Anemia of chronic disease Watson catheter in place Former smoker Uses wheelchair Lives in care home Ulcer of sacral region, stage 4 Closed pilon fracture of left tibia Necrotizing fasciitis Decubitus ulcer, unstageable with infection Hyperbilirubinemia Elevated d-dimer Tachycardia Hypokalemia Hyponatremia Thrombocytosis Leukocytosis Paraplegia Hx of back injury Home Medications ?Medication ?Instructions ?Recorded ?Last Taken ?Type acetaminophen 325 mg tablet 650 mg PO Q4H PRN fever or pain 11/01/23 02/22/24 History acetaminophen 650 mg rectal 650 mg SD Q4H PRN fever or pain 11/01/23 Unknown History suppository guaifenesin 100 mg/5 mL oral 200 mg PO Q4H PRN congest ion 11/01/23 Unknown History liquid (Cough Syrup) magnesium hydroxide 400 mg/5 mL 30 ml PO DAILY PRN con stipation 11/01/23 Unknown History oral suspension (Mueller Milk of Magnesia) naproxen sodium 220 mg capsule 220 mg PO QHS pain 01/17 03/10 Unknown History (Aleve) polyethylene glycol 3350 17 17 g PO DAILY 02/15/24 Unk nown History gram/dose oral powder (Miralax) tramadol 50 mg tablet 50 mg PO QHS pain 02/15/24 0 02/22/24 History aluminum-magnesium hydroxide 225 30 ml PO Q4H PRN cons tipation 03/02/24 Unknown History mg-200 mg/5 mL oral suspension mineral oil (Fleet Mineral Oil 118 ml SD QDAY PRN cons tipation 03/02/24 Unknown History enema) mirtazapine 15 mg tablet (Remeron) 30 mg PO QHS Unknown History triamcinolone acetonide 0.1 % 1 applic topical BID Unknown History topical cream gabapentin 300 mg capsule 300 mg PO QHS 03/14/24 Unkno wn History Allergy/AdvReac Type Severity Reaction Status Date / Time No Known Allergies Allergy Verified 05/26/24 15:00 Surgical History History of incision and drainage Hx of colostomy History of cholecystectomy S/P lumbar spinal fusion Social History housing: homeless Smoking Status: Former smoker alcohol intake: former substance use type: does not use Review of Systems (Anesthesia) ROS Narrative System reviewed and no additional complaints, except as documented.
[2024-06-02] MEDS: 0.9% Normal Saline (1000mL) 1,000 ML 15 ML IV (07:34)
--- NOTE | 2024-06-02 08:27 | PCM.HP.STD ---
HPI - General General Date of Admission: 06/02/24 HPI Narrative HEMALATHA MEDINA is a 28 M who presents for debridement of his left ischial wound. Current Encounter (DATE OF SURGERY H&P UPDATE): I saw and examined the patient this morning in pre-operative holding. We discussed risks and benefits of today's surgery and they would like to proceed. NO CHANGE in health history since last seen and evaluated. Ready to proceed with surgery. [facility] Medical History History of non-healing wound Urine incontinence Anemia of chronic disease Watson catheter in place Former smoker Uses wheelchair [facility] in penitentiary Ulcer of sacral region, stage 4 Closed pilon fracture of left tibia Necrotizing fasciitis Decubitus ulcer, unstageable with infection Hyperbilirubinemia Elevated d-dimer Tachycardia Hypokalemia Hyponatremia Thrombocytosis Leukocytosis Paraplegia Hx of back injury Home Medications ?Medication ?Instructions ?Recorded ?Last Taken ?Type acetaminophen 325 mg tablet 650 mg PO Q4H PRN fever or pain 11/01/23 02/22/24 History acetaminophen 650 mg rectal 650 mg SD Q4H PRN fever or pain 11/01/23 Unknown History suppository guaifenesin 100 mg/5 mL oral 200 mg PO Q4H PRN congestion 11/01/23 Unknown History liquid (Cough Syrup) magnesium hydroxide 400 mg/5 mL 30 ml PO DAILY PRN constipation 11/01/23 Unknown History oral suspension (Mueller Milk of Magnesia) naproxen sodium 220 mg capsule 220 mg PO QHS pain 02/15/24 06/01/24 History (Aleve) polyethylene glycol 3350 17 17 g PO DAILY 02/15/24 Unknown History gram/dose oral powder (Miralax) tramadol 50 mg tablet 50 mg PO QHS pain 02/15/24 06/01/24 History aluminum-magnesium hydroxide 225 30 ml PO Q4H PRN constipation 03/02/24 Unknown History mg-200 mg/5 mL oral suspension mineral oil (Fleet Mineral Oil 118 ml SD QDAY PRN constipation 03/02/24 Unknown History enema) mirtazapine 15 mg tablet (Remeron) 30 mg PO QHS appetite 03/02/24 06/01/24 History triamcinolone acetonide 0.1 % 1 applic topical BID 03/02/24 Unknown History topical cream gabapentin 300 mg capsule 300 mg PO QHS nerve pain 03/14/24 06/01/24 History Allergy/AdvReac Type Severity Reaction Status Date / Time No Known Allergies Allergy Verified 06/02/24 07:12 Surgical History History of incision and drainage Hx of colostomy History of cholecystectomy S/P lumbar spinal fusion Social History housing: homeless Smoking Status: Former smoker alcohol intake: former substance use type: does not use Vital Signs Vital Signs Vital Signs: 06/02/24 07:19 Temperature 97.7 F L Temperature Source Temporal Pulse Rate 81 Respiratory Rate 16 Blood Pressure 100/66 Blood Pressure Mean 77 Blood Pressure Source Monitor Blood Pressure Position Semi-Fowlers Blood Pressure Location Right Arm Pulse Ox 100 Oxygen Delivery Method Room Air Weight Weight: 140 lb Body Mass Index (BMI) 16.6 Physical Exam Narrative Left ischial wound with beefy red granulation tissue at the base with some exposed bone at the base (left ischium) Const alert and oriented x3 Assessment & Plan Assessment/Plan (1) Decubitus ulcer of left ischium, stage 4: PLAN: I talked to the patient extensively about the risks of surgery, including bleeding, infection, damage to surrounding structures, poor scaring, surgical site dehiscence and wound formation, need for wound care, need for repeat operations, failure to obtain the desired result, DVT/PE, and the risks of anesthesia including , including stroke (from low blood pressure/ischemia or clot). The benefits and alternatives of this surgery were also discussed. All of their questions were answered, and they agreed to proceed with surgery. Plan for excision of the left ischial wound in prone position under general anesthesia. We will take bone cultures in place irrigating wound VAC. Plan for postoperative admission with infectious disease consultation and likely closure and flap reconstruction next week.
--- NOTE | 2024-06-02 08:30 | PRES_PTH ---
PATIENT: HEMALATHA MEDINA LOC: [facility] U#:[id number] AGE/SX: 28/M ROOM: RI315 RE06/02/[address]: Dr. Bryon Perez MD : 1995 BED: 1 DIS: 06/13/2024 SPEC #: [id number] RECD: 06/02/24 13:50 STATUS: MEET RENicola #: [id number] TRUE: 06/02/24 08:[address]: Bryon Perez DEPT: SURGICAL PATHOLOGY RECD BY: Maximo Burton ENTERED: 06/02/24 13:53 SP TYPE: TOMÁS GUTIÉRREZ DR: MD Dr. Bryon Drake MD Tissues: A - Ischium, NOS B - Ischium, NOS Procedures: Decalcification bone/plaque Special Stain Group I Surgery Specimen Level III Surgery Specimen Level V GMS Stain (control) HEADER OPERATION: Left ischial wound debridement excision and placement PRE-OP DIAGNOSIS: Decubitus ulcer left ischium stage 4 TISSUE SUBMITTED: A- Left ischial ulcer tissue, B- Left ischial bone MICROSCOPIC DIAGNOSIS A. Skin, left ischium, ulcer, debridement: * Cutaneous ulcer with scar, acute and chronic inflammation, and reactive epidermal changes - see Comment. * AFB stains are negative for acid fast bacilli (A1,A2,A3). B. Bone, left ischium, biopsy: * Trabecular bone with reactive and degenerative changes - see Comment. * AFB stain is negative for acid fast bacilli. COMMENT A,B) No granulomatous inflammation is seen. MICROSCOPIC DESCRIPTION Slides are reviewed. GROSS DESCRIPTION A. Received in formalin in a container labeled with the patient's name, date of , and left ischial ulcer is a previously dyed blue, unoriented, and annular portion of soft tissue and skin measuring 9.0 x 8.0 x 5.2 cm. 1 side exhibits a white-thompson, granular strip of skin measuring 10.0 x 1.0 cm. The soft tissue is rubbery and lobulated. Serial sections reveal white-pink, rubbery and glistening surfaces with scattered hemorrhage. Received in the same container is a 4.0 x 1.8 x 1.0 cm fragment of soft tissue partially surfaced by a 3 x 0.7 cm portion of thompson skin. Sectioning reveals uniform surfaces. Prevention Rn sections of each submitted in A1-3. B. Received in formalin in a container labeled with the patient's name, date of , and left ischial bone is a 0.3 x 0.3 x 0.2 cm fragment of red-thompson, firm bone. Submitted entirely in B1 following decalcification. [facility] 06/02/2024 CPT:39745,[id number]
[2024-06-02] MEDS: Cefazolin 2 GM in Syringe IV (08:56)
--- NOTE | 2024-06-02 09:14 | PCM.PN.ID ---
ID ID: Route of nutrition/ use of supplements: [] Nutritional Intake: [] IV Site: [] Watson Catheter: [] Assessment & Plan Assessment/Plan (1) Decubitus ulcer of left ischium, stage 4: PLAN: Pt currently in OR, will contact Dr. Perez. Reviewed recent records and labs. Would plan on empiric vanc/zosyn while cxs are pending. Plan on full consult to be done on Wednesday.
[2024-06-02] MEDS: Methylene Blue 1% 100 MG/10 ML VIAL (09:23)
[2024-06-02] MEDS: Bupiv/Epi 0.25% 30 ML Vial (10:20)
--- NOTE | 2024-06-02 10:24 | OP.PCM_ITS ---
Operative Report (Standard) Operative Information Date of Procedure: 06/02/24 Pre-Operative Diagnosis: Left ischial wound, Stage 4 Post-Operative Diagnosis: Same Surgery/Procedure Performed: 1) Surgical preparation of left ischial wound for wound VAC placement (irrigating wound VAC), 10 x 11 cm (and 3.5 cm deep) (CPT: 63354, 01519) 2) Bone biopsy left ischium (base of the wound) to rule out osteomyelitis (CPT:99642) 3) Placement of irrigating wound VAC, greater than 50 cm?, not disposable, to the left ischial wound (CPT: 72268) dispenser operator: Yes President + Publisher: Gia Jerry Tasks completed by product development assistant: Retracting Type of Anesthesia: General/Supplemental (22 cc of 0.25 percent Marcaine with 1- 200,000 epinephrine) RN Documented Start/Stop Times: Operation Date: 06/07/24 10:00 <No data on this case meets the specified criteria> Procedure Start Time: 09:29 Procedure Stop Time: 10:00 Select all DRAINS/GRAFTS/IMPLANTS that apply: Implanted device (Irrigating wound VAC) Implanted device details: Irrigating wound VAC set to 36 cc of Dakin's irrigating every 2 hours for 10 minutes Estimated Blood Loss: 50 cc Specimen collected: Yes Description of specimen(s) removed: 1) ischial pressure ulcer skin, rule out neoplasm 2) deep soft tissue culture 3) bone biopsy for pathologic analysis, left ischium 4) bone biopsy for culture, left ischium Description of surgery: Indications: Mirza Saunders is a 28-year-old male with past medical history of paraplegia status post extensive treatment for left ischial wound. He was initially infected in summer 2023. The wound was managed and debrided several times and taken care of at the wound care center. His nutrition has improved. Presents today for preparation of wound bed (excision of ulcer) and wound/bone cultures, with placement of irrigating wound VAC. He understands the risks, benefits, and alternatives to the procedure and would like to proceed. Procedure details: Patient was correct identified in preoperative holding and marked. He was taken back to the operating room he was administered general anesthesia and placed in the prone position with care taken to pad all bony prominences in the protective face and eyes. A proper timeout was performed. After being prepped and draped in sterile fashion methylene blue was placed in the wound to ensure excision of the entirety of the wound. We began the procedure by taking a 15 blade scalpel and incising around the wound edges and then taking Bovie electrocautery to cut out the wound edges circumferentially around the wound to the base of the wound. The ulcer was sent for pathologic analysis (rule out malignancy). The entire excision was 11 x 10 cm and included necrotic and scarred subcutaneous skin fat and muscle. This was 11 x 10 cm excision for preparation of wound for irrigating wound VAC (110 cm?). The base of the wound was also excised with rongeur. The ischial bone at the base of the wound was then biopsied with a clean rongeur for pathologic analysis and then also for wound cultures. An adjacent deep soft tissue culture was also taken with the rongeur. The wound was then irrigated with 450 cc of Irrisept followed by 3 L normal saline. Hemostasis was obtained with Bovie electrocautery. The irrigating wound VAC was then placed for a total placement of 11 x 10 cm oral 110 cm? for nondisposable vera flow VAC. The VAC was only suction at the end of the case. The patient tolerated the procedure well and was awakened and taken the PACU in stable condition. Postoperative plan: Patient doing well on postop check with a stable hemoglobin. His vital signs are stable. He is feeling well. No blood in the VAC. He has been admitted postoperatively and we will follow-up with wound cultures. Infectious diseases been consulted and we have decided on Ancef for now until the cultures result. Anticipate definitive reconstruction on 07 June 2024. Surgical Findings: * Left ischial wound had significant necrotic debris, including necrotic fibrinous exudate and hypertrophic granulation tissue and biofilm which was removed during the surgery. * The left ischial bone felt solid and did not appear to be osteomyelitic at this time (no sequestrum on my exam). Complications Complications: No Admit VTE Documentation VTE Mechan Device Prophylaxis: SCD's
[2024-06-02] MEDS: Pantoprazole Sodium 40 MG in 0.9% Normal Saline (100mL MB+) 100 ML 330 MG IV (11:21)
--- NOTE | 2024-06-02 12:00 | PCM.POST.ANE ---
Anesthesia: Postop Eval I Current Vital Signs Temperature: 97.8 F Pulse Rate: 80 Blood Pressure: 108/69 Respiratory Rate: 18 Pulse Ox: 100 Oxygen Delivery Method: Room Air Assessment Airway patent: Yes Spontaneous unlabored respirations: Yes Mental status: Awake and Calm nausea: No Vomiting: No Anesthesia Complication: No Fluid Hydration Crystalloid volume administer (ml): 1,500 Total IV fluid infused: 1,500 Progress Note Anesthesia document: Postop Eval 1 completed: Yes
--- NOTE | 2024-06-02 12:27 | POSTOPAN2_ITS ---
Anesthesia Postop Eval I Sum Postop Eval Completion status Anesthesia document: Postop Eval 1 completed: Yes Anesthesia Postop Eval I Summary Anesthesia Postop Eval I Summary: Anesthesia Postop Eval I: Assessment Summary Airway patent Yes 06/02/24 12:01 SURVEILLANCE [email or web address] [email or web address] Spontaneous unlabored Yes 06/02/24 12:01 SURVEILLANCE [email or web address] [email or web address] respirations Mental status Awake,Calm 06/02/24 12:01 SURVEILLANCE [email or web address] [email or web address] nausea No 06/02/24 12:01 SURVEILLANCE [email or web address] Vomiting No 06/02/24 12:01 SURVEILLANCE [email or web address] [email or web address] Anesthesia Postop Eval I: Fluid Summary Crystalloid volume administer 1,500 06/02/24 12:01 SURVEILLANCE [email or web address] [email or web address] (ml) Colloids volume administered ( ml) Blood Product volume administered (ml) Total IV fluid infused 1,500 06/02/24 12:01 SURVEILLANCE [email or web address] Anesthesia Postop Eval I: Summary Notes Anesthesia Complication No 06/02/24 12:01 SURVEILLANCE [email or web address] Anesthesia Complication Comment: Post-operative progress note Anesthesia: Postop Eval II Evaluation Mental status: Awake Pain Level: 0 nausea: No Vomiting: No
--- NOTE | 2024-06-02 12:27 | PCM.POSTANE2 ---
Anesthesia Postop Eval I Sum Postop Eval Completion status Anesthesia document: Postop Eval 1 completed: Yes Anesthesia Postop Eval I Summary Anesthesia Postop Eval I Summary: Anesthesia Postop Eval I: Assessment Summary Airway patent Yes 06/02/24 12:01 [email or web address] Spontaneous unlabored Yes 06/02/24 12:01 [email or web address] [email or web address] respirations Mental status Awake,Calm 06/02/24 12:01 [email or web address] nausea No 06/02/24 12:01 [email or web address] [email or web address] Vomiting No 06/02/24 12:01 [email or web address] [email or web address] Anesthesia Postop Eval I: Fluid Summary Crystalloid volume administer 1,500 06/02/24 12:01 [email or web address] (ml) Colloids volume administered ( ml) Blood Product volume administered (ml) Total IV fluid infused 1,500 06/02/24 12:01 [email or web address] Anesthesia Postop Eval I: Summary Notes Anesthesia Complication No 06/02/24 12:01 [email or web address] [email or web address] Anesthesia Complication Comment: Post-operative progress note Anesthesia: Postop Eval II Evaluation Mental status: Awake Pain Level: 0 nausea: No Vomiting: No
[2024-06-02] MEDS: Cefazolin 2 GM in Syringe 10 ML IV ×2 (13:30→21:38)
--- NOTE | 2024-06-02 14:32 | CASEMGMT ---
Social Work- Pt plans to return to [facility] at d/c. ADITYA Hood
[2024-06-02 16:27] LABS: Absolute Neutrophil Count 5.4 X10^3/uL (2.0-7.7); Basophil# 0.01 X10^3/uL; Basophil% 0.2 % (0-1); Hematocrit 28.9 % (40-54); Hemoglobin 8.4 g/dL (13.0-16.5); Lymphocyte % 9.9 % (19-41); Mean Corp Hgb Conc 29.1 g/dL (32-36); Mean Corpuscular Volume 65.5 fL (80-94); Mean Platelet Vol. 8.5 fl (6.2-12.0); Monocyte# 0.07 X10^3/uL; Monocyte% 1.1 % (0-10); NRBC Flagged by Analyzer 0 % (0-5); Neutrophil # 5.38 X10^3/uL (2.7-7.7); Neutrophil % 88.3 % (47-70); POSITIVE DIFFERENTIAL YES; Platelet Count 514 K/mm3 (150-450); RBC Distribution Width CV 19.3 % (11.6-14.6); RBC Distribution Width SD 44.4 fl (35.1-43.9); Red Blood Count 4.41 M/mm3 (4.6-6.2); White Blood Count 6.1 K/mm3 (4.4-11.0)
[2024-06-02] MEDS: Acetaminophen 325 MG Tablet 650 MG PO (21:38)
[2024-06-03] VITALS (7 sets, daily range): BP systolic 96–109; BP diastolic 22–75; PULSE 94–129; RESP 15–18; TEMP 36.7–37.6; O2SAT 96–99
[2024-06-03] MEDS: 0.9% Saline Lock 10 ML Syringe IV ×3 (06:20→18:59)
[2024-06-03] MEDS: Cefazolin 2 GM in Syringe 10 ML IV ×2 (06:21→13:37)
[2024-06-03 06:35] LABS: Absolute Lymphocyte Count 2.92 X10^3/uL (0.83-4.51); Absolute Neutrophil Count 8.6 X10^3/uL (2.0-7.7); Basophil# 0.04 X10^3/uL; Basophil% 0.3 % (0-1); Eosinophil# 0.21 X10^3/uL; Eosinophils% 1.7 % (0-5); Lymphocyte # 2.92 X10^3/ul (0.83-4.51); Lymphocyte % 23.1 % (19-41); Mean Corp Hgb Conc 29.6 g/dL (32-36); Mean Corpuscular Hgb 18.9 pg (27.0-32.0); Mean Corpuscular Volume 63.7 fL (80-94); Mean Platelet Vol. 9.1 fl (6.2-12.0); Monocyte# 0.81 X10^3/uL; Monocyte% 6.4 % (0-10); NRBC Flagged by Analyzer 0 % (0-5); Neutrophil # 8.61 X10^3/uL (2.7-7.7); Neutrophil % 68.2 % (47-70); Platelet Count 564 K/mm3 (150-450); RBC Distribution Width CV 19.1 % (11.6-14.6); RBC Distribution Width SD 42.8 fl (35.1-43.9); Red Blood Count 4.24 M/mm3 (4.6-6.2); White Blood Count 12.6 K/mm3 (4.4-11.0)
[2024-06-03] MEDS: Acetaminophen 325 MG Tablet 650 MG PO ×2 (06:41→17:55)
[2024-06-03] MEDS: oxyCODONE 5 MG Tablet PO ×2 (06:41→13:37)
[2024-06-03 07:15] LABS: Anion Gap 10 (5-15); BUN 12 mg/dL (4-19); BUN/Creat Ratio 24.5 RATIO (10-20); Calcium,Total 8.8 mg/dL (7.6-11.0); Chloride 106 mmol/L (98-108); EST Glomerular Filtration Rate 141 (>60); Glucose 127 mg/dL (70-99); Potassium 3.6 mmol/L (3.3-5.1); Sodium Level 139 mmol/L (133-145)
--- NOTE | 2024-06-03 08:48 | PCM.PN.SRG ---
Subjective Subjective Doing well. Pain controlled. No problems voiding except had a little leakage overnight and now has a condom cath. Comfortable. Eating well. Objective Data Objective Data Hgb stable (8) Vital Signs: Vital Signs Temp Pulse Resp BP Pulse Ox O2 Del Method 98.1 F 100 15 97/62 96 Room Air 06/03/24 06:35 06/03/24 06:35 06/03/24 06:35 06/03/24 06:35 06/03/24 06:35 06/03/24 08:11 Oxygen Delivery Method Room Air Weight: 140 lb 0.002 oz Body Mass Index (BMI) 16.6 Intake & Output: Intake and Output for Last 24 Hours 06/01/24 06/02/24 06/03/24 23:59 23:59 23:59 Intake Total 1430 / 1430 20 / 20 Output Total 1050 / 1050 100 / 100 Balance 380 / 380 -80 / -80 Lab / Micro Data 06/03/24 06:02 06/03/24 06:02 Labs: Laboratory Results - last 24 hr 06/02/24 16:15: WBC 6.1, RBC 4.41 L, Hgb 8.4 L, Hct 28.9 L, MCV 65.5 L, MCH 19.0 L, MCHC 29.1 L, RDW Std Deviation 44.4 H, RDW Coeff of Z[place] 19.3 H, Plt Count 514 H, MPV 8.5, Immature Gran % (Auto) 0.500, Neut % (Auto) 88.3 H, Lymph % (Auto) 9.9 L, [place] % (Auto) 1.1, Eos % (Auto) 0.0, Baso % (Auto) 0.2, Absolute Neuts (auto) 5.4, Absolute Lymphs (auto) 0.60 L, Nucleated RBC % 0 06/03/24 06:02: WBC 12.6 H, RBC 4.24 L, Hgb 8.0 L, Hct 27.0 L, MCV 63.7 L, MCH 18.9 L, MCHC 29.6 L, RDW Std Deviation 42.8, RDW Coeff of [place] 19.1 H, Plt Count 564 H, MPV 9.1, Immature Gran % (Auto) 0.300, Neut % (Auto) 68.2, Lymph % (Auto) 23.1, [place] % (Auto) 6.4, Eos % (Auto) 1.7, Baso % (Auto) 0.3, Absolute Neuts (auto) 8.6 H, Absolute Lymphs (auto) 2.92, Nucleated RBC % 0, Sodium 139, Potassium 3.6, Chloride 106, Carbon Dioxide 24.0, Anion Gap 10, BUN 12, Creatinine 0.50 L, Estim Creat Clear Calc 195.80, Est GFR (MDRD) Non-Af 141, BUN/Creatinine Ratio 24.5 H, Glucose 127 H, Calcium 8.8 Micro: Microbiology 06/02/24 Unknown Ulcer, Decubitus - Ischium Gram Stain - Final 06/02/24 Unknown Bone - Ischial Bone Gram Stain - Final Physical Exam Narrative Ischial wound with VAC in place. Holding suction. No blood in the canister, effluent is SS. Const alert, oriented x3 and no apparent distress Resp normal respiratory effort Resp Narrative: 2500 on IS today Cardio regular rate and regular rhythm GI GI Narrative: Ostomy in place, no gas in the bag Extremity Extremity Narrative: No swelling on the calves Assessment & Plan Assessment/Plan (1) Decubitus ulcer of left ischium, stage 4: PLAN: Neuro: tylenol, ibuprophen, roxicodone for pain as needed Cardiovascular: q4 hour VS Pulm: IS for pulmonary toilet/pneumonia prevention ID: F/u wound cultures, infectious disease consulted. Continue IV Ancef for now (discussed with ID Ancef only as wound did not look infected, and they agreed). Hem: 40 mg Lovenox daily for pxx. Hgb stable at 8 post op day 1 GI: Continue ostomy changes as needed with nursing : Void as normal, catheter as needed for retention (although has not been a problem) Endocrine: No concerns at this time Integumentary: Continue Irrigating VAC with Dakins. Plan to f/u wound cultures and anticipate closure on 07 June 2024. Continue pressure offloading air bed (currently on this bed). Charges/Coding Procedures Integumentary [id number]: [id number] Global Visit
--- NOTE | 2024-06-03 16:12 | EKG12_ITS ---
Test Reason : fever.bp changes Blood Pressure : */* mmHG Vent. Rate : 125 BPM Atrial Rate : 125 BPM P-R Int : 124 ms QRS Dur : 80 ms QT Int : 290 ms P-R-T Axes : 62 74 71 degrees QTcB Int : 418 ms Sinus tachycardia Otherwise normal ECG No previous ECGs available Confirmed by SOO SILVA, SILVA ([id number]), photographic editor SRI OAKES ([id number]) on 06/05/2024 10:43:39 AM Referred By: Bryon Perez Confirmed By: SILVA VANN MD
[2024-06-03] MEDS: Lactated Ringers 250 ML 999 ML IV (16:15)
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
[2024-06-03] MEDS: Lactated Ringers 1,000 ML 999 ML IV (16:40)
[2024-06-03 17:05] LABS: Absolute Lymphocyte Count 1.85 X10^3/uL (0.83-4.51); Basophil# 0.03 X10^3/uL; Basophil% 0.2 % (0-1); Eosinophil# 0.45 X10^3/uL; Eosinophils% 3.6 % (0-5); Hematocrit 28.7 % (40-54); Hemoglobin 8.6 g/dL (13.0-16.5); Lymphocyte # 1.85 X10^3/ul (0.83-4.51); Lymphocyte % 14.8 % (19-41); Mean Corpuscular Hgb 19.1 pg (27.0-32.0); Mean Corpuscular Volume 63.6 fL (80-94); Mean Platelet Vol. 8.9 fl (6.2-12.0); Monocyte# 1.09 X10^3/uL; Monocyte% 8.7 % (0-10); NRBC Flagged by Analyzer 0 % (0-5); Neutrophil % 72.2 % (47-70); Platelet Count 580 K/mm3 (150-450); RBC Distribution Width CV 19.5 % (11.6-14.6); RBC Distribution Width SD 42.9 fl (35.1-43.9); Red Blood Count 4.51 M/mm3 (4.6-6.2); White Blood Count 12.5 K/mm3 (4.4-11.0)
--- NOTE | 2024-06-03 17:07 | NURSING ---
LAB CALLED REGARDING HH RESULTS. DR RODAS ON PHONE WITH WALLACE SAMANIEGO- UPDATED ON RESULTS. DR THORNTON SENT BACKLINE MESSAGE WITH HH RESULTS.
[2024-06-03] MEDS: HYDROmorphone 0.5 MG/0.5 ML SYRINGE IV (18:59)
[2024-06-03] MEDS: 0.9% Normal Saline (1000mL) 1,000 ML 999 ML IV (18:59)
[2024-06-03] MEDS: Piperacil/Tazobactam 3.375 GM in 0.9% Normal Saline (50mL MB+) 50 ML IV (20:40)
[2024-06-03] MEDS: Vancomycin HCl 1,500 MG in 0.9% Normal Saline (500mL Bag) 500 ML 250 MG IV (20:48)
--- NOTE | 2024-06-03 22:18 | PCM.RX.CS ---
Consult Antibiotic Management Pharmacy has been consulted to manage selected antibiotic: Vancomycin Type of Intervention Type of Consult: New start Labs Labs: Sodium 139 mmol/L (133-145) 06/03/24 06:02 Potassium 3.6 mmol/L (3.3-5.1) 06/03/24 06:02 Chloride 106 mmol/L (98-108) 06/03/24 06:02 Carbon Dioxide 24.0 mmol/L (21.0-32.0) 06/03/24 06:02 Anion Gap 10 (5-15) 06/03/24 06:02 BUN 12 mg/dL (-19) 06/03/24 06:02 Creatinine 0.50 mg/dL (0.70-1.20) L 06/03/24 06:02 Est GFR (MDRD) Non-Af 141 (>60) 06/03/24 06:02 BUN/Creatinine Ratio 24.5 RATIO (10-20) H 06/03/24 06:02 Glucose 127 mg/dL (70-99) H 06/03/24 06:02 Microbiology Microbiology: Microbiology 06/02/24 Unknown Ulcer, Decubitus - Ischium Gram Stain - Final 06/02/24 Unknown Ulcer, Decubitus - Ischium Wound Culture - Preliminary No growth-Final to follow 06/02/24 Unknown Bone - Ischial Bone Gram Stain - Final Dosing Weight Weight used for dosin.5 kg Estimated Creatinine Clearance Estimated Creatinine Clearance: 195.8 Goal Trough Goal Trough: 15-20 mcg/mL Pharmacy Plan for Drug Dosing Pharmacy Plan for Drug Dosing: Pharmacy Service will continue to monitor and adjust dosing as required. LOADING DOSE 1500MG GIVEN 06/03 @ 2047. START 750MG Q8H AND DRAW TROUGH PRIOR TO 4TH DOSE Follow-Up Labs Follow-Up Labs: Trough: Vancomycin Date/Time Labs Ordered Labs to be done on [date and time ordered]: 06/04 @ 2100
[2024-06-04] MEDS: DAKIN'S SOL HALF STRENGTH (=0.25%) TOPICAL ×3 (00:02→22:28)
[2024-06-04] MEDS: Mirtazapine 30 MG Tablet PO ×2 (00:03→22:27)
[2024-06-04] MEDS: traMADol 50 MG Tablet PO ×2 (00:05→22:27)
[2024-06-04] MEDS: Gabapentin 300 MG Capsule PO ×2 (00:05→22:27)
[2024-06-04 00:34] VITALS: BP 94/68; PULSE 98; RESP 16; TEMP 36.8; O2SAT 98
[2024-06-04 05:46] VITALS: BP 95/49; PULSE 94; RESP 16; TEMP 36.7; O2SAT 96
[2024-06-04] MEDS: Vancomycin HCl 750 MG in 0.9% Normal Saline (250mL Bag) 250 ML 250 MG IV ×2 (05:55→13:42)
[2024-06-04] MEDS: Piperacil/Tazobactam 3.375 GM in 0.9% Normal Saline (50mL MB+) 50 ML IV ×3 (05:55→22:16)
[2024-06-04] MEDS: 0.9% Normal Saline (100mL Bag) 100 ML 15 ML IV (08:00)
--- NOTE | 2024-06-04 08:14 | PN.SURG_ITS ---
Subjective Subjective Doing well this morning. No pain. Yesterday he had intermittent tachycardia in the afternoon. Unclear etiology. ECG demonstrating sinus tachycardia. Hgb stable at 8.6, no bleeding. We gave 2 LR boluses and added VANC/Zosyn. I came in and saw him last night and VAC was not working (had pealed off). Changed to wet to drys. Wound examined and there was no bleeding. Medicine consulted. Patient voiding normally with minimal post-void residual. Objective Data Objective Data VS now stable. Vital Signs: Vital Signs Temp Pulse Resp BP Pulse Ox O2 Del Method 98.1 F 94 16 95/49 L 96 Room Air 06/04/24 05:46 06/04/24 05:46 06/04/24 05:46 06/04/24 05:46 06/04/24 05:46 06/04/24 05:46 Oxygen Delivery Method Room Air Weight: 140 lb 0.002 oz Body Mass Index (BMI) 16.6 Intake & Output: Intake and Output for Last 24 Hours 06/02/24 06/03/24 06/04/24 23:59 23:59 23:59 Intake Total 1430 / 1430 4335.5 / 4335.5 50 / 50 Output Total 1050 / 1050 1750 / 2400 650 / 650 Balance 380 / 380 2585.5 / 1935.5 -600 / -600 Lab / Micro Data 06/03/24 16:27 06/03/24 06:02 Labs: Laboratory Results - last 24 hr 06/03/24 16:27: WBC 12.5 H, RBC 4.51 L, Hgb 8.6 L, Hct 28.7 L, MCV 63.6 L, MCH 19.1 L, MCHC 30.0 L, RDW Std Deviation 42.9, RDW Coeff of [place] 19.5 H, Plt Count 580 H, MPV 8.9, Immature Gran % (Auto) 0.500, Neut % (Auto) 72.2 H, Lymph % (Auto) 14.8 L, [place] % (Auto) 8.7, Eos % (Auto) 3.6, Baso % (Auto) 0.2, Absolute Neuts (auto) 9.0 H, Absolute Lymphs (auto) 1.85, Nucleated RBC % 0 Micro: Microbiology 06/02/24 Unknown Ulcer, Decubitus - Ischium Gram Stain - Final 06/02/24 Unknown Ulcer, Decubitus - Ischium Wound Culture - Preliminary No growth-Final to follow 06/02/24 Unknown Bone - Ischial Bone Gram Stain - Final Physical Exam Narrative Ischial wound with dressing in place, no strike through bleeding. Const alert, oriented x3 and no apparent distress Resp normal respiratory effort Cardio regular rate and regular rhythm GI GI Narrative: Ostomy in place, no gas in the bag Extremity Extremity Narrative: No swelling on the calves Assessment & Plan Assessment/Plan (1) Decubitus ulcer of left ischium, stage 4: PLAN: Neuro: tylenol, ibuprophen, roxicodone for pain as needed Cardiovascular: q4 hour VS. VS have stabilized (normal HR). May have been related to post-operative SIRS response. Pulm: IS for pulmonary toilet/pneumonia prevention ID: F/u wound cultures, infectious disease consulted. Continue IV Zosyn and Vanc. FEN: High protein diet. Daily BMPs while on antibiotics. Hem: 40 mg Lovenox daily for pxx. Hgb stable at 8 post op day 1 GI: Continue ostomy changes as needed with nursing : Void as normal, catheter as needed for retention (although has not been a problem) Endocrine: No concerns at this time Integumentary: Continue WTD Dakins twice daily Tomorrow we will place the irrigating VAC with Dakins again. Plan to f/u wound cultures and anticipate closure on 07 June 2024. Continue pressure offloading air bed (currently on this bed). Consults: F/u medicine recommendations. Appreciate assistance. Charges/Coding Procedures Integumentary 111xxx-113xx: [id number] Global Visit
[2024-06-04 08:55] VITALS: BP 83/46; BP 85/50; PULSE 75; PULSE 78; RESP 16; TEMP 36.7; O2SAT 100
[2024-06-04 09:14] VITALS: BP 101/68; PULSE 101
[2024-06-04] MEDS: Pantoprazole Sodium 40 MG in 0.9% Normal Saline (100mL MB+) 100 ML 330 MG IV (09:20)
[2024-06-04] MEDS: Enoxaparin 40 MG/0.4 ML Syringe SC (09:21)
[2024-06-04 10:01] LABS: Absolute Lymphocyte Count 2.55 X10^3/uL (0.83-4.51); Absolute Neutrophil Count 10.5 X10^3/uL (2.0-7.7); Basophil# 0.02 X10^3/uL; Basophil% 0.1 % (0-1); Eosinophil# 0.38 X10^3/uL; Eosinophils% 2.8 % (0-5); Hematocrit 32.2 % (40-54); Hemoglobin 9.3 g/dL (13.0-16.5); Lymphocyte # 2.55 X10^3/ul (0.83-4.51); Lymphocyte % 18.5 % (19-41); Mean Corp Hgb Conc 28.9 g/dL (32-36); Mean Corpuscular Hgb 18.8 pg (27.0-32.0); Mean Corpuscular Volume 65.2 fL (80-94); Mean Platelet Vol. 9.1 fl (6.2-12.0); Monocyte# 0.32 X10^3/uL; Monocyte% 2.3 % (0-10); NRBC Flagged by Analyzer 0 % (0-5); Neutrophil # 10.47 X10^3/uL (2.7-7.7); Neutrophil % 75.8 % (47-70); Platelet Count 573 K/mm3 (150-450); RBC Distribution Width CV 19.9 % (11.6-14.6); RBC Distribution Width SD 43.9 fl (35.1-43.9); Red Blood Count 4.94 M/mm3 (4.6-6.2); White Blood Count 13.8 K/mm3 (4.4-11.0)
[2024-06-04 11:20] LABS: Anion Gap 12 (5-15); BUN 8 mg/dL (4-19); BUN/Creat Ratio 14.8 RATIO (10-20); Carbon Dioxide 24.8 mmol/L (21.0-32.0); Chloride 102 mmol/L (98-108); Creatinine, Serum 0.56 mg/dL (0.70-1.20); EST Glomerular Filtration Rate 137 (>60); Estimated Creatinine Clearance 174.82 ml/min (50-250); Glucose 115 mg/dL (70-99); Potassium 3.9 mmol/L (3.3-5.1); Sodium Level 139 mmol/L (133-145)
--- NOTE | 2024-06-04 13:43 | PN_ITS ---
Objective Data Objective Data Vital Signs: Vital Signs Temp Pulse Resp BP Pulse Ox O2 Del Method 98.1 F 101 H 16 101/68 100 Room Air 06/04/24 08:55 06/04/24 09:14 06/04/24 08:55 06/04/24 09:14 06/04/24 08:55 06/04/24 08:55 Oxygen Delivery Method Room Air Weight: 140 lb 0.002 oz Body Mass Index (BMI) 16.6 Intake & Output: Intake and Output for Last 24 Hours 06/02/24 06/03/24 06/04/24 23:59 23:59 23:59 Intake Total 1430 / 1430 4335.5 / 4335.5 560.5 / 560.5 Output Total 1050 / 1050 1750 / 2400 1300 / 1300 Balance 380 / 380 2585.5 / 1935.5 -739.5 / -739.5 Lab / Micro Data 06/04/24 09:30 06/04/24 09:30 Labs: Laboratory Results - last 24 hr 06/03/24 16:27: WBC 12.5 H, RBC 4.51 L, Hgb 8.6 L, Hct 28.7 L, MCV 63.6 L, MCH 19.1 L, MCHC 30.0 L, RDW Std Deviation 42.9, RDW Coeff of Z[place] 19.5 H, Plt Count 580 H, MPV 8.9, Immature Gran % (Auto) 0.500, Neut % (Auto) 72.2 H, Lymph % (Auto) 14.8 L, [place] % (Auto) 8.7, Eos % (Auto) 3.6, Baso % (Auto) 0.2, Absolute Neuts (auto) 9.0 H, Absolute Lymphs (auto) 1.85, Nucleated RBC % 0 06/04/24 09:30: WBC 13.8 H, RBC 4.94, Hgb 9.3 L, Hct 32.2 L, MCV 65.2 L, MCH 18.8 L, MCHC 28.9 L, RDW Std Deviation 43.9, RDW Coeff of [place] 19.9 H, Plt Count 573 H, MPV 9.1, Immature Gran % (Auto) 0.500, Neut % (Auto) 75.8 H, Lymph % (Auto) 18.5 L, [place] % (Auto) 2.3, Eos % (Auto) 2.8, Baso % (Auto) 0.1, Absolute Neuts (auto) 10.5 H, Absolute Lymphs (auto) 2.55, Nucleated RBC % 0, Sodium 139, Potassium 3.9, Chloride 102, Carbon Dioxide 24.8, Anion Gap 12, BUN 8, C reatinine 0.56 L, Estim Creat Clear Calc 174.82, Est GFR (MDRD) Non-Af 137, BUN/Creatinine Ratio 14.8, Glucose 115 H, Calcium 9.0 Micro: Microbiology 06/02/24 Unknown Bone - Ischial Bone Gram Stain - Final 06/02/24 Unknown Bone - Ischial Bone Wound Culture - Preliminary GNR Poss Pseudomonas sp Gram positive melba 06/02/24 Unknown Ulcer, Decubitus - Ischium Gram Stain - Final 06/02/24 Unknown Ulcer, Decubitus - Ischium Wound Culture - Preliminary
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
[2024-06-04] MEDS: 0.9% Normal Saline (1000mL) 1,000 ML 125 ML IV (15:03)
[2024-06-04 15:07] VITALS: BP 96/47; PULSE 105; RESP 16; TEMP 36.6; O2SAT 98
[2024-06-04] MEDS: 0.9% Saline Lock 10 ML Syringe IV ×3 (15:12→23:00)
[2024-06-04 21:47] LABS: Vancomycin, Trough Level 14.7 ug/mL (5.0-15.0)
[2024-06-04] MEDS: Vancomycin IV 1,000 MG/200 ML BAG 200 MG IV (21:57)
--- NOTE | 2024-06-04 21:59 | PCM.RX.CS ---
Consult Antibiotic Management Pharmacy has been consulted to manage selected antibiotic: Vancomycin Type of Intervention Type of Consult: Follow-up Labs Labs: Sodium 139 mmol/L (133-145) 06/04/24 09:30 Potassium 3.9 mmol/L (3.3-5.1) 06/04/24 09:30 Chloride 102 mmol/L (98-108) 06/04/24 09:30 Carbon Dioxide 24.8 mmol/L (21.0-32.0) 06/04/24 09:30 Anion Gap 12 (5-15) 06/04/24 09:30 BUN 8 mg/dL (4-19) 06/04/24 09:30 Creatinine 0.56 mg/dL (0.70-1.20) L 06/04/24 09:30 Est GFR (MDRD) Non-Af 137 (>60) 06/04/24 09:30 BUN/Creatinine Ratio 14.8 RATIO (10-20) 06/04/24 09:30 Glucose 115 mg/dL (70-99) H 06/04/24 09:30 Vancomycin Trough 14.7 ug/mL (5.0-15.0) 06/04/24 20:52 Microbiology Microbiology: Microbiology 06/02/24 Unknown Ulcer, Decubitus - Ischium Gram Stain - Final 06/02/24 Unknown Ulcer, Decubitus - Ischium Wound Culture - Preliminary 06/02/24 Unknown Ulcer, Decubitus - Ischium Anaerobic Culture - Preliminary Checking for anaerobes, further studies to follow. 06/02/24 Unknown Bone - Ischial Bone Gram Stain - Final 06/02/24 Unknown Bone - Ischial Bone Wound Culture - Preliminary GNR Poss Pseudomonas sp Gram positive melba 06/02/24 Unknown Bone - Ischial Bone Anaerobic Culture - Preliminary No growth in 48 hours. Goal Trough Goal Trough: 15-20 mcg/mL Pharmacy Plan for Drug Dosing Pharmacy Plan for Drug Dosing: Pharmacy Service will continue to monitor and adjust dosing as required. TROUGH 14.7 @ 7 HOURS. INCREASE TO 1GM Q8H AND FOLLOW UP TROUGH PRIOR TO 4TH DOSE Follow-Up Labs Follow-Up Labs: Trough: Vancomycin Date/Time Labs Ordered Labs to be done on [date and time ordered]: 06/05 @ 9592
[2024-06-04 22:19] VITALS: BP 98/57; PULSE 106; RESP 18; TEMP 36.9; O2SAT 100
[2024-06-05] VITALS (12 sets, daily range): BP systolic 90–120; BP diastolic 44–70; PULSE 80–105; RESP 16–22; TEMP 36.4–36.9; O2SAT 96–100
[2024-06-05] MEDS: Piperacil/Tazobactam 3.375 GM in 0.9% Normal Saline (50mL MB+) 50 ML IV ×3 (06:37→22:03)
[2024-06-05] MEDS: Vancomycin IV 1,000 MG/200 ML BAG 200 MG IV (06:38)
[2024-06-05] MEDS: 0.9% Normal Saline (100mL Bag) 100 ML 15 ML IV ×2 (06:39→12:59)
[2024-06-05 07:39] LABS: Hematocrit 23.1 % (40-54); Hemoglobin 6.8 g/dL (13.0-16.5); Mean Corp Hgb Conc 29.4 g/dL (32-36); Mean Corpuscular Volume 64.5 fL (80-94); Mean Platelet Vol. 8.8 fl (6.2-12.0); Platelet Count 429 K/mm3 (150-450); RBC Distribution Width CV 19.1 % (11.6-14.6); RBC Distribution Width SD 44.3 fl (35.1-43.9); Red Blood Count 3.58 M/mm3 (4.6-6.2)
[2024-06-05 08:36] LABS: Anion Gap 10 (5-15); BUN 11 mg/dL (4-19); BUN/Creat Ratio 15.7 RATIO (10-20); Calcium,Total 8.5 mg/dL (7.6-11.0); Carbon Dioxide 23.9 mmol/L (21.0-32.0); Chloride 109 mmol/L (98-108); Creatinine, Serum 0.69 mg/dL (0.70-1.20); EST Glomerular Filtration Rate 129 (>60); Estimated Creatinine Clearance 141.88 ml/min (50-250); Glucose 111 mg/dL (70-99); Potassium 3.6 mmol/L (3.3-5.1); Sodium Level 143 mmol/L (133-145)
--- NOTE | 2024-06-05 10:27 | PCM.PN.SRG ---
Subjective Subjective Doing well overall. No fevers or chills. Objective Data Objective Data Vital Signs: Vital Signs Temp Pulse Resp BP Pulse Ox O2 Del Method 98.1 F 80 16 96/63 98 Room Air 06/05/24 09:30 06/05/24 09:30 06/05/24 09:30 06/05/24 09:30 06/05/24 09:30 06/05/24 09:30 Oxygen Delivery Method Room Air Weight: 140 lb 0.002 oz Body Mass Index (BMI) 16.6 Intake & Output: Intake and Output for Last 24 Hours 06/03/24 06/04/24 06/05/24 23:59 23:59 23:59 Intake Total 4335.5 / 4335.5 2075.5 / 2075.5 250 / 250 Output Total 1750 / 2400 2800 / 2800 1200 / 1200 Balance 2585.5 / 1935.5 -724.5 / -724.5 -950 / -950 Lab / Micro Data 06/05/24 07:15 06/05/24 07:15 Labs: Laboratory Results - last 24 hr 06/04/24 09:30: Sodium 139, Potassium 3.9, Chloride 102, Carbon Dioxide 24.8, Anion Gap 12, BUN 8, Creatinine 0.56 L, Estim Creat Clear Calc 174.82, Est GFR (MDRD) Non-Af 137, BUN/Creatinine Ratio 14.8, Glucose 115 H, Calcium 9.0 06/04/24 20:52: Vancomycin Trough 14.7 06/05/24 07:15: WBC 8.0, RBC 3.58 L, Hgb 6.8 L, Hct 23.1 L, MCV 64.5 L, MCH 19.0 L, MCHC 29.4 L, RDW Std Deviation 44.3 H, RDW Coeff of Zakia 19.1 H, Plt Count 429, MPV 8.8, Sodium 143, Potassium 3.6, Chloride 109 H, Carbon Dioxide 23.9, Anion Gap 10, BUN 11, Creatinine 0.69 L, Estim Creat Clear Calc 141.88, Est GFR (MDRD) Non-Af 129, BUN/Creatinine Ratio 15.7, Glucose 111 H, Calcium 8.5 Micro: Microbiology 06/02/24 Unknown Ulcer, Decubitus - Ischium Gram Stain - Final 06/02/24 Unknown Ulcer, Decubitus - Ischium Wound Culture - Preliminary Gram negative melba 06/02/24 Unknown Ulcer, Decubitus - Ischium Anaerobic Culture - Preliminary Checking for anaerobes, further studies to follow. 06/02/24 Unknown Bone - Ischial Bone Gram Stain - Final 06/02/24 Unknown Bone - Ischial Bone Wound Culture - Final Pseudomonas aeruginosa Corynebacterium striatum 06/02/24 Unknown Bone - Ischial Bone Anaerobic Culture - Preliminary No growth in 48 hours. Physical Exam Narrative Ischial wound with dressing removed and changed. No bleeding Const alert, oriented x3 and no apparent distress Resp normal respiratory effort Cardio regular rate and regular rhythm GI GI Narrative: Ostomy in place, no gas in the bag Extremity Extremity Narrative: No swelling on the calves Assessment & Plan Assessment/Plan (1) Decubitus ulcer of left ischium, stage 4: PLAN: Neuro: tylenol, ibuprophen, roxicodone for pain as needed Cardiovascular: q4 hour VS. VS have stabilized (normal HR). May have been related to post-operative SIRS response. Pulm: IS for pulmonary toilet/pneumonia prevention ID: F/u wound cultures, infectious disease consulted. Pseudomonas and Corynebacterium growing from bone. Continue IV Zosyn and Vanc. FEN: High protein diet. Daily BMPs while on antibiotics. Hem: 40 mg Lovenox daily for pxx. Hgb 6.8 today and will transfuse 1 unit and recheck tomorrow . GI: Continue ostomy changes as needed with nursing : Void as normal Endocrine: No concerns at this time Integumentary: Plan for irrigating VAC with Dakins again today. Plan to f/u wound cultures and anticipate closure on 07 June 2024. Continue pressure offloading air bed (currently on this bed). Consults: F/u medicine recommendations. Appreciate assistance. Charges/Coding Procedures Integumentary [id number]: [id number] Global Visit
[2024-06-05] MEDS: DAKIN'S SOL HALF STRENGTH (=0.25%) TOPICAL (11:03)
[2024-06-05] MEDS: Pantoprazole Sodium 40 MG in 0.9% Normal Saline (100mL MB+) 100 ML 330 MG IV (11:03)
--- NOTE | 2024-06-05 11:24 | PCM.CONS.GEN ---
Assessment & Plan Assessment/Plan (1) Paraplegia: (2) Decubitus ulcer of left ischium, stage 4: PLAN: OR 06/02/[address] Perez for I&D. Bone cx with pseudomonas and corynebacter. Will treat for osteo. Stop vanc, cont zosyn. 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 Perez for ischial ulcer. Had been on augmentin recently. Now s/p OR 06/02/24 for I&D with Dr. Perez. Feeling ok, no fever, no n/v. Flap placement planned. Full ROS performed and neg except as noted above. [facility] Medical History History of non-healing wound Urine incontinence Anemia of chronic disease Watson catheter in place Former smoker Uses wheelchair Lives in retirement Ulcer of sacral region, stage 4 Closed pilon fracture of left tibia Necrotizing fasciitis Decubitus ulcer, unstageable with infection Hyperbilirubinemia Elevated d-dimer Tachycardia Hypokalemia Hyponatremia Thrombocytosis Leukocytosis Paraplegia Hx of back injury Home Medications ?Medication ?Instructions ?Recorded ?Last Taken ?Type acetaminophen 325 mg tablet 650 mg PO Q4H PRN fever or pain 11/01/23 02/22/24 History acetaminophen 650 mg rectal 650 mg NJ Q4H PRN fever or pain 11/01/23 Unknown History suppository guaifenesin 100 mg/5 mL oral 200 mg PO Q4H PRN congestion 11/01/23 Unknown History liquid (Cough Syrup) magnesium hydroxide 400 mg/5 mL 30 ml PO DAILY PRN constipation 11/01/23 Unknown History oral suspension (Mueller Milk of Magnesia) naproxen sodium 220 mg capsule 220 mg PO QHS pain 02/15/24 06/01/24 History (Aleve) polyethylene glycol 3350 17 17 g PO DAILY 02/15/24 Unknown History gram/dose oral powder (Miralax) tramadol 50 mg tablet 50 mg PO QHS pain 02/15/24 06/01/24 History aluminum-magnesium hydroxide 225 30 ml PO Q4H PRN constipation 03/02/24 Unknown History mg-200 mg/5 mL oral suspension mineral oil (Fleet Mineral Oil 118 ml NJ QDAY PRN constipation 03/02/24 Unknown History enema) mirtazapine 15 mg tablet (Remeron) 30 mg PO QHS appetite 03/02/24 06/01/24 History triamcinolone acetonide 0.1 % 1 applic topical BID 03/02/24 Unknown History topical cream gabapentin 300 mg capsule 300 mg PO QHS nerve pain 03/14/24 06/01/24 History Allergy/AdvReac Type Severity Reaction Status Date / Time No Known Allergies Allergy Verified 06/02/24 07:12 Surgical History History of incision and drainage Hx of colostomy History of cholecystectomy S/P lumbar spinal fusion Social History housing: homeless Smoking Status: Former smoker alcohol intake: former substance use type: does not use Physical Exam Const alert, oriented x3 and no apparent distress General Appearance: cooperative HEENT normocephalic and head/scalp atraumatic Eyes PERRL and EOMs intact bilaterally Neck supple and No nodes Resp normal air movement and clear to auscultation bilaterally Cardio regular rate and regular rhythm GI soft to palpation, non-tender and non-distended Extremity General Extremity: Negative for edema Skin Skin Narrative: wound vac in place Neuro CN's II-XII intact bilaterally Lab / Micro Data Attestation: I reviewed the patient's lab results. 06/05/24 07:15 06/05/24 07:15 Labs: Laboratory Results - last 24 hr 06/04/24 20:52: Vancomycin Trough 14.7 06/05/24 07:15: WBC 8.0, RBC 3.58 L, Hgb 6.8 L, Hct 23.1 L, MCV 64.5 L, MCH 19.0 L, MCHC 29.4 L, RDW Std Deviation 44.3 H, RDW Coeff of Zakia 19.1 H, Plt Count 429, MPV 8.8, Sodium 143, Potassium 3.6, Chloride 109 H, Carbon Dioxide 23.9, Anion Gap 10, BUN 11, Creatinine 0.69 L, Estim Creat Clear Calc 141.88, Est GFR (MDRD) Non-Af 129, BUN/Creatinine Ratio 15.7, Glucose 111 H, Calcium 8.5 Micro: Microbiology 06/02/24 Unknown Ulcer, Decubitus - Ischium Gram Stain - Final 06/02/24 Unknown Ulcer, Decubitus - Ischium Wound Culture - Preliminary Gram negative melba 06/02/24 Unknown Ulcer, Decubitus - Ischium Anaerobic Culture - Preliminary Checking for anaerobes, further studies to follow. 06/02/24 Unknown Bone - Ischial Bone Gram Stain - Final 06/02/24 Unknown Bone - Ischial Bone Wound Culture - Final Pseudomonas aeruginosa Corynebacterium striatum 06/02/24 Unknown Bone - Ischial Bone Anaerobic Culture - Preliminary No growth in 48 hours.
[2024-06-05] MEDS: Enoxaparin 40 MG/0.4 ML Syringe SC (12:48)
--- NOTE | 2024-06-05 13:49 | WOUNDNOTE ---
wound photo: left ischium
--- NOTE | 2024-06-05 18:05 | PCM.PN.HOSP ---
Reason for Visit Reason for Visit: Diagnoses Paraplegia, unspecified (06/02/24) Pressure ulcer of left buttock, stage 4 (06/02/24) Colostomy status (06/02/24) Subjective Subjective Patient was seen and examined today, I talked briefly with plastic surgery about his care. Patient is due to have another surgery performed on 06/07/2024. Patient has no complaints today. Objective Data Objective Data Vital Signs: Vital Signs Temp Pulse Resp BP Pulse Ox O2 Del Method 97.7 F L 98 18 99/58 L 97 Room Air 06/05/24 17:44 06/05/24 17:44 06/05/24 17:44 06/05/24 17:44 06/05/24 17:44 06/05/24 17:44 Oxygen Delivery Method Room Air Weight: 63.503 kg Body Mass Index (BMI) 16.6 Intake & Output: Intake and Output for Last 24 Hours 06/03/24 06/04/24 06/05/24 23:59 23:59 23:59 Intake Total 4335.5 / 4335.5 2075.5 / 2075.5 960.88 / 960.88 Output Total 1750 / 2400 2800 / 2800 1700 / 1700 Balance 2585.5 / 1935.5 -724.5 / -724.5 -739.12 / -739.12 Lab / Micro Data 06/05/24 07:15 06/05/24 07:15 Labs: Laboratory Results - last 24 hr 06/04/24 20:52: Vancomycin Trough 14.7 06/05/24 07:15: WBC 8.0, RBC 3.58 L, Hgb 6.8 L, Hct 23.1 L, MCV 64.5 L, MCH 19.0 L, MCHC 29.4 L, RDW Std Deviation 44.3 H, RDW Coeff of Zakia 19.1 H, Plt Count 429, MPV 8.8, Sodium 143, Potassium 3.6, Chloride 109 H, Carbon Dioxide 23.9, Anion Gap 10, BUN 11, Creatinine 0.69 L, Estim Creat Clear Calc 141.88, Est GFR (MDRD) Non-Af 129, BUN/Creatinine Ratio 15.7, Glucose 111 H, Calcium 8.5 06/05/24 12:36: Blood Type A POSITIVE, Antibody Screen NEGATIVE, Crossmatch See Detail Micro: Microbiology 06/02/24 Unknown Ulcer, Decubitus - Ischium Gram Stain - Final 06/02/24 Unknown Ulcer, Decubitus - Ischium Wound Culture - Preliminary Gram negative melba 06/02/24 Unknown Ulcer, Decubitus - Ischium Anaerobic Culture - Preliminary Checking for anaerobes, further studies to follow. 06/02/24 Unknown Bone - Ischial Bone Gram Stain - Final 06/02/24 Unknown Bone - Ischial Bone Wound Culture - Final Pseudomonas aeruginosa Corynebacterium striatum 06/02/24 Unknown Bone - Ischial Bone Anaerobic Culture - Preliminary No growth in 48 hours. Physical Exam Const alert, oriented x3 and no apparent distress General Appearance: cooperative, well kempt and well developed Orientation / Consciousness: awake, oriented to person, oriented to place and oriented to time HEENT normocephalic, head/scalp atraumatic and moist oral mucous membranes Eyes PERRL, EOMs intact bilaterally and conjunctivae normal Neck supple, no JVD, thyroid normal and no carotid bruits General: trachea midline Resp normal respiratory effort, no retractions, no use of accessory muscles and clear to auscultation bilaterally Auscultation: Negative for rales, rhonchi or wheezes Cardio regular rate, regular rhythm, S1 normal heart sound, S2 normal heart sound, no murmurs, no rub and no gallops GI normal to inspection, nondistended, normoactive bowel sounds, soft to palpation, non-tender and non-distended GI Narrative: Colostomy is in place Skin Skin Narrative: Patient's ischial area was not examined during my physical examination today Neuro oriented x3 and CN's II-XII intact bilaterally Neuro Narrative: Patient is paraplegic Sensorium / Orientation: awake and alert Speech: speech normal Psych affect normal Assessment & Plan Assessment/Plan (1) Decubitus ulcer of left ischium, stage 4: PLAN: Plan 1. Stage IV left ischial pressure injury-again plastic surgery is participating in his care, patient has a wound VAC on the area, patient is currently on Zosyn #2 paraplegia-complicates care, management, recovery, and prognosis #3 acute on chronic anemia-suspect iron deficiency anemia with a backdrop of acute blood loss anemia-patient will be transfused 2 units of packed red blood cells and CBC will be rechecked tomorrow, patient will be given Venofer Total clinical time spent by myself addressing the patient's medical issues, reviewing all of his data, and collaborating with patient's care team: 35 minutes Charges/Coding Visit Charges Inpatient E&M: 49632 Subs Hosp L2
[2024-06-05] MEDS: Mirtazapine 30 MG Tablet PO (20:31)
[2024-06-05] MEDS: traMADol 50 MG Tablet PO (20:31)
[2024-06-05] MEDS: Gabapentin 300 MG Capsule PO (20:32)
[2024-06-06 00:49] VITALS: BP 108/65; PULSE 96; RESP 16; TEMP 36.7; O2SAT 97
[2024-06-06 06:35] VITALS: BP 101/56; PULSE 87; RESP 16; TEMP 36.7; O2SAT 97
[2024-06-06] MEDS: Piperacil/Tazobactam 3.375 GM in 0.9% Normal Saline (50mL MB+) 50 ML IV ×3 (06:42→23:04)
[2024-06-06 07:56] LABS: Absolute Lymphocyte Count 2.33 X10^3/uL (0.83-4.51); Absolute Neutrophil Count 4.2 X10^3/uL (2.0-7.7); Basophil# 0.02 X10^3/uL; Basophil% 0.3 % (0-1); Eosinophil# 0.79 X10^3/uL; Eosinophils% 9.9 % (0-5); Hematocrit 28.9 % (40-54); Hemoglobin 8.9 g/dL (13.0-16.5); Immature Platelet Fraction 0.4 % (1.0-7.9); Lymphocyte # 2.33 X10^3/ul (0.83-4.51); Lymphocyte % 29.2 % (19-41); Mean Corp Hgb Conc 30.8 g/dL (32-36); Mean Corpuscular Volume 68.2 fL (80-94); Mean Platelet Vol. 8.7 fl (6.2-12.0); Monocyte# 0.66 X10^3/uL; Monocyte% 8.3 % (0-10); NRBC Flagged by Analyzer 0 % (0-5); Neutrophil # 4.15 X10^3/uL (2.7-7.7); Neutrophil % 51.8 % (47-70); POSITIVE MORPHOLOGY YES; Platelet Count 450 K/mm3 (150-450); RBC Distribution Width CV 22.6 % (11.6-14.6); RBC Distribution Width SD 51.8 fl (35.1-43.9); RET-HE 19.7 pg (30-35); Red Blood Count 4.24 M/mm3 (4.6-6.2); Reticulocyte Count 0.67 % (0.5-1.5)
[2024-06-06 08:01] LABS: Differential Indicated SCAN CRITERIA MET
[2024-06-06 08:23] VITALS: BP 93/62; PULSE 78; RESP 16; TEMP 36.8; O2SAT 97
[2024-06-06 08:30] LABS: Anisocytosis 2+; Atypical Lymphocyte 1+ %; Differential Comment SCANNED
--- NOTE | 2024-06-06 08:52 | CASEMGMT ---
Discharge Planning Updates sent to [facility]. Linda Gomez DC Planning Asst.
[2024-06-06 09:10] LABS: Ferritin 118 ng/mL (37-417); Iron 18 ug/dL (65-175); Iron Binding Capacity,Unsat 140 ug/dL (228-428)
[2024-06-06 09:53] LABS: Iron Binding Capacity,Total 158 ug/dL (250-450); PERCENT IRON SATURATION 11.4 % (9-55)
[2024-06-06] MEDS: Enoxaparin 40 MG/0.4 ML Syringe SC (09:59)
--- NOTE | 2024-06-06 10:04 | WOUNDNOTE ---
wound VAC drape slightly rolls and foam slightly shifted. was able to fix foam and apply new drape. good seal noted at 125mmHg. will continue to monitor. plan is for flap closure tomorrow with Dr Perez.
--- NOTE | 2024-06-06 10:06 | WOUNDNOTE ---
Ostomy appliance loosening at edges. removed the pouch and flange. small amount of formed brown stool noted in the appliance. stoma is pink and sits just slightly above the skin level. peristomal skin is intact. cleansed skin with warm water. pat dry. applied a new 2 piece Yasmany appliance with a small amount of stoma paste. pt tolerated well.
[2024-06-06] MEDS: Sodium Hypochlorite (Dakin's) 0.125% Wound Irrigation IRRIGATION (10:31)
[2024-06-06] MEDS: Pantoprazole Sodium 40 MG in 0.9% Normal Saline (100mL MB+) 100 ML 330 MG IV (11:06)
[2024-06-06] MEDS: 0.9% Normal Saline (100mL Bag) 100 ML 15 ML IV (13:31)
[2024-06-06 13:49] VITALS: PULSE 78; RESP 16
[2024-06-06 14:07] VITALS: BP 105/64; PULSE 83; RESP 14; TEMP 36.6; O2SAT 92
--- NOTE | 2024-06-06 15:08 | PN.SURG_ITS ---
Subjective Subjective No acute events overnight Pain controlled Objective Data Objective Data Vital Signs: Vital Signs Temp Pulse Resp BP Pulse Ox O2 Del Method 97.8 F 83 14 105/64 92 Room Air 06/06/24 14:07 06/06/24 14:07 06/06/24 14:07 06/06/24 14:07 06/06/24 14:07 06/06/24 14:07 Oxygen Delivery Method Room Air Weight: 140 lb 0.002 oz Body Mass Index (BMI) 16.6 Intake & Output: Intake and Output for Last 24 Hours 06/04/24 06/05/24 06/06/24 23:59 23:59 23:59 Intake Total 2075.5 / 2075.5 1375.25 / 1375.25 1110 / 1110 Output Total 2800 / 2800 1700 / 1700 1300 / 1300 Balance -724.5 / -724.5 -324.75 / -324.75 -190 / -190 Lab / Micro Data 06/06/24 07:25 06/05/24 07:15 Labs: Laboratory Results - last 24 hr 06/05/24 12:36: Blood Type A POSITIVE, Antibody Screen NEGATIVE, Crossmatch See Detail 06/06/24 07:25: WBC 8.0, RBC 4.24 L, Hgb 8.9 L, Hct 28.9 L, MCV 68.2 L D, MCH 21.0 L, MCHC 30.8 L, RDW Std Deviation 51.8 H, RDW Coeff of Zakia 22.6 H, Plt Count 450, MPV 8.7, Immature Gran % (Auto) 0.500, Neut % (Auto) 51.8, Lymph % (Auto) 29.2, [place] % (Auto) 8.3, Eos % (Auto) 9.9 H, Baso % (Auto) 0.3, Absolute Neuts (auto) 4.2, Absolute Lymphs (auto) 2.33, Nucleated RBC % 0, Differential Comment SCANNED, Atypical Lymphocytes 1+, Immature Plt Fraction 0.4 L, Anisocytosis 2+, Retic Count 0.67, Immature Retic Fraction 23.30 H, Retic Hgb Equivalent 19.7 L, Iron 18 L, TIBC 158 L, Iron Saturation 11.4, Unsaturated IBC 140 L, Ferritin 118 Micro: Microbiology 06/02/24 Unknown Ulcer, Decubitus - Ischium Gram Stain - Final 06/02/24 Unknown Ulcer, Decubitus - Ischium Wound Culture - Final Proteus mirabilis 06/02/24 Unknown Ulcer, Decubitus - Ischium Anaerobic Culture - Final No anaerobic bacteria isolated. 06/03/24 19:00 Blood Culture (Wb) - Anticubital Right Blood Culture - Preliminary No growth in 48 hours. 06/03/24 19:07 Blood Culture (Wb) - Anticubital Left Blood Culture - Preliminary No growth in 48 hours. 06/02/24 Unknown Bone - Ischial Bone Gram Stain - Final 06/02/24 Unknown Bone - Ischial Bone Wound Culture - Final Pseudomonas aeruginosa Corynebacterium striatum 06/02/24 Unknown Bone - Ischial Bone Anaerobic Culture - Preliminary No growth in 48 hours. Physical Exam Narrative Ischial wound with VAC holding suction no blood in the VAC Const alert, oriented x3 and no apparent distress Resp normal respiratory effort Cardio regular rate and regular rhythm GI GI Narrative: Ostomy in place, no gas in the bag Extremity Extremity Narrative: No swelling on the calves Assessment & Plan Assessment/Plan (1) Decubitus ulcer of left ischium, stage 4: PLAN: Neuro: tylenol, ibuprophen, roxicodone for pain as needed Cardiovascular: q4 hour VS. Pulm: IS for pulmonary toilet/pneumonia prevention ID: F/u wound cultures, infectious disease consulted. Pseudomonas and Corynebacterium growing from bone. Continue IV Zosyn per infectious disease recommendation FEN: High protein diet. Daily BMPs while on antibiotics. Hem: 40 mg Lovenox daily for pxx. Hgb 8.9 today status post 2 units yesterday. Stable no signs of bleeding. GI: Continue ostomy changes as needed with nursing : Void as normal Endocrine: No concerns at this time Integumentary: Plan for irrigating VAC with Dakins again today. Plan to f/u wound cultures and anticipate closure on 07 June 2024 (tomorrow). Continue pressure offloading air bed (currently on this bed). Consults: F/u medicine recommendations. Appreciate assistance. Charges/Coding Procedures Integumentary [id number]: [id number] Global Visit
--- NOTE | 2024-06-06 16:05 | PCM.PN.HOSP ---
Reason for Visit Reason for Visit: Diagnoses Paraplegia, unspecified (06/02/24) Pressure ulcer of left buttock, stage 4 (06/02/24) Colostomy status (06/02/24) Subjective Subjective Patient was seen and examined today, he voices no specific complaints today to this examiner. Patient's hemoglobin improved today after receiving blood yesterday Objective Data Objective Data Vital Signs: Vital Signs Temp Pulse Resp BP Pulse Ox O2 Del Method 97.8 F 83 14 105/64 92 Room Air 06/06/24 14:07 06/06/24 14:07 06/06/24 14:07 06/06/24 14:07 06/06/24 14:07 06/06/24 14:07 Oxygen Delivery Method Room Air Weight: 63.503 kg Body Mass Index (BMI) 16.6 Intake & Output: Intake and Output for Last 24 Hours 06/04/24 06/05/24 06/06/24 23:59 23:59 23:59 Intake Total 2075.5 / 2075.5 1375.25 / 1375.25 1110 / 1110 Output Total 2800 / 2800 1700 / 1700 1300 / 1300 Balance -724.5 / -724.5 -324.75 / -324.75 -190 / -190 Lab / Micro Data 06/06/24 07:25 06/05/24 07:15 Labs: Laboratory Results - last 24 hr 06/05/24 12:36: Blood Type A POSITIVE, Antibody Screen NEGATIVE, Crossmatch See Detail 06/06/24 07:25: WBC 8.0, RBC 4.24 L, Hgb 8.9 L, Hct 28.9 L, MCV 68.2 L D, MCH 21.0 L, MCHC 30.8 L, RDW Std Deviation 51.8 H, RDW Coeff of Zakia 22.6 H, Plt Count 450, MPV 8.7, Immature Gran % (Auto) 0.500, Neut % (Auto) 51.8, Lymph % (Auto) 29.2, [place] % (Auto) 8.3, Eos % (Auto) 9.9 H, Baso % (Auto) 0.3, Absolute Neuts (auto) 4.2, Absolute Lymphs (auto) 2.33, Nucleated RBC % 0, Differential Comment SCANNED, Atypical Lymphocytes 1+, Immature Plt Fraction 0.4 L, Anisocytosis 2+, Retic Count 0.67, Immature Retic Fraction 23.30 H, Retic Hgb Equivalent 19.7 L, Iron 18 L, TIBC 158 L, Iron Saturation 11.4, Unsaturated IBC 140 L, Ferritin 118 Micro: Microbiology 06/02/24 Unknown Ulcer, Decubitus - Ischium Gram Stain - Final 06/02/24 Unknown Ulcer, Decubitus - Ischium Wound Culture - Final Proteus mirabilis 06/02/24 Unknown Ulcer, Decubitus - Ischium Anaerobic Culture - Final No anaerobic bacteria isolated. 06/03/24 19:00 Blood Culture (Wb) - Anticubital Right Blood Culture - Preliminary No growth in 48 hours. 06/03/24 19:07 Blood Culture (Wb) - Anticubital Left Blood Culture - Preliminary No growth in 48 hours. 06/02/24 Unknown Bone - Ischial Bone Gram Stain - Final 06/02/24 Unknown Bone - Ischial Bone Wound Culture - Final Pseudomonas aeruginosa Corynebacterium striatum 06/02/24 Unknown Bone - Ischial Bone Anaerobic Culture - Preliminary No growth in 48 hours. Physical Exam Narrative alert, oriented x3 and no apparent distress General Appearance: cooperative, well kempt and well developed Orientation / Consciousness: awake, oriented to person, oriented to place and oriented to time HEENT normocephalic, head/scalp atraumatic and moist oral mucous membranes Eyes PERRL, EOMs intact bilaterally and conjunctivae normal Neck supple, no JVD, thyroid normal and no carotid bruits General: trachea midline Resp normal respiratory effort, no retractions, no use of accessory muscles and clear to auscultation bilaterally Auscultation: Negative for rales, rhonchi or wheezes Cardio regular rate, regular rhythm, S1 normal heart sound, S2 normal heart sound, no murmurs, no rub and no gallops GI normal to inspection, nondistended, normoactive bowel sounds, soft to palpation, non-tender and non-distended GI Narrative: Colostomy is in place Skin Skin Narrative: Patient's ischial area was not examined during my physical examination today Neuro oriented x3 and CN's II-XII intact bilaterally Neuro Narrative: Patient is paraplegic Sensorium / Orientation: awake and alert Speech: speech normal Psych affect normal Assessment & Plan Assessment/Plan (1) Decubitus ulcer of left ischium, stage 4: PLAN: Plan 1. Stage IV left ischial pressure injury-again plastic surgery is participating in his care, patient has a wound VAC on the area, patient is currently on Zosyn, the plan is for the patient to go to surgery tomorrow again according to plastic surgery #2 paraplegia-complicates care, management, recovery, and prognosis #3 acute on chronic anemia-suspect iron deficiency anemia with a backdrop of acute blood loss anemia-patient's hemoglobin today was 8.9 Total clinical time spent by myself addressing the patient's medical issues, reviewing all of his data, and collaborating with patient's care team: 35 minutes Charges/Coding Visit Charges Inpatient E&M: 27301 Subs Hosp L2
[2024-06-06 22:50] VITALS: BP 103/58; PULSE 99; RESP 16; TEMP 37.2; O2SAT 100
[2024-06-06] MEDS: Gabapentin 300 MG Capsule PO (23:03)
[2024-06-06] MEDS: traMADol 50 MG Tablet PO (23:03)
[2024-06-06] MEDS: Mirtazapine 30 MG Tablet PO (23:03)
[2024-06-07] VITALS (15 sets, daily range): BP systolic 89–110; BP diastolic 52–75; PULSE 60–93; RESP 14–18; TEMP 36.3–37.1; O2SAT 95–100; BMI 16.5
[2024-06-07] MEDS: Piperacil/Tazobactam 3.375 GM in 0.9% Normal Saline (50mL MB+) 50 ML IV ×3 (04:53→23:00)
[2024-06-07] MEDS: 0.9% Normal Saline (100mL Bag) 100 ML 15 ML IV (06:40)
--- NOTE | 2024-06-07 09:00 | WOUNDNOTE ---
Pt going to OR this am. wound VAC dressing in place. Good seal noted at 125mmHg low continuous suction. will continue to monitor post op.
--- NOTE | 2024-06-07 09:06 | PCM.PRE.AN2 ---
ASA Classification* ASA Classification ASA Classification: 3 Assessment & Plan Anesthesia* Anesthesia Assessment Anesthesia Assessment: Discussed sedation and/or anesthesia options, risks, benefits, and alternatives with patient/parents/legal guardian/POA. Questions invited. The patient/parents/legal guardian/POA seems to understand and agrees to proceed with anesthesia plan. Reviewed the physical assessment, medical history, allergy history and patient home medications list prior to surgery/procedure/anesthetic and documented any changes. Performed airway and anesthesia risk assessments. Anesthesia Type Anesthesia Type: General (No SUX) Anesthesia Focused Assessment* Temperature: 97.4 F Pulse Rate: 70 Blood Pressure: 92/52 Respiratory Rate: 14 Pulse Ox: 98 Airway Assessment Mouth opens: >3 cm Mallampati Score: II Focused Labs Anesthesia Preop lab: CBC WBC 8.0 K/mm3 (4.4-11.0) 06/06/24 07:06/06/24 RBC 4.24 M/mm3 (4.6-6.2) L 06/06/24 07:06/06/24 Hgb 8.9 g/dL (13.0-16.5) L 06/06/24 07:25 06/06/24 Hct 28.9 % (40-54) L 06/06/24 07:25 06/06/24 Plt Count 450 K/mm3 (150-450) 06/06/24 07:25 06/06/24 CHEMISTRY Potassium 3.6 mmol/L (3.3-5.1) 06/05/24 07:15 06/05/24 Sodium 143 mmol/L (133-145) 06/05/24 07:15 06/05/24 Magnesium 1.8 mg/dL (1.6-2.6) 02/23/24 15:35 02/23/24 Phosphorus 4.3 mg/dL (2.5-4.9) 02/23/24 15:35 02/23/24 BUN 11 mg/dL (4-19) 06/05/24 07:15 06/05/24 Creatinine 0.69 mg/dL (0.70-1.20) L 06/05/24 07:15 06/05/24 Glucose 111 mg/dL (70-99) H 06/05/24 07:15 06/05/24 COAG PT 16.1 SECONDS (11.7-14.9) H 09/29/23 04:15 09/29/23 Pre-Assessment Diagnosis/Proposed Procedure Planned Operative Procedure(s): LEFT ISCHIAL WOUND recognstruction /Flap Anesthesia History Anesthesia History - melter loader: 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 When Was Last Pacemaker Check QUESTION #4 FULL TEXT: You/Your Family Experience fever (hyperthermia) with Anesthesia Last Oral Intake Last Oral intake: Last Oral Intake NPO since 00:00 06/07/24 04:07 Meds taken in AM with sips of No 06/07/24 04:07 water? Meds patient instructed to take am of surgery PONV PONV - melter loader: PONV - melter loader Female No 05/26/24 15:24 HX of Motion Sickness No 05/26/24 15:24 HX of N/V After Surgery No 05/26/24 15:24 Non-Smoker Yes 05/26/24 15:24 Duration of Surgery greater Yes 05/26/24 15:24 than 60 minutes Number of Risk Factors 2 05/26/24 15:24 PONV Score Moderate Risk 05/26/24 15:24 Height & Weight Height & Weight: Anesthesia: Height & Weight Height 6 ft 5.17 in 06/07/24 04:07 Weight: 63.503 kg 06/07/24 04:07 Body Mass Index (BMI) 16.5 06/07/24 04:07 Respiratory Assessment Respiratory Assessment - melter loader: Respiratory Tract Infection Hx - melter loader Hx Respiratory Tract Infection No 06/05/24 20:38 STOP Sleep Apnea STOP Sleep Apnea - melter loader: STOP Sleep Apnea - melter loader Hx Hypertension No 05/26/24 15:24 Hx Sleep Apnea No 06/02/24 10:40 CPAP BIPAP Do you snore loudly (louder No 05/26/24 15:24 than talking or can be heard Do you often feel tired/ No 05/26/24 15:24 fatigued/ sleepy during daytime? Has anyone observed you stop No 05/26/24 15:24 breathing during sleep? STOP Results Negative 06/02/24 10:25 QUESTION #5 FULL TEXT : Do you snore loudly (louder than talking or can be heard through closed doors)? 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 Specify any problems Hx of Preganancy in last 3 N/A 05/26/24 15:24 Months Nurse Filling Out Transfusion DSCHRIBER 05/26/24 15:24 & Questions: Date: 05/26/24 05/26/24 15:24 Time: 15:25 05/26/24 15:24 Patient unable to answer at this time (ie. confused, unrespo /Reproduction History /Reproductive History - melter loader: /Reproductive Hx- melter loader Hx Now No 06/05/24 20:38 Gestational Age (in weeks): EDC: Hx Hx Para Hx Section SAB No 06/05/24 20:38 Active Medications Active Medications: Current Medications Generic Name Dose Route Start Last Admin Trade Name Freq PRN Reason Stop Dose Admin Acetaminophen 650 mg 06/02/24 08:45 06/03/24 17:55 Acetaminophen 325 Mg Tablet PO 650 mg Q6H PRN PRN Administration Pain Score 1-10 Al Hydroxide/Mg Hydroxide 30 ml 06/02/24 10:20 Mag Hydrox/Al Hydrox/Simeth 30 Ml Udc PO Q4H PRN constipation Sodium Hypochlorite 473 ml/ 0 ml 06/02/24 10:00 06/06/24 10:31 Sodium Chloride 473 ml IRRIGATION 473 ml UD MIGUE Administration Enoxaparin Sodium 40 mg 06/03/24 10:00 06/07/24 07:34 Enoxaparin 40 Mg/0.4 Ml Syringe SC Not Given DAILY MIGUE Gabapentin 300 mg 06/02/24 22:00 06/06/24 23:03 Gabapentin 300 Mg Capsule PO 300 mg QHS MIGUE Administration Guaifenesin 10 ml 06/02/24 08:49 Guaifenesin 10 Ml Udc (200mg/10ml) PO Q4H PRN congestion Sodium Chloride 1,000 mls @ 15 mls/hr 06/02/24 07:00 06/06/24 13:44 IV Not Given .Q48H MIGUE Pantoprazole Sodium 40 mg/ 110 mls @ 330 mls/hr 06/02/24 10:00 06/06/24 11:30 Sodium Chloride IV Infused Q24 MIGUE Infusion Sodium Chloride 100 mls @ 15 mls/hr 06/02/24 10:57 06/07/24 06:40 IV 15 mls/hr .Q6H40M PRN Administration Saline Flush Sodium Chloride 100 mls @ 15 mls/hr 06/02/24 10:57 IV .Q6H40M PRN Additional IVPB Infusion Sodium Chloride 100 mls @ 15 mls/hr 06/03/24 18:00 IV .Q6H40M PRN Saline Flush Sodium Chloride 100 mls @ 15 mls/hr 06/03/24 18:00 IV .Q6H40M PRN Additional IVPB Infusion Piperacillin Sod/Tazobactam 50 mls @ 12.5 mls/hr 06/03/24 18:40 06/07/24 04:53 Sod 3.375 gm/ Sodium Chloride IV 12.5 mls/hr Q8 MIGUE Administration Mirtazapine 30 mg 06/02/24 22:00 06/06/24 23:03 Mirtazapine 30 Mg Tablet PO 30 mg QHS MIGUE Administration Ondansetron HCl 4 mg 06/02/24 08:45 Ondansetron 4 Mg/2 Ml Vial IV Q8H PRN PRN NAUSEA Oxycodone HCl 5 - 10 mg 06/02/24 08:45 06/03/24 13:37 Oxycodone 5 Mg Tablet PO 5 mg Q4H PRN PRN Administration Pain Score 1-10 Polyethylene Glycol 17 gm 06/02/24 10:00 06/07/24 07:34 Polyethylene Glycol 3350 17 Gm Packet PO Not Given DAILY MIGUE Sodium Chloride 10 - 40 ml 06/02/24 10:57 06/04/24 23:00 0.9% Saline Lock 10 Ml Syringe IV 10 ml UD PRN Administration SALINE FLUSH Tramadol HCl 50 mg 06/02/24 22:00 06/06/24 23:03 Tramadol 50 Mg Tablet PO 50 mg QHS MIGUE Administration PFSH Medical History History of non-healing wound Urine incontinence Anemia of chronic disease Watson catheter in place Former smoker Uses wheelchair Lives in snf Ulcer of sacral region, stage 4 Closed pilon fracture of left tibia Necrotizing fasciitis Decubitus ulcer, unstageable with infection Hyperbilirubinemia Elevated d-dimer Tachycardia Hypokalemia Hyponatremia Thrombocytosis Leukocytosis Paraplegia Hx of back injury Home Medications ?Medication ?Instructions ?Recorded ?Last Taken ?Type acetaminophen 325 mg tablet 650 mg PO Q4H PRN fever or pain 11/01/23 02/22/24 History acetaminophen 650 mg rectal 650 mg ID Q4H PRN fever or pain 11/01/23 Unknown History suppository guaifenesin 100 mg/5 mL oral 200 mg PO Q4H PRN congestion 11/01/23 Unknown History liquid (Cough Syrup) magnesium hydroxide 400 mg/5 mL 30 ml PO DAILY PRN constipation 11/01/23 Unknown History oral suspension (Mueller Milk of Magnesia) naproxen sodium 220 mg capsule 220 mg PO QHS pain 02/15/24 06/01/24 History (Aleve) polyethylene glycol 3350 17 17 g PO DAILY 02/15/24 Unknown History gram/dose oral powder (Miralax) tramadol 50 mg tablet 50 mg PO QHS pain 02/15/24 06/01/24 History aluminum-magnesium hydroxide 225 30 ml PO Q4H PRN constipation 03/02/24 Unknown History mg-200 mg/5 mL oral suspension mineral oil (Fleet Mineral Oil 118 ml ID QDAY PRN constipation 03/02/24 Unknown History enema) mirtazapine 15 mg tablet (Remeron) 30 mg PO QHS appetite 03/02/24 06/01/24 History triamcinolone acetonide 0.1 % 1 applic topical BID 03/02/24 Unknown History topical cream gabapentin 300 mg capsule 300 mg PO QHS nerve pain 03/14/24 06/01/24 History Allergy/AdvReac Type Severity Reaction Status Date / Time No Known Allergies Allergy Verified 06/02/24 07:12 Surgical History History of incision and drainage Hx of colostomy History of cholecystectomy S/P lumbar spinal fusion Social History housing: homeless Smoking Status: Former smoker alcohol intake: former substance use type: does not use Review of Systems (Anesthesia) ROS Narrative System reviewed and no additional complaints, except as documented.
[2024-06-07] MEDS: Lactated Ringers 1,000 ML 15 ML IV (09:26)
--- NOTE | 2024-06-07 09:26 | PCM.OPRPT ---
Operative Report (Standard) Operative Information Date of Procedure: 06/07/24 Pre-Operative Diagnosis: Left ischial wound, stage 4 Post-Operative Diagnosis: Same Surgery/Procedure Performed: 1) Excision left ischial pressure sore with skin flap closure, CPT 37360 recreation assistant: Yes Milling Operator: Guillermina Ellison Tasks completed by heel sprayer first: Closing and Retracting Type of Anesthesia: General/Supplemental (30 cc of 0.25% Marcaine with 1-200,000 epinephrine) RN Documented Start/Stop Times: Operation Date: 06/07/24 10:00 Case Time Into Pre-Op 06/07/24 09:18 Out of Pre-Op 06/07/24 09:57 Anesthesia Start 06/07/24 10:00 Into Room 06/07/24 10:00 Procedure Start 06/07/24 10:41 Procedure End 06/07/24 12:00 Anesthesia End 06/07/24 12:05 Out of Room 06/07/24 12:05 Into Recovery 06/07/24 12:08 Procedure Start Time: 10:41 Procedure Stop Time: 12:00 Select all DRAINS/GRAFTS/IMPLANTS that apply: Drains Drain details: one 19 Fr Jaems drain Estimated Blood Loss: 50 cc Specimen collected: Yes Description of specimen(s) removed: 1) Bone culture 2) deep soft tissue culture Description of surgery: Indications: Mirza Saunders is a delightful 28-year-old with paraplegia admitted for debridement and the treatment of 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 He has been on a pressure offloading bed with an irrigating wound VAC, and has a PICC line from which he receives Zosyn. Presents today for definitive reconstruction of the left ischial wound with coverage. He understands the risks, benefits, and alternatives of the procedure. Procedure details: Patient was quickly identified in preoperative holding and marked. He was taken back to the operating room where he was administered general anesthesia and flipped in the prone position. Care was taken to protect and pad all bony prominences and the face. He was prepped and draped in sterile fashion. Proper timeout was performed. 30 cc of 0.25% Marcaine with 1 200,000 epinephrine was injected for local block given time to take effect (for hemostasis). The wound was excised with a curved Choi scissor, rongeur, curette, and a rasp, as well as Bovie electrocautery and a 10 blade. A rongeur was used to debride bone at the base of the wound and take a deep soft tissue culture as well as a bone culture of the left ischium. The wound was then irrigated with 450 cc of Irrisept and 3 L of normal saline and hemostasis obtained with the Bovie. A 19 Malagasy James drain was tunneled through the left superior gluteal region into the base of the wound. A small backcut with Bovie electrocautery was then made and the Bovie was used to develop via undermining a hockey-stick shaped flap of skin and gluteal fat that was rotated and advanced superiorly and medially into position over the ischial wound. The muscle at the edge of the wound was then closed and over the bone with 0 PDS [id number] interrupted sutures followed by deep fascial sutures with 0 PDS [id number] sutures (fascia overlying the muscle/Jose D's fascia on the gluteal region). The deep dermis was then closed with 2-0 PDS followed by 3-0 Monocryl deep dermal sutures. The skin was closed with 3-0 nylon interrupted sutures. Adaptic and an incisional wound VAC were placed. The drain was holding suction at the end of the case as was the incisional VAC. Patient tolerated the procedure well and was flipped back into a supine position and placed on his sand bed. Postoperative plan: 3 weeks of no pressure/no sitting on the left ischial wound closure. Plan for wound VAC removal in 1 week to check incision. He will begin sitting protocol at 3 weeks postoperatively. Surgical Findings: Healthy wound ready for closure. No signs of infection on the base of the wound clinically Complications Complications: No Admit VTE Documentation VTE Mechan Device Prophylaxis: SCD's
--- NOTE | 2024-06-07 09:26 | PCM.HP.STD ---
HPI - General General Date of Admission: 06/02/24 HPI Narrative HEMALATHA MEDINA, is a 28 M who presents with left ischial pressure sore. Cultures from the left ischial bone growing Pseudomonas and Corynebacterium. Infectious disease consulted for antibiotic recommendations and recommending 6 weeks of Zosyn (he has been treated with several days of Zosyn already). Presents today for definitive coverage of the pressure sore. Current Encounter (DATE OF SURGERY H&P UPDATE): I saw and examined the patient this morning in pre-operative holding. We discussed risks and benefits of today's surgery and they would like to proceed. NO CHANGE in health history since last seen and evaluated. Ready to proceed with surgery. Hemoglobin stable at 8.9 PFSH Medical History History of non-healing wound Urine incontinence Anemia of chronic disease Watson catheter in place Former smoker Uses wheelchair Lives in long-term Ulcer of sacral region, stage 4 Closed pilon fracture of left tibia Necrotizing fasciitis Decubitus ulcer, unstageable with infection Hyperbilirubinemia Elevated d-dimer Tachycardia Hypokalemia Hyponatremia Thrombocytosis Leukocytosis Paraplegia Hx of back injury Home Medications ?Medication ?Instructions ?Recorded ?Last Taken ?Type acetaminophen 325 mg tablet 650 mg PO Q4H PRN fever or pain 11/01/23 02/22/24 History acetaminophen 650 mg rectal 650 mg RI Q4H PRN fever or pain 11/01/23 Unknown History suppository guaifenesin 100 mg/5 mL oral 200 mg PO Q4H PRN congestion 11/01/23 Unknown History liquid (Cough Syrup) magnesium hydroxide 400 mg/5 mL 30 ml PO DAILY PRN constipation 11/01/23 Unknown History oral suspension (Mueller Milk of Magnesia) naproxen sodium 220 mg capsule 220 mg PO QHS pain 02/15/24 06/01/24 History (Aleve) polyethylene glycol 3350 17 17 g PO DAILY 02/15/24 Unknown History gram/dose oral powder (Miralax) tramadol 50 mg tablet 50 mg PO QHS pain 02/15/24 06/01/24 History aluminum-magnesium hydroxide 225 30 ml PO Q4H PRN constipation 03/02/24 Unknown History mg-200 mg/5 mL oral suspension mineral oil (Fleet Mineral Oil 118 ml RI QDAY PRN constipation 03/02/24 Unknown History enema) mirtazapine 15 mg tablet (Remeron) 30 mg PO QHS appetite 03/02/24 06/01/24 History triamcinolone acetonide 0.1 % 1 applic topical BID 03/02/24 Unknown History topical cream gabapentin 300 mg capsule 300 mg PO QHS nerve pain 03/14/24 06/01/24 History Allergy/AdvReac Type Severity Reaction Status Date / Time No Known Allergies Allergy Verified 06/02/24 07:12 Surgical History History of incision and drainage Hx of colostomy History of cholecystectomy S/P lumbar spinal fusion Social History housing: homeless Smoking Status: Former smoker alcohol intake: former substance use type: does not use Vital Signs Vital Signs Vital Signs: 06/06/24 13:49 06/06/24 14:07 06/06/24 22:00 Temperature 97.8 F Temperature Source Oral Pulse Rate 78 83 Pulse Strength Weak (1+) Respiratory Rate 16 14 Respiratory Effort Normal Non-Labored Respiratory Depth Normal Respiratory Pattern Normal Blood Pressure 105/64 Blood Pressure Mean 77 Blood Pressure Source Monitor Blood Pressure Position Supine Blood Pressure Location Right Arm Pulse Ox 92 Oxygen Delivery Method Room Air Room Air 06/06/24 22:50 06/07/24 00:50 06/07/24 04:14 Temperature 99.0 F 98.2 F 97.5 F L Temperature Source Oral Oral Oral Pulse Rate 99 60 83 Pulse Strength Respiratory Rate 16 18 16 Respiratory Effort Respiratory Depth Respiratory Pattern Blood Pressure 103/58 L 105/60 94/64 Blood Pressure Mean 73 75 74 Blood Pressure Source Monitor Monitor Monitor Blood Pressure Position Semi-Fowlers Semi-Fowlers Right Lateral Blood Pressure Location Right Arm Right Arm Left Arm Pulse Ox 100 98 96 Oxygen Delivery Method Room Air Room Air Room Air 06/07/24 07:41 06/07/24 07:42 06/07/24 09:07 Temperature 97.4 F L 97.4 F L Temperature Source Oral Pulse Rate 70 70 Pulse Strength Weak (1+) Respiratory Rate 14 14 Respiratory Effort Respiratory Depth Respiratory Pattern Blood Pressure 92/52 L 92/52 L Blood Pressure Mean 65 Blood Pressure Source Monitor Blood Pressure Position Right Lateral Blood Pressure Location Right Arm Pulse Ox 98 98 Oxygen Delivery Method Room Air Weight Weight: 140 lb 0.002 oz Body Mass Index (BMI) 16.5 Physical Exam Narrative Ischial wound with VAC holding suction no blood in the VAC Const alert, oriented x3 and no apparent distress Resp normal respiratory effort Cardio regular rate and regular rhythm GI GI Narrative: Ostomy in place, no gas in the bag Extremity Extremity Narrative: No swelling on the calves Results Lab / Micro Data 06/06/24 07:25 06/05/24 07:15 Labs: Laboratory Results - last 24 hr 06/06/24 07:25: TIBC 158 L, Iron Saturation 11.4 Micro: Microbiology 06/02/24 Unknown Ulcer, Decubitus - Ischium Gram Stain - Final 06/02/24 Unknown Ulcer, Decubitus - Ischium Wound Culture - Final Proteus mirabilis 06/02/24 Unknown Ulcer, Decubitus - Ischium Anaerobic Culture - Final No anaerobic bacteria isolated. 06/03/24 19:00 Blood Culture (Wb) - Anticubital Right Blood Culture - Preliminary No growth in 48 hours. 06/03/24 19:07 Blood Culture (Wb) - Anticubital Left Blood Culture - Preliminary No growth in 48 hours. Assessment & Plan Assessment/Plan (1) Decubitus ulcer of left ischium, stage 4: PLAN: Plan I talked to the patient extensively about the risks of surgery, including bleeding, infection, damage to surrounding structures, poor scaring, surgical site dehiscence and wound formation, need for wound care, flap failure, need for repeat operations, failure to obtain the desired result, DVT/PE, and the risks of anesthesia including , including stroke (from low blood pressure/ischemia or clot). The benefits and alternatives of this surgery were also discussed. All of their questions were answered, and they agreed to proceed with surgery. INTERVAL H&P PLAN, DATE OF SURGERY: We will proceed with surgery today.
[2024-06-07] MEDS: 0.9% Saline Lock 10 ML Syringe IV (09:27)
--- NOTE | 2024-06-07 09:30 | NURSING ---
0855-off unit via bed for scheduled surgery
[2024-06-07] MEDS: Bupiv/Epi 0.25% 30 ML Vial (10:41)
--- NOTE | 2024-06-07 12:12 | PCM.POST.ANE ---
Anesthesia: Postop Eval I Current Vital Signs Temperature: 97.3 F Pulse Rate: 76 Blood Pressure: 105/58 Respiratory Rate: 16 Pulse Ox: 98 Oxygen Delivery Method: Room Air Assessment Airway patent: Yes Spontaneous unlabored respirations: Yes Mental status: Awake and Calm nausea: No Vomiting: No Anesthesia Complication: No Fluid Hydration Crystalloid volume administer (ml): 1,100 Total IV fluid infused: 1,100 Progress Note Anesthesia document: Postop Eval 1 completed: Yes
--- NOTE | 2024-06-07 12:25 | PCM.POST.ANE ---
Anesthesia: Postop Eval I Current Vital Signs Temperature: 97.4 F Pulse Rate: 70 Blood Pressure: 92/52 Respiratory Rate: 14 Pulse Ox: 98 Assessment Airway patent: Yes Spontaneous unlabored respirations: Yes Mental status: Awake nausea: No Vomiting: No Anesthesia Complication: No Fluid Hydration Crystalloid volume administer (ml): 300 Total IV fluid infused: 300 Progress Note Anesthesia document: Postop Eval 1 completed: Yes
--- NOTE | 2024-06-07 12:27 | PCM.POSTANE2 ---
Anesthesia Postop Eval I Sum Postop Eval Completion status Anesthesia document: Postop Eval 1 completed: Yes Anesthesia Postop Eval I Summary Anesthesia Postop Eval I Summary: Anesthesia Postop Eval I: Assessment Summary Airway patent Yes 06/07/24 12:26 Spontaneous unlabored Yes 06/07/24 12:26 respirations Mental status Awake 06/07/24 12:26 nausea No 06/07/24 12:26 Vomiting No 06/07/24 12:26 Anesthesia Postop Eval I: Fluid Summary Crystalloid volume administer 300 06/07/24 12:26 (ml) Colloids volume administered ( ml) Blood Product volume administered (ml) Total IV fluid infused 300 06/07/24 12:26 Anesthesia Postop Eval I: Summary Notes Anesthesia Complication No 06/07/24 12:26 Anesthesia Complication Comment: Post-operative progress note Anesthesia: Postop Eval II Evaluation Mental status: Awake Pain Level: 0 nausea: No Vomiting: No
--- NOTE | 2024-06-07 12:27 | NURSING ---
after talked with health and safety technician, dynamic access notified via computer for PICC placement.
--- NOTE | 2024-06-07 12:28 | ANES.CONFIRM ---
Anesthesia: Confirm Documents Multiple Procedures on Account (2) Confirmed Documents: Yes
[2024-06-07] MEDS: Pantoprazole Sodium 40 MG in 0.9% Normal Saline (100mL MB+) 100 ML 330 MG IV (13:19)
--- NOTE | 2024-06-07 18:25 | PCM.PN.HOSP ---
Reason for Visit Reason for Visit: Diagnoses Paraplegia, unspecified (06/02/24) Pressure ulcer of left buttock, stage 4 (06/02/24) Colostomy status (06/02/24) Subjective Subjective Patient was seen and examined today, he does not appear to be in any distress, he went back to surgery today. Objective Data Objective Data Vital Signs: Vital Signs Temp Pulse Resp BP Pulse Ox O2 Del Method 97.5 F L 78 14 94/59 L 100 Room Air 06/07/24 16:45 06/07/24 16:45 06/07/24 16:45 06/07/24 16:45 06/07/24 16:45 06/07/24 16:45 Oxygen Delivery Method Room Air Weight: 63.503 kg Body Mass Index (BMI) 16.5 Intake & Output: Intake and Output for Last 24 Hours 06/05/24 06/06/24 06/07/24 23:59 23:59 23:59 Intake Total 1375.25 / 1375.25 1260 / 1260 1301.25 / 1301.25 Output Total 1700 / 1700 2100 / 2100 1075 / 1075 Balance -324.75 / -324.75 -840 / -840 226.25 / 226.25 Lab / Micro Data 06/06/24 07:25 06/05/24 07:15 Micro: Microbiology 06/02/24 Unknown Bone - Ischial Bone Gram Stain - Final 06/02/24 Unknown Bone - Ischial Bone Wound Culture - Final Pseudomonas aeruginosa Corynebacterium striatum 06/02/24 Unknown Bone - Ischial Bone Anaerobic Culture - Final No growth in 5 days. 06/02/24 Unknown Ulcer, Decubitus - Ischium Gram Stain - Final 06/02/24 Unknown Ulcer, Decubitus - Ischium Wound Culture - Final Proteus mirabilis 06/02/24 Unknown Ulcer, Decubitus - Ischium Anaerobic Culture - Final No anaerobic bacteria isolated. 06/03/24 19:00 Blood Culture (Wb) - Anticubital Right Blood Culture - Preliminary No growth in 48 hours. 06/03/24 19:07 Blood Culture (Wb) - Anticubital Left Blood Culture - Preliminary No growth in 48 hours. Physical Exam Narrative alert, oriented x3 and no apparent distress General Appearance: cooperative, well kempt and well developed Orientation / Consciousness: awake, oriented to person, oriented to place and oriented to time HEENT normocephalic, head/scalp atraumatic and moist oral mucous membranes Eyes PERRL, EOMs intact bilaterally and conjunctivae normal Neck supple, no JVD, thyroid normal and no carotid bruits General: trachea midline Resp normal respiratory effort, no retractions, no use of accessory muscles and clear to auscultation bilaterally Auscultation: Negative for rales, rhonchi or wheezes Cardio regular rate, regular rhythm, S1 normal heart sound, S2 normal heart sound, no murmurs, no rub and no gallops GI normal to inspection, nondistended, normoactive bowel sounds, soft to palpation, non-tender and non-distended GI Narrative: Colostomy is in place Skin Skin Narrative: Patient's ischial area was not examined during my physical examination today Neuro oriented x3 and CN's II-XII intact bilaterally Neuro Narrative: Patient is paraplegic Sensorium / Orientation: awake and alert Speech: speech normal Psych affect normal Assessment & Plan Assessment/Plan (1) Decubitus ulcer of left ischium, stage 4: PLAN: Plan 1. Stage IV left ischial pressure injury-again plastic surgery is participating in his care, patient has a wound VAC on the area, patient is currently on Zosyn, patient underwent excision of left ischial pressure sore with flap closure today. #2 paraplegia-complicates care, management, recovery, and prognosis #3 acute on chronic anemia-suspect iron deficiency anemia with a backdrop of acute blood loss anemia-patient's hemoglobin today was 8.9 Total clinical time spent by myself addressing the patient's medical issues, reviewing all of his data, and collaborating with patient's care team: 35 minutes Charges/Coding Visit Charges Inpatient E&M: 06961 Subs Hosp L2
[2024-06-08 03:02] VITALS: BP 96/64; PULSE 110; RESP 15; TEMP 37.2; O2SAT 96
[2024-06-08] MEDS: traMADol 50 MG Tablet PO (03:24)
[2024-06-08] MEDS: Mirtazapine 30 MG Tablet PO (03:24)
[2024-06-08] MEDS: Gabapentin 300 MG Capsule PO (03:24)
[2024-06-08 04:00] VITALS: PULSE 109; RESP 15
[2024-06-08] MEDS: Piperacil/Tazobactam 3.375 GM in 0.9% Normal Saline (50mL MB+) 50 ML IV ×3 (06:16→22:57)
--- NOTE | 2024-06-08 08:47 | WOUNDNOTE ---
In to see pt this am with Dr Perez. wound VAC dressing intact with good seal noted at 125mmHg low continuous suction. MONTSERRAT drain with minimal drainage. tubing stripped as ordered. will continue to monitor. wound VAC dressing to remain in place for a week.
[2024-06-08 10:05] VITALS: BP 95/58; PULSE 83; RESP 16; TEMP 36.7; O2SAT 99
--- NOTE | 2024-06-08 10:17 | PCM.PN.SRG ---
Subjective Subjective Doing well today. Pain controlled overall with current regimen. Feels well. Has been compliant with pressure offloading of the left side. Objective Data Objective Data Vital Signs: Vital Signs Temp Pulse Resp BP Pulse Ox O2 Del Method 99.0 F 109 H 15 96/64 96 Room Air 06/08/24 03:02 06/08/24 04:00 06/08/24 04:00 06/08/24 03:02 06/08/24 03:02 06/08/24 04:00 Oxygen Delivery Method Room Air Weight: 140 lb 0.002 oz Body Mass Index (BMI) 16.5 Intake & Output: Intake and Output for Last 24 Hours 06/06/24 06/07/24 06/08/24 23:59 23:59 23:59 Intake Total 1260 / 1260 1351.25 / 1351.25 50 / 50 Output Total 2100 / 2100 1075 / 1075 930 / 930 Balance -840 / -840 276.25 / 276.25 -880 / -880 Lab / Micro Data 06/06/24 07:25 06/05/24 07:15 Micro: Microbiology 06/07/24 12:15 Tissue - Ischial Pressure Sore Gram Stain - Final 06/07/24 12:15 Tissue - Ischial Pressure Sore Wound Culture - Preliminary No growth-Final to follow 06/07/24 12:15 Bone - Ischial Bone Gram Stain - Final 06/07/24 12:15 Bone - Ischial Bone Wound Culture - Preliminary No growth-Final to follow 06/02/24 Unknown Bone - Ischial Bone Gram Stain - Final 06/02/24 Unknown Bone - Ischial Bone Wound Culture - Final Pseudomonas aeruginosa Corynebacterium striatum 06/02/24 Unknown Bone - Ischial Bone Anaerobic Culture - Final No growth in 5 days. 06/02/24 Unknown Ulcer, Decubitus - Ischium Gram Stain - Final 06/02/24 Unknown Ulcer, Decubitus - Ischium Wound Culture - Final Proteus mirabilis 06/02/24 Unknown Ulcer, Decubitus - Ischium Anaerobic Culture - Final No anaerobic bacteria isolated. 06/03/24 19:00 Blood Culture (Wb) - Anticubital Right Blood Culture - Preliminary No growth in 48 hours. 06/03/24 19:07 Blood Culture (Wb) - Anticubital Left Blood Culture - Preliminary No growth in 48 hours. Physical Exam Narrative Ischial pressure sore reconstruction with VAC holding suction over the incision. Adequately pressure offloaded (laying on the right side and on sand bed) Drain SS. Strips well. No clot. Const alert, oriented x3 and no apparent distress Resp normal respiratory effort Cardio regular rate and regular rhythm GI GI Narrative: Ostomy in place, no gas in the bag Extremity Extremity Narrative: No swelling on the calves Assessment & Plan Assessment/Plan (1) Decubitus ulcer of left ischium, stage 4: PLAN: S/p excision and skin flap closure on 07 June 2024: Doing well overall PLAN: Plan PLAN: Neuro: tylenol, ibuprophen, roxicodone for pain as needed Cardiovascular: q4 hour VS. Pulm: IS for pulmonary toilet/pneumonia prevention ID: F/u wound cultures, infectious disease consulted. Pseudomonas and Corynebacterium growing from bone. Continue IV Zosyn per infectious disease recommendation FEN: High protein diet. Daily BMPs while on antibiotics. Hem: 40 mg Lovenox daily for pxx. F/u CBC today. Stable no signs of bleeding. GI: Continue ostomy changes as needed with nursing : Void as normal Endocrine: No concerns at this time Integumentary: Plan for VAC over incision for 1 week. Consults: F/u medicine recommendations. Appreciate assistance. Charges/Coding Procedures Integumentary [id number]: [id number] Global Visit
--- NOTE | 2024-06-08 10:22 | PCM.PN.ID ---
Physical Exam Narrative No fever, no events overnight, sleeping this AM Const no apparent distress Resp normal air movement and clear to auscultation bilaterally Cardio regular rate and regular rhythm GI soft to palpation, non-tender and non-distended Skin Skin Narrative: no new rash ID ID: Route of nutrition/ use of supplements: [] Nutritional Intake: [] IV Site: [] Watson Catheter: [] Assessment & Plan Assessment/Plan (1) Paraplegia: (2) Decubitus ulcer of left ischium, stage 4: PLAN: OR 06/02/[address] Perez for I&D. Bone cx with pseudomonas and corynebacter. Will treat for osteo. Cont zosyn. Plan is 6 week course, stop date 07/15/24 with weekly labs, ID followup in 2-3 weeks. Will follow (3) S/P colostomy:
[2024-06-08 10:36] LABS: Hematocrit 31.1 % (40-54); Hemoglobin 9.4 g/dL (13.0-16.5); Mean Corp Hgb Conc 30.2 g/dL (32-36); Mean Corpuscular Hgb 20.9 pg (27.0-32.0); Mean Corpuscular Volume 69.3 fL (80-94); Mean Platelet Vol. 8.8 fl (6.2-12.0); POSITIVE MORPHOLOGY YES; Platelet Count 510 K/mm3 (150-450); RBC Distribution Width CV 24.1 % (11.6-14.6); RBC Distribution Width SD 56.7 fl (35.1-43.9); Red Blood Count 4.49 M/mm3 (4.6-6.2); White Blood Count 8.4 K/mm3 (4.4-11.0)
[2024-06-08 10:40] LABS: Scan Indicated on CBC? Y/N YES- FLAGS NOTED
[2024-06-08] MEDS: Pantoprazole Sodium 40 MG in 0.9% Normal Saline (100mL MB+) 100 ML 330 MG IV (11:09)
[2024-06-08] MEDS: Enoxaparin 40 MG/0.4 ML Syringe SC (11:10)
[2024-06-08 11:49] LABS: Anion Gap 12 (5-15); BUN 5 mg/dL (4-19); BUN/Creat Ratio 6.2 RATIO (10-20); Calcium,Total 8.6 mg/dL (7.6-11.0); Carbon Dioxide 25.1 mmol/L (21.0-32.0); Chloride 102 mmol/L (98-108); Creatinine, Serum 0.74 mg/dL (0.70-1.20); EST Glomerular Filtration Rate 126 (>60); Glucose 112 mg/dL (70-99); Potassium 3.3 mmol/L (3.3-5.1); Sodium Level 139 mmol/L (133-145)
[2024-06-08 16:00] VITALS: BP 101/55; PULSE 98; RESP 18; TEMP 37.3; O2SAT 97
--- NOTE | 2024-06-08 17:12 | PN.HOSP_ITS ---
Reason for Visit Reason for Visit: Diagnoses Paraplegia, unspecified (06/02/24) Pressure ulcer of left buttock, stage 4 (06/02/24) Colostomy status (06/02/24) Subjective Subjective Patient was seen and examined today, he has no specific complaints. Objective Data Objective Data Vital Signs: Vital Signs Temp Pulse Resp BP Pulse Ox O2 Del Method 98.0 F 83 16 95/58 L 99 Room Air 06/08/24 10:05 06/08/24 10:05 06/08/24 10:05 06/08/24 10:05 06/08/24 10:05 06/08/24 10:05 Oxygen Delivery Method Room Air Weight: 63.503 kg Body Mass Index (BMI) 16.5 Intake & Output: Intake and Output for Last 24 Hours 06/06/24 06/07/24 06/08/24 23:59 23:59 23:59 Intake Total 1260 / 1260 1351.25 / 1351.25 610 / 610 Output Total 2100 / 2100 1075 / 1075 1135 / 1135 Balance -840 / -840 276.25 / 276.25 -525 / -525 Lab / Micro Data 06/08/24 10:15 06/08/24 10:15 Labs: Laboratory Results - last 24 hr 06/08/24 10:15: WBC 8.4, RBC 4.49 L, Hgb 9.4 L, Hct 31.1 L, MCV 69.3 L, MCH 20.9 L, MCHC 30.2 L, RDW Std Deviation 56.7 H, RDW Coeff of Zakia 24.1 H, Plt Count 510 H, MPV 8.8, Differential Comment COMMENT, Sodium 139, Potassium 3.3, Chloride 102, Carbon Dioxide 25.1, Anion Gap 12, BUN 5, Creatinine 0.74, Estim Creat Clear Calc 132.30, Est GFR (MDRD) Non-Af 126, BUN/Creatinine Ratio 6.2 L, G lucose 112 H, Calcium 8.6 Micro: Microbiology 06/07/24 12:15 Tissue - Ischial Pressure Sore Gram Stain - Final 06/07/24 12:15 Tissue - Ischial Pressure Sore Wound Culture - Preliminary No growth-Final to follow 06/07/24 12:15 Bone - Ischial Bone Gram Stain - Final 06/07/24 12:15 Bone - Ischial Bone Wound Culture - Preliminary No growth-Final to follow 06/02/24 Unknown Bone - Ischial Bone Gram Stain - Final 06/02/24 Unknown Bone - Ischial Bone Wound Culture - Final Pseudomonas aeruginosa Corynebacterium striatum 06/02/24 Unknown Bone - Ischial Bone Anaerobic Culture - Final No growth in 5 days. 06/02/24 Unknown Ulcer, Decubitus - Ischium Gram Stain - Final 06/02/24 Unknown Ulcer, Decubitus - Ischium Wound Culture - Final Proteus mirabilis 06/02/24 Unknown Ulcer, Decubitus - Ischium Anaerobic Culture - Final No anaerobic bacteria isolated. 06/03/24 19:00 Blood Culture (Wb) - Anticubital Right Blood Culture - Preliminary No growth in 48 hours. 06/03/24 19:07 Blood Culture (Wb) - Anticubital Left Blood Culture - Preliminary No growth in 48 hours. Physical Exam Narrative alert, oriented x3 and no apparent distress General Appearance: cooperative, well kempt and well developed Orientation / Consciousness: awake, oriented to person, oriented to place and oriented to time HEENT normocephalic, head/scalp atraumatic and moist oral mucous membranes Eyes PERRL, EOMs intact bilaterally and conjunctivae normal Neck supple, no JVD, thyroid normal and no carotid bruits General: trachea midline Resp normal respiratory effort, no retractions, no use of accessory muscles and clear to auscultation bilaterally Auscultation: Negative for rales, rhonchi or wheezes Cardio regular rate, regular rhythm, S1 normal heart sound, S2 normal heart sound, no murmurs, no rub and no gallops GI normal to inspection, nondistended, normoactive bowel sounds, soft to palpation, non-tender and non-distended GI Narrative: Colostomy is in place Skin Skin Narrative: Patient's ischial area was not examined during my physical examination today Neuro oriented x3 and CN's II-XII intact bilaterally Neuro Narrative: Patient is paraplegic Sensorium / Orientation: awake and alert Speech: speech normal Psych affect normal Assessment & Plan Assessment/Plan (1) Decubitus ulcer of left ischium, stage 4: PLAN: Plan 1. Stage IV left ischial pressure injury-again plastic surgery is participating in his care, patient has a wound VAC on the area, patient is currently on Zosyn, patient underwent excision of left ischial pressure sore with flap closure #2 paraplegia-complicates care, management, recovery, and prognosis #3 acute on chronic anemia-suspect iron deficiency anemia with a backdrop of acute blood loss anemia-patient's hemoglobin today was 9.4 Total clinical time spent by myself addressing the patient's medical issues, reviewing all of his data, and collaborating with patient's care team: 25 minutes Charges/Coding Visit Charges Inpatient E&M: [id number] [facility] Hosp L1
--- NOTE | 2024-06-08 17:34 | NURSING ---
This RN stripped MONTSERRAT drain today 06/08/24, once at 1130 this morning, and then again at 1600.
[2024-06-08 22:00] VITALS: BP 96/50; PULSE 83; RESP 15; TEMP 37.2; O2SAT 97
[2024-06-09 03:26] VITALS: BP 99/45; PULSE 75; RESP 15; TEMP 36.9; O2SAT 98
[2024-06-09 03:28] VITALS: O2SAT 98
[2024-06-09] MEDS: Piperacil/Tazobactam 3.375 GM in 0.9% Normal Saline (50mL MB+) 50 ML IV ×3 (06:04→22:04)
[2024-06-09] MEDS: Enoxaparin 40 MG/0.4 ML Syringe SC (09:57)
[2024-06-09] MEDS: Pantoprazole Sodium 40 MG Tablet PO (09:58)
[2024-06-09 10:00] VITALS: BP 105/54; PULSE 68; PULSE 74; RESP 16; TEMP 37.1; O2SAT 98; O2SAT 99
--- NOTE | 2024-06-09 10:22 | PN.SURG_ITS ---
Subjective Subjective Doing well today. Pain controlled overall with current regimen. Feels well. Has been compliant with pressure offloading of the left side. Objective Data Objective Data Vital Signs: Vital Signs Temp Pulse Resp BP Pulse Ox O2 Del Method 98.5 F 75 15 99/45 L 98 Room Air 06/09/24 03:26 06/09/24 03:26 06/09/24 03:26 06/09/24 03:26 06/09/24 03:28 06/09/24 03:28 Oxygen Delivery Method Room Air Weight: 140 lb 0.002 oz Body Mass Index (BMI) 16.5 Intake & Output: Intake and Output for Last 24 Hours 06/07/24 06/08/24 06/09/24 23:59 23:59 23:59 Intake Total 1351.25 / 1351.25 1010 / 1010 50 / 50 Output Total 1075 / 1075 1448 / 1448 155 / 155 Balance 276.25 / 276.25 -438 / -438 -105 / -105 Lab / Micro Data 06/08/24 10:15 06/08/24 10:15 Labs: Laboratory Results - last 24 hr 06/08/24 10:15: WBC 8.4, RBC 4.49 L, Hgb 9.4 L, Hct 31.1 L, MCV 69.3 L, MCH 20.9 L, MCHC 30.2 L, RDW Std Deviation 56.7 H, RDW Coeff of Zakia 24.1 H, Plt Count 510 H, MPV 8.8, Differential Comment COMMENT, Sodium 139, Potassium 3.3, Chloride 102, Carbon Dioxide 25.1, Anion Gap 12, BUN 5, Creatinine 0.74, Estim Creat Clear Calc 132.30, Est GFR (MDRD) Non-Af 126, BUN/Creatinine Ratio 6.2 L, G lucose 112 H, Calcium 8.6 Micro: Microbiology 06/07/24 12:15 Bone - Ischial Bone Gram Stain - Final 06/07/24 12:15 Bone - Ischial Bone Wound Culture - Preliminary No growth-Final to follow 06/07/24 12:15 Bone - Ischial Bone Anaerobic Culture - Preliminary No growth in 48 hours. 06/07/24 12:15 Tissue - Ischial Pressure Sore Gram Stain - Final 06/07/24 12:15 Tissue - Ischial Pressure Sore Wound Culture - Preliminary No growth-Final to follow 06/07/24 12:15 Tissue - Ischial Pressure Sore Anaerobic Culture - Preliminary No growth in 48 hours. 06/03/24 19:00 Blood Culture (Wb) - Anticubital Right Blood Culture - Final No growth in 5 days. 06/03/24 19:07 Blood Culture (Wb) - Anticubital Left Blood Culture - Final No growth in 5 days. 06/02/24 Unknown Bone - Ischial Bone Gram Stain - Final 06/02/24 Unknown Bone - Ischial Bone Wound Culture - Final Pseudomonas aeruginosa Corynebacterium striatum 06/02/24 Unknown Bone - Ischial Bone Anaerobic Culture - Final No growth in 5 days. 06/02/24 Unknown Ulcer, Decubitus - Ischium Gram Stain - Final 06/02/24 Unknown Ulcer, Decubitus - Ischium Wound Culture - Final Proteus mirabilis 06/02/24 Unknown Ulcer, Decubitus - Ischium Anaerobic Culture - Final No anaerobic bacteria isolated. Physical Exam Narrative Ischial pressure sore reconstruction with VAC holding suction over the incision. Adequately pressure offloaded (laying on the right side and on sand bed) Drain SS. Strips well. No clot. Const alert, oriented x3 and no apparent distress Resp normal respiratory effort Cardio regular rate and regular rhythm GI GI Narrative: Ostomy in place, no gas in the bag Extremity Extremity Narrative: No swelling on the calves Assessment & Plan Assessment/Plan (1) Decubitus ulcer of left ischium, stage 4: PLAN: S/p excision and skin flap closure on 07 June 2024: Doing well overall PLAN: Plan PLAN: Neuro: tylenol, ibuprophen, roxicodone for pain as needed Cardiovascular: q4 hour VS. Pulm: IS for pulmonary toilet/pneumonia prevention ID: F/u wound cultures, infectious disease consulted. Pseudomonas and Corynebacterium growing from bone. Continue IV Zosyn per infectious disease recommendation FEN: High protein diet. Daily BMPs while on antibiotics. Hem: 40 mg Lovenox daily for pxx. Stable no signs of bleeding. GI: Continue ostomy changes as needed with nursing : Void as normal Endocrine: No concerns at this time Integumentary: Plan for VAC over incision for 1 week. Consults: F/u medicine recommendations. Appreciate assistance. Charges/Coding Procedures Integumentary 111xxx-[id number]: [id number] Global Visit
[2024-06-09 14:28] VITALS: BP 111/55; PULSE 70; RESP 16; TEMP 36.7; O2SAT 95
[2024-06-09 16:00] VITALS: PULSE 80
--- NOTE | 2024-06-09 19:42 | PN.HOSP_ITS ---
Reason for Visit Reason for Visit: Diagnoses Paraplegia, unspecified (06/02/24) Pressure ulcer of left buttock, stage 4 (06/02/24) Colostomy status (06/02/24) Subjective Subjective Patient was seen and examined today, I talked with plastic surgery about his care, they stated that the patient would be here till next week, wound VAC would be removed midweek next week and if the wound looked good he would be transferred to a nursing at that time. I discussed this with the patient. Objective Data Objective Data Vital Signs: Vital Signs Temp Pulse Resp BP Pulse Ox O2 Del Method 98.1 F 80 16 111/55 L 95 Room Air 06/09/24 14:28 06/09/24 16:00 06/09/24 14:28 06/09/24 14:28 06/09/24 14:28 06/09/24 14:28 Oxygen Delivery Method Room Air Weight: 63.503 kg Body Mass Index (BMI) 16.5 Intake & Output: Intake and Output for Last 24 Hours 06/07/24 06/08/24 06/09/24 23:59 23:59 23:59 Intake Total 1351.25 / 1351.25 1010 / 1010 603 / 603 Output Total 1075 / 1075 1448 / 1448 155 / 155 Balance 276.25 / 276.25 -438 / -438 448 / 448 Lab / Micro Data 06/08/24 10:15 06/08/24 10:15 Micro: Microbiology 06/07/24 12:15 Bone - Ischial Bone Gram Stain - Final 06/07/24 12:15 Bone - Ischial Bone Wound Culture - Preliminary No growth-Final to follow 06/07/24 12:15 Bone - Ischial Bone Anaerobic Culture - Preliminary No growth in 48 hours. 06/07/24 12:15 Tissue - Ischial Pressure Sore Gram Stain - Final 06/07/24 12:15 Tissue - Ischial Pressure Sore Wound Culture - Preliminary No growth-Final to follow 06/07/24 12:15 Tissue - Ischial Pressure Sore Anaerobic Culture - Preliminary No growth in 48 hours. 06/03/24 19:00 Blood Culture (Wb) - Anticubital Right Blood Culture - Final No growth in 5 days. 06/03/24 19:07 Blood Culture (Wb) - Anticubital Left Blood Culture - Final No growth in 5 days. 06/02/24 Unknown Bone - Ischial Bone Gram Stain - Final 06/02/24 Unknown Bone - Ischial Bone Wound Culture - Final Pseudomonas aeruginosa Corynebacterium striatum 06/02/24 Unknown Bone - Ischial Bone Anaerobic Culture - Final No growth in 5 days. 06/02/24 Unknown Ulcer, Decubitus - Ischium Gram Stain - Final 06/02/24 Unknown Ulcer, Decubitus - Ischium Wound Culture - Final Proteus mirabilis 06/02/24 Unknown Ulcer, Decubitus - Ischium Anaerobic Culture - Final No anaerobic bacteria isolated. Physical Exam Const Constitutional Narrative: alert, oriented x3 and no apparent distress General Appearance: cooperative, well kempt and well developed Orientation / Consciousness: awake, oriented to person, oriented to place and oriented to time HEENT normocephalic, head/scalp atraumatic and moist oral mucous membranes Eyes PERRL, EOMs intact bilaterally and conjunctivae normal Neck supple, no JVD, thyroid normal and no carotid bruits General: trachea midline Resp normal respiratory effort, no retractions, no use of accessory muscles and clear to auscultation bilaterally Auscultation: Negative for rales, rhonchi or wheezes Cardio regular rate, regular rhythm, S1 normal heart sound, S2 normal heart sound, no murmurs, no rub and no gallops GI normal to inspection, nondistended, normoactive bowel sounds, soft to palpation, non-tender and non-distended GI Narrative: Colostomy is in place Skin Skin Narrative: Patient's ischial area was not examined during my physical examination today Neuro oriented x3 and CN's II-XII intact bilaterally Neuro Narrative: Patient is paraplegic Sensorium / Orientation: awake and alert Speech: speech normal Psych affect normal Assessment & Plan Assessment/Plan (1) Decubitus ulcer of left ischium, stage 4: PLAN: Plan 1. Stage IV left ischial pressure injury-again plastic surgery is participating in his care, patient has a wound VAC on the area, patient is currently on Zosyn, patient underwent excision of left ischial pressure sore with flap closure #2 paraplegia-complicates care, management, recovery, and prognosis #3 acute on chronic anemia-suspect iron deficiency anemia with a backdrop of acute blood loss anemia-patient CBC will be repeated tomorrow Total clinical time spent by myself addressing the patient's medical issues, reviewing all of his data, and collaborating with patient's care team: 25 minutes Charges/Coding Visit Charges Inpatient E&M: [id number] [facility] [place] Hosp L1
[2024-06-09 21:52] VITALS: BP 109/65; PULSE 87; RESP 15; TEMP 36.7; O2SAT 98
[2024-06-09] MEDS: Gabapentin 300 MG Capsule PO (22:04)
[2024-06-09] MEDS: traMADol 50 MG Tablet PO (22:04)
[2024-06-10 02:23] VITALS: BP 104/59; PULSE 81; RESP 15; TEMP 36.6; O2SAT 99
[2024-06-10 04:00] VITALS: RESP 15
[2024-06-10] MEDS: Piperacil/Tazobactam 3.375 GM in 0.9% Normal Saline (50mL MB+) 50 ML IV ×3 (05:59→22:03)
[2024-06-10 06:26] LABS: Absolute Lymphocyte Count 2.38 X10^3/uL (0.83-4.51); Absolute Neutrophil Count 2.9 X10^3/uL (2.0-7.7); Basophil# 0.02 X10^3/uL; Basophil% 0.3 % (0-1); Eosinophil# 1.18 X10^3/uL; Eosinophils% 16.8 % (0-5); Hematocrit 31.5 % (40-54); Hemoglobin 9.4 g/dL (13.0-16.5); Lymphocyte # 2.38 X10^3/ul (0.83-4.51); Lymphocyte % 33.8 % (19-41); Mean Corp Hgb Conc 29.8 g/dL (32-36); Mean Corpuscular Hgb 20.6 pg (27.0-32.0); Mean Corpuscular Volume 69.1 fL (80-94); Mean Platelet Vol. 8.9 fl (6.2-12.0); Monocyte# 0.56 X10^3/uL; NRBC Flagged by Analyzer 0 % (0-5); Neutrophil # 2.89 X10^3/uL (2.7-7.7); POSITIVE MORPHOLOGY YES; Platelet Count 531 K/mm3 (150-450); RBC Distribution Width CV 23.9 % (11.6-14.6); RBC Distribution Width SD 56.9 fl (35.1-43.9); Red Blood Count 4.56 M/mm3 (4.6-6.2)
[2024-06-10 06:40] LABS: Differential Indicated SCAN CRITERIA MET
[2024-06-10 07:23] LABS: Anisocytosis 2+
[2024-06-10] MEDS: Pantoprazole Sodium 40 MG Tablet PO (09:31)
[2024-06-10] MEDS: 0.9% Saline Lock 10 ML Syringe IV ×3 (09:33→22:03)
--- NOTE | 2024-06-10 09:36 | PCM.PN.SRG ---
Subjective Subjective No fevers/chills Pain controlled Objective Data Objective Data Vital Signs: Vital Signs Temp Pulse Resp BP Pulse Ox O2 Del Method 97.8 F 81 15 104/59 L 99 Room Air 06/10/24 02:23 06/10/24 02:23 06/10/24 04:00 06/10/24 02:23 06/10/24 02:23 06/10/24 04:00 Oxygen Delivery Method Room Air Weight: 140 lb 0.002 oz Body Mass Index (BMI) 16.5 Intake & Output: Intake and Output for Last 24 Hours 06/08/24 06/09/24 06/10/24 23:59 23:59 23:59 Intake Total 1010 / 1010 823 / 823 50 / 50 Output Total 1448 / 1448 345 / 345 110 / 110 Balance -438 / -438 478 / 478 -60 / -60 Lab / Micro Data 06/10/24 05:52 06/08/24 10:15 Labs: Laboratory Results - last 24 hr 06/10/24 05:52: WBC 7.0, RBC 4.56 L, Hgb 9.4 L, Hct 31.5 L, MCV 69.1 L, MCH 20.6 L, MCHC 29.8 L, RDW Std Deviation 56.9 H, RDW Coeff of [place] 23.9 H, Plt Count 531 H, MPV 8.9, Immature Gran % (Auto) 0.100, Neut % (Auto) 41.0 L, Lymph % (Auto) 33.8, [place] % (Auto) 8.0, Eos % (Auto) 16.8 H, Baso % (Auto) 0.3, Absolute Neuts (auto) 2.9, Absolute Lymphs (auto) 2.38, Nucleated RBC % 0, Anisocytosis 2+ Micro: Microbiology 06/07/24 12:15 Bone - Ischial Bone Gram Stain - Final 06/07/24 12:15 Bone - Ischial Bone Wound Culture - Preliminary No growth-Final to follow 06/07/24 12:15 Bone - Ischial Bone Anaerobic Culture - Preliminary No growth in 48 hours. 06/07/24 12:15 Tissue - Ischial Pressure Sore Gram Stain - Final 06/07/24 12:15 Tissue - Ischial Pressure Sore Wound Culture - Preliminary No growth-Final to follow 06/07/24 12:15 Tissue - Ischial Pressure Sore Anaerobic Culture - Preliminary No growth in 48 hours. 06/03/24 19:00 Blood Culture (Wb) - Anticubital Right Blood Culture - Final No growth in 5 days. 06/03/24 19:07 Blood Culture (Wb) - Anticubital Left Blood Culture - Final No growth in 5 days. 06/02/24 Unknown Bone - Ischial Bone Gram Stain - Final 06/02/24 Unknown Bone - Ischial Bone Wound Culture - Final Pseudomonas aeruginosa Corynebacterium striatum 06/02/24 Unknown Bone - Ischial Bone Anaerobic Culture - Final No growth in 5 days. 06/02/24 Unknown Ulcer, Decubitus - Ischium Gram Stain - Final 06/02/24 Unknown Ulcer, Decubitus - Ischium Wound Culture - Final Proteus mirabilis 06/02/24 Unknown Ulcer, Decubitus - Ischium Anaerobic Culture - Final No anaerobic bacteria isolated. Physical Exam Narrative Ischial pressure sore reconstruction with VAC holding suction over the incision. Adequately pressure offloaded (laying on the right side and on sand bed) Drain SS. Strips well. No clot. Const alert, oriented x3 and no apparent distress Resp normal respiratory effort Cardio regular rate and regular rhythm GI GI Narrative: Ostomy in place, stool in the bag Extremity Extremity Narrative: No swelling on the calves Assessment & Plan Assessment/Plan (1) Decubitus ulcer of left ischium, stage 4: PLAN: S/p excision and skin flap closure on 07 June 2024: Doing well overall PLAN: Plan PLAN: Neuro: tylenol, ibuprophen, roxicodone for pain as needed Cardiovascular: q4 hour VS. Pulm: IS for pulmonary toilet/pneumonia prevention ID: F/u wound cultures, infectious disease consulted. Pseudomonas and Corynebacterium growing from bone. Continue IV Zosyn per infectious disease recommendation FEN: High protein diet. Daily BMPs while on antibiotics. Hem: 40 mg Lovenox daily for pxx. Stable no signs of bleeding. GI: Continue ostomy changes as needed with nursing : Void as normal Endocrine: No concerns at this time Integumentary: Plan for VAC over incision for 1 week. Consults: F/u medicine recommendations. Appreciate assistance. Charges/Coding Procedures Integumentary [id number]: [id number] Global Visit
[2024-06-10 09:40] VITALS: BP 96/58; PULSE 85; RESP 15; TEMP 36.7; O2SAT 98
--- NOTE | 2024-06-10 11:41 | PN.HOSP_ITS ---
Reason for Visit Reason for Visit: Diagnoses Paraplegia, unspecified (06/02/24) Pressure ulcer of left buttock, stage 4 (06/02/24) Colostomy status (06/02/24) Subjective Subjective Patient was seen and examined today, he has no specific complaints at this time. Objective Data Objective Data Vital Signs: Vital Signs Temp Pulse Resp BP Pulse Ox O2 Del Method 98.1 F 85 15 96/58 L 98 Room Air 06/10/24 09:40 06/10/24 09:40 06/10/24 09:40 06/10/24 09:40 06/10/24 09:40 06/10/24 09:40 Oxygen Delivery Method Room Air Weight: 63.503 kg Body Mass Index (BMI) 16.5 Intake & Output: Intake and Output for Last 24 Hours 06/08/24 06/09/24 06/10/24 23:59 23:59 23:59 Intake Total 1010 / 1010 823 / 823 50 / 50 Output Total 1448 / 1448 345 / 345 110 / 110 Balance -438 / -438 478 / 478 -60 / -60 Lab / Micro Data 06/10/24 05:52 06/08/24 10:15 Labs: Laboratory Results - last 24 hr 06/10/24 05:52: WBC 7.0, RBC 4.56 L, Hgb 9.4 L, Hct 31.5 L, MCV 69.1 L, MCH 20.6 L, MCHC 29.8 L, RDW Std Deviation 56.9 H, RDW Coeff of [place] 23.9 H, Plt Count 531 H, MPV 8.9, Immature Gran % (Auto) 0.100, Neut % (Auto) 41.0 L, Lymph % (Auto) 33.8, [place] % (Auto) 8.0, Eos % (Auto) 16.8 H, Baso % (Auto) 0.3, Absolute Neuts (auto) 2.9, Absolute Lymphs (auto) 2.38, Nucleated RBC % 0, Anisocytosis 2+ Micro: Microbiology 06/07/24 12:15 Bone - Ischial Bone Gram Stain - Final 06/07/24 12:15 Bone - Ischial Bone Wound Culture - Preliminary No growth-Final to follow 06/07/24 12:15 Bone - Ischial Bone Anaerobic Culture - Preliminary No growth in 48 hours. 06/07/24 12:15 Tissue - Ischial Pressure Sore Gram Stain - Final 06/07/24 12:15 Tissue - Ischial Pressure Sore Wound Culture - Preliminary No growth-Final to follow 06/07/24 12:15 Tissue - Ischial Pressure Sore Anaerobic Culture - Preliminary No growth in 48 hours. 06/03/24 19:00 Blood Culture (Wb) - Anticubital Right Blood Culture - Final No growth in 5 days. 06/03/24 19:07 Blood Culture (Wb) - Anticubital Left Blood Culture - Final No growth in 5 days. 06/02/24 Unknown Bone - Ischial Bone Gram Stain - Final 06/02/24 Unknown Bone - Ischial Bone Wound Culture - Final Pseudomonas aeruginosa Corynebacterium striatum 06/02/24 Unknown Bone - Ischial Bone Anaerobic Culture - Final No growth in 5 days. 06/02/24 Unknown Ulcer, Decubitus - Ischium Gram Stain - Final 06/02/24 Unknown Ulcer, Decubitus - Ischium Wound Culture - Final Proteus mirabilis 06/02/24 Unknown Ulcer, Decubitus - Ischium Anaerobic Culture - Final No anaerobic bacteria isolated. Physical Exam Narrative Constitutional Narrative: alert, oriented x3 and no apparent distress General Appearance: cooperative, well kempt and well developed Orientation / Consciousness: awake, oriented to person, oriented to place and oriented to time HEENT normocephalic, head/scalp atraumatic and moist oral mucous membranes Eyes PERRL, EOMs intact bilaterally and conjunctivae normal Neck supple, no JVD, thyroid normal and no carotid bruits General: trachea midline Resp normal respiratory effort, no retractions, no use of accessory muscles and clear to auscultation bilaterally Auscultation: Negative for rales, rhonchi or wheezes Cardio regular rate, regular rhythm, S1 normal heart sound, S2 normal heart sound, no murmurs, no rub and no gallops GI normal to inspection, nondistended, normoactive bowel sounds, soft to palpation, non-tender and non-distended GI Narrative: Colostomy is in place Skin Skin Narrative: Patient's ischial area was not examined during my physical examination today Neuro oriented x3 and CN's II-XII intact bilaterally Neuro Narrative: Patient is paraplegic Sensorium / Orientation: awake and alert Speech: speech normal Psych affect normal Assessment & Plan Assessment/Plan (1) Decubitus ulcer of left ischium, stage 4: PLAN: Plan 1. Stage IV left ischial pressure injury-again plastic surgery is participating in his care, patient has a wound VAC on the area, patient is currently on Zosyn, patient underwent excision of left ischial pressure sore with flap closure #2 paraplegia-complicates care, management, recovery, and prognosis #3 acute on chronic anemia-suspect iron deficiency anemia with a backdrop of acute blood loss anemia-patient's hemoglobin on 06/10/2024 was 9.4 which is stable Total clinical time spent by myself addressing the patient's medical issues, reviewing all of his data, and collaborating with patient's care team: 25 minutes Charges/Coding Visit Charges Inpatient E&M: 58835 [facility] Hosp L1
[2024-06-10 14:00] VITALS: BP 106/65; PULSE 75; RESP 14; TEMP 36.6; O2SAT 96
[2024-06-10 20:07] VITALS: BP 103/65; PULSE 82; RESP 16; TEMP 36.6; O2SAT 100
[2024-06-10] MEDS: Gabapentin 300 MG Capsule PO (22:03)
[2024-06-10] MEDS: traMADol 50 MG Tablet PO (22:03)
[2024-06-10] MEDS: Mirtazapine 30 MG Tablet PO (22:03)
[2024-06-11 02:15] VITALS: BP 93/53; PULSE 67; RESP 16; TEMP 36.5; O2SAT 96
[2024-06-11] MEDS: Piperacil/Tazobactam 3.375 GM in 0.9% Normal Saline (50mL MB+) 50 ML IV ×3 (05:34→21:10)
[2024-06-11 08:00] VITALS: BP 101/66; PULSE 63; RESP 16; TEMP 36.3; O2SAT 97
--- NOTE | 2024-06-11 08:05 | PCM.PN.SRG ---
Subjective Subjective No fevers/chills Pain controlled Reports that he's voiding and moving bowels. Objective Data Objective Data Vital Signs: Vital Signs Temp Pulse Resp BP Pulse Ox O2 Del Method 97.7 F L 67 16 93/53 L 96 Room Air 06/11/24 02:15 06/11/24 02:15 06/11/24 02:15 06/11/24 02:15 06/11/24 02:15 06/11/24 02:15 Oxygen Delivery Method Room Air Weight: 140 lb 0.002 oz Body Mass Index (BMI) 16.5 Intake & Output: Intake and Output for Last 24 Hours 06/09/24 06/10/24 06/11/24 23:59 23:59 23:59 Intake Total 823 / 823 450 / 450 350 / 350 Output Total 345 / 345 562 / 562 230 / 230 Balance 478 / 478 -112 / -112 120 / 120 Lab / Micro Data 06/10/24 05:52 06/08/24 10:15 Micro: Microbiology 06/07/24 12:15 Tissue - Ischial Pressure Sore Gram Stain - Final 06/07/24 12:15 Tissue - Ischial Pressure Sore Wound Culture - Final No growth aerobically. 06/07/24 12:15 Tissue - Ischial Pressure Sore Anaerobic Culture - Preliminary No growth in 48 hours. 06/07/24 12:15 Bone - Ischial Bone Gram Stain - Final 06/07/24 12:15 Bone - Ischial Bone Wound Culture - Final No growth aerobically. 06/07/24 12:15 Bone - Ischial Bone Anaerobic Culture - Preliminary No growth in 48 hours. 06/03/24 19:00 Blood Culture (Wb) - Anticubital Right Blood Culture - Final No growth in 5 days. 06/03/24 19:07 Blood Culture (Wb) - Anticubital Left Blood Culture - Final No growth in 5 days. 06/02/24 Unknown Bone - Ischial Bone Gram Stain - Final 06/02/24 Unknown Bone - Ischial Bone Wound Culture - Final Pseudomonas aeruginosa Corynebacterium striatum 06/02/24 Unknown Bone - Ischial Bone Anaerobic Culture - Final No growth in 5 days. 06/02/24 Unknown Ulcer, Decubitus - Ischium Gram Stain - Final 06/02/24 Unknown Ulcer, Decubitus - Ischium Wound Culture - Final Proteus mirabilis 06/02/24 Unknown Ulcer, Decubitus - Ischium Anaerobic Culture - Final No anaerobic bacteria isolated. Physical Exam Narrative Ischial pressure sore reconstruction with VAC holding suction over the incision. Adequately pressure offloaded (laying on the right side and on sand bed) Drain SS. Strips well. No clot. Const alert, oriented x3 and no apparent distress Resp normal respiratory effort Cardio regular rate and regular rhythm GI GI Narrative: Ostomy in place, stool in the bag Extremity Extremity Narrative: No swelling on the calves Assessment & Plan Assessment/Plan (1) Decubitus ulcer of left ischium, stage 4: PLAN: S/p excision and skin flap closure on 07 June 2024: Doing well overall PLAN: Plan PLAN: Neuro: tylenol, ibuprophen, roxicodone for pain as needed Cardiovascular: q4 hour VS. Pulm: IS for pulmonary toilet/pneumonia prevention ID: F/u wound cultures, infectious disease consulted. Pseudomonas and Corynebacterium growing from bone. Continue IV Zosyn per infectious disease recommendation FEN: High protein diet. BMP tomorrow Hem: 40 mg Lovenox daily for pxx. Stable no signs of bleeding. GI: Continue ostomy changes as needed with nursing : Void as normal Endocrine: No concerns at this time Integumentary: Plan for VAC over incision for 1 week. Consults: F/u medicine recommendations. Appreciate assistance.
[2024-06-11] MEDS: Pantoprazole Sodium 40 MG Tablet PO (09:01)
--- NOTE | 2024-06-11 14:53 | PCM.PN.HOSP ---
Reason for Visit Reason for Visit: Diagnoses Paraplegia, unspecified (06/02/24) Pressure ulcer of left buttock, stage 4 (06/02/24) Colostomy status (06/02/24) Subjective Subjective Patient was seen and examined today, he has been refusing Lovenox injections, he knows that it is for DVT prophylaxis. Objective Data Objective Data Vital Signs: Vital Signs Temp Pulse Resp BP Pulse Ox O2 Del Method 97.3 F L 63 16 101/66 97 Room Air 06/11/24 08:00 06/11/24 08:00 06/11/24 08:00 06/11/24 08:00 06/11/24 08:00 06/11/24 08:00 Oxygen Delivery Method Room Air Weight: 63.503 kg Body Mass Index (BMI) 16.5 Intake & Output: Intake and Output for Last 24 Hours 06/09/24 06/10/24 06/11/24 23:59 23:59 23:59 Intake Total 823 / 823 450 / 450 400 / 400 Output Total 345 / 345 562 / 562 230 / 230 Balance 478 / 478 -112 / -112 170 / 170 Lab / Micro Data 06/10/24 05:52 06/08/24 10:15 Micro: Microbiology 06/07/24 12:15 Tissue - Ischial Pressure Sore Gram Stain - Final 06/07/24 12:15 Tissue - Ischial Pressure Sore Wound Culture - Final No growth aerobically. 06/07/24 12:15 Tissue - Ischial Pressure Sore Anaerobic Culture - Preliminary No growth in 48 hours. 06/07/24 12:15 Bone - Ischial Bone Gram Stain - Final 06/07/24 12:15 Bone - Ischial Bone Wound Culture - Final No growth aerobically. 06/07/24 12:15 Bone - Ischial Bone Anaerobic Culture - Preliminary No growth in 48 hours. 06/03/24 19:00 Blood Culture (Wb) - Anticubital Right Blood Culture - Final No growth in 5 days. 06/03/24 19:07 Blood Culture (Wb) - Anticubital Left Blood Culture - Final No growth in 5 days. 06/02/24 Unknown Bone - Ischial Bone Gram Stain - Final 06/02/24 Unknown Bone - Ischial Bone Wound Culture - Final Pseudomonas aeruginosa Corynebacterium striatum 06/02/24 Unknown Bone - Ischial Bone Anaerobic Culture - Final No growth in 5 days. 06/02/24 Unknown Ulcer, Decubitus - Ischium Gram Stain - Final 06/02/24 Unknown Ulcer, Decubitus - Ischium Wound Culture - Final Proteus mirabilis 06/02/24 Unknown Ulcer, Decubitus - Ischium Anaerobic Culture - Final No anaerobic bacteria isolated. Physical Exam Narrative Constitutional Narrative: alert, oriented x3 and no apparent distress General Appearance: cooperative, well kempt and well developed Orientation / Consciousness: awake, oriented to person, oriented to place and oriented to time HEENT normocephalic, head/scalp atraumatic and moist oral mucous membranes Eyes PERRL, EOMs intact bilaterally and conjunctivae normal Neck supple, no JVD, thyroid normal and no carotid bruits General: trachea midline Resp normal respiratory effort, no retractions, no use of accessory muscles and clear to auscultation bilaterally Auscultation: Negative for rales, rhonchi or wheezes Cardio regular rate, regular rhythm, S1 normal heart sound, S2 normal heart sound, no murmurs, no rub and no gallops GI normal to inspection, nondistended, normoactive bowel sounds, soft to palpation, non-tender and non-distended GI Narrative: Colostomy is in place Skin Skin Narrative: Patient's ischial area was not examined during my physical examination today Neuro oriented x3 and CN's II-XII intact bilaterally Neuro Narrative: Patient is paraplegic Sensorium / Orientation: awake and alert Speech: speech normal Psych affect normal Assessment & Plan Assessment/Plan (1) Decubitus ulcer of left ischium, stage 4: PLAN: Plan 1. Stage IV left ischial pressure injury-again plastic surgery is participating in his care, patient has a wound VAC on the area, patient is currently on Zosyn, patient underwent excision of left ischial pressure sore with flap closure #2 paraplegia-complicates care, management, recovery, and prognosis #3 acute on chronic anemia-suspect iron deficiency anemia with a backdrop of acute blood loss anemia-patient's hemoglobin on 06/10/2024 was 9.4 which is stable Total clinical time spent by myself addressing the patient's medical issues, reviewing all of his data, and collaborating with patient's care team: 25 minutes Charges/Coding Visit Charges Inpatient E&M: 10286 Subs Hosp L1
[2024-06-11 15:00] VITALS: BP 106/65; PULSE 80; RESP 14; TEMP 37.1; O2SAT 98
[2024-06-11] MEDS: 0.9% Saline Lock 10 ML Syringe IV ×2 (18:14→21:10)
[2024-06-11 20:19] VITALS: BP 104/60; PULSE 82; RESP 16; TEMP 36.7; O2SAT 99
[2024-06-11] MEDS: traMADol 50 MG Tablet PO (21:09)
[2024-06-11] MEDS: Mirtazapine 30 MG Tablet PO (21:09)
[2024-06-11] MEDS: Gabapentin 300 MG Capsule PO (21:09)
[2024-06-12 03:10] VITALS: BP 94/54; PULSE 68; RESP 16; TEMP 36.6; O2SAT 99
[2024-06-12] MEDS: Piperacil/Tazobactam 3.375 GM in 0.9% Normal Saline (50mL MB+) 50 ML IV ×3 (05:32→21:34)
[2024-06-12 06:10] LABS: Acid Fast Stain SEE PATHOLOGY REPORT
[2024-06-12 07:51] LABS: Anion Gap 11 (5-15); BUN 15 mg/dL (4-19); BUN/Creat Ratio 18.1 RATIO (10-20); Calcium,Total 9.5 mg/dL (7.6-11.0); Carbon Dioxide 27.4 mmol/L (21.0-32.0); Chloride 104 mmol/L (98-108); Creatinine, Serum 0.82 mg/dL (0.70-1.20); EST Glomerular Filtration Rate 122 (>60); Estimated Creatinine Clearance 119.39 ml/min (50-250); Glucose 86 mg/dL (70-99); Potassium 4.3 mmol/L (3.3-5.1); Sodium Level 142 mmol/L (133-145)
[2024-06-12 08:21] VITALS: BP 102/63; PULSE 68; RESP 18; TEMP 36.3; O2SAT 100
--- NOTE | 2024-06-12 09:24 | NURSING ---
Monika lisa RN updated on conversation w/ Dr. Perez that he repositioned patient to left side, concern for sl redness possible pressure area to right side. states may go prone in a little while then back to the side. also states will order some nystatin for groin.
--- NOTE | 2024-06-12 09:33 | PCM.PN.SRG ---
Subjective Subjective Doing well overall. Discussed position changes and making sure not to get pressure sore on right side. Some redness in groin that was examined today. Consistent with fungal infection. Objective Data Objective Data Vital Signs: Vital Signs Temp Pulse Resp BP Pulse Ox O2 Del Method 97.4 F L 68 18 102/63 100 Room Air 06/12/24 08:21 06/12/24 08:21 06/12/24 08:21 06/12/24 08:21 06/12/24 08:21 06/12/24 08:23 Oxygen Delivery Method Room Air Weight: 140 lb 0.002 oz Body Mass Index (BMI) 16.5 Intake & Output: Intake and Output for Last 24 Hours 06/10/24 06/11/24 06/12/24 23:59 23:59 23:59 Intake Total 450 / 450 750 / 750 550 / 550 Output Total 562 / 562 790 / 790 582 / 582 Balance -112 / -112 -40 / -40 -32 / -32 Lab / Micro Data 06/10/24 05:52 06/12/24 06:15 Labs: Laboratory Results - last 24 hr 06/07/24 18:26: Miscellaneous Cytology Not Reportable 06/12/24 06:15: Sodium 142, Potassium 4.3, Chloride 104, Carbon Dioxide 27.4, Anion Gap 11, BUN 15, Creatinine 0.82, Estim Creat Clear Calc 119.39, Est GFR (MDRD) Non-Af 122, BUN/Creatinine Ratio 18.1, Glucose 86, Calcium 9.5 Micro: Microbiology 06/07/24 12:15 Tissue - Ischial Pressure Sore Gram Stain - Final 06/07/24 12:15 Tissue - Ischial Pressure Sore Wound Culture - Final No growth aerobically. 06/07/24 12:15 Tissue - Ischial Pressure Sore Anaerobic Culture - Preliminary No growth in 48 hours. 06/07/24 12:15 Bone - Ischial Bone Gram Stain - Final 06/07/24 12:15 Bone - Ischial Bone Wound Culture - Final No growth aerobically. 06/07/24 12:15 Bone - Ischial Bone Anaerobic Culture - Preliminary No growth in 48 hours. 06/03/24 19:00 Blood Culture (Wb) - Anticubital Right Blood Culture - Final No growth in 5 days. 06/03/24 19:07 Blood Culture (Wb) - Anticubital Left Blood Culture - Final No growth in 5 days. 06/02/24 Unknown Bone - Ischial Bone Gram Stain - Final 06/02/24 Unknown Bone - Ischial Bone Wound Culture - Final Pseudomonas aeruginosa Corynebacterium striatum 06/02/24 Unknown Bone - Ischial Bone Anaerobic Culture - Final No growth in 5 days. 06/02/24 Unknown Ulcer, Decubitus - Ischium Gram Stain - Final 06/02/24 Unknown Ulcer, Decubitus - Ischium Wound Culture - Final Proteus mirabilis 06/02/24 Unknown Ulcer, Decubitus - Ischium Anaerobic Culture - Final No anaerobic bacteria isolated. Physical Exam Narrative Ischial pressure sore reconstruction with VAC holding suction over the incision. Adequately pressure offloaded (laying in left lateral to pressure offload both the right side as well as the left gluteal region (completely on left side, no pressure on left ischium)) There is some redness with satellite red papules consistent with meredith infection of the groin. Drain SS. Strips well. No clot. Const alert, oriented x3 and no apparent distress Resp normal respiratory effort Cardio regular rate and regular rhythm GI GI Narrative: Ostomy in place, stool in the bag Extremity Extremity Narrative: No swelling on the calves Assessment & Plan Assessment/Plan (1) Decubitus ulcer of left ischium, stage 4: PLAN: S/p excision and skin flap closure on 07 June 2024: Doing well overall PLAN: Plan PLAN: Neuro: tylenol, ibuprophen, roxicodone for pain as needed Cardiovascular: q4 hour VS. Pulm: IS for pulmonary toilet/pneumonia prevention ID: F/u wound cultures, infectious disease consulted. Pseudomonas and Corynebacterium growing from bone. Continue IV Zosyn per infectious disease recommendation. Nystatin powder for groin twice daily, with daily washes. FEN: High protein diet. BMP every other day Hem: 40 mg Lovenox daily for pxx. Stable no signs of bleeding. GI: Continue ostomy changes as needed with nursing : Void as normal Endocrine: No concerns at this time Integumentary: Plan for VAC over incision for 1 week. VAC down tomorrow Q2 hour turns and pressure offloading of the left ischium Consults: F/u medicine recommendations. Appreciate assistance. Charges/Coding Procedures Integumentary [id number]-[id number]: [id number] Global Visit
[2024-06-12] MEDS: Nystatin Powder 15gm Bottle 1 APPLIC TOPICAL ×2 (11:04→21:35)
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
[2024-06-12 15:00] VITALS: BP 99/58; PULSE 78; RESP 16; TEMP 36.7; O2SAT 95
[2024-06-12 20:09] VITALS: BP 104/66; PULSE 80; RESP 15; TEMP 36.8; O2SAT 97
[2024-06-12 21:23] VITALS: O2SAT 97
[2024-06-12] MEDS: Gabapentin 300 MG Capsule PO (21:33)
[2024-06-12] MEDS: Mirtazapine 30 MG Tablet PO (21:33)
[2024-06-12] MEDS: traMADol 50 MG Tablet PO (21:33)
[2024-06-13 05:00] VITALS: BP 88/53; PULSE 70; RESP 15; TEMP 36.5; O2SAT 99
[2024-06-13] MEDS: Piperacil/Tazobactam 3.375 GM in 0.9% Normal Saline (50mL MB+) 50 ML IV ×2 (05:34→14:38)
[2024-06-13 07:07] LABS: Absolute Lymphocyte Count 2.63 X10^3/uL (0.83-4.51); Absolute Neutrophil Count 3.6 X10^3/uL (2.0-7.7); Basophil# 0.04 X10^3/uL; Basophil% 0.5 % (0-1); Eosinophil# 1.08 X10^3/uL; Eosinophils% 13.8 % (0-5); Hematocrit 35.1 % (40-54); Hemoglobin 10.3 g/dL (13.0-16.5); Lymphocyte # 2.63 X10^3/ul (0.83-4.51); Lymphocyte % 33.5 % (19-41); Mean Corp Hgb Conc 29.3 g/dL (32-36); Mean Corpuscular Hgb 20.7 pg (27.0-32.0); Mean Corpuscular Volume 70.5 fL (80-94); Mean Platelet Vol. 8.9 fl (6.2-12.0); Monocyte% 6.4 % (0-10); NRBC Flagged by Analyzer 0 % (0-5); Neutrophil # 3.57 X10^3/uL (2.7-7.7); Neutrophil % 45.5 % (47-70); POSITIVE MORPHOLOGY YES; Platelet Count 542 K/mm3 (150-450); RBC Distribution Width CV 24.1 % (11.6-14.6); RBC Distribution Width SD 58.1 fl (35.1-43.9); Red Blood Count 4.98 M/mm3 (4.6-6.2); White Blood Count 7.8 K/mm3 (4.4-11.0)
[2024-06-13 07:18] LABS: Differential Indicated SCAN CRITERIA MET
[2024-06-13 07:46] LABS: Anion Gap 12 (5-15); BUN 14 mg/dL (4-19); BUN/Creat Ratio 17.3 RATIO (10-20); Calcium,Total 9.4 mg/dL (7.6-11.0); Carbon Dioxide 25.9 mmol/L (21.0-32.0); Chloride 105 mmol/L (98-108); Creatinine, Serum 0.81 mg/dL (0.70-1.20); EST Glomerular Filtration Rate 122 (>60); Estimated Creatinine Clearance 120.86 ml/min (50-250); Glucose 84 mg/dL (70-99); Potassium 4.1 mmol/L (3.3-5.1); Sodium Level 143 mmol/L (133-145)
[2024-06-13 08:01] LABS: Anisocytosis 1+
[2024-06-13 09:52] VITALS: BP 96/53; PULSE 66; RESP 15; TEMP 36.6; O2SAT 96
[2024-06-13] MEDS: Nystatin Powder 15gm Bottle 1 APPLIC TOPICAL (09:56)
--- NOTE | 2024-06-13 09:57 | WOUNDNOTE ---
wound photo: left ischium
--- NOTE | 2024-06-13 10:00 | WOUNDNOTE ---
Colostomy appliance coming off. nursing had applied tape to keep appliance on. removed appliance at this time. moderate amount of soft brown stool noted in the appliance. stoma remains well budded and pink. peristomal skin is intact. cleansed skin with warm water. pat dry. applied a new 2 piece flat [place] appliance with a small amount of stoma paste. pt tolerated well.
--- NOTE | 2024-06-13 10:11 | DS.PCM_ITS ---
Providers Date of Admission: 06/02/24 Primary Care Physician: Dr. Lissy Schroeder MD Consultations 06/02/24 08:50 Consult: Infectious Disease Routine Consulting Provider: Bryon Lynch Reason for Consult: bone cultures EMERGENT Consult: No Notified: Yes Date Notified: 06/02/24 Time Notified: 08:51 Method of Notification: Verbal 06/03/24 16:10 Consult: Hospitalist Routine Consulting Provider: Darshana Callaway Reason for Consult: tachycardia medical management EMERGENT Consult: No Notified: Yes Date Notified: 06/03/24 Time Notified: 16:11 Method of Notification: Text 06/05/24 04:12 Consult: Onc/Wound/cylinder dyer Routine Comment: Reason for Consult:: Stage IV left ischial decubitus ulcer Diagnosis Discharge Diagnosis (1) Decubitus ulcer of left ischium, stage 4: Status: Chronic Code(s): L89.324 - Pressure ulcer of left buttock, stage 4 Plan: S/p excision and skin flap closure on 07 June 2024: Doing well overall Plan PLAN: Neuro: tylenol, ibuprophen, roxicodone for pain as needed Cardiovascular: q4 hour VS. Pulm: IS for pulmonary toilet/pneumonia prevention ID: F/u wound cultures, infectious disease consulted. Pseudomonas and Corynebacterium growing from bone. Continue IV Zosyn per infectious disease recommendation. Nystatin powder for groin twice daily, with daily washes. FEN: High protein diet. BMP every other day Hem: 40 mg Lovenox daily for pxx. Stable no signs of bleeding. GI: Continue ostomy changes as needed with nursing : Void as normal Endocrine: No concerns at this time Integumentary: Plan for VAC over incision for 1 week. VAC down tomorrow Q2 hour turns and pressure offloading of the left ischium Consults: F/u medicine recommendations. Appreciate assistance. Medications at Discharge Home Medications acetaminophen 325 mg tablet 650 mg PO Q4H PRN fever or pain 11/01/23 acetaminophen 650 mg rectal suppository 650 mg NH Q4H PRN fever or pain 11/01/23 guaifenesin 100 mg/5 mL oral liquid (Cough Syrup) 200 mg PO Q4H PRN congestion 11/01/23 magnesium hydroxide 400 mg/5 mL oral suspension (Mueller Milk of Magnesia) 30 ml PO DAILY PRN constipation 11/01/23 naproxen sodium 220 mg capsule (Aleve) 220 mg PO QHS pain 02/15/24 polyethylene glycol 3350 17 gram/dose oral powder (Miralax) 17 g PO DAILY 02/15/24 tramadol 50 mg tablet 50 mg PO QHS pain 02/15/24 aluminum-magnesium hydroxide 225 mg-200 mg/5 mL oral suspension 30 ml PO Q4H PRN constipation 03/02/24 mineral oil (Fleet Mineral Oil enema) 118 ml NH QDAY PRN constipation 03/02/24 mirtazapine 15 mg tablet (Remeron) 30 mg PO QHS appetite 03/02/24 triamcinolone acetonide 0.1 % topical cream 1 applic topical BID 03/02/24 gabapentin 300 mg capsule 300 mg PO QHS nerve pain 03/14/24 piperacillin-tazobactam 3.375 gram/50 mL dextrose(iso-os) IV piggyback (Zosyn) 3.375 g (56.25 mL) IV Q8H 37 days 06/07/24 Hospital Course Operations - (Debridement followed by reconstruction with local skin flaps) Summary of Care Provided Minutes Spent on Discharge: 10 Hospital Course: Mirza Saunders is a 28-year-old male with paraplegia and history of left ischial wound. He was admitted on Wednesday, 02 June 2024, for debridement of the left ischial wound. Irrigating wound VAC was placed and cultures were taken. Cultures grew corynebacterium and Pseudomonas from the left ischial bone. A PICC line was placed and infectious disease placed him on Zosyn. These are the recommendations: OR 06/02/[address] Perez for I&D. Bone cx with pseudomonas and corynebacter. Will treat for osteo. Cont zosyn. Plan is 6 week course, stop date 07/15/24 with weekly labs, ID followup in 2-3 weeks. The weekend after the initial surgery he was tachycardic to the 120s without a clear etiology (normal sinus rhythm EKG and normal hemoglobin at that point). This self resolved. On postop day 3 he was noted to have acute blood loss anemia to 6.7 hemoglobin and was transfused 2 units. He subsequently stayed around a hemoglobin of 9. Later that week on 07 June 2024, the wound was further debrided and closed with local fasciocutaneous flaps. A drain was placed. Incisional VAC was placed over the incision and removed on 13 June 2024. The incision was intact. Postoperative plan is to continue pressure offloading for another 2 weeks and then begin a sitting protocol. Follow-up in the wound care center on Wednesday, 19 Jun 2024. Physical Exam Narrative Suture line clean dry and intact on the left ischium No dehiscence. Drain SS No induration or signs of fluid collection Const alert and oriented x3 General Appearance: cooperative HEENT normocephalic Chest inspection of chest normal Resp normal respiratory effort Cardio regular rate and regular rhythm GI GI Narrative: Stool in the ostomy Weight / BMI Weight Weight: 140 lb 0.002 oz Body Mass Index (BMI) 16.5 ABG / Lab / Microbiology Data 06/13/24 06:44 06/13/24 06:44 Laboratory: Laboratory Results - last 24 hr 06/13/24 06:44: WBC 7.8, RBC 4.98, Hgb 10.3 L, Hct 35.1 L, MCV 70.5 L, MCH 20.7 L, MCHC 29.3 L, RDW Std Deviation 58.1 H, RDW Coeff of Zakia 24.1 H, Plt Count 542 H, MPV 8.9, Immature Gran % (Auto) 0.300, Neut % (Auto) 45.5 L, Lymph % (Auto) 33.5, [place] % (Auto) 6.4, Eos % (Auto) 13.8 H, Baso % (Auto) 0.5, Absolute Neuts (auto) 3.6, Absolute Lymphs (auto) 2.63, Nucleated RBC % 0, Anisocytosis 1+, Sodium 143, Potassium 4.1, Chloride 105, Carbon Dioxide 25.9, Anion Gap 12, BUN 14, Creatinine 0.81, Estim Creat Clear Calc 120.86, Est GFR (MDRD) Non-Af 122, BUN/Creatinine Ratio 17.3, Glucose 84, Calcium 9.4 Microbiology: Microbiology 06/07/24 12:15 Bone - Ischial Bone Gram Stain - Final 06/07/24 12:15 Bone - Ischial Bone Wound Culture - Final No growth aerobically. 06/07/24 12:15 Bone - Ischial Bone Anaerobic Culture - Final No anaerobic bacteria isolated. 06/07/24 12:15 Tissue - Ischial Pressure Sore Gram Stain - Final 06/07/24 12:15 Tissue - Ischial Pressure Sore Wound Culture - Final No growth aerobically. 06/07/24 12:15 Tissue - Ischial Pressure Sore Anaerobic Culture - Final No anaerobic bacteria isolated. 06/03/24 19:00 Blood Culture (Wb) - Anticubital Right Blood Culture - Final No growth in 5 days. 06/03/24 19:07 Blood Culture (Wb) - Anticubital Left Blood Culture - Final No growth in 5 days. 06/02/24 Unknown Bone - Ischial Bone Gram Stain - Final 06/02/24 Unknown Bone - Ischial Bone Wound Culture - Final Pseudomonas aeruginosa Corynebacterium striatum 06/02/24 Unknown Bone - Ischial Bone Anaerobic Culture - Final No growth in 5 days. 06/02/24 Unknown Ulcer, Decubitus - Ischium Gram Stain - Final 06/02/24 Unknown Ulcer, Decubitus - Ischium Wound Culture - Final Proteus mirabilis 06/02/24 Unknown Ulcer, Decubitus - Ischium Anaerobic Culture - Final No anaerobic bacteria isolated. D/C Instructions DC O2, CPAP, BIPAP Needs Home O2 Discharge instructions: No Meaningful Use Info Meaningful Use Meaningful Use Diagnoses (Choose all that apply): None applicable Ischemic Stroke Statin Dosing Therapy Reference: STATIN DOSE THERAPY REFERENCE: * Patients > 75 years receive moderate or high dose statin therapy. * Patients 75 years or YOUNGER should receive HIGH intensity statin dose unless contraindicated. You will be required to document reason for non-treatment if statin daily dose does not meet guidelines. HIGH DOSE STATIN THERAPY DAILY Atorvastatin > than or = to 40 mg Rosuvastatin > than or = to 20 mg Amlodipine + Atorvastatin > than or = to 2.5/40 mg Ezetimibe + Simvastatin 10/80 mg Simvastatin 80mg Discharge Plan Admission Admit Date/Time: 06/02/24 08:45 Attending Provider: Bryon Perez Primary Care Provider: Lissy Schroeder Consulting Providers: Bryon Lynch; Lisa Freedman; Darshana Callaway Instructions Additional Instructions / Restrictions: Operations Performed: [Reconstruction left ischial pressure ulcer Instructions for My Care at Home or Healthcare Facility The following instructions will help you know what to expect in the days following surgery. These are general instructions. Your surgeon and therapist may give you special instructions, which vary to some degree based on your specific procedure -- follow those as directed. Do not, however, hesitate to call if you have any questions or concerns. Splint Care/Dressing Care/Wound Care * Dry dressing to the left ischium to be changed daily * Every 4 hour drain care (strip drain and record outputs) ? Activities/positioning restrictions * No laying on the left ischium (no supine). Okay to lay all the way on the left side or on the right side or prone. * No sitting until cleared by Dr. Perez * Make sure to take the antibiotics (Zosyn) Pain Control/Medications * If you received an anesthetic block, your hand or arm may be numb for several hours. You will be discharged to home with medications, including an oral pain medication (analgesic). Rest and elevation are still one of the most important factors for pain control. Take your pain medication as needed, but do not wait for the pain to become out of control. * For severe pain, you may take prescription pain medication as directed, but please note that this may also contain Tylenol (e.g. Percocet). Do not take more than 4000mg of Tylenol (acetaminophen) from all sources daily.? * Pain medication may cause some lethargy, nausea, and or constipation. You should not drive/operate dangerous machinery while taking these medications. If these or other symptoms become significantly problematic, please your surgeon's office. * If prescribed oral antibiotics (Keflex, Clindamycin, or others), please take prescription for full duration as instructed. You should not have any pills remaining once completed (refills are written for your convenience should the course need to be extended, but generally they are not required). Diet (what I can eat): Resume normal diet Follow up * You will be seen (most likely) 1 to 2 weeks after surgery depending on the procedure. Follow-up appointment reminders:? (A list of any scheduled appointments is at the end of this document)? At your earliest convenience, please call [phone] to confirm/schedule a follow-up appointment with me in clinic. When to call your surgeon: * If any signs of surgical site infection develop: redness, pus, pain, increased swelling or foul odor at the incision site, fever, cold and clammy skin, or confusion. * Consistent temperature above 101?F (38.3?C). * The affected area gets swollen or much more painful. * You have excessive bleeding from surgical site (soaking through). If you experience difficulty breathing and/or shortness of breath, seek immediate medical attention. If experiencing any of the above complications or if you have any questions, call [phone] Discharge Orders/Prescriptions Prescriptions: New Zosyn in dextrose (iso-osm) 3.375 gram/50 mL piggyback 3.375 g IV Q8H 37 Days Rx Instructions: stop date 07/15/24. Dx: pelvic osteo. Weekly bmp, cbc, and esr. Fax to [phone]. Routine picc care per protocol. No Action gabapentin 300 mg capsule 300 mg PO QHS aluminum-magnesium hydroxide 225-200 mg/5 mL suspension 30 ml PO Q4H PRN (Reason: constipation) mineral oil [Fleet Mineral Oil] Enema 118 ml NH QDAY PRN (Reason: constipation) Rx Instructions: discard any unused portion triamcinolone acetonide 0.1 % cream 1 applic topical BID naproxen sodium [Aleve] 220 mg capsule 220 mg PO QHS polyethylene glycol 3350 [Miralax] 17 gram/dose powder 17 g PO DAILY tramadol 50 mg tablet 50 mg PO QHS mirtazapine [Remeron] 15 mg tablet 30 mg PO QHS acetaminophen 650 mg suppository 650 mg NH Q4H PRN (Reason: fever or pain) acetaminophen 325 mg tablet 650 mg PO Q4H PRN (Reason: fever or pain) guaifenesin [Cough Syrup] 100 mg/5 mL liquid 200 mg PO Q4H PRN (Reason: congestion) magnesium hydroxide [Mueller Milk of Magnesia] 400 mg/5 mL suspension 30 ml PO DAILY PRN (Reason: constipation) Referrals / Follow Up: Lissy Schroeder MD [Primary Care Provider] - Disposition Disposition (needs filled in before D/C Order can be placed): Longterm Facility
--- NOTE | 2024-06-13 10:13 | CASEMGMT ---
Discharge Planning Updates sent to [facility] with note that pt will likely return today. Linda Gomez DC Planning Asst.
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
--- NOTE | 2024-06-13 11:29 | PHA.DC.MR.R ---
Pharmacy [place] Med Reconciliation Pharmacy Service has performed discharge medication reconciliation for this patient. The patient's discharge medication list was reviewed for discrepancies and discrepancies were resolved. Medications at Discharge Home Medications acetaminophen 325 mg tablet 650 mg PO Q4H PRN fever or pain 11/01/23 acetaminophen 650 mg rectal suppository 650 mg ID Q4H PRN fever or pain 11/01/23 guaifenesin 100 mg/5 mL oral liquid (Cough Syrup) 200 mg PO Q4H PRN congestion 11/01/23 magnesium hydroxide 400 mg/5 mL oral suspension (Mueller Milk of Magnesia) 30 ml PO DAILY PRN constipation 11/01/23 naproxen sodium 220 mg capsule (Aleve) 220 mg PO QHS pain 02/15/24 polyethylene glycol 3350 17 gram/dose oral powder (Miralax) 17 g PO DAILY 02/15/24 tramadol 50 mg tablet 50 mg PO QHS pain 02/15/24 aluminum-magnesium hydroxide 225 mg-200 mg/5 mL oral suspension 30 ml PO Q4H PRN constipation 03/02/24 mineral oil (Fleet Mineral Oil enema) 118 ml ID QDAY PRN constipation 03/02/24 mirtazapine 15 mg tablet (Remeron) 30 mg PO QHS appetite 03/02/24 triamcinolone acetonide 0.1 % topical cream 1 applic topical BID 03/02/24 gabapentin 300 mg capsule 300 mg PO QHS nerve pain 03/14/24 piperacillin-tazobactam 3.375 gram/50 mL dextrose(iso-os) IV piggyback (Zosyn) 3.375 g (56.25 mL) IV Q8H 37 days 06/07/24
[2024-06-13 13:50] VITALS: BP 101/71; PULSE 90; RESP 14; TEMP 36.6; O2SAT 100
--- NOTE | 2024-06-13 15:55 | CASEMGMT ---
Social Work- SW received notice that physician feels that pt is ready for discharge. DCA notified; facility in agreement to accept today. Physician placed discharge summary at 10:11. SW reached out 11:51 to advise that a transfer to extended care was needed for discharge. SW reached out again at 12:24. SW placed green sheet and transport on chart in the event of a late discharge. DCA advised. Plan: [facility]; intermediate level of care ADITYA Hood
--- NOTE | 2024-06-13 17:16 | TREXTCAR_ITS ---
Diet Diet Order/Speech Therapy: 06/07/24 10:14 Diet: Regular - General Food consistency:: Regular Liquid Consistency:: Regular/Thin Type of Dietary Supplement:: Ensure Plus High Protein Diet Comments: extra 2oz protein @meals. 240mL EPHP ileana w/B&L, stw milkshake w/dinner DC O2, CPAP, BIPAP needs Home O2 Discharge instructions: No Wound(s) LEFT ICHIUM: Wound Type: surgical incision s/p flap closure Dressing Change: dry dressing Therapies Physical Therapy: Eval and Treat Problem/Diagnosis (1) Decubitus ulcer of left ischium, stage 4: Status: Chronic Code(s): L89.324 - Pressure ulcer of left buttock, stage 4 Plan: S/p excision and skin flap closure on 07 June 2024: Doing well overall Plan PLAN: Neuro: tylenol, ibuprophen, roxicodone for pain as needed Cardiovascular: q4 hour VS. Pulm: IS for pulmonary toilet/pneumonia prevention ID: F/u wound cultures, infectious disease consulted. Pseudomonas and Corynebacterium growing from bone. Continue IV Zosyn per infectious disease recommendation. Nystatin powder for groin twice daily, with daily washes. FEN: High protein diet. BMP every other day Hem: 40 mg Lovenox daily for pxx. Stable no signs of bleeding. GI: Continue ostomy changes as needed with nursing : Void as normal Endocrine: No concerns at this time Integumentary: Plan for VAC over incision for 1 week. VAC down tomorrow Q2 hour turns and pressure offloading of the left ischium Consults: F/u medicine recommendations. Appreciate assistance. Allergies/Procedures Done in Hospital Allergies No Known Allergies Allergy (Verified 06/02/24 07:12) Type of Care/Length of Stay Estimated LOS: More Than 30 Days Type of Care Needed: Skilled Rehab Potential: Fair Prognosis: Fair Additional Orders/Day of Discharge Day of Discharge: 06/13/24 Dietary and Speech Recommendations Dietitian Recommendations/Changes: Will adjust diet to regular diet with extra 2ounces of protein TID with meals. Will order 240ml chocolate EPHP BID with breakfast and lunch for additional protein for wound healing. Will order strawberry milkshake with dinner to promote weight gain/maintenance. Follow Up Care Please Follow Up With: Bryon Perez MD When: 1 week Discharge Plan Admission Admit Date/Time: 06/02/24 08:45 Attending Provider: Bryon Perez Primary Care Provider: Lissy Schroeder Consulting Providers: Bryon Lynch; Lisa Freedman; Darshana Callaway Instructions Additional Instructions / Restrictions: Operations Performed: [Reconstruction left ischial pressure ulcer Instructions for My Care at Home or Healthcare Facility The following instructions will help you know what to expect in the days following surgery. These are general instructions. Your surgeon and therapist may give you special instructions, which vary to some degree based on your specific procedure -- follow those as directed. Do not, however, hesitate to call if you have any questions or concerns. Splint Care/Dressing Care/Wound Care * Dry dressing to the left ischium to be changed daily * Every 4 hour drain care (strip drain and record outputs) ? Activities/positioning restrictions * No laying on the left ischium (no supine). Okay to lay all the way on the left side or on the right side or prone. * No sitting until cleared by Dr. Perez * Make sure to take the antibiotics (Zosyn) Pain Control/Medications * If you received an anesthetic block, your hand or arm may be numb for several hours. You will be discharged to home with medications, including an oral pain medication (analgesic). Rest and elevation are still one of the most important factors for pain control. Take your pain medication as needed, but do not wait for the pain to become out of control. * For severe pain, you may take prescription pain medication as directed, but please note that this may also contain Tylenol (e.g. Percocet). Do not take more than 4000mg of Tylenol (acetaminophen) from all sources daily.? * Pain medication may cause some lethargy, nausea, and or constipation. You should not drive/operate dangerous machinery while taking these medications. If these or other symptoms become significantly problematic, please your surgeon's office. * If prescribed oral antibiotics (Keflex, Clindamycin, or others), please take prescription for full duration as instructed. You should not have any pills remaining once completed (refills are written for your convenience should the course need to be extended, but generally they are not required). Diet (what I can eat): Resume normal diet Follow up * You will be seen (most likely) 1 to 2 weeks after surgery depending on the procedure. Follow-up appointment reminders:? (A list of any scheduled appointments is at the end of this document)? At your earliest convenience, please call [phone] to confirm/schedule a follow-up appointment with me in clinic. When to call your surgeon: * If any signs of surgical site infection develop: redness, pus, pain, increased swelling or foul odor at the incision site, fever, cold and clammy skin, or confusion. * Consistent temperature above 101?F (38.3?C). * The affected area gets swollen or much more painful. * You have excessive bleeding from surgical site (soaking through). If you experience difficulty breathing and/or shortness of breath, seek immediate medical attention. If experiencing any of the above complications or if you have any questions, call [phone] Discharge Orders/Prescriptions Prescriptions: New Zosyn in dextrose (iso-osm) 3.375 gram/50 mL piggyback 3.375 g IV Q8H 37 Days Rx Instructions: stop date 07/15/24. Dx: pelvic osteo. Weekly bmp, cbc, and esr. Fax to [phone]. Routine picc care per protocol. No Action gabapentin 300 mg capsule 300 mg PO QHS aluminum-magnesium hydroxide 225-200 mg/5 mL suspension 30 ml PO Q4H PRN (Reason: constipation) mineral oil [Fleet Mineral Oil] Enema 118 ml MN QDAY PRN (Reason: constipation) Rx Instructions: discard any unused portion triamcinolone acetonide 0.1 % cream 1 applic topical BID naproxen sodium [Aleve] 220 mg capsule 220 mg PO QHS polyethylene glycol 3350 [Miralax] 17 gram/dose powder 17 g PO DAILY tramadol 50 mg tablet 50 mg PO QHS mirtazapine [Remeron] 15 mg tablet 30 mg PO QHS acetaminophen 650 mg suppository 650 mg MN Q4H PRN (Reason: fever or pain) acetaminophen 325 mg tablet 650 mg PO Q4H PRN (Reason: fever or pain) guaifenesin [Cough Syrup] 100 mg/5 mL liquid 200 mg PO Q4H PRN (Reason: congestion) magnesium hydroxide [Mueller Milk of Magnesia] 400 mg/5 mL suspension 30 ml PO DAILY PRN (Reason: constipation) Referrals / Follow Up: Lissy Schroeder MD [Primary Care Provider] - Disposition Disposition (needs filled in before D/C Order can be placed): [facility]
[2024-06-13 18:19] VITALS: BP 97/66; PULSE 93; RESP 16; TEMP 36.8; O2SAT 99
[2024-06-13] MEDS: 0.9% Saline Lock 10 ML Syringe IV (19:03)
== END 2024-06-13 20:57 | disposition skilled nursing facility (03) | DRG 361 ==
PROVIDERS: Family Medicine; Internal Medicine; Student in an Organized Health Care Education/Training Program; Admitting Provider Surgery Plastic and Reconstructive Surgery; PCP Internal Medicine; Referring Provider Surgery Plastic and Reconstructive Surgery; Visit Provider Surgery Plastic and Reconstructive Surgery
PROC: 0QB30ZX Excision of Left Pelvic Bone, Open Approach, Diagnostic (ICD-10-PCS; principal; 2024-06-02 08:15)
DX: L89.324 Pressure ulcer of left buttock, stage 4 (principal); B96.5 Pseudomonas (aeruginosa) (mallei) (pseudomallei) as the cause of diseases classified elsewhere; G82.20 Paraplegia, unspecified; M86.18 Other acute osteomyelitis, other site; D62 Acute posthemorrhagic anemia; F32.A Depression, unspecified; Z93.3 Colostomy status; F41.9 Anxiety disorder, unspecified; I95.9 Hypotension, unspecified; M86.68 Other chronic osteomyelitis, other site; B37.2 Candidiasis of skin and nail; B96.4 Proteus (mirabilis) (morganii) as the cause of diseases classified elsewhere; B96.89 Other specified bacterial agents as the cause of diseases classified elsewhere; R00.0 Tachycardia, unspecified; Z98.1 Arthrodesis status; Z79.899 Other long term (current) drug therapy; Z87.891 Personal history of nicotine dependence
CPT/HCPCS: 36415; 36569; 80048; 80202; 82728; 83540; 83550; 85025; 85027; 85045; 86850; 86900; 86901; 87015; 87040; 87070; 87075; 87077; 87102; 87116; 87176; 87184; 87186; 87205; 87206; 88304; 88305; 88307; 88311; 88312; 93005; 94668; 97110; 97802; 97803; P9016; A4216; J2405

== ENCOUNTER → 2024-06-14 | Outpatient (REF) | payer MEDICAID, SELFPAY ==
[2024-06-14 07:00] LABS: Erythrocyte Sedimentation Rate 80 mm/hr (0-20)
[2024-06-14 07:02] LABS: Hematocrit 35.5 % (40-54); Hemoglobin 10.6 g/dL (13.0-16.5); Mean Corp Hgb Conc 29.9 g/dL (32-36); Mean Corpuscular Volume 70.4 fL (80-94); Mean Platelet Vol. 8.6 fl (6.2-12.0); POSITIVE MORPHOLOGY YES; Platelet Count 530 K/mm3 (150-450); RBC Distribution Width CV 24.2 % (11.6-14.6); RBC Distribution Width SD 58.3 fl (35.1-43.9); Red Blood Count 5.04 M/mm3 (4.6-6.2)
[2024-06-14 07:03] LABS: Scan Indicated on CBC? Y/N YES- FLAGS NOTED
[2024-06-14 07:12] LABS: Anion Gap 11 (5-15); BUN 15 mg/dL (4-19); BUN/Creat Ratio 20.7 RATIO (10-20); Calcium,Total 9.4 mg/dL (7.6-11.0); Carbon Dioxide 25.9 mmol/L (21.0-32.0); Chloride 104 mmol/L (98-108); Creatinine, Serum 0.74 mg/dL (0.70-1.20); EST Glomerular Filtration Rate 126 (>60); Glucose 81 mg/dL (70-99); Potassium 4.4 mmol/L (3.3-5.1); Sodium Level 141 mmol/L (133-145)
== END | disposition home or self-care (01) ==
LOC: OLS.SW 05:00
PROVIDERS: PCP Internal Medicine; Visit Provider Internal Medicine
DX: M86.9 Osteomyelitis, unspecified (principal)
CPT/HCPCS: 36415; 80048; 85027; 85652

== ENCOUNTER → 2024-06-21 | Outpatient (REF) | payer MEDICAID, SELFPAY ==
[2024-06-21 09:33] LABS: Anion Gap 10 (5-15); BUN 22 mg/dL (4-19); BUN/Creat Ratio 35.5 RATIO (10-20); Calcium,Total 8.9 mg/dL (7.6-11.0); Carbon Dioxide 21.1 mmol/L (21.0-32.0); Chloride 107 mmol/L (98-108); Creatinine, Serum 0.61 mg/dL (0.70-1.20); EST Glomerular Filtration Rate 133 (>60); Glucose 96 mg/dL (70-99); Sodium Level 139 mmol/L (133-145)
[2024-06-21 09:34] LABS: Erythrocyte Sedimentation Rate 31 mm/hr (0-20)
[2024-06-21 09:37] LABS: Hematocrit 33.3 % (40-54); Hemoglobin 10.1 g/dL (13.0-16.5); Mean Corp Hgb Conc 30.3 g/dL (32-36); Mean Corpuscular Hgb 21.4 pg (27.0-32.0); Mean Corpuscular Volume 70.4 fL (80-94); Mean Platelet Vol. 9.6 fl (6.2-12.0); POSITIVE MORPHOLOGY YES; Platelet Count 460 K/mm3 (150-450); RBC Distribution Width CV 26.1 % (11.6-14.6); RBC Distribution Width SD 63.2 fl (35.1-43.9); Red Blood Count 4.73 M/mm3 (4.6-6.2); White Blood Count 10.8 K/mm3 (4.4-11.0)
[2024-06-21 09:38] LABS: Scan Indicated on CBC? Y/N YES- FLAGS NOTED
== END | disposition home or self-care (01) ==
LOC: OLS.SW 07:44
PROVIDERS: PCP Internal Medicine; Visit Provider Internal Medicine
DX: M86.9 Osteomyelitis, unspecified (principal)
CPT/HCPCS: 36415; 80048; 85027; 85652

== ENCOUNTER → 2024-06-28 | Outpatient (REF) | payer MEDICAID, SELFPAY ==
[2024-06-28 09:47] LABS: Erythrocyte Sedimentation Rate 48 mm/hr (0-20)
[2024-06-28 09:49] LABS: Anion Gap 10 (5-15); BUN 24 mg/dL (4-19); BUN/Creat Ratio 31.5 RATIO (10-20); Calcium,Total 8.9 mg/dL (7.6-11.0); Carbon Dioxide 22.7 mmol/L (21.0-32.0); Chloride 108 mmol/L (98-108); Creatinine, Serum 0.75 mg/dL (0.70-1.20); EST Glomerular Filtration Rate 125 (>60); Glucose 93 mg/dL (70-99); Potassium 4.1 mmol/L (3.3-5.1); Sodium Level 140 mmol/L (133-145)
[2024-06-28 09:50] LABS: Hemoglobin 10.3 g/dL (13.0-16.5); Mean Corp Hgb Conc 29.4 g/dL (32-36); Mean Corpuscular Hgb 21.2 pg (27.0-32.0); Mean Corpuscular Volume 72.2 fL (80-94); POSITIVE MORPHOLOGY YES; Platelet Count 360 K/mm3 (150-450); RBC Distribution Width CV 25.9 % (11.6-14.6); Red Blood Count 4.85 M/mm3 (4.6-6.2)
[2024-06-28 09:53] LABS: Scan Indicated on CBC? Y/N YES- FLAGS NOTED
== END | disposition home or self-care (01) ==
LOC: OLS.SW 05:00
PROVIDERS: PCP Internal Medicine; Visit Provider Internal Medicine
DX: M86.9 Osteomyelitis, unspecified (principal)
CPT/HCPCS: 36415; 80048; 85027; 85652

== ENCOUNTER → 2024-07-05 | Outpatient (REF) | payer MEDICAID, SELFPAY ==
[2024-07-05 07:40] LABS: Anion Gap 11 (5-15); BUN 19 mg/dL (4-19); BUN/Creat Ratio 30.1 RATIO (10-20); Calcium,Total 8.7 mg/dL (7.6-11.0); Chloride 107 mmol/L (98-108); Creatinine, Serum 0.61 mg/dL (0.70-1.20); EST Glomerular Filtration Rate 133 (>60); Glucose 122 mg/dL (70-99); Potassium 3.7 mmol/L (3.3-5.1); Sodium Level 140 mmol/L (133-145)
[2024-07-05 08:03] LABS: Erythrocyte Sedimentation Rate 20 mm/hr (0-20); Hematocrit 34.4 % (40-54); Hemoglobin 10.3 g/dL (13.0-16.5); Mean Corp Hgb Conc 29.9 g/dL (32-36); Mean Corpuscular Hgb 21.6 pg (27.0-32.0); Mean Corpuscular Volume 72.1 fL (80-94); Mean Platelet Vol. 10.2 fl (6.2-12.0); POSITIVE MORPHOLOGY YES; Platelet Count 250 K/mm3 (150-450); RBC Distribution Width SD 65.4 fl (35.1-43.9); Red Blood Count 4.77 M/mm3 (4.6-6.2); White Blood Count 7.3 K/mm3 (4.4-11.0)
[2024-07-05 08:07] LABS: Scan Indicated on CBC? Y/N YES- FLAGS NOTED
== END | disposition home or self-care (01) ==
LOC: OLS.SW 04:00
PROVIDERS: PCP Internal Medicine; Referring Provider Internal Medicine; Visit Provider Internal Medicine
DX: M86.9 Osteomyelitis, unspecified (principal)
CPT/HCPCS: 36415; 80048; 85027; 85652

== ENCOUNTER → 2024-07-12 | Outpatient (REF) | payer MEDICAID, SELFPAY ==
[2024-07-12 09:19] LABS: Erythrocyte Sedimentation Rate 13 mm/hr (0-20)
[2024-07-12 09:24] LABS: Hematocrit 34.6 % (40-54); Hemoglobin 10.5 g/dL (13.0-16.5); Mean Corp Hgb Conc 30.3 g/dL (32-36); Mean Corpuscular Hgb 22.2 pg (27.0-32.0); Mean Corpuscular Volume 73.2 fL (80-94); Mean Platelet Vol. 10.4 fl (6.2-12.0); POSITIVE MORPHOLOGY YES; Platelet Count 234 K/mm3 (150-450); RBC Distribution Width CV 26.4 % (11.6-14.6); RBC Distribution Width SD 67.2 fl (35.1-43.9); Red Blood Count 4.73 M/mm3 (4.6-6.2); White Blood Count 6.1 K/mm3 (4.4-11.0)
[2024-07-12 09:25] LABS: Scan Indicated on CBC? Y/N YES- FLAGS NOTED
[2024-07-12 11:28] LABS: Anion Gap 10 (5-15); BUN 18 mg/dL (4-19); BUN/Creat Ratio 31.2 RATIO (10-20); Calcium,Total 8.9 mg/dL (7.6-11.0); Carbon Dioxide 23.7 mmol/L (21.0-32.0); Chloride 108 mmol/L (98-108); Creatinine, Serum 0.58 mg/dL (0.70-1.20); EST Glomerular Filtration Rate 136 (>60); Glucose 117 mg/dL (70-99); Potassium 3.8 mmol/L (3.3-5.1); Sodium Level 142 mmol/L (133-145)
== END | disposition home or self-care (01) ==
LOC: OLS.SW 05:00
PROVIDERS: PCP Internal Medicine; Visit Provider Internal Medicine
DX: M86.9 Osteomyelitis, unspecified (principal)
CPT/HCPCS: 36415; 80048; 85027; 85652

== ENCOUNTER 2024-07-13 13:30 | Outpatient (RCR) | payer MEDICAID, SELFPAY ==
[2024-06-15 00:10] VITALS: BP 96/56; PULSE 78; RESP 18; TEMP 35.8; BMI 16.6
[2024-06-19 09:48] VITALS: BP 96/50; PULSE 73; RESP 16; TEMP 35.9; BMI 16.6
--- NOTE | 2024-06-19 10:06 | PCM.PN.SRG ---
Subjective Subjective Pain controlled. Endorses good drain care but there are no outputs reordered today for us to evaluate. Objective Data Objective Data Vital Signs: Vital Signs Temp Pulse Resp BP O2 Del Method 96.6 F L 73 16 96/50 L Room Air 06/19/24 09:48 06/19/24 09:48 06/19/24 09:48 06/19/24 09:48 06/19/24 09:48 Oxygen Delivery Method Room Air Weight: 140 lb Body Mass Index (BMI) 16.6 Physical Exam Narrative Suture line clean dry and intact on the left ischium. Skin is reepithelialized. The sutures are overgrowing with healed skin. No dehiscence. Drain SS No induration or signs of fluid collection Const alert and oriented x3 General Appearance: cooperative HEENT normocephalic Chest inspection of chest normal Resp normal respiratory effort Cardio regular rate and regular rhythm GI GI Narrative: Stool in the ostomy Assessment & Plan Assessment/Plan (1) Decubitus ulcer of left ischium, stage 4: PLAN: S/p excision and skin flap closure on 07 June 2024: Doing well overall PLAN: Plan Sutures removed in clinic today (were becoming buried secondary to healing skin). Continue IV antibiotics per infectious disease (6-week course through PICC line). Continue pressure offloading (no sitting for another week). Healing well with anticipated course thus far Charges/Coding Procedures Integumentary 111xxx-113xx: 86105 Global Visit
--- NOTE | 2024-06-19 14:33 | WC ---
PHOTO 06/19/24 LEFT ISCHIAL POST OP
--- NOTE | 2024-06-20 15:25 | WC ---
[facility] called and left a message stating that per their policy they do not measure and record input and output so they cannot supply a 24h output of his MONTSERRAT drain. It has been requested to put a stop on the output on Wednesday to allow WC nursing to drain his MONTSERRAT and measure output during visit.
--- NOTE | 2024-06-21 09:24 | WC ---
LEE NURSE AT [facility] CALLED YESTERDAY, SPOKE W/ BENJAMIN TROTTER HERE AND GAVE UPDATE THAT THEIR FACILITY PER POLICY DOES NOT RECORD INTAKE/OUTPUT FOR ANY PATIENT. I CALLED TODAY AND SPOKE BRIEFLY W/ LEE RN AGAIN ASKING IF THEY COULD MAKE AN EXCEPTION AND RECORD MONTSERRAT OUTPUT UNTIL NEXT WOUND CENTER VISIT, PER DR RODAS'S REQUEST, FOR HIS REVIEW. SHE SAID NO. I CALLED AND SPOKE W/ LIZZ KIRKPATRICK WHO ALSO REITERATED THAT COMPANY POLICY DICTATES NO I/O BE RECORDED DUE TO POTENTIAL FOR ERROR. I SUGGESTED THAT HEMALATHA WRITE IT DOWN WHEN THEY EMPTY IT, SHE SAID THAT WOULD BE OK, BUT WAS UNWILLING TO UPDATE PT OR STAFF ON THAT. SAID SHE WON'T BE BACK TO WORK UNTIL WEDNESDAY. THIS NURSE TRIED TO CALL PT AND HIS CELL NUMBER IS OUT OF SERVICE.
[2024-06-26 08:47] VITALS: BP 137/84; PULSE 99; RESP 18; TEMP 36.2; BMI 16.6
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
--- NOTE | 2024-06-28 09:35 | WC ---
PHOTO 06/26/24 LEFT ISCHIUM (H)
--- NOTE | 2024-07-12 11:37 | WC ---
receieved call from [facility] Jessika stated that pts PICC line came out and pt has 2 doses of Zosyn left asking if needed to replace PICC line. Message sent to Dr. Perez - Dr. Perez wants PICC line replaced and last doses of antibiotic given. Called Raj back and informed her of Dr. Stewart wanting PICC replaced. she will send pt to ER to get PICC replaced.
[2024-07-13 13:28] VITALS: BP 116/78; PULSE 92; RESP 16; TEMP 36.7; BMI 16.6
--- NOTE | 2024-07-14 09:10 | PCM.PN.SRG ---
Subjective Subjective Patient doing well overall and has 1 more dose of IV antibiotic (had PICC line replaced this week as it fell out). He reports that he was playing video games and forgot about his pressure sore and sat on the ischial wound for maybe 2 hours. Reports that otherwise he was trying to gradually increase sitting time 3 times per day by 5 minutes as indicated by the protocol. After his prolonged period of pressure on the left ischial wound closure scar line, he developed a left gluteal skin breakdown. Objective Data Objective Data Vital Signs: Vital Signs Temp Pulse Resp BP O2 Del Method 98.0 F 92 16 116/78 Room Air 07/13/24 13:28 07/13/24 13:28 07/13/24 13:28 07/13/24 13:28 06/19/24 09:48 Oxygen Delivery Method Room Air Weight: 140 lb Body Mass Index (BMI) 16.6 Physical Exam Narrative No induration or signs of fluid collection. Good padding over the left ischium 1 x 2 cm full-thickness wound with approximately 0.1 cm depth along the left ischial wound closure scar line on the left gluteal region. No underlying fluid collections. Stage III. This is a new wound along the previous scar line that had healed. Const alert and oriented x3 General Appearance: cooperative HEENT normocephalic Chest inspection of chest normal Resp normal respiratory effort Cardio regular rate and regular rhythm GI GI Narrative: Stool in the ostomy Assessment & Plan Assessment/Plan (1) Wound, open, buttock: PLAN: S/p excision and skin flap closure on 07 June 2024 for a left ischial wound and was noted to be completely healed on 27 Jun 2024 with complete skin reepithelialization. Today's wound is a new pressure sore. Patient developed small pressure injury to the suture line after prolonged sitting since her last visit when he was healed. Discussed importance of position changes, especially after long increments like 2 hours, while sitting. Plan for Xeroform changes twice daily and pressure offloading of the left gluteal region. Patient happy with the plan. Follow-up in 2 weeks PLAN: Plan No debridement was performed today Charges/Coding Visit Charges Office Visits / Consults: 66424 OV L3 Est 20min (This is a new wound and a new problem)
--- NOTE | 2024-07-14 12:57 | WC ---
PHOTO LEFT ISCHIUM
== END 2024-07-15 23:59 | disposition home or self-care (01) ==
LOC: WC 13:30
PROVIDERS: PCP Internal Medicine; Referring Provider Surgery Plastic and Reconstructive Surgery; Visit Provider Surgery Plastic and Reconstructive Surgery
DX: L89.323 Pressure ulcer of left buttock, stage 3 (principal); G82.20 Paraplegia, unspecified; Z93.3 Colostomy status; Z98.890 Other specified postprocedural states
CPT/HCPCS: 99213; 99214; G0463

== ENCOUNTER 2024-07-24 09:23 | Outpatient (RCR) | payer MEDICAID, SELFPAY ==
[2024-07-16 00:09] VITALS: BP 116/78; PULSE 92; RESP 16; TEMP 36.7; BMI 16.6
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
[2024-07-24 09:29] VITALS: BP 117/76; PULSE 86; RESP 16; TEMP 36.7; BMI 16.6
== END 2024-08-14 23:59 | disposition home or self-care (01) ==
LOC: WC 09:23
PROVIDERS: PCP Internal Medicine; Referring Provider Surgery Plastic and Reconstructive Surgery; Visit Provider Surgery Plastic and Reconstructive Surgery
DX: L89.323 Pressure ulcer of left buttock, stage 3 (principal); G82.20 Paraplegia, unspecified; Z79.899 Other long term (current) drug therapy; Z87.39 Personal history of other diseases of the musculoskeletal system and connective tissue
CPT/HCPCS: 11042

== ENCOUNTER 2024-08-21 08:44 | Outpatient (RCR) | payer MEDICAID, SELFPAY ==
[2024-08-21 08:57] VITALS: BP 114/68; PULSE 82; RESP 18; TEMP 35.7
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
--- NOTE | 2024-08-22 08:49 | WC ---
PHOTO 08/21/24 LEFT ISCHIUM
== END 2024-08-29 09:08 | disposition home or self-care (01) ==
LOC: WC 08:44
PROVIDERS: PCP Internal Medicine; Referring Provider Surgery Plastic and Reconstructive Surgery; Visit Provider Surgery Plastic and Reconstructive Surgery
DX: Z09 Encounter for follow-up examination after completed treatment for conditions other than malignant neoplasm (principal); G82.20 Paraplegia, unspecified; Z79.899 Other long term (current) drug therapy; Z87.39 Personal history of other diseases of the musculoskeletal system and connective tissue
CPT/HCPCS: 99213; G0463

== ENCOUNTER 2024-09-07 07:51 | Outpatient (RCR) | payer MEDICAID, SELFPAY ==
[2024-09-07 08:14] VITALS: BP 116/71; PULSE 70; RESP 16; TEMP 36.1
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
--- NOTE | 2024-09-07 15:21 | WC ---
PHOTO-LEFT ISCHIAL 09/07/24
== END 2024-09-14 14:47 | disposition home or self-care (01) ==
LOC: WC 07:51
PROVIDERS: PCP Internal Medicine; Referring Provider Internal Medicine; Visit Provider Internal Medicine
DX: L89.323 Pressure ulcer of left buttock, stage 3 (principal); G82.20 Paraplegia, unspecified; Z98.890 Other specified postprocedural states; Z79.899 Other long term (current) drug therapy; Z59.00 Homelessness unspecified; Z87.891 Personal history of nicotine dependence
CPT/HCPCS: 11042; 99213; G0463

== ENCOUNTER → 2024-11-21 05:00 | Outpatient (REF) | payer MEDICAID, SELFPAY ==
[2024-11-21 09:58] LABS: Hematocrit 42.5 % (40-54); Hemoglobin 13.5 g/dL (13.0-16.5); Immature Granulocytes Count 0.030 X10^3/uL (0.0-0.0); Mean Corp Hgb Conc 31.8 g/dL (32-36); Mean Corpuscular Volume 78.4 fL (80-94); Mean Platelet Vol. 10.2 fl (6.2-12.0); NRBC Flagged by Analyzer 0 % (0-5); Platelet Count 273 K/mm3 (150-450); RBC Distribution Width CV 15.5 % (11.6-14.6); RBC Distribution Width SD 43.7 fl (35.1-43.9); Red Blood Count 5.42 M/mm3 (4.6-6.2); White Blood Count 7.8 K/mm3 (4.4-11.0)
[2024-11-21 10:12] LABS: AST(SGOT) 18 U/L (<=37); Alanine Aminotransfer ALT/SGPT 25 U/L (<=46); Albumin, Serum 3.9 g/dL (3.5-5.0); Alkaline Phosphatase 89 U/L (40-129); Anion Gap 11 (5-15); BUN 18 mg/dL (4-19); BUN/Creat Ratio 26.4 RATIO (10-20); Calcium,Total 9.0 mg/dL (7.6-11.0); Carbon Dioxide 24.2 mmol/L (21.0-32.0); Chloride 106 mmol/L (98-108); Globulin 2.7 g/dL (2.2-4.2); Glucose 112 mg/dL (70-99); Potassium 4.0 mmol/L (3.3-5.1)
== END ==
LOC: OLS.SW 05:00
PROVIDERS: PCP Internal Medicine; Visit Provider Internal Medicine
DX: E03.9 Hypothyroidism, unspecified (principal); R53.83 Other fatigue; G82.21 Paraplegia, complete
CPT/HCPCS: 36415; 80053; 83036; 85025